=== PATIENT | female | born 1950 | race Two or more races ===

== ENCOUNTER 2016-10-02 22:33 | Inpatient (IN) | payer MEDICARE, BC ==
[~2016-10-02] VITALS: Ht 162.6 cm; Wt 72.3 kg
[2016-10-03 03:48] VITALS: TEMP 99.1
[2016-10-03] MEDS ORDERED: ONDANSETRON 4 MG INJ IV STA (04:04)
[2016-10-03] MEDS ORDERED: morphine 4 MG/ML VIAL IV STA (04:04)
--- NOTE | 2016-10-03 05:07 | RADRPT ---
PROCEDURE: CT ABDOMEN/PELVIS WITHOUT CONTRAST CLINICAL INDICATION: 66-year-old female with abdominal pain. TECHNIQUE: The study was performed utilizing a [employer] VCT 64-slice CT scanner. Direct axia l sections were obtained through the abdomen and pelvis without the use of intravenous contrast mate rial. Sagittal and coronal reformations were obtained. One or more of the following dose reduction t echniques were utilized: automated exposure control, adjustment of the mA and/or kV according to pat ient's size or use of iterative reconstruction technique. The images were reviewed on a PACS workst [employer]. CTD/vol = 15.5 mGy; Total Exam DLP = 873.9 mGy-cm. COMPARISON: CT abdomen/pelvis September 14, 2013. FINDINGS: Proximal coronary artery calcifications are present. There is a calcified ovoid granuloma again brandee ntified within the lateral aspect of the left lung base on axial image 3-33 measuring 8 x 7 mm. The re is minimal bibasilar subsegmental atelectasis and scarring. There is a small left pleural effusi on. The liver has a normal size and contour. There is diffuse decreased density throughout the niru er suggestive of fatty infiltration. There is an ovoid calcific density within the medial aspect of the right lobe of the liver on axial image 3-66 measuring approximately 5 x 4 mm. No intrahepatic n or extrahepatic biliary ductal dilatation is seen. The gallbladder is difficult to visualize and rosio ears to be decompressed without evidence for calcified stones. There is mild free fluid identified w ithin the upper abdomen. The pancreas is atrophic but without areas of abnormal attenuation. 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 The adrenal glands are unremarkable. The kidneys are without abnormal density. No hydr oureteronephrosis nor nephroureterolithiasis is evident. The urinary bladder contains urine. There i s evidence for bowel resection. There has been a upper abdominal midline incision with adherent loo ps of bowel and diastases of the rectus muscles. Mild retained stool is seen within the colon witho ut obstruction. The appendix is not visualized. The uterus is not visualized consistent with inter janice hysterectomy. Phleboliths are identified within the pelvis. There is no significant pelvic anders e fluid. The aortoiliac vessels are mildly calcified but without aneurysmal dilatation. Degenerative changes are present within the spine. IMPRESSION: 1. Left lung base 8 x 7 mm calcified granuloma. 2. Fatty infiltration of the liver. 3. Mild upper abdominal ascites. 4. Status post splenectomy. 5. Prior bowel resection without gross bowel obstruction. 6. Status post hysterectomy. 7. Vascular calcifications. 8. Degenerative changes within the spine. .Lennox Franz MD, MD Date Time Electronically viewed and signed by .Lennox Franz MD, MD on 10/03/2016 05:07 .Lata
[2016-10-03 05:31] LABS: ADD UMIC YES; URINE BILIRUBIN (Dip) NEGATIVE (NEGATIVE); URINE BLOOD (Dip) 1+ (NEGATIVE); URINE COLOR LT. YELLOW (YELLOW); URINE GLUCOSE (Dip) NEGATIVE (NEGATIVE); URINE KETONES (Dip) NEGATIVE (NEGATIVE); URINE LEUKOCYTE ESTERASE (Dip) 1+ (NEGATIVE); URINE NITRITE (Dip) NEGATIVE (NEGATIVE); URINE TOTAL PROTEIN (Dip) TRACE (NEGATIVE); URINE UROBILINOGEN (Dip) 0.2 E.U./dL (0.1-1.0)
--- NOTE | 2016-10-03 05:40 | ERA ---
ER Documentation Chief Complaint Date/Time DATE: 10/03/16 TIME: 05:40 Chief Complaint LEFT SIDE ABD PAIN AND SWELLING SINCE SAT HX OF OVARIAN AND BREAST CA HPI This is a 66 year for left-sided abdominal pain and swelling. Patient has history of ovarian and breast cancer. Denies any fevers or chills. Denies any nausea vomiting. Denies any other current issues. ROS All systems reviewed and are negative except as per history of present illness. Allergies Allergies: Coded Allergies: No Known Allergy (Unverified , 09/14/13) PMhx/Soc History of Surgery: Yes (total hysterectomy, splenectomy,left side mastectomy) Anesthesia Reaction: No Hx Neurological Disorder: No Hx Respiratory Disorders: No Hx Cardiac Disorders: No Hx Psychiatric Problems: Yes (anxiety) Hx Miscellaneous Medical Probl: Yes (breast CA,ovarian CA) Hx Alcohol Use: Yes (rarely) Hx Substance Use: No Hx Tobacco Use: Yes (socially, quit) Smoking Status: Former smoker Physical Exam Vitals Vital Signs Date Time Temp Pulse Resp B/P Pulse Ox O2 Delivery O2 Flow Rate FiO2 10/03/16 03:48 99.1 97 18 120/60 94 Room Air 10/02/16 23:14 99.6 99 22 117/72 95 Physical Exam Const: [] Head: Atraumatic Eyes: Normal Conjunctiva ENT: Normal External Ears, Nose and Mouth. Neck: Full range of motion..~ No meningismus. Resp: Clear to auscultation bilaterally Cardio: Regular rate and rhythm, no murmurs Abd: Soft, non tender, non distended. Normal bowel sounds Skin: No petechiae or rashes Back: No midline or flank tenderness Ext: No cyanosis, or edema Neur: Awake and alert Psych: Normal Mood and Affect Results 24 hrs Laboratory Tests Test 10/03/16 04:36 Urine Color LT. YELLOW Urine Clarity CLEAR Urine pH 6.0 Urine Specific [place] 1.020 Urine Ketones NEGATIVE Urine Nitrite NEGATIVE Urine Bilirubin NEGATIVE Urine Urobilinogen 0.2 E.U./dL Urine Leukocyte Esterase 1+ Urine Microscopic RBC Pending Urine Microscopic WBC Pending Urine Hemoglobin 1+ Urine Glucose NEGATIVE% Urine Total Protein TRACE Current Medications Medications (Trade) Dose Ordered Sig/Coral Route PRN Reason Start Time Stop Time Status Last Admin Dose Admin Morphine Sulfate (morphine) 4 mg ONCE STAT IV 10/03/16 04:04 10/03/16 04:06 DC 10/03/16 04:54 Ondansetron HCl (Zofran Inj) 4 mg ONCE STAT IV 10/03/16 04:04 10/03/16 04:06 DC 10/03/16 04:54 Procedures/MDM Medical decision-making: Patient has evidence of ascites on exam. This will need to be evaluated. Patient will be admitted to the [facility] physician. Departure Diagnosis: Primary Impression: Abdominal pain Qualified Code: R10.84 - Generalized abdominal pain Condition: Stable BRADLEY RODRIGUEZ Oct 03, 2016 05:40
[2016-10-03 05:54] LABS: BACTERIA,URINE OCCASIONAL; SQUAMOUS EPITHELIAL CELL,UR FEW; URINE RBCS 0-2 /HPF (0)
[2016-10-03 05:59] LABS: ADD SCAN DIFF NO
[2016-10-03 06:11] LABS: BASOPHIL # 0.1 10^3/ul (0.0-0.1); BASOPHILS % 0.4 % (0.0-2.0); EOSINOPHILS # 0.1 10^3/ul (0.0-0.5); EOSINOPHILS % 0.6 % (0.0-7.0); HEMATOCRIT 32.5 % (37.0-47.0); HEMOGLOBIN 10.7 g/dl (12.0-16.0); LYMPHOCYTES # 3.7 10^3/ul (0.8-2.9); LYMPHOCYTES % 29.9 % (15.0-51.0); MEAN CORPUSCULAR HEMOGLOBIN 31.5 pg (29.0-33.0); MEAN CORPUSCULAR HGB CONC 32.9 g/dl (32.0-37.0); MEAN CORPUSCULAR VOLUME 95.6 fl (82.0-101.0); MEAN PLATELET VOLUME 10.3 fl (7.4-10.4); MONOCYTE # 1.5 10^3/ul (0.3-0.9); MONOCYTES % 11.8 % (0.0-11.0); NEUTROPHIL # 7.1 10^3/ul (1.6-7.5); NEUTROPHILS % 56.9 % (39.0-77.0); NUCLEATED RED BLOOD CELLS% 0.3 /100WBC (0.0-0.0); PLATELET COUNT 460 10^3/UL (140-415); RED CELL DISTRIBUTION WIDTH 14.1 % (11.5-14.5); WHITE BLOOD COUNT 12.5 10^3/ul (4.8-10.8)
[2016-10-03 06:15] LABS: ALBUMIN 3.9 g/dl (3.3-4.9); POTASSIUM 3.7 mmol/L (3.5-5.1)
[2016-10-03 06:17] LABS: BILIRUBIN,INDIRECT 0.5 mg/dl (0-1.1); BILIRUBIN,TOTAL 0.5 mg/dl (0.2-1.3); CREATININE 0.67 mg/dl (0.44-1.00)
[2016-10-03 06:18] LABS: ALBUMIN/GLOBULIN RATIO 0.97; TOTAL PROTEIN 7.9 g/dl (6.1-8.1)
[2016-10-03 06:32] LABS: INR 0.99; PROTIME 13.1 Sec (12.2-14.2)
[2016-10-03] MEDS ORDERED: FOLI-49 PO (06:51)
[2016-10-03] MEDS ORDERED: DOCU-144 PO (06:51)
[2016-10-03] MEDS ORDERED: LORA1TAB PO (06:51)
[2016-10-03] MEDS ORDERED: LACT20SO2 PO (06:52)
[2016-10-03] MEDS ORDERED: PROP40TA4 PO (06:53)
[2016-10-03] MEDS ORDERED: METO10TA96 PO (06:53)
[2016-10-03] MEDS ORDERED: GABA300C16 PO (06:54)
[2016-10-03] MEDS ORDERED: RIVA20TA PO (06:57)
[2016-10-03] MEDS ORDERED: LINA145C PO (06:57)
[2016-10-03] MEDS ORDERED: MEMA28CA PO (06:58)
[2016-10-03 08:43] VITALS: BP 105/51; RESP 18
[2016-10-03 09:00] VITALS: Ht 162.6 cm; Wt 72.3 kg
[2016-10-03] MEDS: ACETAMINOPHEN 325 MG TAB PO PRN (12:00)
[2016-10-03] MEDS: DEXTROSE 5%-0.45% NACL 1,000 ML IV SCH (12:30)
--- NOTE | 2016-10-03 13:14 | PN ---
Date/Time of Note Date/Time of Note DATE: 10/03/16 TIME: 13:07 Assessment/Plan VTE Prophylaxis VTE Prophylaxis Intervention: SCD's Lines/Catheters IV [facility] [place] Assessment/Plan Chief Complaint/Hosp Course A- known recurrent disease per CA-125 and PET/CT 09/28/16 P- Stabilize, prep and schedule [facility] complete consultation Problems: Subjective 24 Hr Interval Summary Free Text/Dictation S- 66y/o female well known to me with operable recurrent ovarian cancer for whom secondary cytoreduction was planned but she came to the ER due to N/V last night and increased pain. Patient and family called [facility] as nurses and ER did not despite requests by patient and family. O- Resp- clear CVS- NSR Abd LUQ and pelvic pain with some distension. Pelvis-minimal cul-de-sac nodularity Ext- minimal edema A- known recurrent disease per CA-125 and PET/CT 09/28/16 P- Stabilize, prep and schedule [facility] complete consultation Exam/Review of Systems Vital Signs Vitals Vital Signs Date Time Temp Pulse Resp B/P Pulse Ox O2 Delivery O2 Flow Rate FiO2 10/03/16 08:43 98.4 94 18 105/51 90 10/03/16 07:46 Nasal Cannula 2.0 Results Result Diagram: 10/03/16 0546 10/03/16 0546 Results 24 hrs Laboratory Tests Test 10/03/16 04:36 10/03/16 05:46 Urine Color LT. YELLOW Urine Clarity CLEAR Urine pH 6.0 Urine Specific [place] 1.020 Urine Ketones NEGATIVE Urine Nitrite NEGATIVE Urine Bilirubin NEGATIVE Urine Urobilinogen 0.2 E.U./dL Urine Leukocyte Esterase 1+ H Urine Microscopic RBC 0-2 Urine Microscopic WBC 2-5 Urine Squamous Epithelial Cells FEW Urine Bacteria OCCASIONAL Urine Hemoglobin 1+ H Urine Glucose NEGATIVE Urine Total Protein TRACE White Blood Count 12.5 H Red Blood Count 3.40 L Hemoglobin 10.7 L Hematocrit 32.5 L Mean Corpuscular Volume 95.6 Mean Corpuscular Hemoglobin 31.5 Mean Corpuscular Hemoglobin Concent 32.9 Red Cell Distribution Width 14.1 Platelet Count 460 H Mean Platelet Volume 10.3 Neutrophils % 56.9 Lymphocytes % 29.9 Monocytes % 11.8 H Eosinophils % 0.6 Basophils % 0.4 Nucleated Red Blood Cells % 0.3 H Neutrophils # 7.1 Lymphocytes # 3.7 H Monocytes # 1.5 H Eosinophils # 0.1 Basophils # 0.1 Nucleated Red Blood Cells # 0.0 Prothrombin Time 13.1 Prothrombin Time Ratio 1.0 INR International Normalized Ratio 0.99 Activated Partial Thromboplast Time 28.0 Sodium Level 137 Potassium Level 3.7 Chloride Level 100 Carbon Dioxide Level 26 Anion Gap 15 Blood Urea Nitrogen 14 Creatinine 0.67 Glucose Level 112 Calcium Level 9.0 Total Bilirubin 0.5 Direct Bilirubin 0.00 Indirect Bilirubin 0.5 Aspartate Amino Transf (AST/SGOT) 24 Alanine Aminotransferase (ALT/SGPT) 23 Alkaline Phosphatase 70 Total Protein 7.9 Albumin 3.9 Globulin 4.00 H Albumin/Globulin Ratio 0.97 Lipase 27 Medications Medications Current Medications Acetaminophen 650 mg 650 mg Q6H PRN PO PAIN AND OR ELEVATED TEMP; Start at 11:00 Dextrose/Sodium Chloride (D5-1/2ns) 1,000 ml @ 75 mls/hr [id number] IV ; Start 10/03/16 at 13:00 JAMES NÚÑEZ MD Oct 03, 2016 13:14
--- NOTE | 2016-10-03 13:24 | HP ---
DATE OF ADMISSION: 10/03/2016 CHIEF COMPLAINT: Left lower quadrant abdominal pain and nausea. HISTORY OF PRESENT ILLNESS: The patient is a 66-year-old female with a past medical history positiv e for breast cancer status post left mastectomy 18 years ago in [facility] and status post radiation. T he patient also had a history of ovarian cancer status post surgery with Dr. Zeng 3 years ago an d repeat surgery 2-1/2 years ago including oophorectomy and hysterectomy. Details are not available . According to the patient's daughter who was at the bedside, notes she also had some colon involve ment. The patient also status post chemotherapy, follows with and completed this chemothe rapy 5 months ago. However, patient stated that checked her CA125 which was elevated to 473. The p atient also had a recent PET scan. The patient denies having any diabetes, denies any heart problems, denies any history of stroke. Th e patient has a right chest Perm-A-Cath catheter. The patient stated that she developed left upper quadrant pain and tenderness on palpation, also accompanied with nausea and vomiting. The patient h ad a poor appetite and did not eat anything yesterday. The patient was presented with following sym ptoms to the emergency room. The patient was given Zofran and morphine and admitted for further molly luation and management to medical/surgical floor. PAST MEDICAL HISTORY/PAST SURGICAL HISTORY: Per HPI. The patient also had a recent history of deep venous thrombosis of the right lower extremity, status post taking Xarelto. The patient with metas tatic adenocarcinoma ovarian cancer. Patient also with history of hypertension, osteoarthritis, and anxiety. FAMILY HISTORY: Noncontributory. SOCIAL HISTORY: The patient lives at home with her family, patient denies any tobacco use, denies a ny alcohol use, denies any illicit drug use. Patient is a former smoker. REVIEW OF SYSTEMS: A 12-point review of systems is negative unless was mentioned in the HPI. PHYSICAL ASSESSMENT: GENERAL: Well-developed, well-nourished, obese female currently is awake, alert. HEENT: Head is atraumatic, normocephalic. Pupils equal, round, reactive to light and accommodation . Oral mucosa is pink and moist. NECK: Supple, no cervical lymphadenopathy, no thyromegaly. CHEST: Lungs clear bilaterally. There is no rhonchi, wheezes, rales noted. CARDIOVASCULAR: Normal S1, S2. No murmurs, gallops, clicks, rubs noted. GASTROINTESTINAL: Abdomen is protuberant, soft and nondistended. Patient relates left upper quadra nt tenderness on palpation. EXTREMITIES: No edema, clubbing, cyanosis. Pulses equal bilaterally 2+. SKIN: There is no rash, petechiae noted. NEUROLOGIC: Patient is awake, alert and oriented x4. No focal deficits noted. Motor strength 5/5 in all extremities. LABORATORY DATA: I cannot dictate laboratory data on admission and radiologic test results due to c omputers are currently down. No electrolyte abnormalities reported. ASSESSMENT AND PLAN: 1. Abdominal pain. I was going to obtain a CT scan of the abdomen and asked Dr. Allen to see chiara ent in gastroenterology consultation. Continue Zofran p.r.n. for nausea and morphine p.r.n. for tigre n. 2. 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 Zeng 3 years ago[address] ask Dr. Oliva to see patient in hematology/oncology consultation. 3. Hypertension. Continue to monitor patient's blood pressure. Hydralazine p.r.n. for systolic bl ood pressure above 170. 4. Anxiety. 5. Continue IV fluids. Keep patient n.p.o. Continue Lovenox for deep venous thrombosis prophylaxi s and Protonix for peptic ulcer disease prophylaxis. 6. Further recommendations based on clinical course. Plan of care discussed with Dr. Norton. Dictated By: AMEE JIMENEZ RESEARCH PROGRAM ASSISTANT for LOTTIE NORTON MD SR/NTS Conf#: [id number] DID#: [id number]
--- NOTE | 2016-10-03 16:49 | RADRPT ---
PROCEDURE: US bilateral lower extremity veins. CLINICAL INDICATION: Bilateral leg pain and swelling. TECHNIQUE: Multiple longitudinal and transverse images of the bilateral lower extremity veins were obtained with rocha scale and color Doppler imaging. The common femoral vein, femoral vein, and popl iteal vein were evaluated. 2D grayscale measurements with compression sonography, color Doppler, and pulsed Doppler with augmentation. COMPARISON: No prior studies are available for comparison. FINDINGS: The bilateral common femoral, femoral and popliteal veins are normally compressible throughout. Col or flow demonstrates normal filling of the vessels. Normal waveforms are visualized and there is no rmal response to augmentation. IMPRESSION: 1. No evidence of deep vein thrombosis involving either lower extremity. RPTAT: QQ .Dhiraj Dale MD, MD Date Time Electronically viewed and signed by .Dhiraj Dale MD, on 10/03/2016 16:49 .R/
[2016-10-03] MEDS ORDERED: HYDROmorphONE 1 MG/ML SYG IV PRN (19:00)
[2016-10-03] MEDS ORDERED: ONDANSETRON 4 MG INJ IV PRN (19:00)
[2016-10-03 20:00] VITALS: BP 116/56; RESP 20
[2016-10-03] MEDS: KETOROLAC 15 MG INJ IV PRN (21:08)
[2016-10-04] MEDS: DEXTROSE 5%-0.45% NACL 1,000 ML IV SCH ×2 (02:34→15:59)
[2016-10-04 05:42] LABS: ADD SCAN DIFF NO
[2016-10-04 05:46] LABS: BASOPHILS % 0.4 % (0.0-2.0); EOSINOPHILS # 0.1 10^3/ul (0.0-0.5); EOSINOPHILS % 1.2 % (0.0-7.0); HEMATOCRIT 32.2 % (37.0-47.0); HEMOGLOBIN 10.3 g/dl (12.0-16.0); LYMPHOCYTES # 2.7 10^3/ul (0.8-2.9); LYMPHOCYTES % 27.2 % (15.0-51.0); MEAN CORPUSCULAR HEMOGLOBIN 30.8 pg (29.0-33.0); MEAN CORPUSCULAR VOLUME 96.4 fl (82.0-101.0); MONOCYTE # 1.4 10^3/ul (0.3-0.9); MONOCYTES % 13.9 % (0.0-11.0); NEUTROPHIL # 5.7 10^3/ul (1.6-7.5); NEUTROPHILS % 56.9 % (39.0-77.0); NUCLEATED RED BLOOD CELLS% 0.2 /100WBC (0.0-0.0); PLATELET COUNT 502 10^3/UL (140-415); RED BLOOD COUNT 3.34 10^6/ul (4.20-5.40); RED CELL DISTRIBUTION WIDTH 13.9 % (11.5-14.5); WHITE BLOOD COUNT 9.9 10^3/ul (4.8-10.8)
[2016-10-04] MEDS ORDERED: PEG/ELECTROLYTES 4L BTL PO ONE (06:00)
[2016-10-04 06:24] LABS: POTASSIUM 3.4 mmol/L (3.5-5.1)
[2016-10-04 06:26] LABS: CREATININE 0.7 mg/dl (0.44-1.00)
[2016-10-04 06:27] LABS: CALCIUM 8.8 mg/dl (8.4-10.2)
[2016-10-04] MEDS: PANTOPRAZOLE 40 MG INJ IV SCH (06:38)
[2016-10-04 08:10] VITALS: BP 126/58; RESP 18
[2016-10-04] MEDS: ENOXAPARIN 30 MG/0.3 ML SYG SC SCH (08:42)
--- NOTE | 2016-10-04 13:46 | RADRPT ---
Echocardiogram Report Patient Name: DONTE CARDOZA Gender: Female Date: 1950 Study Date: 03-Oct-2016 [employer] Person: Nav Bajwa [facility] Location: [id number] Ref. Physician: AMEE JIMENEZ Quality: Good Procedures: Transthoracic echocardiogram with complete 2D, M-Mode, and doppler examination. Indications: Pre-op. 2D/M Mode Doppler Measurement Value Normal Ranges Measurement Value Normal Ranges LVIDd 2D 4.7 3.5 - 5.6 cm AV Peak Alfonzo 1.6 m/sec LVIDs 2D 2.8 2.1 - 4.1 cm AV Peak PG 10.1 mmHg LVPWd 2D 0.9 0.6 - 1.1 cm AI Peak PG 70.5 mmHg IVSd 2D 0.9 0.6 - 1.1 cm AI Peak Alfonzo 4.2 m/sec AoR Diam 2D 2.4 2.0 - 3.7 cm AI PHT 365.9 msec EDV 2D 102.3 cm3 MV E Peak Alfonzo 0.6 m/sec ESV 2D 21.0 cm3 MV A Peak Alfon[place] 0.9 m/sec LA Dimen 2D 3.4 2.3 - 4.0 cm MV E/A 0.7 MV Decel Time 110 msec MV Decel [place] 6 MV E/A 0.7 TR Peak Alfonzo 2.1 m/sec TR Peak PG 17.6 mmHg RVSP 26.0 mmHg Findings Left Ventricle: Lower limits of normal systolic function. Normal left ventricular cavity size. Normal left ventricular wall thickness. Ejection fraction is visually estimated at 50 %. Tissue Doppler/Mitral Doppler indices are consistent with impaired relaxation (Stage I diastolic dysfunction). Right Ventricle: Normal right ventricular size. Normal right ventricular systolic function. Left Atrium: The left atrium is normal in size. Right Atrium: The right atrium is normal in size. Mitral Valve: Normal appearance of the mitral valve. Mild mitral annular calcification. Trace mitral regurgitation. Aortic Valve: No hemodynamically significant aortic stenosis by doppler. Aortic cusps appear mildly calcified. Trace aortic valve regurgitation. Tricuspid Valve: Normal appearance of the tricuspid valve. Estimated peak PA systolic pressure 26 mmHg. There is trace tricuspid regurgitation. Pulmonic Valve: Normal pulmonic valve appearance. Pericardium: Normal pericardium with no significant pericardial effusion. Aorta: Normal aortic root. IVC: The IVC is not well visualized. Conclusions 1.Lower limits of normal systolic function. Normal left ventricular cavity size. Normal left ventricular wall thickness. Ejection fraction is visually estimated at 50 %. Tissue Doppler/Mitral Doppler indices are consistent with impaired relaxation (Stage I diastolic dysfunction). 2.Normal right ventricular size. Normal right ventricular systolic function. 3.The left atrium is normal in size. 4.The right atrium is normal in size. 5.No significant valvular stenosis or regurgitation seen. 6.Normal pericardium with no significant pericardial effusion. Electronically Signed By: Russ Lazcano 04-Oct-2016 13:45:22 -0700 Patient Name: DONTE CARDOZA Study Date: 03-Oct-2016 [id number]
--- NOTE | 2016-10-04 17:18 | PN ---
Date/Time of Note Date/Time of Note DATE: 10/04/16 TIME: 17:15 Assessment/Plan VTE Prophylaxis VTE Prophylaxis Intervention: SCD's Lines/Catheters IV Catheter Type (from Nrs): Peripheral IV Assessment/Plan Chief Complaint/Hosp Course ASSESSMENT AND PLAN: - Recurrent ovarian cancer, plan for cytoreduction tomorrow by Dr. Zeng - Abdominal pain secondary to #1 . continue Zofran p.r.n. for nausea and morphine p.r.n. for pain. - Hypertension. Continue to monitor patient's blood pressure. Hydralazine p.r.n. for systolic blood pressure above 170. - Anxiety. Continue Lovenox for deep venous thrombosis prophylaxis and Protonix for peptic ulcer disease prophylaxis. Further recommendations based on clinical course. Plan of care discussed with Dr. Matthews. Problems: Subjective 24 Hr Interval Summary Free Text/Dictation Patient's is getting bowel prep for surgery tomorrow, pain is well controlled, patient denies any nausea vomiting. Exam/Review of Systems Vital Signs Vitals Vital Signs Date Time Temp Pulse Resp B/P Pulse Ox O2 Delivery O2 Flow Rate FiO2 10/04/16 08:10 98.1 103 18 126/58 93 10/03/16 07:46 Nasal Cannula 2.0 Intake and Output 10/03/16 10/03/16 10/04/16 15:00 23:00 07:00 Intake Total 375 ml 1265 ml Balance 375 ml 1265 ml Exam PHYSICAL ASSESSMENT: GENERAL: Well-developed, well-nourished, obese female currently is awake, alert. HEENT: Head is atraumatic, normocephalic. Pupils equal, round, reactive to light and accommodation. Oral mucosa is pink and moist. NECK: Supple, no cervical lymphadenopathy, no thyromegaly. CHEST: Lungs clear bilaterally. There is no rhonchi, wheezes, rales noted. CARDIOVASCULAR: Normal S1, S2. No murmurs, gallops, clicks, rubs noted. GASTROINTESTINAL: Abdomen is protuberant, soft and nondistended. Patient relates left upper quadrant tenderness on palpation. EXTREMITIES: No edema, clubbing, cyanosis. Pulses equal bilaterally 2+. SKIN: There is no rash, petechiae noted. NEUROLOGIC: Patient is awake, alert and oriented x4. No focal deficits noted. Motor strength 5/5 in all extremities. Results Result Diagram: 10/04/16 0513 10/04/16 0513 Results 24 hrs Laboratory Tests Test 10/04/16 05:13 White Blood Count 9.9 # Red Blood Count 3.34 L Hemoglobin 10.3 L Hematocrit 32.2 L Mean Corpuscular Volume 96.4 Mean Corpuscular Hemoglobin 30.8 Mean Corpuscular Hemoglobin Concent 32.0 Red Cell Distribution Width 13.9 Platelet Count 502 H Mean Platelet Volume 10.0 Neutrophils % 56.9 Lymphocytes % 27.2 Monocytes % 13.9 H Eosinophils % 1.2 Basophils % 0.4 Nucleated Red Blood Cells % 0.2 H Neutrophils # 5.7 Lymphocytes # 2.7 Monocytes # 1.4 H Eosinophils # 0.1 Basophils # 0.0 Nucleated Red Blood Cells # 0.0 Sodium Level 139 Potassium Level 3.4 L Chloride Level 98 Carbon Dioxide Level 29 Anion Gap 15 Blood Urea Nitrogen 11 Creatinine 0.70 Glucose Level 127 Calcium Level 8.8 Medications Medications Current Medications Acetaminophen 650 mg 650 mg Q6H PRN PO PAIN AND OR ELEVATED TEMP Last administered on 10/03/16 12:00; Admin Dose 650 MG; Start 10/03/16 at 11:00 Dextrose/Sodium Chloride (D5-1/2ns) 1,000 ml @ 75 mls/hr [id number] IV Last administered on 10/04/16 15:59; Admin Dose 75 MLS/HR; Start 10/03/16 at 13:00 Enoxaparin Sodium (Lovenox) 30 mg DAILY SC Last administered on 10/04/16 08:42 ; Admin Dose 30 MG; Start 10/04/16 at 09:00 Pantoprazole (Protonix Iv) 40 mg DAILY@06 IV Last administered on 10/04/16 06: 38; Admin Dose 40 MG; Start 10/04/16 at 06:00 Ketorolac Tromethamine (Toradol) 15 mg Q6H PRN IV PAIN Last administered on 10/03 21:08; Admin Dose 15 MG; Start 10/03/16 at 19:00; Stop 10/06/16 at 18:59 Hydromorphone HCl (Dilaudid) 0.5 mg Q4H PRN IV PAIN; Start 10/03/16 at 19:00 Ondansetron HCl (Zofran Inj) 4 mg Q4H PRN IV NAUSEA AND/OR VOMITING; Start 10/03 at 19:00 AMEE JIMENEZ Oct 04, 2016 17:18
[2016-10-04 19:00] VITALS: BP 133/63; RESP 20
[2016-10-04] MEDS: KETOROLAC 15 MG INJ IV PRN (22:08)
[2016-10-04] MEDS ORDERED: POTASSIUM CHLORIDE (SR) 20 MEQ TAB PO ONE (23:10)
[2016-10-05] VITALS (23 sets, daily range): BP systolic 91–146; BP diastolic 50–77; PULSE 95–116; RESP 12–22
[2016-10-05 01:59] LABS: ADD SCAN DIFF NO
[2016-10-05 02:16] LABS: POTASSIUM 3.9 mmol/L (3.5-5.1)
[2016-10-05 02:17] LABS: INR 1.07; PROTIME 13.9 Sec (12.2-14.2); PT RATIO 1.1
[2016-10-05 02:18] LABS: ABNORMAL IP MESSAGE 1; BASOPHIL # 0.1 10^3/ul (0.0-0.1); BASOPHILS % 0.4 % (0.0-2.0); CREATININE 0.7 mg/dl (0.44-1.00); EOSINOPHILS # 0.1 10^3/ul (0.0-0.5); EOSINOPHILS % 0.8 % (0.0-7.0); HEMATOCRIT 30.3 % (37.0-47.0); HEMOGLOBIN 9.9 g/dl (12.0-16.0); LYMPHOCYTES # 3.4 10^3/ul (0.8-2.9); LYMPHOCYTES % 28.6 % (15.0-51.0); MEAN CORPUSCULAR HEMOGLOBIN 31.3 pg (29.0-33.0); MEAN CORPUSCULAR HGB CONC 32.7 g/dl (32.0-37.0); MEAN CORPUSCULAR VOLUME 95.9 fl (82.0-101.0); MEAN PLATELET VOLUME 10.6 fl (7.4-10.4); MONOCYTE # 1.6 10^3/ul (0.3-0.9); MONOCYTES % 13.2 % (0.0-11.0); NEUTROPHIL # 6.8 10^3/ul (1.6-7.5); NEUTROPHILS % 56.7 % (39.0-77.0); PARTIAL THROMBOPLASTIN TIME 24.2 Sec (25.0-35.0); PLATELET COUNT 461 10^3/UL (140-415); RED BLOOD COUNT 3.16 10^6/ul (4.20-5.40); RED CELL DISTRIBUTION WIDTH 13.7 % (11.5-14.5); WHITE BLOOD COUNT 11.9 10^3/ul (4.8-10.8)
[2016-10-05 02:19] LABS: CALCIUM 9.1 mg/dl (8.4-10.2)
[2016-10-05 02:22] LABS: THROMBIN TIME 13.9 SEC (13.8-19.1)
[2016-10-05] MEDS: DEXTROSE 5%-0.45% NACL 1,000 ML IV SCH ×2 (04:57→18:20)
[2016-10-05] MEDS: PANTOPRAZOLE 40 MG INJ IV SCH (06:09)
[2016-10-05] MEDS: ENOXAPARIN 30 MG/0.3 ML SYG SC SCH (09:00)
[2016-10-05] MEDS ORDERED: ROCURONIUM 50 MG INJ ONE ×2 (15:43→20:09)
[2016-10-05] MEDS ORDERED: LIDOCAINE 2% (SDV) 5 ML INJ ONE (15:43)
[2016-10-05] MEDS ORDERED: SUCCINYLCHOLINE CHLORIDE 100 MG/5 ML SYG IV ONE (15:43)
[2016-10-05] MEDS ORDERED: PROPOFOL 20 ML ONE (15:43)
[2016-10-05] MEDS ORDERED: MIDAZOLAM 1 MG/ML 2 ML INJ ONE (15:43)
--- NOTE | 2016-10-05 15:51 | HPN ---
Date/Time of Note Date/Time of Note DATE: 10/05/16 TIME: 15:50 Interval H&P Admission Note Pt. seen H&P reviewed: No system changes JAMES NÚÑEZ MD Oct 05, 2016 15:50
--- NOTE | 2016-10-05 16:20 | HPN ---
Date/Time of Note Date/Time of Note DATE: 10/05/16 TIME: 16:19 Interval H&P Admission Note Pt. seen H&P reviewed: No system changes ISAAK BRADY MD Oct 05, 2016 16:20
[2016-10-05] MEDS ORDERED: PHENYLephrine (100 MCG/ML) 5ML SYG ONE ×2 (16:48→20:56)
[2016-10-05] MEDS ORDERED: FAMOTIDINE 20 MG INJ ONE (17:12)
[2016-10-05] MEDS ORDERED: ONDANSETRON 4 MG INJ ONE (17:12)
[2016-10-05] MEDS ORDERED: DEXAMETHASONE 4 MG/ML 1 ML INJ ONE (17:12)
[2016-10-05] MEDS ORDERED: EPHEDrine SULFATE 50 MG/5 ML SYG ONE (17:37)
[2016-10-05] MEDS ORDERED: CEFAZOLIN 1 GM INJ ONE (17:42)
[2016-10-05] MEDS ORDERED: metroNIDAZOLE 500 MG/NS (PMX) 100 ML IVPB ONE (17:42)
--- NOTE | 2016-10-05 17:54 | PN ---
DATE: 10/05/2016 SUBJECTIVE: Followup on recurrent ovarian cancer. Patient will proceed for surgery today. Denies any chest pain or shortness of breath. No reported fever or chills, breathing comfortably. Patient did not have any vomiting, no change in abdominal pain. The patient's vital signs have remained st able in the last 24 hours. PHYSICAL EXAMINATION: GENERAL: The patient is conscious, awake, alert. VITAL SIGNS: This morning temperature 98.4, pulse 96, respirations 16, blood pressure 124/73, O2 sa turation 96 per cent on room air. HEENT: No eye discharge or redness. Oropharynx clear. NECK: No mass, no JVD. CHEST: Fairly clear. No use of accessory muscles. CARDIOVASCULAR: S1, S2 normal. No murmur. ABDOMEN: Soft. Mild distention. EXTREMITIES: No leg edema. Pedal pulses palpable. SKIN: Without acute rash. NEUROLOGIC: The patient is awake, alert with no gross focal deficit. LABORATORY DATA: Done this morning, WBC 11.9, hemoglobin 9.9, platelets 461. Sodium 137, potassium 3.9, BUN 6, creatinine 0.7, glucose 126, calcium 9.1. ASSESSMENT AND PLAN: 1. Recurrent ovarian cancer status post chemo. Patient will be taken to OR for second cytoreductio n. I will continue to follow her postoperatively. 2. History of hypertension. Currently blood pressure within acceptable range. Continue hydralazin e on p.r.n. basis. Dictated By: LOTTIE BERNARD/GRECIA Conf#: [id number] DID#: [id number]
[2016-10-05] MEDS ORDERED: METHYLENE BLUE 1% 10 ML INJ ONE (19:09)
[2016-10-05] MEDS ORDERED: NEOSTIGMINE 3 MG/3 ML SYRINGE ONE ×2 (20:25→20:36)
[2016-10-05] MEDS ORDERED: GLYCOPYRROLATE 0.4 MG INJ ONE (20:25)
[2016-10-05] MEDS ORDERED: PROCHLORPERAZINE 10 MG INJ IV PRN (20:30)
[2016-10-05] MEDS ORDERED: DIPHENHYDRAMINE 50 MG INJ IV PRN (20:30)
[2016-10-05] MEDS ORDERED: FENTAnyl 50 MCG/ML VIAL IV PRN (20:30)
[2016-10-05] MEDS ORDERED: MEPERIDINE 25 MG INJ IV PRN (20:30)
[2016-10-05] MEDS ORDERED: ONDANSETRON 4 MG INJ IV PRN (20:30)
[2016-10-05] MEDS ORDERED: HYDROmorphONE 2 MG/ML SYG ONE (20:33)
[2016-10-05] MEDS: HYDROmorphONE (0.2 MG/ML) 10ML SYG IV PRN ×5 (21:22→22:07)
[2016-10-05] MEDS: KETOROLAC 15 MG INJ IV PRN (21:23)
[2016-10-05] MEDS: D5-LR + KCL 20 MEQ 1,000 ML IV SCH (21:41)
[2016-10-05 21:45] LABS: ADD SCAN DIFF NO
[2016-10-05 21:47] LABS: BASOPHILS % 0.3 % (0.0-2.0); HEMATOCRIT 31.8 % (37.0-47.0); HEMOGLOBIN 10.4 g/dl (12.0-16.0); LYMPHOCYTES # 1.1 10^3/ul (0.8-2.9); LYMPHOCYTES % 9.8 % (15.0-51.0); MEAN CORPUSCULAR HEMOGLOBIN 31.6 pg (29.0-33.0); MEAN CORPUSCULAR HGB CONC 32.7 g/dl (32.0-37.0); MEAN CORPUSCULAR VOLUME 96.7 fl (82.0-101.0); MEAN PLATELET VOLUME 9.9 fl (7.4-10.4); NEUTROPHIL # 8.7 10^3/ul (1.6-7.5); NEUTROPHILS % 80.4 % (39.0-77.0); PLATELET COUNT 470 10^3/UL (140-415); RED BLOOD COUNT 3.29 10^6/ul (4.20-5.40); RED CELL DISTRIBUTION WIDTH 13.6 % (11.5-14.5); WHITE BLOOD COUNT 10.8 10^3/ul (4.8-10.8)
[2016-10-05 22:00] LABS: INR 1.05; PROTIME 13.7 Sec (12.2-14.2); PT RATIO 1.1
[2016-10-05 22:01] LABS: PARTIAL THROMBOPLASTIN TIME 22.1 Sec (25.0-35.0); POTASSIUM 3.8 mmol/L (3.5-5.1)
[2016-10-05 22:03] LABS: CREATININE 0.62 mg/dl (0.44-1.00)
[2016-10-05 22:04] LABS: CALCIUM 8.7 mg/dl (8.4-10.2)
[2016-10-05] MEDS: CEFAZOLIN 1 GM/50 ML (PMX) 50 ML IVPB SCH (23:11)
[2016-10-05] MEDS: Metronidazole 500 MG in NS 100 ML IVPB SCH (23:41)
[2016-10-06] VITALS (25 sets, daily range): BP systolic 98–141; BP diastolic 50–68; PULSE 96–112; RESP 6–25
[2016-10-06] MEDS: HYDROmorphONE 1 MG/ML SYG IV PRN ×9 (00:51→22:35)
[2016-10-06] MEDS ORDERED: ALBUMIN HUMAN 5% 250 ML IV PRN (03:00)
[2016-10-06] MEDS: ALBUMIN HUMAN 5% 250 ML INJ IV PRN ×2 (04:17→20:32)
[2016-10-06 05:28] LABS: ADD SCAN DIFF NO
[2016-10-06 05:32] LABS: ABNORMAL IP MESSAGE 1; BASOPHILS % 0.1 % (0.0-2.0); HEMATOCRIT 27.7 % (37.0-47.0); HEMOGLOBIN 8.8 g/dl (12.0-16.0); LYMPHOCYTES # 1.4 10^3/ul (0.8-2.9); LYMPHOCYTES % 9.2 % (15.0-51.0); MEAN CORPUSCULAR HEMOGLOBIN 31.2 pg (29.0-33.0); MEAN CORPUSCULAR HGB CONC 31.8 g/dl (32.0-37.0); MEAN CORPUSCULAR VOLUME 98.2 fl (82.0-101.0); MEAN PLATELET VOLUME 9.9 fl (7.4-10.4); MONOCYTE # 1.9 10^3/ul (0.3-0.9); MONOCYTES % 12.6 % (0.0-11.0); NEUTROPHIL # 11.7 10^3/ul (1.6-7.5); NEUTROPHILS % 77.8 % (39.0-77.0); PLATELET COUNT 414 10^3/UL (140-415); RED BLOOD COUNT 2.82 10^6/ul (4.20-5.40); RED CELL DISTRIBUTION WIDTH 13.8 % (11.5-14.5)
[2016-10-06] MEDS: CEFAZOLIN 1 GM/50 ML (PMX) 50 ML IVPB SCH ×3 (06:10→21:37)
[2016-10-06] MEDS: Metronidazole 500 MG in NS 100 ML IVPB SCH ×3 (06:10→21:37)
[2016-10-06] MEDS: PANTOPRAZOLE 40 MG INJ IV SCH (06:10)
[2016-10-06 07:15] LABS: ALBUMIN 3.3 g/dl (3.3-4.9); BILIRUBIN,INDIRECT 0.3 mg/dl (0-1.1); BILIRUBIN,TOTAL 0.3 mg/dl (0.2-1.3); CALCIUM 8.2 mg/dl (8.4-10.2); CREATININE 0.81 mg/dl (0.44-1.00); POTASSIUM 4.8 mmol/L (3.5-5.1); TOTAL PROTEIN 6.6 g/dl (6.1-8.1)
[2016-10-06] MEDS: D5-LR + KCL 20 MEQ 1,000 ML IV SCH ×3 (08:09→17:30)
[2016-10-06] MEDS: ENOXAPARIN 30 MG/0.3 ML SYG SC SCH (09:53)
--- NOTE | 2016-10-06 12:36 | PN ---
Date/Time of Note Date/Time of Note DATE: 10/06/16 TIME: 12:31 Assessment/Plan VTE Prophylaxis VTE Prophylaxis Intervention: SCD's Lines/Catheters IV Catheter Type (from Nrsg): PORT A CATH Urinary Cath still in place: Yes Reason Cath still needed: urinary retention Assessment/Plan Chief Complaint/Hosp Course ASSESSMENT AND PLAN: - Recurrent ovarian cancer, status post second cytoreduction by Dr. Zeng on 10/05. Continue Dilaudid for pain and Zofran as needed for nausea. Continue to follow-up surgical recommendations. - Abdominal pain secondary to #1 . - Hypertension. Continue to monitor patient's blood pressure. Hydralazine p.r.n. for systolic blood pressure above 170. - Anxiety. Continue Lovenox for deep venous thrombosis prophylaxis and Protonix for peptic ulcer disease prophylaxis. Further recommendations based on clinical course. Plan of care discussed with Dr. Matthews. Problems: Subjective 24 Hr Interval Summary Free Text/Dictation Patient is currently is awake alert, pain is well controlled, marginal urine output. Exam/Review of Systems Vital Signs Vitals Vital Signs Date Time Temp Pulse Resp B/P Pulse Ox O2 Delivery O2 Flow Rate FiO2 10/06/16 11:00 103 19 124/65 97 10/06/16 08:00 98.0 Nasal Cannula 10/06/16 07:30 5.0 10/06/16 03:26 40 Intake and Output 10/05/16 10/05/16 10/06/16 15:00 23:00 07:00 Intake Total 3850 ml 1150 ml Output Total 230 ml 415 ml Balance 3620 ml 735 ml Exam PHYSICAL ASSESSMENT: GENERAL: Well-developed, well-nourished, obese female currently is awake, alert. HEENT: Head is atraumatic, normocephalic. Pupils equal, round, reactive to light and accommodation. Oral mucosa is pink and moist. NECK: Supple, no cervical lymphadenopathy, no thyromegaly. CHEST: Lungs clear bilaterally. There is no rhonchi, wheezes, rales noted. CARDIOVASCULAR: Normal S1, S2. No murmurs, gallops, clicks, rubs noted. GASTROINTESTINAL: Abdomen is protuberant, soft and nondistended. Status post surgery, right lower quadrant FILIBERTO 2 EXTREMITIES: No edema, clubbing, cyanosis. Pulses equal bilaterally 2+. SKIN: There is no rash, petechiae noted. NEUROLOGIC: Patient is awake, alert and oriented x4. No focal deficits noted. Motor strength 5/5 in all extremities. Results Result Diagram: 10/06/16 0400 10/06/16 0400 Results 24 hrs Laboratory Tests Test 10/05/16 21:38 10/06/16 04:00 White Blood Count 10.8 15.0 #H Red Blood Count 3.29 L 2.82 L Hemoglobin 10.4 L 8.8 L Hematocrit 31.8 L 27.7 L Mean Corpuscular Volume 96.7 98.2 Mean Corpuscular Hemoglobin 31.6 31.2 Mean Corpuscular Hemoglobin Concent 32.7 31.8 L Red Cell Distribution Width 13.6 13.8 Platelet Count 470 H 414 Mean Platelet Volume 9.9 9.9 Neutrophils % 80.4 H 77.8 H Lymphocytes % 9.8 L 9.2 L Monocytes % 9.0 12.6 H Eosinophils % 0.0 0.0 Basophils % 0.3 0.1 Nucleated Red Blood Cells % 0.0 0.0 Neutrophils # 8.7 H 11.7 H Lymphocytes # 1.1 1.4 Monocytes # 1.0 H 1.9 H Eosinophils # 0.0 0.0 Basophils # 0.0 0.0 Nucleated Red Blood Cells # 0.0 0.0 Prothrombin Time 13.7 Prothrombin Time Ratio 1.1 INR International Normalized Ratio 1.05 Activated Partial Thromboplast Time 22.1 L Sodium Level 138 137 Potassium Level 3.8 4.8 Chloride Level 101 104 Carbon Dioxide Level 23 25 Anion Gap 18 H 13 Blood Urea Nitrogen 5 L 7 Creatinine 0.62 0.81 Glucose Level 218 235 H Calcium Level 8.7 8.2 L Total Bilirubin 0.3 Direct Bilirubin 0.00 Indirect Bilirubin 0.3 Aspartate Amino Transf (AST/SGOT) 104 H Alanine Aminotransferase (ALT/SGPT) 56 Alkaline Phosphatase 48 Total Protein 6.6 Albumin 3.3 Globulin 3.30 H Albumin/Globulin Ratio 1.00 Medications Medications Current Medications Acetaminophen (Tylenol Tab) 650 mg Q6H PRN PO PAIN AND OR ELEVATED TEMP Last administered on 10/03/16 12:00; Admin Dose 650 MG; Start 10/03/16 at 11:00 Enoxaparin Sodium (Lovenox) 30 mg DAILY SC Last administered on 10/06/16 09:53 ; Admin Dose 30 MG; Start 10/04/16 at 09:00 Pantoprazole (Protonix Iv) 40 mg DAILY@06 IV Last administered on 10/06/16 06: 10; Admin Dose 40 MG; Start 10/04/16 at 06:00 Ketorolac Tromethamine 15 mg 15 mg Q6H PRN IV PAIN Last administered on 21:23; Admin Dose 15 MG; Start 10/03/16 at 19:00; Stop 10/06/16 at 18:59 Potassium Cl/ Dextrose/Lact Ringer's 1,000 ml @ 150 mls/hr Q6H40M IV Last administered on 10/06/16 08:09; Admin Dose 150 MLS/HR; Start 10/05/16 at 21:30 Cefazolin Sodium 50 ml @ 100 mls/hr Q8 IVPB Last administered on 10/06/16 06: 10; Admin Dose 100 MLS/HR; Start 10/05/16 at 22:00; Stop 10/07/16 at 14:29 Metronidazole (Flagyl 500 Mg (Pmx)) 100 ml @ 100 mls/hr Q8 IVPB Last administered on 10/06/16 06:10; Admin Dose 100 MLS/HR; Start 10/05/16 at 22:00; Stop 10/07/16 at 14:59 Albumin Human 500 ml PRN PRN IV IF UOP < 30 CC/HR Last administered on 04:17; Admin Dose 500 ML; Start 10/05/16 at 21:30 Hydromorphone HCl (Dilaudid) 1 mg Q1H PRN IV PAIN Last administered on 11:05; Admin Dose 1 MG; Start 10/05/16 at 21:00 Ondansetron HCl (Zofran Inj) 4 mg Q6H PRN IV NAUSEA AND/OR VOMITING; Start 10/05 at 21:00 AMEE JIMENEZ Oct 06, 2016 12:36
[2016-10-06] MEDS: KETOROLAC 15 MG INJ IV PRN (14:42)
--- NOTE | 2016-10-06 15:23 | RADRPT ---
Vent Rate: 95 bpm RR Interval: 0 msec VT Interval: 162 msec QRS Duration: 76 msec QT Interval: 374 msec QTC Interval: 469 msec P-R-T [place]: 65 - 19 - 58 degrees Normal sinus rhythm Low voltage QRS Cannot rule out Anterior infarct , age undetermined Abnormal ECG Electronically Signed By: Darren Dolan [id number]
--- NOTE | 2016-10-06 22:19 | PN ---
Date/Time of Note Date/Time of Note DATE: 10/06/16 TIME: 22:16 Assessment/Plan VTE Prophylaxis VTE Prophylaxis Intervention: SCD's Lines/Catheters [facility] Peripheral IV Urinary Cath still in place: Yes Assessment/Plan Chief Complaint/Hosp Course A- known recurrent disease per CA-125 and PET/CT 09/28/16 P- Stabilize, prep and schedule SecCRS Sill complete consultation Problems: Subjective 24 Hr Interval Summary Free Text/Dictation S- Reasonably comfortable, no flatus as anticipated none yet O- Resp- clear CVS- NSR Abd Wound clean and NT Ext- minimal edema A- doing well P- Can sent to 4W if bed needed otherwise tomorrow Exam/Review of Systems Vital Signs Vitals Vital Signs Date Time Temp Pulse Resp B/P Pulse Ox O2 Delivery O2 Flow Rate FiO2 10/06/16 21:00 104 19 141/60 96 Nasal Cannula 3.0 10/06/16 20:00 98.5 10/06/16 03:26 40 Intake and Output 10/05/16 10/05/16 10/06/16 15:00 23:00 07:00 Intake Total 3850 ml 1150 ml Output Total 230 ml 415 ml Balance 3620 ml 735 ml Results Result Diagram: 10/06/16 0400 10/06/16 0400 Results 24 hrs Laboratory Tests Test 10/06/16 04:00 White Blood Count 15.0 #H Red Blood Count 2.82 L Hemoglobin 8.8 L Hematocrit 27.7 L Mean Corpuscular Volume 98.2 Mean Corpuscular Hemoglobin 31.2 Mean Corpuscular Hemoglobin Concent 31.8 L Red Cell Distribution Width 13.8 Platelet Count 414 Mean Platelet Volume 9.9 Neutrophils % 77.8 H Lymphocytes % 9.2 L Monocytes % 12.6 H Eosinophils % 0.0 Basophils % 0.1 Nucleated Red Blood Cells % 0.0 Neutrophils # 11.7 H Lymphocytes # 1.4 Monocytes # 1.9 H Eosinophils # 0.0 Basophils # 0.0 Nucleated Red Blood Cells # 0.0 Sodium Level 137 Potassium Level 4.8 Chloride Level 104 Carbon Dioxide Level 25 Anion Gap 13 Blood Urea Nitrogen 7 Creatinine 0.81 Glucose Level 235 H Calcium Level 8.2 L Total Bilirubin 0.3 Direct Bilirubin 0.00 Indirect Bilirubin 0.3 Aspartate Amino Transf (AST/SGOT) 104 H Alanine Aminotransferase (ALT/SGPT) 56 Alkaline Phosphatase 48 Total Protein 6.6 Albumin 3.3 Globulin 3.30 H Albumin/Globulin Ratio 1.00 Medications Medications Current Medications Acetaminophen (Tylenol Tab) 650 mg Q6H PRN PO PAIN AND OR ELEVATED TEMP Last administered on 10/03/16 12:00; Admin Dose 650 MG; Start 10/03/16 at 11:00 Enoxaparin Sodium (Lovenox) 30 mg DAILY SC Last administered on 10/06/16 09:53 ; Admin Dose 30 MG; Start 10/04/16 at 09:00 Pantoprazole 40 mg 40 mg DAILY@06 IV Last administered on 10/06/16 06:10; Admin Dose 40 MG; Start 10/04/16 at 06:00 Potassium Cl/ Dextrose/Lact Ringer's 1,000 ml @ 150 mls/hr Q6H40M IV Last administered on 10/06/16 17:24; Admin Dose 150 MLS/HR; Start 10/05/16 at 21:30 Cefazolin Sodium 50 ml @ 100 mls/hr Q8 IVPB Last administered on 10/06/16 21: 37; Admin Dose 100 MLS/HR; Start 10/05/16 at 22:00; Stop 10/07/16 at 14:29 Metronidazole (Flagyl 500 Mg (Pmx)) 100 ml @ 100 mls/hr Q8 IVPB Last administered on 10/06/16 21:37; Admin Dose 100 MLS/HR; Start 10/05/16 at 22:00; Stop 10/07/16 at 14:59 Albumin Human 500 ml PRN PRN IV IF UOP < 30 CC/HR Last administered on 20:32; Admin Dose 500 ML; Start 10/05/16 at 21:30 Hydromorphone HCl (Dilaudid) 1 mg Q1H PRN IV PAIN Last administered on 21:32; Admin Dose 1 MG; Start 10/05/16 at 21:00 Ondansetron HCl (Zofran Inj) 4 mg Q6H PRN IV NAUSEA AND/OR VOMITING; Start 10/05 at 21:00 JAMES NÚÑEZ MD Oct 06, 2016 22:18
[2016-10-07] MEDS: D5-LR + KCL 20 MEQ 1,000 ML IV SCH ×4 (00:26→17:45)
[2016-10-07] MEDS: HYDROmorphONE 1 MG/ML SYG IV PRN ×7 (00:26→21:40)
[2016-10-07] MEDS: ONDANSETRON 4 MG INJ IV PRN (03:38)
[2016-10-07] MEDS: PANTOPRAZOLE 40 MG INJ IV SCH (05:04)
[2016-10-07] MEDS: CEFAZOLIN 1 GM/50 ML (PMX) 50 ML IVPB SCH ×2 (05:04→15:06)
[2016-10-07] MEDS: Metronidazole 500 MG in NS 100 ML IVPB SCH ×2 (05:34→15:51)
[2016-10-07 07:00] VITALS: BP 100/50; RESP 18
[2016-10-07 10:24] LABS: ADD SCAN DIFF NO
[2016-10-07 10:32] LABS: ABNORMAL IP MESSAGE 1; BASOPHILS % 0.2 % (0.0-2.0); EOSINOPHILS # 0.2 10^3/ul (0.0-0.5); EOSINOPHILS % 1.5 % (0.0-7.0); HEMATOCRIT 25.5 % (37.0-47.0); HEMOGLOBIN 8.2 g/dl (12.0-16.0); LYMPHOCYTES # 2.2 10^3/ul (0.8-2.9); LYMPHOCYTES % 16.1 % (15.0-51.0); MEAN CORPUSCULAR HEMOGLOBIN 31.9 pg (29.0-33.0); MEAN CORPUSCULAR HGB CONC 32.2 g/dl (32.0-37.0); MEAN CORPUSCULAR VOLUME 99.2 fl (82.0-101.0); MEAN PLATELET VOLUME 10.1 fl (7.4-10.4); MONOCYTE # 1.6 10^3/ul (0.3-0.9); MONOCYTES % 11.9 % (0.0-11.0); NEUTROPHIL # 9.5 10^3/ul (1.6-7.5); NEUTROPHILS % 69.9 % (39.0-77.0); PLATELET COUNT 418 10^3/UL (140-415); RED BLOOD COUNT 2.57 10^6/ul (4.20-5.40); RED CELL DISTRIBUTION WIDTH 13.8 % (11.5-14.5); WHITE BLOOD COUNT 13.6 10^3/ul (4.8-10.8)
[2016-10-07 10:48] LABS: INR 1.19; PROTIME 15.2 Sec (12.2-14.2); PT RATIO 1.2
[2016-10-07 10:50] LABS: CREATININE 0.67 mg/dl (0.44-1.00)
[2016-10-07 10:51] LABS: CALCIUM 8.5 mg/dl (8.4-10.2)
--- NOTE | 2016-10-07 11:16 | PN ---
DATE: 10/07/2016 SUBJECTIVE: The patient was transferred out of ICU. Patient remains hemodynamically stable. NG tu be in place. No reported vomiting. No reported chest pain or shortness of breath. The patient rem ains awake, alert. The patient has not had any flatus or any bowel movement. Denies any weakness i n any extremity. No numbness in any extremity. PHYSICAL EXAMINATION: GENERAL: The patient is conscious, awake, alert, breathing comfortably. OBJECTIVE: VITAL SIGNS: T-maximum 99.6, current temperature 98 and pulse 111, respirations 18, blood pressure 100/50, O2 saturation 98% on 2 liters ____. HEENT: No eye discharge or redness. Oropharynx clear. NECK: No mass, no JVD. CHEST: Fairly clear. No use of accessory muscles. CARDIOVASCULAR: Regular rate and rhythm, mild sinus tachycardia. ABDOMEN: Soft, nondistended. Dressing intact. EXTREMITIES: No pedal edema. Pedal pulses palpable. SKIN: Without acute rash. NEUROLOGIC: The patient is awake, alert, follows simple commands, moves all extremities. LABORATORY DATA: Done this morning, WBC 13.6, hemoglobin 8.2, platelets 418. Sodium 137, potassium 4.8, BUN 7, creatinine 0.8, glucose was 235. IMPRESSION: 1. Recurrent ovarian cancer status post secondary cytoreduction surgery by Dr. Zeng. 2. Elevated blood sugar. Will obtain hemoglobin A1c and will start her on Accu-Cheks. The patient is getting D5 ringer lactate. Continue sequential compressive devices for deep vein thrombosis pro phylaxis. Continue Protonix for GI prophylaxis. The patient remains on IV Flagyl and cefazolin. P elissa of care discussed with the patient's daughter. Will continue to monitor her hemoglobin. No ind ication for transfusion at this time. Dictated By: LOTTIE BERNARD/GRECIA Conf#: [id number] DID#: [id number]
[2016-10-07] MEDS ORDERED: GLUCAGON 1 MG INJ IM PRN (11:30)
[2016-10-07] MEDS ORDERED: DEXTROSE 50% 50 ML SYRINGE IV PRN ×2 (11:30)
[2016-10-07] MEDS ORDERED: GLUCOSE GEL 15 GRAM TUBE BUCCAL PRN (11:30)
[2016-10-07] MEDS ORDERED: GLUCOSE GEL 15 GRAM TUBE PO PRN ×2 (11:30)
[2016-10-07] MEDS: INSULIN ASPART [NOVOLOG] 3 ML PEN SC SCH ×3 (12:30→21:00)
--- NOTE | 2016-10-07 19:10 | PN ---
Date/Time of Note Date/Time of Note DATE: 10/07/16 TIME: 19:07 Assessment/Plan VTE Prophylaxis VTE Prophylaxis Intervention: SCD's Lines/Catheters IV Catheter Type (from Nrsg): Peripheral IV Urinary Cath still in place: Yes Assessment/Plan Chief Complaint/Hosp Course A- known recurrent disease per CA-125 and PET/CT 09/28/16 P- Stabilize, prep and schedule SecCRS Sill complete consultation Problems: Assessment/Plan A- Doing well P- Mobilize more and maintain NPO Transfuse as O2 delivery essential or her compromised high risk tissue Subjective 24 Hr Interval Summary Free Text/Dictation S- Pain adequately controlled but - flatus. Mininally OOB. O- Resp- symmetric and no pain CVS- NSR Abd- Soft, minimal distension, NT,wound clean Ext- NT no edema A- Doing well P- Mobilize more and maintain NPO Transfuse as O2 delivery essential or her compromised high risk tissue Exam/Review of Systems Vital Signs Vitals Vital Signs Date Time Temp Pulse Resp B/P Pulse Ox O2 Delivery O2 Flow Rate FiO2 10/07/16 08:00 Nasal Cannula 3.0 10/07/16 07:00 98.0 111 18 100/50 96 10/06/16 22:31 31 Intake and Output 10/06/16 10/06/16 10/07/16 15:00 23:00 07:00 Intake Total 750 ml 1150 ml Output Total 305 ml 414 ml 0 ml Balance -305 ml 336 ml 1150 ml Results Result Diagram: 10/07/16 0940 10/07/16 0940 Results 24 hrs Laboratory Tests Test 10/07/16 09:40 10/07/16 13:53 10/07/16 18:28 White Blood Count 13.6 H Red Blood Count 2.57 L Hemoglobin 8.2 L Hematocrit 25.5 L Mean Corpuscular Volume 99.2 Mean Corpuscular Hemoglobin 31.9 Mean Corpuscular Hemoglobin Concent 32.2 Red Cell Distribution Width 13.8 Platelet Count 418 H Mean Platelet Volume 10.1 Neutrophils % 69.9 Lymphocytes % 16.1 Monocytes % 11.9 H Eosinophils % 1.5 Basophils % 0.2 Nucleated Red Blood Cells % 0.0 Neutrophils # 9.5 H Lymphocytes # 2.2 Monocytes # 1.6 H Eosinophils # 0.2 Basophils # 0.0 Nucleated Red Blood Cells # 0.0 Prothrombin Time 15.2 H Prothrombin Time Ratio 1.2 INR International Normalized Ratio 1.19 Sodium Level 137 Potassium Level 4.0 Chloride Level 99 Carbon Dioxide Level 27 Anion Gap 15 Blood Urea Nitrogen 4 L Creatinine 0.67 Glucose Level 144 # Calcium Level 8.5 Bedside Glucose 144 136 Medications Medications Current Medications Acetaminophen (Tylenol Tab) 650 mg Q6H PRN PO PAIN AND OR ELEVATED TEMP Last administered on 10/03/16 12:00; Admin Dose 650 MG; Start 10/03/16 at 11:00 Pantoprazole 40 mg 40 mg DAILY@06 IV Last administered on 10/07/16 05:04; Admin Dose 40 MG; Start 10/04/16 at 06:00 Potassium Cl/ Dextrose/Lact Ringer's (D5-Lr + KCl 20 Meq) 1,000 ml @ 100 mls/ hr Q10H IV Last administered on 10/07/16 17:45; Admin Dose 100 MLS/HR; Start at 21:30 Albumin Human 500 ml PRN PRN IV IF UOP < 30 CC/HR Last administered on 20:32; Admin Dose 500 ML; Start 10/05/16 at 21:30 Hydromorphone HCl (Dilaudid) 1 mg Q1H PRN IV PAIN Last administered on 17:44; Admin Dose 1 MG; Start 10/05/16 at 21:00 Ondansetron HCl (Zofran Inj) 4 mg Q6H PRN IV NAUSEA AND/OR VOMITING Last administered on 10/07/16 03:38; Admin Dose 4 MG; Start 10/05/16 at 21:00 Diagnostic Test (Pha) (Accu-Chek) 1 ea 02 XX ; Start 10/08/16 at 02:00 Miscellaneous Information 1 ea NOTE XX ; Start 10/07/16 at 11:30 Glucose (Glutose) 15 gm Q15M PRN PO DECREASED GLUCOSE; Start 10/07/16 at 11:30 Glucose (Glutose) 22.5 gm Q15M PRN PO DECREASED GLUCOSE; Start 10/07/16 at 11:30 Dextrose (D50w Syringe) 25 ml Q15M PRN IV DECREASED GLUCOSE; Start 10/07/16 at 11:30 Dextrose (D50w Syringe) 50 ml Q15M PRN IV DECREASED GLUCOSE; Start 10/07/16 at 11:30 Glucagon (Glucagen) 1 mg Q15M PRN IM DECREASED GLUCOSE; Start 10/07/16 at 11:30 Glucose (Glutose) 15 gm Q15M PRN BUCCAL DECREASED GLUCOSE; Start 10/07/16 at 11: 30 JAMES NÚÑEZ MD Oct 07, 2016 19:10
[2016-10-07] MEDS ORDERED: ACETAMINOPHEN 650 MG SUPP PR ONE (20:30)
[2016-10-07] MEDS ORDERED: DIPHENHYDRAMINE 50 MG INJ IV ONE (20:30)
[2016-10-07] MEDS ORDERED: FUROSEMIDE 20 MG INJ IV ONE (20:30)
--- NOTE | 2016-10-07 22:42 | OPR ---
Date/Time of Note Date/Time of Note DATE: 10/07/16 TIME: 22:42 Operative Report Free Text/Dictation OPERATIVE REPORT [facility] Name: Sabrina Sanchez Medical Date: 10/07/16 Preoperative Diagnosis: 1- Recurrent ovarian cancer 2- Partial small bowel obstruction Postoperative Diagnosis: 1- Same with impending small bowel obstruction 2- Ureteral stricture Procedures: 1- Small bowel resection and anastamosis 2- Bilateral ureteral dissection with repositioning 3- Secondary cytoreduction 4- Ventral hernia repair Surgeon: Dr. Zeng Auto Porter: Dr. Eagle Anesthesia: General Indications for surgery: The patient is a 66- year old female with recurrent ovarian cancer after a significant enough disease-free interval and evidence of recurrence of disease on the basis of elevated markers, radiographic findings, and some symptoms for whom a secondary cytoreduction was undertaken after addressing all options with risks and benefits. Findings and Summary After opening and exploration we noted absence of ascites initially, but removed 500cc ascites loculated in the LUQ during the enterolysis and noted upper Name: Sabrina Sanchez Medical abdominal disease involving the left perigastric area and throughout the small bowel and mesentery, with a segment of small bowel requiring a small bowel resection and anastamosis and ureteral dissection in the process. The left pelvic disease was adjacent to the sidewall and sigmoid colon also requiring a ureteral dissection with the metastatic disease removed. At the completion of the procedure the patient was rendered visibly free of disease although the distribution would suggest the possibility of sub-millimeter residual disease. Procedure: After being prepped and draped in the usual manner a midline skin incision was made of appropriate length. The electrocautery was then used to dissect thru the adipose tissue to the level of the fascia. The fascia was elevated and entered with a scalpel and traction/counter-traction, and upon entering the peritoneal cavity no ascetic fluid was observed and the opening was extended with the scalpel. At this time adhesions of intestine to the anterior abdominal wall were lysed with great care and any sero-muscular defects encountered were repaired with interrupted 3-0 Silk suture. Additional enterolysis was accomplished throughout the abdomen and in the process exploration was accomplished an as we searched the abdominal and pelvic contents we found that the left upper quadrant metastatic disease involved the mesentery adjacent to the transverse colon and residual gastro-colic ligament. The right upper quadrant was essentially free of any metastatic disease. During the process of enterolysis and exploration of the central abdomen revealed approximately 50 implants involving the mesentery, intestinal, and gutter regions with dimensions of 1 mm to 15 mm and in the process of mobilizing a segment of ileum from the cul-de-sac, a segment of small bowel was noted to be partly obstructed and an immediate small bowel obstruction with multisite metastatic disease requiring a resection and anastamosis. The pelvis was noted to have confluent metastatic disease on both sidewalls requiring a bilateral ureteral dissection with repositioning to mobile Name: Sabrina [facility] and facilitate resection and anastamosis of bowel on the right and removal of metastatic disease from the sigmoid colon on the left. The largest metastatic disease was 5-6 cm in dimension and involved the left lower anterior abdomen. We then placed a aortic Bellfower retractor. With additional enterolysis throughout the abdomen and as sero-muscular defects encountered were repaired with interrupted 3-0 Silk suture, the aforementioned collection or LUQ ascetic fluid was drained and metastatic disease adherent to the transverse colon and residual gastro-colic ligament were addressed with sharp dissection and the CUSA for the transverse colon as well as the argon gomes gemologist at low wattage and the minimal residual gastro-colic ligament was resected with a Ligasure. Subsequently, additional enterolysis was completed and because ileum was densely adherent to the sidewall on the right and cul-de-sac, the right retroperitoneum was then opened laterally with sharp dissection and the vasculature palpated. Subsequently a right angle and peanut was used to open and identify the vasculature after which the ureter was identified and hydroureter noted. Subsequently the right angle and peanut were used and a ureteral dissection with repositioning was completed and some mobilization accomplished digitally, permitting the small bowel densely adherent to the sidewall to be dissected and mobilized with sharp dissection and a peanut as the ureter was visualized. Any sero-muscular defects encountered were repaired with interrupted 3-0 Silk suture. Additionally, the ureter was further dissected and the ureterolysis was completed to the area of stricture due to scar tissue and perhaps metastatic disease with tissue sent to pathology and adjacent tissue ablated with the argon beam gemologist at low wattage. Thus, with the ureter dissected and mobilized the ileum was dissected and mobilized from the sidewall and cul-de-sac with multiple sites of metastatic disease and in the process the kinked segment of bowel with metastatic disease and the impending small bowel obstruction was appreciated. Hence the resection and anastamosis was initiated. At this time, the segment of small intestine involved with multiple sites of Name: Sabrina [facility] disease and partly obstructed was addressed. The involved bowel was from the mesentery proximal and distal to the metastatic disease and obstruction with a tonsil clamp used without incident. The bowel was transected both proximally and distally with a 55 mm ANNEMARIE stapler using regular erica. The mesentery was divided using a Ligasure successively, cauterizing in duplicate. Thin and vascular areas of mesentery were also divided with the Ligasure as well. Any bleeding areas were addressed with 3-0 silk suture. The specimen was removed and anastomosis deferred until the remainder of the pelvic procedure competed to avoid manipulation. Subsequently any possibility residual cul-de-sac and sidewall metastatic disease was addressed with the CUSA and argon gomes gemologist. Subsequently the left retroperitoneum was opened laterally with sharp dissection and the vasculature palpated. Subsequently a right angle and peanut was used to open and identify the vasculature after which the ureter was identified and ureteral stricture with scar tissue noted. Subsequently the right angle and peanut were used and a ureteral dissection with repositioning was completed and some mobilization accomplished digitally, permitting the sigmoid colon densely adherent to the sidewall to be dissected and mobilized with sharp dissection and a peanut as the ureter was visualized. Any sero-muscular defects encountered were repaired with interrupted 3-0 Silk suture. Additionally, the ureter was further dissected and the ureterolysis was completed to the area of stricture due to scar tissue and metastatic disease on the sigmoid colon was sent to pathology and adjacent tissue ablated with the argon beam gemologist at low wattage and or aspirated with the CUSA as the ureter was visualized. Subsequently, on the right side with the ureter visualized and the vasculature visualized and palpated, a 5 cm mass adherent to the lower lateral/anterior abdominal wall was again palpated an enucleated by excising around with electrocautery and once the tissue plane was developed it was extended with the Ligasure continuously and the mass removed. The defect was reinforced with interrupted 0- Vicryl suture. At this Name: Sabrina Sanchez Medical time previously resected small bowel segments were reanastamosed. Small enterotomies were created in both segments of bowel and the ANNEMARIE stapler inserted. The bowel was than partly joined with the 55- mm ANNEMARIE stapler and the enterotomy closed with a 60 mm TA 60 stapler. The mesenteric defect was closed with multiple sutures of 3-0 silk. The anastamosis was reinforced with a suture if 3-0 silk as needed and appropriate. At this time, after all packing was removed, the abdomen thoroughly irrigated, hemostasis confirmed, and 2- Ki drain2 placed. The fascial edges were exposed by resecting the ventral hernia sac with electrocautery. The hernia sac was sent to pathology. A figure of eight suture was placed at the caudal apex of the incision with 1-Prolene and used for exposure by elevating with a Pean clamp. Interrupted 1-Prolene suture was used from the rostral apex and repeated to the supra-pubic area. Sepra film was used. The final suture was tied appropriately, after which the figure of eight was tied. The subcutaneous tissue was irrigated and the skin was closed in a deep layer with interrupted 3-0 Vicryl suture with skin clips. The sponge, needle, and instrument were correct two times. The estimated blood loss was 500 cc. The patient tolerated the procedure well and left the OR in good condition. It should be noted that all visible disease was resected, although the distribution would suggest the possibility of sub-millimeter residual disease. James Zeng M.D. JAMES ZENG MD Oct 07, 2016 22:42
[2016-10-08] MEDS: ACCU-CHEK XX SCH (01:08)
[2016-10-08 03:02] LABS: ADD SCAN DIFF NO
[2016-10-08 03:04] LABS: BASOPHILS % 0.1 % (0.0-2.0); EOSINOPHILS # 0.1 10^3/ul (0.0-0.5); EOSINOPHILS % 1.2 % (0.0-7.0); HEMATOCRIT 32.6 % (37.0-47.0); HEMOGLOBIN 10.8 g/dl (12.0-16.0); LYMPHOCYTES # 2.5 10^3/ul (0.8-2.9); LYMPHOCYTES % 23.3 % (15.0-51.0); MEAN CORPUSCULAR HEMOGLOBIN 31.7 pg (29.0-33.0); MEAN CORPUSCULAR HGB CONC 33.1 g/dl (32.0-37.0); MEAN CORPUSCULAR VOLUME 95.6 fl (82.0-101.0); MEAN PLATELET VOLUME 9.4 fl (7.4-10.4); MONOCYTE # 1.3 10^3/ul (0.3-0.9); MONOCYTES % 12.1 % (0.0-11.0); NEUTROPHIL # 6.7 10^3/ul (1.6-7.5); PLATELET COUNT 470 10^3/UL (140-415); RED BLOOD COUNT 3.41 10^6/ul (4.20-5.40); RED CELL DISTRIBUTION WIDTH 13.6 % (11.5-14.5); WHITE BLOOD COUNT 10.7 10^3/ul (4.8-10.8)
[2016-10-08 03:30] LABS: POTASSIUM 3.7 mmol/L (3.5-5.1)
[2016-10-08 03:32] LABS: CREATININE 0.77 mg/dl (0.44-1.00)
[2016-10-08 03:33] LABS: CALCIUM 9.5 mg/dl (8.4-10.2)
[2016-10-08] MEDS: PANTOPRAZOLE 40 MG INJ IV SCH (05:17)
[2016-10-08 05:42] VITALS: BP 134/69; PULSE 92; RESP 18
[2016-10-08] MEDS: INSULIN ASPART [NOVOLOG] 3 ML PEN SC SCH ×4 (07:50→20:52)
[2016-10-08 08:50] VITALS: BP 156/76; RESP 20
[2016-10-08] MEDS: HYDROmorphONE 1 MG/ML SYG IV PRN ×4 (10:03→23:29)
--- NOTE | 2016-10-08 13:45 | PN ---
Date/Time of Note Date/Time of Note DATE: 10/08/16 TIME: 13:40 Assessment/Plan VTE Prophylaxis VTE Prophylaxis Intervention: SCD's Lines/Catheters IV Catheter Type (from Nrs): PORT-A-CATH Urinary Cath still in place: Yes Assessment/Plan Assessment/Plan 1. Recurrent ovarian cancer status post secondary cytoreduction surgery by Dr. Zeng. - per ob surgery - NGT noted 2. Elevated blood sugar. - Hb AIC- 5.7 3. Continue sequential compressive devices for deep vein thrombosis prophylaxis. 4. Continue Protonix for GI prophylaxis Will continue to monitor her hemoglobin. No indication for transfusion at this time. Georges Matthews Subjective 24 Hr Interval Summary Eyes: no complaints Respiratory: cough, no complaints Gastrointestinal: pain Genitourinary: no complaints Musculoskeletal: no complaints Skin: no complaints Neurologic: no complaints Exam/Review of Systems Vital Signs Vitals Vital Signs Date Time Temp Pulse Resp B/P Pulse Ox O2 Delivery O2 Flow Rate FiO2 10/08/16 08:50 98.4 88 20 156/76 96 10/08/16 05:42 Nasal Cannula 10/08/16 01:37 3.0 10/06/16 22:31 31 Intake and Output 10/07/16 10/07/16 10/08/16 15:00 23:00 07:00 Intake Total 1150 ml 1200 ml Output Total 1875 ml 4660 ml Balance -725 ml -3460 ml Exam Constitutional: alert, oriented Head: atraumatic Eyes: EOMI, PERRL, nl sclera ENMT: nl external ears & nose Neck: non-tender Respiratory: clear to auscultation Cardiovascular: nl pulses Gastrointestinal: soft, tender (surgery site, DDI) Musculoskeletal: nl extremities to inspection Extremities: normal pulses Neurological: nl mental status, nl speech Skin: other Lymph: nontender Results Result Diagram: 10/08/16 0255 10/08/16 0255 Results 24 hrs Laboratory Tests Test 10/07/16 13:53 10/07/16 18:28 10/07/16 20:25 10/08/16 02:55 Bedside Glucose 144 136 128 White Blood Count 10.7 # Red Blood Count 3.41 #L Hemoglobin 10.8 #L Hematocrit 32.6 #L Mean Corpuscular Volume 95.6 Mean Corpuscular Hemoglobin 31.7 Mean Corpuscular Hemoglobin Concent 33.1 Red Cell Distribution Width 13.6 Platelet Count 470 H Mean Platelet Volume 9.4 Neutrophils % 63.0 Lymphocytes % 23.3 Monocytes % 12.1 H Eosinophils % 1.2 Basophils % 0.1 Nucleated Red Blood Cells % 0.0 Neutrophils # 6.7 Lymphocytes # 2.5 Monocytes # 1.3 H Eosinophils # 0.1 Basophils # 0.0 Nucleated Red Blood Cells # 0.0 Sodium Level 139 Potassium Level 3.7 Chloride Level 94 L Carbon Dioxide Level 33 H Anion Gap 16 Blood Urea Nitrogen 5 L Creatinine 0.77 Glucose Level 129 Hemoglobin A1c 5.7 Calcium Level 9.5 Test 10/08/16 08:28 10/08/16 11:23 Bedside Glucose 134 136 Medications Medications Current Medications Acetaminophen (Tylenol Tab) 650 mg Q6H PRN PO PAIN AND OR ELEVATED TEMP Last administered on 10/03/16 12:00; Admin Dose 650 MG; Start 10/03/16 at 11:00 Pantoprazole 40 mg 40 mg DAILY@06 IV Last administered on 10/08/16 05:17; Admin Dose 40 MG; Start 10/04/16 at 06:00 Potassium Cl/ Dextrose/Lact Ringer's (D5-Lr + KCl 20 Meq) 1,000 ml @ 100 mls/ hr Q10H IV Last administered on 10/07/16 17:45; Admin Dose 100 MLS/HR; Start at 21:30 Albumin Human 500 ml PRN PRN IV IF UOP < 30 CC/HR Last administered on 20:32; Admin Dose 500 ML; Start 10/05/16 at 21:30 Hydromorphone HCl (Dilaudid) 1 mg Q1H PRN IV PAIN Last administered on 12:42; Admin Dose 1 MG; Start 10/05/16 at 21:00 Ondansetron HCl (Zofran Inj) 4 mg Q6H PRN IV NAUSEA AND/OR VOMITING Last administered on 10/07/16 03:38; Admin Dose 4 MG; Start 10/05/16 at 21:00 Diagnostic Test (Pha) (Accu-Chek) 1 ea 02 XX ; Start 10/08/16 at 02:00 Miscellaneous Information 1 ea NOTE XX ; Start 10/07/16 at 11:30 Glucose (Glutose) 15 gm Q15M PRN PO DECREASED GLUCOSE; Start 10/07/16 at 11:30 Glucose (Glutose) 22.5 gm Q15M PRN PO DECREASED GLUCOSE; Start 10/07/16 at 11:30 Dextrose (D50w Syringe) 25 ml Q15M PRN IV DECREASED GLUCOSE; Start 10/07/16 at 11:30 Dextrose (D50w Syringe) 50 ml Q15M PRN IV DECREASED GLUCOSE; Start 10/07/16 at 11:30 Glucagon (Glucagen) 1 mg Q15M PRN IM DECREASED GLUCOSE; Start 10/07/16 at 11:30 Glucose (Glutose) 15 gm Q15M PRN BUCCAL DECREASED GLUCOSE; Start 10/07/16 at 11: 30 MEREDITH DENNIS Oct 08, 2016 13:45
--- NOTE | 2016-10-08 14:17 | PN ---
Date/Time of Note Date/Time of Note DATE: 10/08/16 TIME: 14:15 Assessment/Plan VTE Prophylaxis VTE Prophylaxis Intervention: SCD's Lines/Catheters IV Catheter Type (from Nrsg): PORT-A-CATH Urinary Cath still in place: Yes Assessment/Plan Chief Complaint/Hosp Course A- known recurrent disease per CA-125 and PET/CT 09/28/16, s/p seccrs Problems: Assessment/Plan A- Doing well P- Mobilize more and maintain NPO Subjective 24 Hr Interval Summary Free Text/Dictation S- Pain adequately controlled but - flatus. Mininally OOB but does sit. O- Resp- symmetric and no pain CVS- NSR Abd- Soft, minimal distension, NT,wound clean Ext- NT no edema A- Doing well P- Mobilize more and maintain NPO Exam/Review of Systems Vital Signs Vitals Vital Signs Date Time Temp Pulse Resp B/P Pulse Ox O2 Delivery O2 Flow Rate FiO2 10/08/16 08:50 98.4 88 20 156/76 96 10/08/16 05:42 Nasal Cannula 10/08/16 01:37 3.0 10/06/16 22:31 31 Intake and Output 10/07/16 10/07/16 10/08/16 15:00 23:00 07:00 Intake Total 1150 ml 1200 ml Output Total 1875 ml 4660 ml Balance -725 ml -3460 ml Results Result Diagram: 10/08/16 0255 10/08/16 0255 Results 24 hrs Laboratory Tests Test 10/07/16 18:28 10/07/16 20:25 10/08/16 02:55 10/08/16 08:28 Bedside Glucose 136 128 134 White Blood Count 10.7 # Red Blood Count 3.41 #L Hemoglobin 10.8 #L Hematocrit 32.6 #L Mean Corpuscular Volume 95.6 Mean Corpuscular Hemoglobin 31.7 Mean Corpuscular Hemoglobin Concent 33.1 Red Cell Distribution Width 13.6 Platelet Count 470 H Mean Platelet Volume 9.4 Neutrophils % 63.0 Lymphocytes % 23.3 Monocytes % 12.1 H Eosinophils % 1.2 Basophils % 0.1 Nucleated Red Blood Cells % 0.0 Neutrophils # 6.7 Lymphocytes # 2.5 Monocytes # 1.3 H Eosinophils # 0.1 Basophils # 0.0 Nucleated Red Blood Cells # 0.0 Sodium Level 139 Potassium Level 3.7 Chloride Level 94 L Carbon Dioxide Level 33 H Anion Gap 16 Blood Urea Nitrogen 5 L Creatinine 0.77 Glucose Level 129 Hemoglobin A1c 5.7 Calcium Level 9.5 Test 10/08/16 11:23 Bedside Glucose 136 Medications Medications Current Medications Acetaminophen (Tylenol Tab) 650 mg Q6H PRN PO PAIN AND OR ELEVATED TEMP Last administered on 10/03/16 12:00; Admin Dose 650 MG; Start 10/03/16 at 11:00 Pantoprazole 40 mg 40 mg DAILY@06 IV Last administered on 10/08/16 05:17; Admin Dose 40 MG; Start 10/04/16 at 06:00 Potassium Cl/ Dextrose/Lact Ringer's (D5-Lr + KCl 20 Meq) 1,000 ml @ 100 mls/ hr Q10H IV Last administered on 10/07/16 17:45; Admin Dose 100 MLS/HR; Start at 21:30 Albumin Human 500 ml PRN PRN IV IF UOP < 30 CC/HR Last administered on 20:32; Admin Dose 500 ML; Start 10/05/16 at 21:30 Hydromorphone HCl (Dilaudid) 1 mg Q1H PRN IV PAIN Last administered on 12:42; Admin Dose 1 MG; Start 10/05/16 at 21:00 Ondansetron HCl (Zofran Inj) 4 mg Q6H PRN IV NAUSEA AND/OR VOMITING Last administered on 10/07/16 03:38; Admin Dose 4 MG; Start 10/05/16 at 21:00 Diagnostic Test (Pha) (Accu-Chek) 1 ea 02 XX ; Start 10/08/16 at 02:00 Miscellaneous Information 1 ea NOTE XX ; Start 10/07/16 at 11:30 Glucose (Glutose) 15 gm Q15M PRN PO DECREASED GLUCOSE; Start 10/07/16 at 11:30 Glucose (Glutose) 22.5 gm Q15M PRN PO DECREASED GLUCOSE; Start 10/07/16 at 11:30 Dextrose (D50w Syringe) 25 ml Q15M PRN IV DECREASED GLUCOSE; Start 10/07/16 at 11:30 Dextrose (D50w Syringe) 50 ml Q15M PRN IV DECREASED GLUCOSE; Start 10/07/16 at 11:30 Glucagon (Glucagen) 1 mg Q15M PRN IM DECREASED GLUCOSE; Start 10/07/16 at 11:30 Glucose (Glutose) 15 gm Q15M PRN BUCCAL DECREASED GLUCOSE; Start 10/07/16 at 11: 30 JAMES NÚÑEZ MD Oct 08, 2016 14:16
[2016-10-08] MEDS: D5-LR + KCL 20 MEQ 1,000 ML IV SCH ×3 (14:51→23:29)
[2016-10-08 19:52] VITALS: BP 119/57; RESP 18
[2016-10-09] MEDS: ACCU-CHEK XX SCH (01:29)
[2016-10-09] MEDS: D5-LR + KCL 20 MEQ 1,000 ML IV SCH ×3 (04:00→20:57)
[2016-10-09 04:54] LABS: ADD SCAN DIFF NO
[2016-10-09 04:59] LABS: BASOPHIL # 0.1 10^3/ul (0.0-0.1); BASOPHILS % 0.5 % (0.0-2.0); EOSINOPHILS # 0.2 10^3/ul (0.0-0.5); EOSINOPHILS % 1.4 % (0.0-7.0); HEMATOCRIT 36.1 % (37.0-47.0); HEMOGLOBIN 11.8 g/dl (12.0-16.0); LYMPHOCYTES # 2.2 10^3/ul (0.8-2.9); MEAN CORPUSCULAR HEMOGLOBIN 31.1 pg (29.0-33.0); MEAN CORPUSCULAR HGB CONC 32.7 g/dl (32.0-37.0); MEAN PLATELET VOLUME 9.9 fl (7.4-10.4); MONOCYTE # 1.5 10^3/ul (0.3-0.9); MONOCYTES % 14.3 % (0.0-11.0); NEUTROPHIL # 6.5 10^3/ul (1.6-7.5); NEUTROPHILS % 62.2 % (39.0-77.0); NUCLEATED RED BLOOD CELLS% 0.2 /100WBC (0.0-0.0); PLATELET COUNT 442 10^3/UL (140-415); RED CELL DISTRIBUTION WIDTH 13.8 % (11.5-14.5); WHITE BLOOD COUNT 10.5 10^3/ul (4.8-10.8)
[2016-10-09 05:12] LABS: POTASSIUM 4.1 mmol/L (3.5-5.1)
[2016-10-09 05:15] LABS: CALCIUM 9.3 mg/dl (8.4-10.2); CREATININE 0.71 mg/dl (0.44-1.00)
[2016-10-09] MEDS: PANTOPRAZOLE 40 MG INJ IV SCH (05:35)
[2016-10-09 08:01] VITALS: BP 129/60; RESP 18
[2016-10-09] MEDS: HYDROmorphONE 1 MG/ML SYG IV PRN ×2 (09:34→16:55)
[2016-10-09] MEDS: INSULIN ASPART [NOVOLOG] 3 ML PEN SC SCH ×4 (09:34→21:00)
[2016-10-09] MEDS: ENOXAPARIN 40 MG/0.4 ML SYG SC SCH (13:58)
--- NOTE | 2016-10-09 15:06 | RADRPT ---
PROCEDURE: US DVT. CLINICAL INDICATION: Bilateral leg pain. TECHNIQUE: Multiple longitudinal and transverse images of the bilateral lower extremity veins were obtained with rocha scale and color Doppler imaging. 2D grayscale measurements with compression, co emiliano Doppler flow, and augmentation was performed. The calf veins were interrogated as well. COMPARISON: 10/03/2016. FINDINGS: The bilateral common femoral, superficial femoral and popliteal veins are normally compressible thro ughout. Color flow demonstrates normal filling of the vessel. Normal waveforms are visualized and there is normal response to augmentation. IMPRESSION: 1. No evidence of a deep vein thrombosis involving either lower extremity. RPTAT: [facility] Physician Andrew Date Time Electronically viewed and signed by Physician Andrew on 10/09/2016 15:06 /
[2016-10-09] MEDS: ACETAMINOPHEN 1000MG/100ML IV 100 ML IVPB PRN (16:52)
--- NOTE | 2016-10-09 17:31 | PN ---
Date/Time of Note Date/Time of Note DATE: 10/09/16 TIME: 17:28 Assessment/Plan Lines/Catheters IV C[facility]ter Type (from [facility]): PAC Urinary Cath still in place: Yes Assessment/Plan Assessment/Plan 1. Recurrent ovarian cancer status post secondary cytoreduction surgery by Dr. Zeng. - per ob surgery - NGT noted 2. Elevated blood sugar. - Hb AIC- 5.7 3. Continue sequential compressive devices for deep vein thrombosis prophylaxis. 4. Continue Protonix for GI prophylaxis Will continue to monitor her hemoglobin. No indication for transfusion at this time. Georges Matthews Subjective 24 Hr Interval Summary Free Text/Dictation NAD, up in chair, family at bed side- all qs answered. dw staff Constitutional: other Eyes: no complaints ENT: no complaints Respiratory: no complaints Genitourinary: no complaints Musculoskeletal: no complaints Skin: no complaints Neurologic: no complaints Endocrine: no complaints Lymphatic: no complaints Psychological: nl mood/affect Immunologic: no complaints Exam/Review of Systems Vital Signs Vitals Vital Signs Date Time Temp Pulse Resp B/P Pulse Ox O2 Delivery O2 Flow Rate FiO2 10/09/16 08:01 98.5 87 18 129/60 95 10/09/16 07:45 Nasal Cannula 2.0 10/06/16 22:31 31 Intake and Output 10/08/16 10/08/16 10/09/16 15:00 23:00 07:00 Intake Total 500 ml 950 ml Output Total 1400 ml 1000 ml Balance -900 ml -50 ml Exam Constitutional: alert, oriented, well developed Psych: nl mood/affect Head: atraumatic Eyes: EOMI, PERRL, nl sclera ENMT: nl external ears & nose Neck: non-tender Respiratory: clear to auscultation Cardiovascular: nl pulses Gastrointestinal: non-tender, soft Musculoskeletal: nl extremities to inspection Extremities: normal pulses Neurological: nl mental status, nl speech Lymph: nontender Results Result Diagram: 10/09/16 0429 10/09/169 Results 24 hrs Laboratory Tests Test 10/08/16 17:42 10/08/16 20:51 10/09/16 04:29 10/09/16 07:51 Bedside Glucose 106 162 146 White Blood Count 10.5 Red Blood Count 3.80 L Hemoglobin 11.8 L Hematocrit 36.1 L Mean Corpuscular Volume 95.0 Mean Corpuscular Hemoglobin 31.1 Mean Corpuscular Hemoglobin Concent 32.7 Red Cell Distribution Width 13.8 Platelet Count 442 H Mean Platelet Volume 9.9 Neutrophils % 62.2 Lymphocytes % 21.0 Monocytes % 14.3 H Eosinophils % 1.4 Basophils % 0.5 Nucleated Red Blood Cells % 0.2 H Neutrophils # 6.5 Lymphocytes # 2.2 Monocytes # 1.5 H Eosinophils # 0.2 Basophils # 0.1 Nucleated Red Blood Cells # 0.0 Sodium Level 136 Potassium Level 4.1 Chloride Level 95 L Carbon Dioxide Level 31 Anion Gap 14 Blood Urea Nitrogen 9 Creatinine 0.71 Glucose Level 162 Calcium Level 9.3 Test 10/09/16 11:56 10/09/16 16:24 Bedside Glucose 136 140 Medications Medications Current Medications Acetaminophen (Tylenol Tab) 650 mg Q6H PRN PO PAIN AND OR ELEVATED TEMP Last administered on 10/03/16 12:00; Admin Dose 650 MG; Start 10/03/16 at 11:00 Pantoprazole 40 mg 40 mg DAILY@06 IV Last administered on 10/09/16 05:35; Admin Dose 40 MG; Start 10/04/16 at 06:00 Potassium Cl/ Dextrose/Lact Ringer's (D5-Lr + KCl 20 Meq) 1,000 ml @ 100 mls/ hr Q10H IV Last administered on 10/09/16 09:31; Admin Dose 100 MLS/HR; Start 10/05/16 at 21:30 Albumin Human 500 ml PRN PRN IV IF UOP < 30 CC/HR Last administered on 20:32; Admin Dose 500 ML; Start 10/05/16 at 21:30 Hydromorphone HCl (Dilaudid) 1 mg Q1H PRN IV PAIN Last administered on 16:55; Admin Dose 1 MG; Start 10/05/16 at 21:00 Ondansetron HCl (Zofran Inj) 4 mg Q6H PRN IV NAUSEA AND/OR VOMITING Last administered on 10/07/16 03:38; Admin Dose 4 MG; Start 10/05/16 at 21:00 Diagnostic Test (Pha) (Accu-Chek) 1 ea 02 XX ; Start 10/08/16 at 02:00 Miscellaneous Information 1 ea NOTE XX ; Start 10/07/16 at 11:30 Glucose (Glutose) 15 gm Q15M PRN PO DECREASED GLUCOSE; Start 10/07/16 at 11:30 Glucose (Glutose) 22.5 gm Q15M PRN PO DECREASED GLUCOSE; Start 10/07/16 at 11:30 Dextrose (D50w Syringe) 25 ml Q15M PRN IV DECREASED GLUCOSE; Start 10/07/16 at 11:30 Dextrose (D50w Syringe) 50 ml Q15M PRN IV DECREASED GLUCOSE; Start 10/07/16 at 11:30 Glucagon (Glucagen) 1 mg Q15M PRN IM DECREASED GLUCOSE; Start 10/07/16 at 11:30 Glucose (Glutose) 15 gm Q15M PRN BUCCAL DECREASED GLUCOSE; Start 10/07/16 at 11: 30 Enoxaparin Sodium 40 mg 40 mg DAILY SC Last administered on 10/09/16 13:58; Admin Dose 40 MG; Start 10/09/16 at 13:30 Acetaminophen (Ofirmev 1000mg/ 100ml Iv) 100 ml @ 400 mls/hr Q6H PRN IVPB PAIN LEVEL 4-7 Last administered on 10/09/16 16:52; Admin Dose 400 MLS/HR; Start 10/09/16 at 15:00 MEREDITH DENNIS Oct 09, 2016 17:31
[2016-10-09 18:00] VITALS: PULSE 98
[2016-10-09 19:42] VITALS: BP 105/58; RESP 18
[2016-10-10] MEDS: ACCU-CHEK XX SCH (02:00)
[2016-10-10] MEDS: ACETAMINOPHEN 1000MG/100ML IV 100 ML IVPB PRN ×2 (02:51→13:34)
[2016-10-10 05:05] LABS: ADD SCAN DIFF NO
[2016-10-10 05:13] LABS: ABNORMAL IP MESSAGE 1; BASOPHILS % 0.3 % (0.0-2.0); EOSINOPHILS # 0.1 10^3/ul (0.0-0.5); EOSINOPHILS % 1.3 % (0.0-7.0); HEMATOCRIT 34.9 % (37.0-47.0); HEMOGLOBIN 11.5 g/dl (12.0-16.0); LYMPHOCYTES # 2.1 10^3/ul (0.8-2.9); LYMPHOCYTES % 20.7 % (15.0-51.0); MEAN CORPUSCULAR HEMOGLOBIN 30.7 pg (29.0-33.0); MEAN CORPUSCULAR VOLUME 93.3 fl (82.0-101.0); MONOCYTE # 1.5 10^3/ul (0.3-0.9); MONOCYTES % 14.9 % (0.0-11.0); NEUTROPHIL # 6.4 10^3/ul (1.6-7.5); NEUTROPHILS % 62.2 % (39.0-77.0); PLATELET COUNT 503 10^3/UL (140-415); RED BLOOD COUNT 3.74 10^6/ul (4.20-5.40); RED CELL DISTRIBUTION WIDTH 13.2 % (11.5-14.5); WHITE BLOOD COUNT 10.3 10^3/ul (4.8-10.8)
[2016-10-10] MEDS: PANTOPRAZOLE 40 MG INJ IV SCH (05:25)
[2016-10-10 05:51] LABS: POTASSIUM 3.8 mmol/L (3.5-5.1)
[2016-10-10 05:53] LABS: CREATININE 0.7 mg/dl (0.44-1.00)
[2016-10-10 05:54] LABS: CALCIUM 9.6 mg/dl (8.4-10.2)
[2016-10-10] MEDS: D5-LR + KCL 20 MEQ 1,000 ML IV SCH ×2 (06:15→17:24)
[2016-10-10 07:25] VITALS: BP 121/60; RESP 20
[2016-10-10] MEDS: INSULIN ASPART [NOVOLOG] 3 ML PEN SC SCH ×3 (07:50→17:24)
[2016-10-10] MEDS: ENOXAPARIN 40 MG/0.4 ML SYG SC SCH (08:36)
[2016-10-10] MEDS: HYDROmorphONE 1 MG/ML SYG IV PRN ×3 (10:27→18:09)
--- NOTE | 2016-10-10 19:27 | PN ---
Date/Time of Note Date/Time of Note DATE: 10/10/16 TIME: 19:25 Assessment/Plan VTE Prophylaxis VTE Prophylaxis Intervention: SCD's Lines/Catheters IV Catheter Type (from Nrsg): PORTACATH Urinary Cath still in place: Yes Assessment/Plan Chief Complaint/Hosp Course A- known recurrent disease per CA-125 and PET/CT 09/28/16, s/p seccrs Problems: Assessment/Plan mobilize and start TPN Subjective 24 Hr Interval Summary Free Text/Dictation S- Pain adequately controlled but still - flatus. Mininally OOB but does sit more and minimal ambulation. O- Resp- symmetric and no pain CVS- NSR Abd- Soft, minimal distension, NT,wound clean Ext- NT no edema A- Doing well P- Mobilize more and maintain NPO Exam/Review of Systems Vital Signs Vitals Vital Signs Date Time Temp Pulse Resp B/P Pulse Ox O2 Delivery O2 Flow Rate FiO2 10/10/16 07:25 98.3 86 20 121/60 95 10/09/16 23:50 2.0 10/09/16 07:45 Nasal Cannula 10/06/16 22:31 31 Intake and Output 10/09/16 10/09/16 10/10/16 15:00 23:00 07:00 Intake Total 1100 ml 1100 ml Output Total 2200 ml 1510 ml Balance -1100 ml -410 ml Results Result Diagram: 10/10/16 0435 10/10/16 0435 Results 24 hrs Laboratory Tests Test 10/09/16 21:02 10/10/16 04:35 10/10/16 08:31 10/10/16 12:37 Bedside Glucose 135 136 132 White Blood Count 10.3 Red Blood Count 3.74 L Hemoglobin 11.5 L Hematocrit 34.9 L Mean Corpuscular Volume 93.3 Mean Corpuscular Hemoglobin 30.7 Mean Corpuscular Hemoglobin Concent 33.0 Red Cell Distribution Width 13.2 Platelet Count 503 H Mean Platelet Volume 10.0 Neutrophils % 62.2 Lymphocytes % 20.7 Monocytes % 14.9 H Eosinophils % 1.3 Basophils % 0.3 Nucleated Red Blood Cells % 0.0 Neutrophils # 6.4 Lymphocytes # 2.1 Monocytes # 1.5 H Eosinophils # 0.1 Basophils # 0.0 Nucleated Red Blood Cells # 0.0 Sodium Level 138 Potassium Level 3.8 Chloride Level 98 Carbon Dioxide Level 28 Anion Gap 16 Blood Urea Nitrogen 8 Creatinine 0.70 Glucose Level 173 Calcium Level 9.6 Test 10/10/16 17:23 Bedside Glucose 116 Medications Medications Current Medications Acetaminophen (Tylenol Tab) 650 mg Q6H PRN PO PAIN AND OR ELEVATED TEMP Last administered on 10/03/16 12:00; Admin Dose 650 MG; Start 10/03/16 at 11:00 Pantoprazole 40 mg 40 mg DAILY@06 IV Last administered on 10/10/16 05:25; Admin Dose 40 MG; Start 10/04/16 at 06:00 Potassium Cl/ Dextrose/Lact Ringer's (D5-Lr + KCl 20 Meq) 1,000 ml @ 100 mls/ hr Q10H IV Last administered on 10/10/16 17:24; Admin Dose 100 MLS/HR; Start 10/05/16 at 21:30 Albumin Human 500 ml PRN PRN IV IF UOP < 30 CC/HR Last administered on 20:32; Admin Dose 500 ML; Start 10/05/16 at 21:30 Hydromorphone HCl (Dilaudid) 1 mg Q1H PRN IV PAIN Last administered on 18:09; Admin Dose 1 MG; Start 10/05/16 at 21:00 Ondansetron HCl (Zofran Inj) 4 mg Q6H PRN IV NAUSEA AND/OR VOMITING Last administered on 10/07/16 03:38; Admin Dose 4 MG; Start 10/05/16 at 21:00 Diagnostic Test (Pha) (Accu-Chek) 1 ea 02 XX ; Start 10/08/16 at 02:00 Miscellaneous Information 1 ea NOTE XX ; Start 10/07/16 at 11:30 Glucose (Glutose) 15 gm Q15M PRN PO DECREASED GLUCOSE; Start 10/07/16 at 11:30 Glucose (Glutose) 22.5 gm Q15M PRN PO DECREASED GLUCOSE; Start 10/07/16 at 11:30 Dextrose (D50w Syringe) 25 ml Q15M PRN IV DECREASED GLUCOSE; Start 10/07/16 at 11:30 Dextrose (D50w Syringe) 50 ml Q15M PRN IV DECREASED GLUCOSE; Start 10/07/16 at 11:30 Glucagon (Glucagen) 1 mg Q15M PRN IM DECREASED GLUCOSE; Start 10/07/16 at 11:30 Glucose (Glutose) 15 gm Q15M PRN BUCCAL DECREASED GLUCOSE; Start 10/07/16 at 11: 30 Enoxaparin Sodium 40 mg 40 mg DAILY SC Last administered on 10/10/16 08:36; Admin Dose 40 MG; Start 10/09/16 at 13:30 Acetaminophen (Ofirmev 1000mg/ 100ml Iv) 100 ml @ 400 mls/hr Q6H PRN IVPB PAIN LEVEL 4-7 Last administered on 10/10/16 13:34; Admin Dose 400 MLS/HR; Start 10/09/16 at 15:00 Insulin Aspart (Novolog Insulin Pen) NOVOLOG *MILD* ALGORI... Q6 SC ; Start 05/18 at 18:00 JAMES NÚÑEZ MD Oct 10, 2016 19:27
[2016-10-10 19:52] VITALS: BP 132/63; RESP 18
--- NOTE | 2016-10-10 20:19 | PN ---
Date/Time of Note Date/Time of Note DATE: 10/10/16 TIME: 20:18 Assessment/Plan Lines/Catheters IV Catheter Type (from Nrs): PORTACATH Urinary Cath still in place: Yes Assessment/Plan Assessment/Plan 1. Recurrent ovarian cancer status post secondary cytoreduction surgery by Dr. Zeng. - per ob surgery - NGT noted 2. Elevated blood sugar. - Hb AIC- 5.7 3. Bilateral leg pain- US negative for DVT 4. Right foot- heel.ankle pain. - XR [place]ONIA FEET - FU 3. Continue sequential compressive devices for deep vein thrombosis prophylaxis. 4. Continue Protonix for GI prophylaxis Will continue to monitor her hemoglobin. No indication for transfusion at this time. Georges Matthews Subjective 24 Hr Interval Summary Free Text/Dictation c/o rt foot /anle pain. daughter at bed side. paln of care dw daughter. dw staff. Eyes: no complaints ENT: no complaints Respiratory: no complaints Cardiovascular: no complaints Gastrointestinal: pain (surgical site) Genitourinary: no complaints Musculoskeletal: bone/joint pain Skin: no complaints Neurologic: no complaints Endocrine: no complaints Lymphatic: no complaints Psychological: no complaints Immunologic: no complaints Exam/Review of Systems Vital Signs Vitals Vital Signs Date Time Temp Pulse Resp B/P Pulse Ox O2 Delivery O2 Flow Rate FiO2 10/10/16 19:52 97.9 100 18 132/63 93 10/09/16 23:50 2.0 10/09/16 07:45 Nasal Cannula 10/06/16 22:31 31 Intake and Output 10/09/16 10/09/16 10/10/16 15:00 23:00 07:00 Intake Total 1100 ml 1100 ml Output Total 2200 ml 1510 ml Balance -1100 ml -410 ml Exam Constitutional: alert, well developed Head: atraumatic Eyes: EOMI ENMT: nl external ears & nose Neck: non-tender Respiratory: clear to auscultation Cardiovascular: nl pulses Gastrointestinal: other (ngt intact), soft, tender (at surgical inscion) Musculoskeletal: nl extremities to inspection Extremities: normal pulses Neurological: nl mental status, nl speech Skin: nl turgor Lymph: other Results Result Diagram: 10/10/16 0435 10/10/16 0435 Results 24 hrs Laboratory Tests Test 10/09/16 21:02 10/10/16 04:35 10/10/16 08:31 10/10/16 12:37 Bedside Glucose 135 136 132 White Blood Count 10.3 Red Blood Count 3.74 L Hemoglobin 11.5 L Hematocrit 34.9 L Mean Corpuscular Volume 93.3 Mean Corpuscular Hemoglobin 30.7 Mean Corpuscular Hemoglobin Concent 33.0 Red Cell Distribution Width 13.2 Platelet Count 503 H Mean Platelet Volume 10.0 Neutrophils % 62.2 Lymphocytes % 20.7 Monocytes % 14.9 H Eosinophils % 1.3 Basophils % 0.3 Nucleated Red Blood Cells % 0.0 Neutrophils # 6.4 Lymphocytes # 2.1 Monocytes # 1.5 H Eosinophils # 0.1 Basophils # 0.0 Nucleated Red Blood Cells # 0.0 Sodium Level 138 Potassium Level 3.8 Chloride Level 98 Carbon Dioxide Level 28 Anion Gap 16 Blood Urea Nitrogen 8 Creatinine 0.70 Glucose Level 173 Calcium Level 9.6 Test 10/10/16 17:23 Bedside Glucose 116 Medications Medications Current Medications Acetaminophen (Tylenol Tab) 650 mg Q6H PRN PO PAIN AND OR ELEVATED TEMP Last administered on 10/03/16 12:00; Admin Dose 650 MG; Start 10/03/16 at 11:00 Pantoprazole (Protonix Iv) 40 mg DAILY@06 IV Last administered on 10/10/16 05: 25; Admin Dose 40 MG; Start 10/04/16 at 06:00 Albumin Human 500 ml PRN PRN IV IF UOP < 30 CC/HR Last administered on 20:32; Admin Dose 500 ML; Start 10/05/16 at 21:30 Hydromorphone HCl (Dilaudid) 1 mg Q1H PRN IV PAIN Last administered on 18:09; Admin Dose 1 MG; Start 10/05/16 at 21:00 Ondansetron HCl (Zofran Inj) 4 mg Q6H PRN IV NAUSEA AND/OR VOMITING Last administered on 10/07/16 03:38; Admin Dose 4 MG; Start 10/05/16 at 21:00 Diagnostic Test (Pha) (Accu-Chek) 1 ea 02 XX ; Start 10/08/16 at 02:00 Miscellaneous Information 1 ea NOTE XX ; Start 10/07/16 at 11:30 Glucose (Glutose) 15 gm Q15M PRN PO DECREASED GLUCOSE; Start 10/07/16 at 11:30 Glucose (Glutose) 22.5 gm Q15M PRN PO DECREASED GLUCOSE; Start 10/07/16 at 11:30 Dextrose (D50w Syringe) 25 ml Q15M PRN IV DECREASED GLUCOSE; Start 10/07/16 at 11:30 Dextrose (D50w Syringe) 50 ml Q15M PRN IV DECREASED GLUCOSE; Start 10/07/16 at 11:30 Glucagon (Glucagen) 1 mg Q15M PRN IM DECREASED GLUCOSE; Start 10/07/16 at 11:30 Glucose (Glutose) 15 gm Q15M PRN BUCCAL DECREASED GLUCOSE; Start 10/07/16 at 11: 30 Enoxaparin Sodium 40 mg 40 mg DAILY SC Last administered on 10/10/16 08:36; Admin Dose 40 MG; Start 10/09/16 at 13:30 Acetaminophen (Ofirmev 1000mg/ 100ml Iv) 100 ml @ 400 mls/hr Q6H PRN IVPB PAIN LEVEL 4-7 Last administered on 10/10/16 13:34; Admin Dose 400 MLS/HR; Start 10/09/16 at 15:00 Insulin Aspart NOVOLOG *MILD* ALGORI... Q6 SC ; Start 10/10/16 at 18:00 Total Parenteral Nutrition 1,000 ml @ 100 mls/hr Q10H IV ; Start 10/10/16 at 19 :30 Fat Emulsion Intravenous (Liposyn Ii 20%) 250 ml @ 10 mls/hr Q24H IV ; Start at 21:00 MEREDITH DENNIS Oct 10, 2016 20:19 MEREDITH DENNIS Oct 10, 2016 20:19
[2016-10-10] MEDS: FAT EMULSION 20% 250 ML IV SCH (21:09)
[2016-10-10] MEDS: TPN 1,000 ML IV SCH (21:35)
[2016-10-11] MEDS: INSULIN ASPART [NOVOLOG] 3 ML PEN SC SCH ×5 (00:46→23:50)
[2016-10-11] MEDS: ACCU-CHEK XX SCH (01:31)
[2016-10-11 05:00] LABS: ADD SCAN DIFF NO
[2016-10-11 05:05] LABS: BASOPHILS % 0.4 % (0.0-2.0); EOSINOPHILS # 0.2 10^3/ul (0.0-0.5); EOSINOPHILS % 2.1 % (0.0-7.0); HEMATOCRIT 36.6 % (37.0-47.0); LYMPHOCYTES # 2.7 10^3/ul (0.8-2.9); LYMPHOCYTES % 24.3 % (15.0-51.0); MEAN CORPUSCULAR HEMOGLOBIN 30.9 pg (29.0-33.0); MEAN CORPUSCULAR HGB CONC 32.8 g/dl (32.0-37.0); MEAN CORPUSCULAR VOLUME 94.3 fl (82.0-101.0); MEAN PLATELET VOLUME 10.2 fl (7.4-10.4); MONOCYTE # 1.3 10^3/ul (0.3-0.9); MONOCYTES % 11.7 % (0.0-11.0); NEUTROPHIL # 6.8 10^3/ul (1.6-7.5); PLATELET COUNT 547 10^3/UL (140-415); RED BLOOD COUNT 3.88 10^6/ul (4.20-5.40); RED CELL DISTRIBUTION WIDTH 13.3 % (11.5-14.5); WHITE BLOOD COUNT 11.1 10^3/ul (4.8-10.8)
[2016-10-11 05:17] LABS: ALBUMIN 3.6 g/dl (3.3-4.9); PHOSPHORUS 3.7 mg/dl (2.5-4.9)
[2016-10-11 05:18] LABS: POTASSIUM 3.8 mmol/L (3.5-5.1)
[2016-10-11 05:20] LABS: ALBUMIN/GLOBULIN RATIO 0.85; BILIRUBIN,INDIRECT 0.3 mg/dl (0-1.1); BILIRUBIN,TOTAL 0.3 mg/dl (0.2-1.3); CREATININE 0.69 mg/dl (0.44-1.00); TOTAL PROTEIN 7.8 g/dl (6.1-8.1)
[2016-10-11 05:21] LABS: CALCIUM 10.3 mg/dl (8.4-10.2)
[2016-10-11 05:24] LABS: PREALBUMIN 10.6 mg/dl (17.6-36.0)
[2016-10-11 05:25] LABS: MAGNESIUM 0.9 mg/dl (1.7-2.5)
[2016-10-11] MEDS: PANTOPRAZOLE 40 MG INJ IV SCH (05:50)
[2016-10-11] MEDS ORDERED: MAGNESIUM SULFATE 2 GM/50 ML 50 ML IVPB ONE (06:00)
--- NOTE | 2016-10-11 06:59 | RADRPT ---
PROCEDURE: XR left ankle CLINICAL INDICATION: pain TECHNIQUE: 3 views were performed. COMPARISON: None. FINDINGS: No definite fracture or dislocation is seen. Small ankle effusion is seen. Medial ankle soft tissu e swelling. The ankle mortise appears grossly intact. IMPRESSION: Medial soft tissue swelling and probable ankle effusion. No definite acute fracture. RPTAT: [facility] Shanae Pedraza Physician Date Time Electronically viewed and signed by Shanae Pedraza, Physician on 10/11/2016 06:59 LE/
[2016-10-11] MEDS: TPN 1,000 ML IV SCH ×2 (07:11→18:10)
[2016-10-11 08:06] VITALS: BP 137/66; RESP 18
--- NOTE | 2016-10-11 08:44 | RADRPT ---
PROCEDURE: XR right ankle CLINICAL INDICATION: pain TECHNIQUE: 3 views were performed. COMPARISON: None. FINDINGS: Diffuse ankle soft tissue edema is seen. The ankle mortise appears intact. There may be a small an kle effusion. No fracture or dislocation is seen. IMPRESSION: Soft tissue edema and possible small ankle effusion. No definite fracture. RPTAT: [facility] Shanae Pedraza Physician Date Time Electronically viewed and signed by Shanae Pedraza, Physician on 10/11/2016 08:44 LE/
--- NOTE | 2016-10-11 08:56 | RADRPT ---
PROCEDURE: Bilateral feet CLINICAL INDICATION: pain TECHNIQUE: Separate three-view study of each foot was performed. COMPARISON: None FINDINGS: Right foot: There is degenerative change of the first metatarsophalangeal joint with joint space na rrowing and periarticular sclerosis with small osteophytes. No fracture or dislocation is seen. No lytic or blastic bony lesion. The Lisfranc joint appears intact. Left foot: There is mild degenerative change of the first metatarsophalangeal joint with slight med ial joint space narrowing. Overgrowth of the first metatarsal head is seen. No fracture or disloca tion. No lytic or blastic bony lesion. The Lisfranc joint appears intact. IMPRESSION: Mild degenerative change of the first metatarsophalangeal joints, right greater than left. No defin ite acute bony abnormality. No other significant degenerative change. Physician Tiffanie Date Time Electronically viewed and signed by Shanae Pedraza Physician on 10/11/2016 08:56 JOVITA/
[2016-10-11] MEDS: ACETAMINOPHEN 1000MG/100ML IV 100 ML IVPB PRN ×2 (09:12→21:13)
[2016-10-11] MEDS: ENOXAPARIN 40 MG/0.4 ML SYG SC SCH (09:13)
[2016-10-11] MEDS: HYDROmorphONE 1 MG/ML SYG IV PRN (16:27)
--- NOTE | 2016-10-11 17:41 | PN ---
Date/Time of Note Date/Time of Note DATE: 10/11/16 TIME: 17:39 Assessment/Plan VTE Prophylaxis VTE Prophylaxis Intervention: LMWH Lines/Catheters IV Catheter Type (from Nrs): PORT-A-CATH Urinary Cath still in place: Yes Assessment/Plan Chief Complaint/Hosp Course A- known recurrent disease per CA-125 and PET/CT 09/28/16, s/p seccrs Problems: Assessment/Plan A- Doing better P- clamp and attempt to d/c NGT Doppler noted Subjective 24 Hr Interval Summary Free Text/Dictation S- Pain adequately controlled. + BM and flatus. OOB but does sit more and ambulation. O- Resp- symmetric and no pain CVS- NSR Abd- Soft, minimal distension, NT,wound clean Ext- NT + edema A- Doing better P- clamp and attempt to d/c NGT Doppler noted Exam/Review of Systems Vital Signs Vitals Vital Signs Date Time Temp Pulse Resp B/P Pulse Ox O2 Delivery O2 Flow Rate FiO2 10/11/16 08:06 98.5 97 18 137/66 93 10/11/16 07:40 Nasal Cannula 2.0 10/10/16 20:51 21 Intake and Output 10/10/16 10/10/16 10/11/16 15:00 23:00 07:00 Intake Total 100 ml 1400 ml 770 ml Output Total 1260 ml 760 ml Balance 100 ml 140 ml 10 ml Results Result Diagram: 10/11/16 0415 10/11/16 0415 Results 24 hrs Laboratory Tests Test 10/11/16 00:41 10/11/16 04:15 10/11/16 05:44 10/11/16 12:00 Bedside Glucose 152 137 145 White Blood Count 11.1 H Red Blood Count 3.88 L Hemoglobin 12.0 Hematocrit 36.6 L Mean Corpuscular Volume 94.3 Mean Corpuscular Hemoglobin 30.9 Mean Corpuscular Hemoglobin Concent 32.8 Red Cell Distribution Width 13.3 Platelet Count 547 H Mean Platelet Volume 10.2 Neutrophils % 61.0 Lymphocytes % 24.3 Monocytes % 11.7 H Eosinophils % 2.1 Basophils % 0.4 Nucleated Red Blood Cells % 0.0 Neutrophils # 6.8 Lymphocytes # 2.7 Monocytes # 1.3 H Eosinophils # 0.2 Basophils # 0.0 Nucleated Red Blood Cells # 0.0 Sodium Level 138 Potassium Level 3.8 Chloride Level 98 Carbon Dioxide Level 27 Anion Gap 17 H Blood Urea Nitrogen 11 Creatinine 0.69 Glucose Level 175 Calcium Level 10.3 H Phosphorus Level 3.7 Magnesium Level 0.9 *L Total Bilirubin 0.3 Direct Bilirubin 0.00 Indirect Bilirubin 0.3 Aspartate Amino Transf (AST/SGOT) 26 Alanine Aminotransferase (ALT/SGPT) 22 Alkaline Phosphatase 62 Total Protein 7.8 Albumin 3.6 Globulin 4.20 H Albumin/Globulin Ratio 0.85 Prealbumin 10.6 L Triglycerides Level 205 H Medications Medications Current Medications Acetaminophen (Tylenol Tab) 650 mg Q6H PRN PO PAIN AND OR ELEVATED TEMP Last administered on 10/03/16 12:00; Admin Dose 650 MG; Start 10/03/16 at 11:00 Pantoprazole (Protonix Iv) 40 mg DAILY@06 IV Last administered on 10/11/16 05: 50; Admin Dose 40 MG; Start 10/04/16 at 06:00 Albumin Human 500 ml PRN PRN IV IF UOP < 30 CC/HR Last administered on 20:32; Admin Dose 500 ML; Start 10/05/16 at 21:30 Hydromorphone HCl (Dilaudid) 1 mg Q1H PRN IV PAIN Last administered on 16:27; Admin Dose 1 MG; Start 10/05/16 at 21:00 Ondansetron HCl (Zofran Inj) 4 mg Q6H PRN IV NAUSEA AND/OR VOMITING Last administered on 10/07/16 03:38; Admin Dose 4 MG; Start 10/05/16 at 21:00 Diagnostic Test (Pha) (Accu-Chek) 1 ea 02 XX ; Start 10/08/16 at 02:00 Miscellaneous Information 1 ea NOTE XX ; Start 10/07/16 at 11:30 Glucose (Glutose) 15 gm Q15M PRN PO DECREASED GLUCOSE; Start 10/07/16 at 11:30 Glucose (Glutose) 22.5 gm Q15M PRN PO DECREASED GLUCOSE; Start 10/07/16 at 11:30 Dextrose (D50w Syringe) 25 ml Q15M PRN IV DECREASED GLUCOSE; Start 10/07/16 at 11:30 Dextrose (D50w Syringe) 50 ml Q15M PRN IV DECREASED GLUCOSE; Start 10/07/16 at 11:30 Glucagon (Glucagen) 1 mg Q15M PRN IM DECREASED GLUCOSE; Start 10/07/16 at 11:30 Glucose (Glutose) 15 gm Q15M PRN BUCCAL DECREASED GLUCOSE; Start 10/07/16 at 11: 30 Enoxaparin Sodium 40 mg 40 mg DAILY SC Last administered on 10/11/16 09:13; Admin Dose 40 MG; Start 10/09/16 at 13:30 Acetaminophen (Ofirmev 1000mg/ 100ml Iv) 100 ml @ 400 mls/hr Q6H PRN IVPB PAIN LEVEL 4-7 Last administered on 10/11/16 09:12; Admin Dose 400 MLS/HR; Start 10/09/16 at 15:00 Insulin Aspart NOVOLOG *MILD* ALGORI... Q6 SC Last administered on 10/11/16 00 :46; Admin Dose 1 UNIT; Start 10/10/16 at 18:00 Total Parenteral Nutrition 1,000 ml @ 100 mls/hr Q10H IV Last administered on 10/11/16 07:11; Admin Dose 100 MLS/HR; Start 10/10/16 at 19:30 Fat Emulsion Intravenous (Liposyn Ii 20%) 250 ml @ 10 mls/hr Q24H IV Last administered on 10/10/16 21:09; Admin Dose 10 MLS/HR; Start 10/10/16 at 21:00 Lorazepam (Ativan) 1 mg HS PO ; Start 10/11/16 at 21:00; Status UNV JAMES NÚÑEZ MD Oct 11, 2016 17:41
--- NOTE | 2016-10-11 18:13 | PN ---
DATE: 10/11/2016 SUBJECTIVE: Follow up on surgery for recurrent ovarian cancer and new onset of right foot pain. The patient reported that the pain in the right foot is slightly better today. She was, in fact, able to take a few steps. No reported fever or chills. The patient did have scanty stool along with flatus. No reported chest pain. Abdominal pain is better. The patient does have generalized weakness. No reported shortness of breath at rest. PHYSICAL EXAMINATION: GENERAL: The patient is conscious, awake, alert. VITAL SIGNS: Temperature 98.5, pulse 80, respirations 18, blood pressure 137/66 , O2 saturation 93% on room air. HEENT: No eye discharge, redness. Oropharynx grossly negative. NECK: No mass. CHEST: Fairly clear. No use of accessory muscles. CARDIOVASCULAR: S1, S2 normal. No murmur. ABDOMEN: The patient is status post surgery. Bowel sounds present. EXTREMITIES: Right ankle is slightly swollen. Pedal pulses palpable. NEUROLOGIC: The patient is awake, alert, fairly oriented. LABORATORIES DONE THIS MORNING: WBC 11.1, hemoglobin 12, platelets 547. Sodium 138, potassium 3.8, BUN 11, creatinine 0.6, glucose 175. IMPRESSION: 1. Right ankle pain. The patient will be seen by Dr. Choudhary. X-ray shows degenerative changes and soft-tissue swelling. 2. Recurrent ovarian cancer, status post surgery. Continue postoperative care. 3. Prolonged n.p.o. status. The patient was started on TPN. Magnesium this morning is 0.9, will be repeated. Since patient passed flatus and small amount of stool came out with that, she may be started on clear liquid diet. Will leave that decision up to Surgery. Plan of care discussed with the patient's nurse as well as patient's daughter. 4. The patient did have elevated glucose on 10/06/2016. We started her on Accu -Chek and sliding scale coverage. The patient's blood sugar seems to have improved. The last glucose in fact was 145. Dictated By: LOTTIE BERNARD/GRECIA Conf#: [id number] DID#: [id number] MTDD
[2016-10-11 20:15] VITALS: BP 124/77; RESP 19
[2016-10-11] MEDS: LORAZEPAM 1 MG TAB PO SCH (21:00)
[2016-10-11] MEDS: FAT EMULSION 20% 250 ML IV SCH (21:14)
[2016-10-11] MEDS: LORAZEPAM 2 MG INJ IV PRN (21:55)
[2016-10-12] MEDS: TPN 1,000 ML IV SCH ×4 (01:30→15:51)
[2016-10-12] MEDS: ACCU-CHEK XX SCH (02:00)
[2016-10-12 05:28] LABS: ADD SCAN DIFF NO
[2016-10-12] MEDS: PANTOPRAZOLE 40 MG INJ IV SCH (05:30)
[2016-10-12 05:33] LABS: BASOPHILS % 0.4 % (0.0-2.0); EOSINOPHILS # 0.2 10^3/ul (0.0-0.5); HEMATOCRIT 37.6 % (37.0-47.0); HEMOGLOBIN 12.1 g/dl (12.0-16.0); LYMPHOCYTES # 2.5 10^3/ul (0.8-2.9); LYMPHOCYTES % 23.9 % (15.0-51.0); MEAN CORPUSCULAR HEMOGLOBIN 30.2 pg (29.0-33.0); MEAN CORPUSCULAR HGB CONC 32.2 g/dl (32.0-37.0); MEAN CORPUSCULAR VOLUME 93.8 fl (82.0-101.0); MEAN PLATELET VOLUME 10.4 fl (7.4-10.4); MONOCYTE # 1.3 10^3/ul (0.3-0.9); MONOCYTES % 12.4 % (0.0-11.0); NEUTROPHIL # 6.2 10^3/ul (1.6-7.5); NEUTROPHILS % 60.4 % (39.0-77.0); PLATELET COUNT 611 10^3/UL (140-415); RED BLOOD COUNT 4.01 10^6/ul (4.20-5.40); RED CELL DISTRIBUTION WIDTH 13.2 % (11.5-14.5); WHITE BLOOD COUNT 10.3 10^3/ul (4.8-10.8)
[2016-10-12] MEDS: INSULIN ASPART [NOVOLOG] 3 ML PEN SC SCH ×4 (05:35→23:40)
[2016-10-12 05:48] LABS: CREATININE 0.66 mg/dl (0.44-1.00); MAGNESIUM 1.7 mg/dl (1.7-2.5); PHOSPHORUS 4.5 mg/dl (2.5-4.9); POTASSIUM 4.1 mmol/L (3.5-5.1)
[2016-10-12 07:55] VITALS: BP 121/58; RESP 20
[2016-10-12] MEDS: ENOXAPARIN 40 MG/0.4 ML SYG SC SCH (08:59)
[2016-10-12] MEDS: ACETAMINOPHEN 1000MG/100ML IV 100 ML IVPB PRN ×2 (11:29→21:42)
[2016-10-12] MEDS: HYDROmorphONE 1 MG/ML SYG IV PRN (11:29)
--- NOTE | 2016-10-12 13:59 | PN ---
Date/Time of Note Date/Time of Note DATE: 10/12/16 TIME: 13:52 Assessment/Plan VTE Prophylaxis VTE Prophylaxis Intervention: other Lines/Catheters IV Catheter Type (from Nrsg): PORTACATH Urinary Cath still in place: Yes Assessment/Plan Assessment/Plan - Right ankle pain. - X-ray shows degenerative changes and soft-tissue swelling. - per ortho - Bilateral leg pain- US negative for DVT - Recurrent ovarian cancer status post secondary cytoreduction surgery by Dr. Zeng. - per ob surgery - NGT noted - Prolonged n.p.o. status. - TPN. - clear liquid per Surgery. - Hypomagnesium - - Elevated blood sugar.Hb AIC- 5.7 - Glycemic control- - Continue sequential compressive devices for deep vein thrombosis prophylaxis. - Continue Protonix for GI prophylaxis Will continue to monitor her hemoglobin. No indication for transfusion at this time. Dw Dr Matthews Subjective 24 Hr Interval Summary Constitutional: improved Eyes: no complaints ENT: no complaints Respiratory: no complaints Gastrointestinal: pain Genitourinary: no complaints Musculoskeletal: no complaints Skin: no complaints Neurologic: no complaints Exam/Review of Systems Vital Signs Vitals Vital Signs Date Time Temp Pulse Resp B/P Pulse Ox O2 Delivery O2 Flow Rate FiO2 10/12/16 07:55 98.2 94 20 121/58 94 10/11/16 07:40 Nasal Cannula 2.0 10/10/16 20:51 21 Intake and Output 10/11/16 10/11/16 10/12/16 15:00 23:00 07:00 Intake Total 300 ml 1325 ml 1060 ml Output Total 1300 ml 1200 ml Balance 300 ml 25 ml -140 ml Exam Constitutional: alert, oriented, well developed Psych: nl mood/affect Head: normocephalic Eyes: EOMI, nl sclera ENMT: nl external ears & nose Neck: non-tender Respiratory: clear to auscultation Cardiovascular: nl pulses Gastrointestinal: non-tender, soft Musculoskeletal: nl extremities to inspection Extremities: normal pulses Neurological: nl mental status, nl speech Lymph: nontender Results Result Diagram: 10/12/16 0432 10/12/16 0432 Results 24 hrs Laboratory Tests Test 10/11/16 18:34 10/11/16 23:31 10/12/16 04:32 10/12/16 05:23 Bedside Glucose 146 174 153 White Blood Count 10.3 Red Blood Count 4.01 L Hemoglobin 12.1 Hematocrit 37.6 Mean Corpuscular Volume 93.8 Mean Corpuscular Hemoglobin 30.2 Mean Corpuscular Hemoglobin Concent 32.2 Red Cell Distribution Width 13.2 Platelet Count 611 H Mean Platelet Volume 10.4 Neutrophils % 60.4 Lymphocytes % 23.9 Monocytes % 12.4 H Eosinophils % 2.0 Basophils % 0.4 Nucleated Red Blood Cells % 0.0 Neutrophils # 6.2 Lymphocytes # 2.5 Monocytes # 1.3 H Eosinophils # 0.2 Basophils # 0.0 Nucleated Red Blood Cells # 0.0 Sodium Level 134 L Potassium Level 4.1 Chloride Level 99 Carbon Dioxide Level 25 Anion Gap 14 Blood Urea Nitrogen 23 #H Creatinine 0.66 Glucose Level 165 Calcium Level 10.0 Phosphorus Level 4.5 Magnesium Level 1.7 Test 10/12/16 11:35 Bedside Glucose 115 Medications Medications Current Medications Acetaminophen (Tylenol Tab) 650 mg Q6H PRN PO PAIN AND OR ELEVATED TEMP Last administered on 10/03/16 12:00; Admin Dose 650 MG; Start 10/03/16 at 11:00 Pantoprazole (Protonix Iv) 40 mg DAILY@06 IV Last administered on 10/12/16 05: 30; Admin Dose 40 MG; Start 10/04/16 at 06:00 Albumin Human 500 ml PRN PRN IV IF UOP < 30 CC/HR Last administered on 20:32; Admin Dose 500 ML; Start 10/05/16 at 21:30 Hydromorphone HCl (Dilaudid) 1 mg Q1H PRN IV PAIN Last administered on 11:29; Admin Dose 1 MG; Start 10/05/16 at 21:00 Ondansetron HCl (Zofran Inj) 4 mg Q6H PRN IV NAUSEA AND/OR VOMITING Last administered on 10/07/16 03:38; Admin Dose 4 MG; Start 10/05/16 at 21:00 Diagnostic Test (Pha) (Accu-Chek) 1 ea 02 XX ; Start 10/08/16 at 02:00 Miscellaneous Information 1 ea NOTE XX ; Start 10/07/16 at 11:30 Glucose (Glutose) 15 gm Q15M PRN PO DECREASED GLUCOSE; Start 10/07/16 at 11:30 Glucose (Glutose) 22.5 gm Q15M PRN PO DECREASED GLUCOSE; Start 10/07/16 at 11:30 Dextrose (D50w Syringe) 25 ml Q15M PRN IV DECREASED GLUCOSE; Start 10/07/16 at 11:30 Dextrose (D50w Syringe) 50 ml Q15M PRN IV DECREASED GLUCOSE; Start 10/07/16 at 11:30 Glucagon (Glucagen) 1 mg Q15M PRN IM DECREASED GLUCOSE; Start 10/07/16 at 11:30 Glucose (Glutose) 15 gm Q15M PRN BUCCAL DECREASED GLUCOSE; Start 10/07/16 at 11: 30 Enoxaparin Sodium 40 mg 40 mg DAILY SC Last administered on 10/12/16 08:59; Admin Dose 40 MG; Start 10/09/16 at 13:30 Acetaminophen (Ofirmev 1000mg/ 100ml Iv) 100 ml @ 400 mls/hr Q6H PRN IVPB PAIN LEVEL 4-7 Last administered on 10/12/16 11:29; Admin Dose 400 MLS/HR; Start 10/09/16 at 15:00 Insulin Aspart NOVOLOG *MILD* ALGORI... Q6 SC Last administered on 10/12/16 05 :35; Admin Dose 1 UNIT; Start 10/10/16 at 18:00 Total Parenteral Nutrition 1,000 ml @ 100 mls/hr Q10H IV Last administered on 10/12/16 05:30; Admin Dose 100 MLS/HR; Start 10/10/16 at 19:30 Fat Emulsion Intravenous (Liposyn Ii 20%) 250 ml @ 10 mls/hr Q24H IV Last administered on 10/11/16 21:14; Admin Dose 10 MLS/HR; Start 10/10/16 at 21:00 Lorazepam (Ativan) 1 mg HS PO ; Start 10/11/16 at 21:00 Lorazepam (Ativan) 1 mg Q6H PRN IV ANXIETY Last administered on 10/11/16 21:55 ; Admin Dose 1 MG; Start 10/11/16 at 18:30 MEREDITH DENNIS Oct 12, 2016 13:59
[2016-10-12 19:29] VITALS: BP 120/59; RESP 20
[2016-10-12] MEDS: LORAZEPAM 2 MG INJ IV PRN (20:51)
[2016-10-12] MEDS: LORAZEPAM 1 MG TAB PO SCH (21:00)
--- NOTE | 2016-10-12 21:02 | PN ---
Date/Time of Note Date/Time of Note DATE: 10/12/16 TIME: 21:00 Assessment/Plan VTE Prophylaxis VTE Prophylaxis Intervention: SCD's Lines/Catheters IV Catheter Type (from Nrsg): PORTACATH Urinary Cath still in place: Yes Assessment/Plan Chief Complaint/Hosp Course A- known recurrent disease per CA-125 and PET/CT 09/28/16, s/p seccrs Problems: Assessment/Plan A- Doing better P- now that NGT out gradually adv diet Subjective 24 Hr Interval Summary Free Text/Dictation S- Pain adequately controlled. + BM and flatus. O- Resp- symmetric and no pain CVS- NSR Abd- Soft, minimal distension, NT,wound clean Ext- NT + edema A- Doing better P- now that NGT out gradually adv diet Exam/Review of Systems Vital Signs Vitals Vital Signs Date Time Temp Pulse Resp B/P Pulse Ox O2 Delivery O2 Flow Rate FiO2 10/12/16 19:29 97.9 102 20 120/59 98 10/11/16 07:40 Nasal Cannula 2.0 10/10/16 20:51 21 Intake and Output 10/11/16 10/11/16 10/12/16 15:00 23:00 07:00 Intake Total 300 ml 1325 ml 1060 ml Output Total 1300 ml 1200 ml Balance 300 ml 25 ml -140 ml Results Result Diagram: 10/12/16 0432 10/12/16 0432 Results 24 hrs Laboratory Tests Test 10/11/16 23:31 10/12/16 04:32 10/12/16 05:23 10/12/16 11:35 Bedside Glucose 174 153 115 White Blood Count 10.3 Red Blood Count 4.01 L Hemoglobin 12.1 Hematocrit 37.6 Mean Corpuscular Volume 93.8 Mean Corpuscular Hemoglobin 30.2 Mean Corpuscular Hemoglobin Concent 32.2 Red Cell Distribution Width 13.2 Platelet Count 611 H Mean Platelet Volume 10.4 Neutrophils % 60.4 Lymphocytes % 23.9 Monocytes % 12.4 H Eosinophils % 2.0 Basophils % 0.4 Nucleated Red Blood Cells % 0.0 Neutrophils # 6.2 Lymphocytes # 2.5 Monocytes # 1.3 H Eosinophils # 0.2 Basophils # 0.0 Nucleated Red Blood Cells # 0.0 Sodium Level 134 L Potassium Level 4.1 Chloride Level 99 Carbon Dioxide Level 25 Anion Gap 14 Blood Urea Nitrogen 23 #H Creatinine 0.66 Glucose Level 165 Calcium Level 10.0 Phosphorus Level 4.5 Magnesium Level 1.7 Test 10/12/16 17:34 Bedside Glucose 137 Medications Medications Current Medications Acetaminophen (Tylenol Tab) 650 mg Q6H PRN PO PAIN AND OR ELEVATED TEMP Last administered on 10/03/16 12:00; Admin Dose 650 MG; Start 10/03/16 at 11:00 Pantoprazole (Protonix Iv) 40 mg DAILY@06 IV Last administered on 10/12/16 05: 30; Admin Dose 40 MG; Start 10/04/16 at 06:00 Albumin Human 500 ml PRN PRN IV IF UOP < 30 CC/HR Last administered on 20:32; Admin Dose 500 ML; Start 10/05/16 at 21:30 Hydromorphone HCl (Dilaudid) 1 mg Q1H PRN IV PAIN Last administered on 11:29; Admin Dose 1 MG; Start 10/05/16 at 21:00 Ondansetron HCl (Zofran Inj) 4 mg Q6H PRN IV NAUSEA AND/OR VOMITING Last administered on 10/07/16 03:38; Admin Dose 4 MG; Start 10/05/16 at 21:00 Diagnostic Test (Pha) (Accu-Chek) 1 ea 02 XX ; Start 10/08/16 at 02:00 Miscellaneous Information 1 ea NOTE XX ; Start 10/07/16 at 11:30 Glucose (Glutose) 15 gm Q15M PRN PO DECREASED GLUCOSE; Start 10/07/16 at 11:30 Glucose (Glutose) 22.5 gm Q15M PRN PO DECREASED GLUCOSE; Start 10/07/16 at 11:30 Dextrose (D50w Syringe) 25 ml Q15M PRN IV DECREASED GLUCOSE; Start 10/07/16 at 11:30 Dextrose (D50w Syringe) 50 ml Q15M PRN IV DECREASED GLUCOSE; Start 10/07/16 at 11:30 Glucagon (Glucagen) 1 mg Q15M PRN IM DECREASED GLUCOSE; Start 10/07/16 at 11:30 Glucose (Glutose) 15 gm Q15M PRN BUCCAL DECREASED GLUCOSE; Start 10/07/16 at 11: 30 Enoxaparin Sodium 40 mg 40 mg DAILY SC Last administered on 10/12/16 08:59; Admin Dose 40 MG; Start 10/09/16 at 13:30 Acetaminophen (Ofirmev 1000mg/ 100ml Iv) 100 ml @ 400 mls/hr Q6H PRN IVPB PAIN LEVEL 4-7 Last administered on 10/12/16 11:29; Admin Dose 400 MLS/HR; Start 10/09/16 at 15:00 Insulin Aspart NOVOLOG *MILD* ALGORI... Q6 SC Last administered on 10/12/16 05 :35; Admin Dose 1 UNIT; Start 10/10/16 at 18:00 Total Parenteral Nutrition 1,000 ml @ 100 mls/hr Q10H IV Last administered on 10/12/16 15:51; Admin Dose 100 MLS/HR; Start 10/10/16 at 19:30 Fat Emulsion Intravenous (Liposyn Ii 20%) 250 ml @ 10 mls/hr Q24H IV Last administered on 10/11/16 21:14; Admin Dose 10 MLS/HR; Start 10/10/16 at 21:00 Lorazepam (Ativan) 1 mg HS PO ; Start 10/11/16 at 21:00 Lorazepam (Ativan) 1 mg Q6H PRN IV ANXIETY Last administered on 10/12/16 20:51 ; Admin Dose 1 MG; Start 10/11/16 at 18:30 JAMES NÚÑEZ MD Oct 12, 2016 21:01
[2016-10-12] MEDS: FAT EMULSION 20% 250 ML IV SCH (23:39)
[2016-10-13] MEDS: ACCU-CHEK XX SCH ×2 (01:22→21:32)
[2016-10-13 05:03] LABS: ADD SCAN DIFF NO
[2016-10-13] MEDS: TPN 1,000 ML IV SCH (05:06)
[2016-10-13] MEDS: PANTOPRAZOLE 40 MG INJ IV SCH (05:06)
[2016-10-13 05:08] LABS: BASOPHIL # 0.1 10^3/ul (0.0-0.1); BASOPHILS % 0.6 % (0.0-2.0); EOSINOPHILS # 0.4 10^3/ul (0.0-0.5); EOSINOPHILS % 4.1 % (0.0-7.0); HEMATOCRIT 35.8 % (37.0-47.0); HEMOGLOBIN 11.6 g/dl (12.0-16.0); LYMPHOCYTES # 2.8 10^3/ul (0.8-2.9); LYMPHOCYTES % 31.5 % (15.0-51.0); MEAN CORPUSCULAR HEMOGLOBIN 30.5 pg (29.0-33.0); MEAN CORPUSCULAR HGB CONC 32.4 g/dl (32.0-37.0); MEAN CORPUSCULAR VOLUME 94.2 fl (82.0-101.0); MEAN PLATELET VOLUME 10.2 fl (7.4-10.4); MONOCYTE # 1.1 10^3/ul (0.3-0.9); MONOCYTES % 11.9 % (0.0-11.0); NEUTROPHIL # 4.4 10^3/ul (1.6-7.5); NEUTROPHILS % 50.3 % (39.0-77.0); RED CELL DISTRIBUTION WIDTH 13.2 % (11.5-14.5); WHITE BLOOD COUNT 8.8 10^3/ul (4.8-10.8)
[2016-10-13] MEDS: INSULIN ASPART [NOVOLOG] 3 ML PEN SC SCH ×4 (05:10→21:00)
[2016-10-13 05:14] LABS: POTASSIUM 3.5 mmol/L (3.5-5.1)
[2016-10-13 05:16] LABS: CREATININE 0.69 mg/dl (0.44-1.00)
[2016-10-13 05:17] LABS: CALCIUM 9.9 mg/dl (8.4-10.2); MAGNESIUM 1.7 mg/dl (1.7-2.5)
[2016-10-13 05:19] LABS: PLATELET COUNT 659 10^3/UL (140-415)
[2016-10-13 07:52] VITALS: BP 128/68; RESP 20
[2016-10-13] MEDS: ENOXAPARIN 40 MG/0.4 ML SYG SC SCH (09:08)
[2016-10-13] MEDS: ACETAMINOPHEN 325 MG TAB PO PRN (11:02)
[2016-10-13] MEDS: HYDROmorphONE 1 MG/ML SYG IV PRN ×2 (12:27→17:28)
--- NOTE | 2016-10-13 15:14 | PN ---
Date/Time of Note Date/Time of Note DATE: 10/13/16 TIME: 15:08 Assessment/Plan VTE Prophylaxis VTE Prophylaxis Intervention: SCD's Lines/Catheters IV Catheter Type (from Nrs): PORTACATH Urinary Cath still in place: Yes Assessment/Plan Assessment/Plan - Right ankle pain. - X-ray shows degenerative changes and soft-tissue swelling. - per ortho - Bilateral leg pain- US negative for DVT - Recurrent ovarian cancer status post secondary cytoreduction surgery by Dr. Zeng. - per ob surgery - Prolonged n.p.o. status. - TPN. - clear liquid per Surgery. - Hypomagnesium - resolved - Elevated blood sugar.Hb AIC- 5.7 - Glycemic control- - Continue sequential compressive devices for deep vein thrombosis prophylaxis. - Continue Protonix for GI prophylaxis Will continue to monitor her hemoglobin. No indication for transfusion at this time. Dw Dr Grier Mild degenerative change of the first metatarsophalangeal joints, right greater than left. No definite acute bony abnormality. No other significant degenerative change. Subjective 24 Hr Interval Summary Free Text/Dictation nad, having full liquid diet, tolerates well, weaning of from TPN, afebrile, right foot pain is better today. dw staff Eyes: no complaints Respiratory: no complaints Cardiovascular: no complaints Gastrointestinal: no complaints, other Genitourinary: no complaints Musculoskeletal: bone/joint pain Skin: no complaints Neurologic: no complaints Exam/Review of Systems Vital Signs Vitals Vital Signs Date Time Temp Pulse Resp B/P Pulse Ox O2 Delivery O2 Flow Rate FiO2 10/13/16 07:52 98.1 99 20 128/68 95 10/11/16 07:40 Nasal Cannula 2.0 10/10/16 20:51 21 Intake and Output 10/12/16 10/12/16 10/13/16 15:00 23:00 07:00 Intake Total 100 ml 1620 ml 1525 ml Output Total 625 ml 905 ml Balance 100 ml 995 ml 620 ml Exam Constitutional: alert, oriented, well developed Psych: nl mood/affect Head: atraumatic Eyes: EOMI, nl conjunctiva ENMT: nl external ears & nose Neck: supple Respiratory: clear to auscultation Cardiovascular: nl pulses Gastrointestinal: non-tender, soft Musculoskeletal: nl extremities to inspection Extremities: normal pulses Skin: nl turgor Lymph: nontender Results Result Diagram: 10/13/16 0415 10/13/16 0415 Results 24 hrs Laboratory Tests Test 10/12/16 17:34 10/12/16 23:33 10/13/16 04:15 10/13/16 05:09 Bedside Glucose 137 91 110 White Blood Count 8.8 Red Blood Count 3.80 L Hemoglobin 11.6 L Hematocrit 35.8 L Mean Corpuscular Volume 94.2 Mean Corpuscular Hemoglobin 30.5 Mean Corpuscular Hemoglobin Concent 32.4 Red Cell Distribution Width 13.2 Platelet Count 659 H Mean Platelet Volume 10.2 Neutrophils % 50.3 Lymphocytes % 31.5 Monocytes % 11.9 H Eosinophils % 4.1 Basophils % 0.6 Nucleated Red Blood Cells % 0.0 Neutrophils # 4.4 Lymphocytes # 2.8 Monocytes # 1.1 H Eosinophils # 0.4 Basophils # 0.1 Nucleated Red Blood Cells # 0.0 Sodium Level 138 Potassium Level 3.5 Chloride Level 100 Carbon Dioxide Level 26 Anion Gap 16 Blood Urea Nitrogen 24 H Creatinine 0.69 Glucose Level 156 Calcium Level 9.9 Phosphorus Level 4.0 Magnesium Level 1.7 Test 10/13/16 11:36 Bedside Glucose 145 Medications Medications Current Medications Acetaminophen (Tylenol Tab) 650 mg Q6H PRN PO PAIN AND OR ELEVATED TEMP Last administered on 10/13/16 11:02; Admin Dose 650 MG; Start 10/03/16 at 11:00 Pantoprazole (Protonix Iv) 40 mg DAILY@06 IV Last administered on 10/13/16 05: 06; Admin Dose 40 MG; Start 10/04/16 at 06:00 Albumin Human 500 ml PRN PRN IV IF UOP < 30 CC/HR Last administered on 20:32; Admin Dose 500 ML; Start 10/05/16 at 21:30 Hydromorphone HCl (Dilaudid) 1 mg Q1H PRN IV PAIN Last administered on 12:27; Admin Dose 1 MG; Start 10/05/16 at 21:00 Ondansetron HCl (Zofran Inj) 4 mg Q6H PRN IV NAUSEA AND/OR VOMITING Last administered on 10/07/16 03:38; Admin Dose 4 MG; Start 10/05/16 at 21:00 Diagnostic Test (Pha) (Accu-Chek) 1 ea 02 XX ; Start 10/08/16 at 02:00 Miscellaneous Information 1 ea NOTE XX ; Start 10/07/16 at 11:30 Glucose (Glutose) 15 gm Q15M PRN PO DECREASED GLUCOSE; Start 10/07/16 at 11:30 Glucose (Glutose) 22.5 gm Q15M PRN PO DECREASED GLUCOSE; Start 10/07/16 at 11:30 Dextrose (D50w Syringe) 25 ml Q15M PRN IV DECREASED GLUCOSE; Start 10/07/16 at 11:30 Dextrose (D50w Syringe) 50 ml Q15M PRN IV DECREASED GLUCOSE; Start 10/07/16 at 11:30 Glucagon (Glucagen) 1 mg Q15M PRN IM DECREASED GLUCOSE; Start 10/07/16 at 11:30 Glucose (Glutose) 15 gm Q15M PRN BUCCAL DECREASED GLUCOSE; Start 10/07/16 at 11: 30 Enoxaparin Sodium 40 mg 40 mg DAILY SC Last administered on 10/13/16 09:08; Admin Dose 40 MG; Start 10/09/16 at 13:30 Acetaminophen (Ofirmev 1000mg/ 100ml Iv) 100 ml @ 400 mls/hr Q6H PRN IVPB PAIN LEVEL 4-7 Last administered on 10/12/16 21:42; Admin Dose 400 MLS/HR; Start 10/09/16 at 15:00 Lorazepam (Ativan) 1 mg HS PO ; Start 10/11/16 at 21:00 Lorazepam (Ativan) 1 mg Q6H PRN IV ANXIETY Last administered on 10/12/16 20:51 ; Admin Dose 1 MG; Start 10/11/16 at 18:30 MEREDITH DENNIS Oct 13, 2016 15:14
[2016-10-13] MEDS: ONDANSETRON 4 MG INJ IV PRN (18:01)
[2016-10-13 19:20] VITALS: BP 116/56; RESP 19
[2016-10-13] MEDS: LORAZEPAM 1 MG TAB PO SCH (21:23)
--- NOTE | 2016-10-13 22:40 | PN ---
Date/Time of Note Date/Time of Note DATE: 10/13/16 TIME: 22:40 Assessment/Plan VTE Prophylaxis VTE Prophylaxis Intervention: SCD's Lines/Catheters IV Catheter Type (from Nrsg): PORT-A-CATH Urinary Cath still in place: Yes Assessment/Plan Chief Complaint/Hosp Course A- known recurrent disease per CA-125 and PET/CT 09/28/16, s/p seccrs Problems: Subjective 24 Hr Interval Summary Free Text/Dictation S- Pain adequately controlled. + BM and flatus. O- Resp- symmetric and no pain CVS- NSR Abd- Soft, minimal distension, NT,wound clean Ext- NT + edema A- Doing better P- slightly adv diet Exam/Review of Systems Vital Signs Vitals Vital Signs Date Time Temp Pulse Resp B/P Pulse Ox O2 Delivery O2 Flow Rate FiO2 10/13/16 19:20 98.4 96 19 116/56 100 10/11/16 07:40 Nasal Cannula 2.0 10/10/16 20:51 21 Intake and Output 10/12/16 10/12/16 10/13/16 15:00 23:00 07:00 Intake Total 100 ml 1620 ml 1525 ml Output Total 625 ml 905 ml Balance 100 ml 995 ml 620 ml Results Result Diagram: 10/13/16 0415 10/13/16 0415 Results 24 hrs Laboratory Tests Test 10/12/16 23:33 10/13/16 04:15 10/13/16 05:09 10/13/16 11:36 Bedside Glucose 91 110 145 White Blood Count 8.8 Red Blood Count 3.80 L Hemoglobin 11.6 L Hematocrit 35.8 L Mean Corpuscular Volume 94.2 Mean Corpuscular Hemoglobin 30.5 Mean Corpuscular Hemoglobin Concent 32.4 Red Cell Distribution Width 13.2 Platelet Count 659 H Mean Platelet Volume 10.2 Neutrophils % 50.3 Lymphocytes % 31.5 Monocytes % 11.9 H Eosinophils % 4.1 Basophils % 0.6 Nucleated Red Blood Cells % 0.0 Neutrophils # 4.4 Lymphocytes # 2.8 Monocytes # 1.1 H Eosinophils # 0.4 Basophils # 0.1 Nucleated Red Blood Cells # 0.0 Sodium Level 138 Potassium Level 3.5 Chloride Level 100 Carbon Dioxide Level 26 Anion Gap 16 Blood Urea Nitrogen 24 H Creatinine 0.69 Glucose Level 156 Calcium Level 9.9 Phosphorus Level 4.0 Magnesium Level 1.7 Test 10/13/16 17:30 10/13/16 20:27 Bedside Glucose 86 106 Medications Medications Current Medications Acetaminophen (Tylenol Tab) 650 mg Q6H PRN PO PAIN AND OR ELEVATED TEMP Last administered on 10/13/16 11:02; Admin Dose 650 MG; Start 10/03/16 at 11:00 Pantoprazole (Protonix Iv) 40 mg DAILY@06 IV Last administered on 10/13/16 05: 06; Admin Dose 40 MG; Start 10/04/16 at 06:00 Albumin Human 500 ml PRN PRN IV IF UOP < 30 CC/HR Last administered on 20:32; Admin Dose 500 ML; Start 10/05/16 at 21:30 Hydromorphone HCl (Dilaudid) 1 mg Q1H PRN IV PAIN Last administered on 17:28; Admin Dose 1 MG; Start 10/05/16 at 21:00 Ondansetron HCl (Zofran Inj) 4 mg Q6H PRN IV NAUSEA AND/OR VOMITING Last administered on 10/13/16 18:01; Admin Dose 4 MG; Start 10/05/16 at 21:00 Diagnostic Test (Pha) (Accu-Chek) 1 ea 02 XX ; Start 10/08/16 at 02:00 Miscellaneous Information 1 ea NOTE XX ; Start 10/07/16 at 11:30 Glucose (Glutose) 15 gm Q15M PRN PO DECREASED GLUCOSE; Start 10/07/16 at 11:30 Glucose (Glutose) 22.5 gm Q15M PRN PO DECREASED GLUCOSE; Start 10/07/16 at 11:30 Dextrose (D50w Syringe) 25 ml Q15M PRN IV DECREASED GLUCOSE; Start 10/07/16 at 11:30 Dextrose (D50w Syringe) 50 ml Q15M PRN IV DECREASED GLUCOSE; Start 10/07/16 at 11:30 Glucagon (Glucagen) 1 mg Q15M PRN IM DECREASED GLUCOSE; Start 10/07/16 at 11:30 Glucose (Glutose) 15 gm Q15M PRN BUCCAL DECREASED GLUCOSE; Start 10/07/16 at 11: 30 Enoxaparin Sodium 40 mg 40 mg DAILY SC Last administered on 10/13/16 09:08; Admin Dose 40 MG; Start 10/09/16 at 13:30 Acetaminophen (Ofirmev 1000mg/ 100ml Iv) 100 ml @ 400 mls/hr Q6H PRN IVPB PAIN LEVEL 4-7 Last administered on 10/12/16 21:42; Admin Dose 400 MLS/HR; Start 10/09/16 at 15:00 Lorazepam (Ativan) 1 mg HS PO Last administered on 10/13/16 21:23; Admin Dose 1 MG; Start 10/11/16 at 21:00 Lorazepam (Ativan) 1 mg Q6H PRN IV ANXIETY Last administered on 10/12/16 20:51 ; Admin Dose 1 MG; Start 10/11/16 at 18:30 JAMES NÚÑEZ MD Oct 13, 2016 22:40
[2016-10-14] MEDS: HYDROmorphONE 1 MG/ML SYG IV PRN ×2 (00:13→19:52)
[2016-10-14] MEDS ORDERED: ACCU-CHEK XX SCH (02:00)
[2016-10-14 05:33] LABS: ADD SCAN DIFF NO
[2016-10-14 05:43] LABS: BASOPHIL # 0.1 10^3/ul (0.0-0.1); BASOPHILS % 0.6 % (0.0-2.0); EOSINOPHILS # 0.3 10^3/ul (0.0-0.5); EOSINOPHILS % 3.1 % (0.0-7.0); HEMATOCRIT 33.9 % (37.0-47.0); LYMPHOCYTES # 2.7 10^3/ul (0.8-2.9); LYMPHOCYTES % 28.3 % (15.0-51.0); MEAN CORPUSCULAR HEMOGLOBIN 31.1 pg (29.0-33.0); MEAN CORPUSCULAR HGB CONC 32.4 g/dl (32.0-37.0); MEAN CORPUSCULAR VOLUME 95.8 fl (82.0-101.0); MEAN PLATELET VOLUME 9.9 fl (7.4-10.4); MONOCYTE # 0.9 10^3/ul (0.3-0.9); MONOCYTES % 9.9 % (0.0-11.0); NEUTROPHIL # 5.4 10^3/ul (1.6-7.5); NEUTROPHILS % 56.6 % (39.0-77.0); PLATELET COUNT 727 10^3/UL (140-415); RED BLOOD COUNT 3.54 10^6/ul (4.20-5.40); RED CELL DISTRIBUTION WIDTH 13.2 % (11.5-14.5); WHITE BLOOD COUNT 9.5 10^3/ul (4.8-10.8)
[2016-10-14] MEDS: PANTOPRAZOLE 40 MG INJ IV SCH (06:11)
[2016-10-14 06:17] LABS: CREATININE 0.73 mg/dl (0.44-1.00)
[2016-10-14 06:18] LABS: CALCIUM 9.7 mg/dl (8.4-10.2)
[2016-10-14 07:24] VITALS: BP 105/54; RESP 19
[2016-10-14] MEDS: INSULIN ASPART [NOVOLOG] 3 ML PEN SC SCH ×4 (07:50→21:00)
[2016-10-14] MEDS: ENOXAPARIN 40 MG/0.4 ML SYG SC SCH (08:19)
--- NOTE | 2016-10-14 11:43 | PN ---
Date/Time of Note Date/Time of Note DATE: 10/14/16 TIME: 11:43 Assessment/Plan VTE Prophylaxis VTE Prophylaxis Intervention: other Lines/Catheters IV Catheter Type (from Nrsg): PORT A CATH Urinary Cath still in place: Yes Reason Cath still needed: skin wounds contaminated by urine Assessment/Plan Chief Complaint/Hosp Course - Right ankle pain. - X-ray shows degenerative changes and soft-tissue swelling. - per ortho - Bilateral leg pain- US negative for DVT - Recurrent ovarian cancer status post secondary cytoreduction surgery by Dr. Zeng. - per ob surgery - Prolonged n.p.o. status. - TPN. - clear liquid per Surgery. - Hypomagnesium - resolved - Elevated blood sugar.Hb AIC- 5.7 - Glycemic control- - Continue sequential compressive devices for deep vein thrombosis prophylaxis. - Continue Protonix for GI prophylaxis Problems: Subjective 24 Hr Interval Summary Free Text/Dictation Patient has no complaints Exam/Review of Systems Vital Signs Vitals Vital Signs Date Time Temp Pulse Resp B/P Pulse Ox O2 Delivery O2 Flow Rate FiO2 10/14/16 07:24 97.2 86 19 105/54 97 10/11/16 07:40 Nasal Cannula 2.0 10/10/16 20:51 21 Intake and Output 10/13/16 10/13/16 10/14/16 15:00 23:00 07:00 Intake Total 2089.5 ml 950 ml Output Total 1007 ml 908 ml Balance 1082.5 ml 42 ml Exam Constitutional: well developed Head: atraumatic, normocephalic Neck: supple Respiratory: diminished breath sounds Cardiovascular: regular rate and rhythm Gastrointestinal: non-tender, soft Extremities: normal pulses Results Result Diagram: 10/14/16 0431 10/14/16 0431 Results 24 hrs Laboratory Tests Test 10/13/16 17:30 10/13/16 20:27 10/14/16 04:31 10/14/16 08:13 Bedside Glucose 86 106 94 White Blood Count 9.5 Red Blood Count 3.54 L Hemoglobin 11.0 L Hematocrit 33.9 L Mean Corpuscular Volume 95.8 Mean Corpuscular Hemoglobin 31.1 Mean Corpuscular Hemoglobin Concent 32.4 Red Cell Distribution Width 13.2 Platelet Count 727 H Mean Platelet Volume 9.9 Neutrophils % 56.6 Lymphocytes % 28.3 Monocytes % 9.9 Eosinophils % 3.1 Basophils % 0.6 Nucleated Red Blood Cells % 0.0 Neutrophils # 5.4 Lymphocytes # 2.7 Monocytes # 0.9 Eosinophils # 0.3 Basophils # 0.1 Nucleated Red Blood Cells # 0.0 Sodium Level 137 Potassium Level 4.0 Chloride Level 97 Carbon Dioxide Level 27 Anion Gap 17 H Blood Urea Nitrogen 20 Creatinine 0.73 Glucose Level 105 # Calcium Level 9.7 Medications Medications Current Medications Acetaminophen (Tylenol Tab) 650 mg Q6H PRN PO PAIN AND OR ELEVATED TEMP Last administered on 10/13/16 11:02; Admin Dose 650 MG; Start 10/03/16 at 11:00 Pantoprazole (Protonix Iv) 40 mg DAILY@06 IV Last administered on 10/14/16 06: 11; Admin Dose 40 MG; Start 10/04/16 at 06:00 Albumin Human 500 ml PRN PRN IV IF UOP < 30 CC/HR Last administered on 20:32; Admin Dose 500 ML; Start 10/05/16 at 21:30 Hydromorphone HCl (Dilaudid) 1 mg Q1H PRN IV PAIN Last administered on 00:13; Admin Dose 1 MG; Start 10/05/16 at 21:00 Ondansetron HCl (Zofran Inj) 4 mg Q6H PRN IV NAUSEA AND/OR VOMITING Last administered on 10/13/16 18:01; Admin Dose 4 MG; Start 10/05/16 at 21:00 Diagnostic Test (Pha) (Accu-Chek) 1 ea 02 XX ; Start 10/08/16 at 02:00 Miscellaneous Information 1 ea NOTE XX ; Start 10/07/16 at 11:30 Glucose (Glutose) 15 gm Q15M PRN PO DECREASED GLUCOSE; Start 10/07/16 at 11:30 Glucose (Glutose) 22.5 gm Q15M PRN PO DECREASED GLUCOSE; Start 10/07/16 at 11:30 Dextrose (D50w Syringe) 25 ml Q15M PRN IV DECREASED GLUCOSE; Start 10/07/16 at 11:30 Dextrose (D50w Syringe) 50 ml Q15M PRN IV DECREASED GLUCOSE; Start 10/07/16 at 11:30 Glucagon (Glucagen) 1 mg Q15M PRN IM DECREASED GLUCOSE; Start 10/07/16 at 11:30 Glucose (Glutose) 15 gm Q15M PRN BUCCAL DECREASED GLUCOSE; Start 10/07/16 at 11: 30 Enoxaparin Sodium 40 mg 40 mg DAILY SC Last administered on 10/14/16 08:19; Admin Dose 40 MG; Start 10/09/16 at 13:30 Acetaminophen (Ofirmev 1000mg/ 100ml Iv) 100 ml @ 400 mls/hr Q6H PRN IVPB PAIN LEVEL 4-7 Last administered on 10/12/16 21:42; Admin Dose 400 MLS/HR; Start 10/09/16 at 15:00 Lorazepam (Ativan) 1 mg HS PO Last administered on 10/13/16 21:23; Admin Dose 1 MG; Start 10/11/16 at 21:00 Lorazepam (Ativan) 1 mg Q6H PRN IV ANXIETY Last administered on 10/12/16 20:51 ; Admin Dose 1 MG; Start 10/11/16 at 18:30 SANDY ABDALLA Oct 14, 2016 11:43
[2016-10-14 19:34] VITALS: BP 116/56; RESP 22
--- NOTE | 2016-10-14 19:57 | PN ---
Date/Time of Note Date/Time of Note DATE: 10/14/16 TIME: 19:55 Assessment/Plan VTE Prophylaxis VTE Prophylaxis Intervention: SCD's Lines/Catheters IV Catheter Type (from Nrsg): PORT A CATH Urinary Cath still in place: Yes Assessment/Plan Chief Complaint/Hosp Course A- known recurrent disease per CA-125 and PET/CT 09/28/16, s/p seccrs Problems: Subjective 24 Hr Interval Summary Free Text/Dictation S- Pain adequately controlled. + BM and flatus. O- Resp- symmetric and no pain CVS- NSR Abd- Soft, minimal distension, NT,wound clean Ext- NT + edema A- Doing better P- slightly adv diet Exam/Review of Systems Vital Signs Vitals Vital Signs Date Time Temp Pulse Resp B/P Pulse Ox O2 Delivery O2 Flow Rate FiO2 10/14/16 19:34 98.6 99 22 116/56 100 10/11/16 07:40 Nasal Cannula 2.0 10/10/16 20:51 21 Intake and Output 10/13/16 10/13/16 10/14/16 15:00 23:00 07:00 Intake Total 2089.5 ml 950 ml Output Total 1007 ml 908 ml Balance 1082.5 ml 42 ml Results Result Diagram: 10/14/16 0431 10/14/16 0431 Results 24 hrs Laboratory Tests Test 10/13/16 20:27 10/14/16 04:31 10/14/16 08:13 10/14/16 11:55 Bedside Glucose 106 94 111 White Blood Count 9.5 Red Blood Count 3.54 L Hemoglobin 11.0 L Hematocrit 33.9 L Mean Corpuscular Volume 95.8 Mean Corpuscular Hemoglobin 31.1 Mean Corpuscular Hemoglobin Concent 32.4 Red Cell Distribution Width 13.2 Platelet Count 727 H Mean Platelet Volume 9.9 Neutrophils % 56.6 Lymphocytes % 28.3 Monocytes % 9.9 Eosinophils % 3.1 Basophils % 0.6 Nucleated Red Blood Cells % 0.0 Neutrophils # 5.4 Lymphocytes # 2.7 Monocytes # 0.9 Eosinophils # 0.3 Basophils # 0.1 Nucleated Red Blood Cells # 0.0 Sodium Level 137 Potassium Level 4.0 Chloride Level 97 Carbon Dioxide Level 27 Anion Gap 17 H Blood Urea Nitrogen 20 Creatinine 0.73 Glucose Level 105 # Calcium Level 9.7 Test 10/14/16 18:22 Bedside Glucose 105 Medications Medications Current Medications Acetaminophen (Tylenol Tab) 650 mg Q6H PRN PO PAIN AND OR ELEVATED TEMP Last administered on 10/13/16 11:02; Admin Dose 650 MG; Start 10/03/16 at 11:00 Pantoprazole (Protonix Iv) 40 mg DAILY@06 IV Last administered on 10/14/16 06: 11; Admin Dose 40 MG; Start 10/04/16 at 06:00 Albumin Human 500 ml PRN PRN IV IF UOP < 30 CC/HR Last administered on 20:32; Admin Dose 500 ML; Start 10/05/16 at 21:30 Hydromorphone HCl (Dilaudid) 1 mg Q1H PRN IV PAIN Last administered on 19:52; Admin Dose 1 MG; Start 10/05/16 at 21:00 Ondansetron HCl (Zofran Inj) 4 mg Q6H PRN IV NAUSEA AND/OR VOMITING Last administered on 10/13/16 18:01; Admin Dose 4 MG; Start 10/05/16 at 21:00 Diagnostic Test (Pha) (Accu-Chek) 1 ea 02 XX ; Start 10/08/16 at 02:00 Miscellaneous Information 1 ea NOTE XX ; Start 10/07/16 at 11:30 Glucose (Glutose) 15 gm Q15M PRN PO DECREASED GLUCOSE; Start 10/07/16 at 11:30 Glucose (Glutose) 22.5 gm Q15M PRN PO DECREASED GLUCOSE; Start 10/07/16 at 11:30 Dextrose (D50w Syringe) 25 ml Q15M PRN IV DECREASED GLUCOSE; Start 10/07/16 at 11:30 Dextrose (D50w Syringe) 50 ml Q15M PRN IV DECREASED GLUCOSE; Start 10/07/16 at 11:30 Glucagon (Glucagen) 1 mg Q15M PRN IM DECREASED GLUCOSE; Start 10/07/16 at 11:30 Glucose (Glutose) 15 gm Q15M PRN BUCCAL DECREASED GLUCOSE; Start 10/07/16 at 11: 30 Enoxaparin Sodium 40 mg 40 mg DAILY SC Last administered on 10/14/16 08:19; Admin Dose 40 MG; Start 10/09/16 at 13:30 Acetaminophen (Ofirmev 1000mg/ 100ml Iv) 100 ml @ 400 mls/hr Q6H PRN IVPB PAIN LEVEL 4-7 Last administered on 10/12/16 21:42; Admin Dose 400 MLS/HR; Start 10/09/16 at 15:00 Lorazepam (Ativan) 1 mg HS PO Last administered on 10/13/16 21:23; Admin Dose 1 MG; Start 10/11/16 at 21:00 Lorazepam (Ativan) 1 mg Q6H PRN IV ANXIETY Last administered on 10/12/16 20:51 ; Admin Dose 1 MG; Start 10/11/16 at 18:30 JAMES NÚÑEZ MD Oct 14, 2016 19:56
[2016-10-14] MEDS: LORAZEPAM 1 MG TAB PO SCH (21:07)
[2016-10-15] MEDS: ACCU-CHEK XX SCH (01:10)
[2016-10-15] MEDS: PANTOPRAZOLE 40 MG INJ IV SCH (05:18)
[2016-10-15 05:23] LABS: ADD SCAN DIFF NO
[2016-10-15 05:32] LABS: CALCIUM 9.6 mg/dl (8.4-10.2); CREATININE 0.73 mg/dl (0.44-1.00); POTASSIUM 3.8 mmol/L (3.5-5.1)
[2016-10-15 05:47] LABS: BASOPHIL # 0.1 10^3/ul (0.0-0.1); BASOPHILS % 0.6 % (0.0-2.0); EOSINOPHILS # 0.3 10^3/ul (0.0-0.5); EOSINOPHILS % 3.2 % (0.0-7.0); HEMATOCRIT 34.1 % (37.0-47.0); HEMOGLOBIN 11.2 g/dl (12.0-16.0); LYMPHOCYTES # 2.7 10^3/ul (0.8-2.9); LYMPHOCYTES % 31.5 % (15.0-51.0); MEAN CORPUSCULAR HEMOGLOBIN 30.9 pg (29.0-33.0); MEAN CORPUSCULAR HGB CONC 32.8 g/dl (32.0-37.0); MEAN CORPUSCULAR VOLUME 93.9 fl (82.0-101.0); MEAN PLATELET VOLUME 9.8 fl (7.4-10.4); MONOCYTE # 1.1 10^3/ul (0.3-0.9); MONOCYTES % 12.5 % (0.0-11.0); NEUTROPHIL # 4.3 10^3/ul (1.6-7.5); NEUTROPHILS % 51.4 % (39.0-77.0); PLATELET COUNT 823 10^3/UL (140-415); RED BLOOD COUNT 3.63 10^6/ul (4.20-5.40); RED CELL DISTRIBUTION WIDTH 13.2 % (11.5-14.5); WHITE BLOOD COUNT 8.4 10^3/ul (4.8-10.8)
[2016-10-15] MEDS: INSULIN ASPART [NOVOLOG] 3 ML PEN SC SCH ×2 (07:50→11:40)
[2016-10-15 08:06] VITALS: BP 110/53; RESP 20
[2016-10-15] MEDS: ENOXAPARIN 40 MG/0.4 ML SYG SC SCH (08:46)
[2016-10-15] MEDS: HYDROmorphONE 1 MG/ML SYG IV PRN ×3 (11:12→23:17)
--- NOTE | 2016-10-15 12:39 | PN ---
Date/Time of Note Date/Time of Note DATE: 10/15/16 TIME: 12:38 Assessment/Plan VTE Prophylaxis VTE Prophylaxis Intervention: other Lines/Catheters IV Catheter Type (from Nrsg): PORT A CATH Urinary Cath still in place: Yes Reason Cath still needed: skin wounds contaminated by urine Assessment/Plan Chief Complaint/Hosp Course - Right ankle pain. - X-ray shows degenerative changes and soft-tissue swelling. - per ortho - Bilateral leg pain- US negative for DVT - Recurrent ovarian cancer status post secondary cytoreduction surgery by Dr. Zeng. - per ob surgery - Prolonged n.p.o. status. - TPN. - clear liquid per Surgery. - Hypomagnesium - resolved - Elevated blood sugar.Hb AIC- 5.7 - Glycemic control- - Continue sequential compressive devices for deep vein thrombosis prophylaxis. - Continue Protonix for GI prophylaxis Problems: Subjective 24 Hr Interval Summary Free Text/Dictation Patient has abdominal pain Exam/Review of Systems Vital Signs Vitals Vital Signs Date Time Temp Pulse Resp B/P Pulse Ox O2 Delivery O2 Flow Rate FiO2 10/15/16 08:06 97.8 90 20 110/53 94 10/11/16 07:40 Nasal Cannula 2.0 Intake and Output 10/14/16 10/14/16 10/15/16 15:00 23:00 07:00 Intake Total 1000 ml 1150 ml Output Total 880 ml 1010 ml Balance 120 ml 140 ml Exam Constitutional: well developed Head: atraumatic, normocephalic Neck: supple Respiratory: clear to auscultation Cardiovascular: regular rate and rhythm Gastrointestinal: non-tender, soft Extremities: normal pulses Results Result Diagram: 10/15/16 0425 10/15/16 0425 Results 24 hrs Laboratory Tests Test 10/14/16 18:22 10/14/16 21:06 10/15/16 04:25 10/15/16 08:41 Bedside Glucose 105 95 106 White Blood Count 8.4 Red Blood Count 3.63 L Hemoglobin 11.2 L Hematocrit 34.1 L Mean Corpuscular Volume 93.9 Mean Corpuscular Hemoglobin 30.9 Mean Corpuscular Hemoglobin Concent 32.8 Red Cell Distribution Width 13.2 Platelet Count 823 H Mean Platelet Volume 9.8 Neutrophils % 51.4 Lymphocytes % 31.5 Monocytes % 12.5 H Eosinophils % 3.2 Basophils % 0.6 Nucleated Red Blood Cells % 0.0 Neutrophils # 4.3 Lymphocytes # 2.7 Monocytes # 1.1 H Eosinophils # 0.3 Basophils # 0.1 Nucleated Red Blood Cells # 0.0 Sodium Level 136 Potassium Level 3.8 Chloride Level 99 Carbon Dioxide Level 28 Anion Gap 13 Blood Urea Nitrogen 17 Creatinine 0.73 Glucose Level 103 Calcium Level 9.6 Test 10/15/16 12:25 Bedside Glucose 120 Medications Medications Current Medications Acetaminophen (Tylenol Tab) 650 mg Q6H PRN PO PAIN AND OR ELEVATED TEMP Last administered on 10/13/16 11:02; Admin Dose 650 MG; Start 10/03/16 at 11:00 Pantoprazole (Protonix Iv) 40 mg DAILY@06 IV Last administered on 10/15/16 05: 18; Admin Dose 40 MG; Start 10/04/16 at 06:00 Albumin Human 500 ml PRN PRN IV IF UOP < 30 CC/HR Last administered on 20:32; Admin Dose 500 ML; Start 10/05/16 at 21:30 Hydromorphone HCl (Dilaudid) 1 mg Q1H PRN IV PAIN Last administered on 11:12; Admin Dose 1 MG; Start 10/05/16 at 21:00 Ondansetron HCl (Zofran Inj) 4 mg Q6H PRN IV NAUSEA AND/OR VOMITING Last administered on 10/13/16 18:01; Admin Dose 4 MG; Start 10/05/16 at 21:00 Diagnostic Test (Pha) (Accu-Chek) 1 ea 02 XX ; Start 10/08/16 at 02:00 Miscellaneous Information 1 ea NOTE XX ; Start 10/07/16 at 11:30 Glucose (Glutose) 15 gm Q15M PRN PO DECREASED GLUCOSE; Start 10/07/16 at 11:30 Glucose (Glutose) 22.5 gm Q15M PRN PO DECREASED GLUCOSE; Start 10/07/16 at 11:30 Dextrose (D50w Syringe) 25 ml Q15M PRN IV DECREASED GLUCOSE; Start 10/07/16 at 11:30 Dextrose (D50w Syringe) 50 ml Q15M PRN IV DECREASED GLUCOSE; Start 10/07/16 at 11:30 Glucagon (Glucagen) 1 mg Q15M PRN IM DECREASED GLUCOSE; Start 10/07/16 at 11:30 Glucose (Glutose) 15 gm Q15M PRN BUCCAL DECREASED GLUCOSE; Start 10/07/16 at 11: 30 Enoxaparin Sodium 40 mg 40 mg DAILY SC Last administered on 10/15/16 08:46; Admin Dose 40 MG; Start 10/09/16 at 13:30 Acetaminophen (Ofirmev 1000mg/ 100ml Iv) 100 ml @ 400 mls/hr Q6H PRN IVPB PAIN LEVEL 4-7 Last administered on 10/12/16 21:42; Admin Dose 400 MLS/HR; Start 10/09/16 at 15:00 Lorazepam (Ativan) 1 mg HS PO Last administered on 10/14/16 21:07; Admin Dose 1 MG; Start 10/11/16 at 21:00 Lorazepam (Ativan) 1 mg Q6H PRN IV ANXIETY Last administered on 10/12/16 20:51 ; Admin Dose 1 MG; Start 10/11/16 at 18:30 SANDY ABDALLA Oct 15, 2016 12:39
[2016-10-15 19:15] VITALS: BP 123/57; RESP 18
[2016-10-15] MEDS: LORAZEPAM 1 MG TAB PO SCH (21:02)
--- NOTE | 2016-10-15 22:32 | PN ---
Date/Time of Note Date/Time of Note DATE: 10/15/16 TIME: 22:30 Assessment/Plan VTE Prophylaxis VTE Prophylaxis Intervention: SCD's Lines/Catheters IV Catheter Type (from Nrs): PORT-A-CATH Urinary Cath still in place: Yes Assessment/Plan Chief Complaint/Hosp Course A- known recurrent disease per CA-125 and PET/CT 09/28/16, s/p seccrs Problems: Subjective 24 Hr Interval Summary Free Text/Dictation S- comfortable. OOB minimal, + BM. Bucky current diet O- resp- clear cvs-nsr abd- clean, NT ext- nt no edema A- doing well P- adv diet and further discussed options with patient and Family Exam/Review of Systems Vital Signs Vitals Vital Signs Date Time Temp Pulse Resp B/P Pulse Ox O2 Delivery O2 Flow Rate FiO2 10/15/16 19:15 98.9 100 18 123/57 93 10/11/16 07:40 Nasal Cannula 2.0 Intake and Output 10/14/16 10/14/16 10/15/16 15:00 23:00 07:00 Intake Total 1000 ml 1150 ml Output Total 880 ml 1010 ml Balance 120 ml 140 ml Results Result Diagram: 10/15/16 0425 10/15/16 0425 Results 24 hrs Laboratory Tests Test 10/15/16 04:25 10/15/16 08:41 10/15/16 12:25 White Blood Count 8.4 Red Blood Count 3.63 L Hemoglobin 11.2 L Hematocrit 34.1 L Mean Corpuscular Volume 93.9 Mean Corpuscular Hemoglobin 30.9 Mean Corpuscular Hemoglobin Concent 32.8 Red Cell Distribution Width 13.2 Platelet Count 823 H Mean Platelet Volume 9.8 Neutrophils % 51.4 Lymphocytes % 31.5 Monocytes % 12.5 H Eosinophils % 3.2 Basophils % 0.6 Nucleated Red Blood Cells % 0.0 Neutrophils # 4.3 Lymphocytes # 2.7 Monocytes # 1.1 H Eosinophils # 0.3 Basophils # 0.1 Nucleated Red Blood Cells # 0.0 Sodium Level 136 Potassium Level 3.8 Chloride Level 99 Carbon Dioxide Level 28 Anion Gap 13 Blood Urea Nitrogen 17 Creatinine 0.73 Glucose Level 103 Calcium Level 9.6 Bedside Glucose 106 120 Medications Medications Current Medications Acetaminophen (Tylenol Tab) 650 mg Q6H PRN PO PAIN AND OR ELEVATED TEMP Last administered on 10/13/16 11:02; Admin Dose 650 MG; Start 10/03/16 at 11:00 Pantoprazole (Protonix Iv) 40 mg DAILY@06 IV Last administered on 10/15/16 05: 18; Admin Dose 40 MG; Start 10/04/16 at 06:00 Albumin Human 500 ml PRN PRN IV IF UOP < 30 CC/HR Last administered on 20:32; Admin Dose 500 ML; Start 10/05/16 at 21:30 Hydromorphone HCl (Dilaudid) 1 mg Q1H PRN IV PAIN Last administered on 16:47; Admin Dose 1 MG; Start 10/05/16 at 21:00 Ondansetron HCl (Zofran Inj) 4 mg Q6H PRN IV NAUSEA AND/OR VOMITING Last administered on 10/13/16 18:01; Admin Dose 4 MG; Start 10/05/16 at 21:00 Miscellaneous Information 1 ea NOTE XX ; Start 10/07/16 at 11:30 Glucose (Glutose) 15 gm Q15M PRN PO DECREASED GLUCOSE; Start 10/07/16 at 11:30 Glucose (Glutose) 22.5 gm Q15M PRN PO DECREASED GLUCOSE; Start 10/07/16 at 11:30 Dextrose (D50w Syringe) 25 ml Q15M PRN IV DECREASED GLUCOSE; Start 10/07/16 at 11:30 Dextrose (D50w Syringe) 50 ml Q15M PRN IV DECREASED GLUCOSE; Start 10/07/16 at 11:30 Glucagon (Glucagen) 1 mg Q15M PRN IM DECREASED GLUCOSE; Start 10/07/16 at 11:30 Glucose (Glutose) 15 gm Q15M PRN BUCCAL DECREASED GLUCOSE; Start 10/07/16 at 11: 30 Enoxaparin Sodium 40 mg 40 mg DAILY SC Last administered on 10/15/16 08:46; Admin Dose 40 MG; Start 10/09/16 at 13:30 Acetaminophen (Ofirmev 1000mg/ 100ml Iv) 100 ml @ 400 mls/hr Q6H PRN IVPB PAIN LEVEL 4-7 Last administered on 10/12/16 21:42; Admin Dose 400 MLS/HR; Start 10/09/16 at 15:00 Lorazepam (Ativan) 1 mg HS PO Last administered on 10/15/16 21:02; Admin Dose 1 MG; Start 10/11/16 at 21:00 Lorazepam (Ativan) 1 mg Q6H PRN IV ANXIETY Last administered on 10/12/16 20:51 ; Admin Dose 1 MG; Start 10/11/16 at 18:30 JAMES NÚÑEZ MD Oct 15, 2016 22:32
[2016-10-15] MEDS: ONDANSETRON 4 MG INJ IV PRN (23:16)
[2016-10-16] MEDS: PANTOPRAZOLE 40 MG INJ IV SCH (05:46)
[2016-10-16 06:04] LABS: ADD SCAN DIFF NO
[2016-10-16 06:16] LABS: BASOPHILS % 0.6 % (0.0-2.0); EOSINOPHILS % 2.5 % (0.0-7.0); HEMATOCRIT 34.9 % (37.0-47.0); HEMOGLOBIN 11.4 g/dl (12.0-16.0); LYMPHOCYTES % 31.3 % (15.0-51.0); MEAN CORPUSCULAR HGB CONC 32.7 g/dl (32.0-37.0); MEAN CORPUSCULAR VOLUME 94.8 fl (82.0-101.0); MEAN PLATELET VOLUME 9.6 fl (7.4-10.4); MONOCYTES % 10.5 % (0.0-11.0); NEUTROPHILS % 54.5 % (39.0-77.0); PLATELET COUNT 843 10^3/UL (140-415); RED BLOOD COUNT 3.68 10^6/ul (4.20-5.40); RED CELL DISTRIBUTION WIDTH 13.2 % (11.5-14.5); WHITE BLOOD COUNT 9.5 10^3/ul (4.8-10.8)
[2016-10-16 06:16] LABS: POTASSIUM 3.6 mmol/L (3.5-5.1)
[2016-10-16 06:17] LABS: BASOPHIL # 0.1 10^3/ul (0.0-0.1); EOSINOPHILS # 0.2 10^3/ul (0.0-0.5); NEUTROPHIL # 5.2 10^3/ul (1.6-7.5)
[2016-10-16 06:18] LABS: CREATININE 0.77 mg/dl (0.44-1.00)
[2016-10-16 06:19] LABS: CALCIUM 9.7 mg/dl (8.4-10.2)
[2016-10-16 08:22] VITALS: BP 102/53; RESP 18
[2016-10-16] MEDS: ENOXAPARIN 40 MG/0.4 ML SYG SC SCH (08:31)
--- NOTE | 2016-10-16 11:37 | RADRPT ---
PROCEDURE: Bilateral upper extremity venous ultrasound CLINICAL INDICATION: Bilateral upper extremity pain and swelling. Deep venous thrombosis. TECHNIQUE: Beyer scale, color doppler, spectral doppler ultrasound imaging of the venous system of the bilateral upper extremities. Augmentation maneuvers were utilized. COMPARISON: No prior studies are available for comparison. FINDINGS: RIGHT: Internal jugular vein: Patent. Subclavian vein: Patent. Axillary vein: Patent. Brachial vein: Patent. Basilic vein: Patent. Cephalic vein: Patent. Radial vein: Patent. Ulnar vein: Patent. LEFT: Internal jugular vein: Patent. Subclavian vein: Patent. Axillary vein: Patent. Brachial vein: Patent. Basilic vein: Patent. Cephalic vein: Patent. Radial vein: Patent. Ulnar vein: Patent. IMPRESSION: No evidence of a deep vein thrombosis involving the bilateral upper extremities. RPTAT: AADD .Jerry Marques MD, Date Time Electronically viewed and signed by .Jerry Marques MD, on 10/16/2016 11:36 .B/
[2016-10-16] MEDS: HYDROmorphONE 1 MG/ML SYG IV PRN ×2 (11:50→18:15)
--- NOTE | 2016-10-16 17:19 | PN ---
Date/Time of Note Date/Time of Note DATE: 10/16/16 TIME: 17:15 Assessment/Plan VTE Prophylaxis VTE Prophylaxis Intervention: SCD's Lines/Catheters IV Catheter Type (from Nrsg): port a cath Urinary Cath still in place: Yes Reason Cath still needed: urinary retention Assessment/Plan Chief Complaint/Hosp Course ASSESSMENT AND PLAN: - Recurrent ovarian cancer, status post second cytoreduction by Dr. Zeng on 10/05. Continue Dilaudid as needed for pain and Zofran as needed for nausea. Continue to follow-up surgical recommendations. Plan for starting chemotherapy upon permacath placement by vascular surgery. - Abdominal pain secondary to #1 . - Hypertension. Continue to monitor patient's blood pressure. Hydralazine p.r.n. for systolic blood pressure above 170. Continue Lovenox for deep venous thrombosis prophylaxis and Protonix for peptic ulcer disease prophylaxis. Further recommendations based on clinical course. Plan of care discussed with Dr. Matthews. Problems: Subjective 24 Hr Interval Summary Free Text/Dictation Patient tolerates pured diet well, denies any nausea vomiting, remained afebrile. Pending permacath placement to start chemo in-house. Exam/Review of Systems Vital Signs Vitals Vital Signs Date Time Temp Pulse Resp B/P Pulse Ox O2 Delivery O2 Flow Rate FiO2 10/16/16 08:22 97.8 82 18 102/53 92 Intake and Output 10/15/16 10/15/16 10/16/16 15:00 23:00 07:00 Intake Total 700 ml 440 ml Output Total 307 ml 806 ml Balance 393 ml -366 ml Exam PHYSICAL ASSESSMENT: GENERAL: Well-developed, well-nourished, obese female currently is awake, alert. HEENT: Head is atraumatic, normocephalic. PERRLA. NECK: Supple, no cervical lymphadenopathy, no thyromegaly. CHEST: Lungs clear bilaterally. There is no rhonchi, wheezes, rales noted. CARDIOVASCULAR: Normal S1, S2. No murmurs, gallops, clicks, rubs noted. GASTROINTESTINAL: Abdomen is soft and nondistended. BS +. Status post surgery. EXTREMITIES: No edema, clubbing, cyanosis. Pulses equal bilaterally 2+. SKIN: There is no rash, petechiae noted. NEUROLOGIC: Patient is awake, alert and oriented x4. Results Result Diagram: 10/16/16 0429 10/16/16 0427 Results 24 hrs Laboratory Tests Test 10/16/16 04:27 10/16/16 04:29 Sodium Level 136 Potassium Level 3.6 Chloride Level 97 Carbon Dioxide Level 28 Anion Gap 15 Blood Urea Nitrogen 15 Creatinine 0.77 Glucose Level 108 Calcium Level 9.7 White Blood Count 9.5 Red Blood Count 3.68 L Hemoglobin 11.4 L Hematocrit 34.9 L Mean Corpuscular Volume 94.8 Mean Corpuscular Hemoglobin 31.0 Mean Corpuscular Hemoglobin Concent 32.7 Red Cell Distribution Width 13.2 Platelet Count 843 H Mean Platelet Volume 9.6 Neutrophils % 54.5 Lymphocytes % 31.3 Monocytes % 10.5 Eosinophils % 2.5 Basophils % 0.6 Nucleated Red Blood Cells % 0.0 Neutrophils # 5.2 Lymphocytes # 3.0 H Monocytes # 1.0 H Eosinophils # 0.2 Basophils # 0.1 Nucleated Red Blood Cells # 0.0 Medications Medications Current Medications Acetaminophen (Tylenol Tab) 650 mg Q6H PRN PO PAIN AND OR ELEVATED TEMP Last administered on 10/13/16 11:02; Admin Dose 650 MG; Start 10/03/16 at 11:00 Albumin Human 500 ml PRN PRN IV IF UOP < 30 CC/HR Last administered on 20:32; Admin Dose 500 ML; Start 10/05/16 at 21:30 Hydromorphone HCl (Dilaudid) 1 mg Q1H PRN IV PAIN Last administered on 11:50; Admin Dose 1 MG; Start 10/05/16 at 21:00 Ondansetron HCl (Zofran Inj) 4 mg Q6H PRN IV NAUSEA AND/OR VOMITING Last administered on 10/15/16 23:16; Admin Dose 4 MG; Start 10/05/16 at 21:00 Miscellaneous Information 1 ea NOTE XX ; Start 10/07/16 at 11:30 Glucose (Glutose) 15 gm Q15M PRN PO DECREASED GLUCOSE; Start 10/07/16 at 11:30 Glucose (Glutose) 22.5 gm Q15M PRN PO DECREASED GLUCOSE; Start 10/07/16 at 11:30 Dextrose (D50w Syringe) 25 ml Q15M PRN IV DECREASED GLUCOSE; Start 10/07/16 at 11:30 Dextrose (D50w Syringe) 50 ml Q15M PRN IV DECREASED GLUCOSE; Start 10/07/16 at 11:30 Glucagon (Glucagen) 1 mg Q15M PRN IM DECREASED GLUCOSE; Start 10/07/16 at 11:30 Glucose (Glutose) 15 gm Q15M PRN BUCCAL DECREASED GLUCOSE; Start 10/07/16 at 11: 30 Enoxaparin Sodium 40 mg 40 mg DAILY SC Last administered on 10/16/16 08:31; Admin Dose 40 MG; Start 10/09/16 at 13:30 Acetaminophen (Ofirmev 1000mg/ 100ml Iv) 100 ml @ 400 mls/hr Q6H PRN IVPB PAIN LEVEL 4-7 Last administered on 10/12/16 21:42; Admin Dose 400 MLS/HR; Start 10/09/16 at 15:00 Lorazepam (Ativan) 1 mg HS PO Last administered on 10/15/16 21:02; Admin Dose 1 MG; Start 10/11/16 at 21:00 Lorazepam (Ativan) 1 mg Q6H PRN IV ANXIETY Last administered on 10/12/16 20:51 ; Admin Dose 1 MG; Start 10/11/16 at 18:30 Tramadol HCl (Ultram) 50 mg Q6H PRN NGT PAIN LEVEL 4-6; Start 10/15/16 at 23:00 Pantoprazole (Protonix Tab) 40 mg DAILY@06 PO ; Start 10/17/16 at 06:00 AMEE JIMENEZ Oct 16, 2016 17:19
[2016-10-16 19:34] VITALS: BP 111/54; RESP 20
[2016-10-16] MEDS: LORAZEPAM 1 MG TAB PO SCH (20:15)
[2016-10-16] MEDS: ONDANSETRON 4 MG INJ IV PRN (20:15)
--- NOTE | 2016-10-16 21:46 | CONS ---
Date/Time of Note Date/Time of Note DATE: 10/16/16 TIME: 21:06 Assessment/Plan Assessment/Plan Chief Complaint/Hosp Course 66 yo with recurrent ovarian cancer s/p cytoreductive surgery with likely submillimeter residual disease. Problems: Additional Assessment/Plan #ovarian cancer - -need to obtain records from patient's oncologist to determine what chemotherapy has received in the past -will start Carboplatin AUC 6 and Taxol 175mg/m2 within next few days. Chemotherapy orders have been written. PT will need a total of 6 cycles -continue Lovenox from DVT ppx Approximately 40 min were spent at patient's bedside and in coordination of her care Consultation Date/Type/Reason Admit Date/Time Oct 03, 2016 at 08:11 Date of Consultation: Oct 16, 2016 Type of Consultation: Oncology Reason for Consultation recurrent ovarian cancer Referring Provider: JAMES NÚÑEZ MD Hx of Present Illness (Note, history was taken from her daughter who is unclear of all details of patient's disease course) 66yo who was originally diagnosed with ovarian ca in September 2013 when she was found with malignant ascites. Patient has optimal debulking surgery on October 27, 2013 which was followed by adjuvant carboplatin and taxol. Per her daughter, less than 1 year later pt presented with a small bowel obstruction and again underwent surgery. It is unclear if patient recurred at that time, but she was started again on chemotherapy, presumably Taxol and Avastin was added. Avastin was stopped after the patient was found with a blood clot. Per her daughter, pt was on chemotherapy and a blood thinner for the entire year of 2014 until April 2016. In Jul 2016 pt had a normal CA 125 of 35. In August this this itffani to 100. Pt had a PET CT done which was concerning for recurrent disease. Patient has since undergone a small bowel obstruction as well as a bilateral ureteral dissection, secondary cyto reduction as well as ventral hernia repair. Intraoperatively patient was found with upper abdominal disease involving the left perigastric area and throughout the small bowel mesentery with a segment of small bowel requiring a small bowel resection and anastomosis and ureteral dissection in the process. The left pelvic disease was adjacent to the sidewall and sigmoid colon also requiring a ureteral dissection with the metastatic disease removed. We have been consulted for consideration of adjuvant chemotherapy. Constitutional: improved Eyes: no complaints ENT: no complaints Respiratory: no complaints Cardiovascular: no complaints Gastrointestinal: no complaints, other Genitourinary: no complaints Musculoskeletal: bone/joint pain Skin: no complaints Neurologic: no complaints Endocrine: no complaints Lymphatic: no complaints Psychological: nl mood/affect Immunologic: no complaints Past Medical History history of Breast ca 2011 s/p mastectomy recent history of deep venous thrombosis of the right lower extremity, status post taking Xarelto. metastatic adenocarcinoma ovarian cancer. hypertension osteoarthritis anxiety. Family History Significant Family History: no pertinent family hx Social History The patient lives at home with her family, patient denies any tobacco use, denies any alcohol use, denies any illicit drug use. Patient is a former smoker. Smoking Status: Never smoker Exam/Review of Systems Vital Signs Vitals Vital Signs Date Time Temp Pulse Resp B/P Pulse Ox O2 Delivery O2 Flow Rate FiO2 10/16/16 19:34 98.2 100 20 111/54 94 Intake and Output 10/15/16 10/15/16 10/16/16 15:00 23:00 07:00 Intake Total 700 ml 440 ml Output Total 307 ml 806 ml Balance 393 ml -366 ml Exam Constitutional: alert, oriented Psych: nl mood/affect, no complaints Eyes: nl conjunctiva ENMT: nl external ears & nose Neck: non-tender, supple Respiratory: clear to auscultation, normal air movement Cardiovascular: regular rate and rhythm Gastrointestinal: soft Musculoskeletal: nl extremities to inspection, nl gait and stance Results Result Diagram: 10/16/1642810/16/167 Results 24 hrs Laboratory Tests Test 10/16/16 04:27 10/16/16 04:29 Sodium Level 136 Potassium Level 3.6 Chloride Level 97 Carbon Dioxide Level 28 Anion Gap 15 Blood Urea Nitrogen 15 Creatinine 0.77 Glucose Level 108 Calcium Level 9.7 White Blood Count 9.5 Red Blood Count 3.68 L Hemoglobin 11.4 L Hematocrit 34.9 L Mean Corpuscular Volume 94.8 Mean Corpuscular Hemoglobin 31.0 Mean Corpuscular Hemoglobin Concent 32.7 Red Cell Distribution Width 13.2 Platelet Count 843 H Mean Platelet Volume 9.6 Neutrophils % 54.5 Lymphocytes % 31.3 Monocytes % 10.5 Eosinophils % 2.5 Basophils % 0.6 Nucleated Red Blood Cells % 0.0 Neutrophils # 5.2 Lymphocytes # 3.0 H Monocytes # 1.0 H Eosinophils # 0.2 Basophils # 0.1 Nucleated Red Blood Cells # 0.0 Medications Medications Current Medications Acetaminophen (Tylenol Tab) 650 mg Q6H PRN PO PAIN AND OR ELEVATED TEMP Last administered on 10/13/16 11:02; Admin Dose 650 MG; Start 10/03/16 at 11:00 Albumin Human 500 ml PRN PRN IV IF UOP < 30 CC/HR Last administered on 20:32; Admin Dose 500 ML; Start 10/05/16 at 21:30 Hydromorphone HCl (Dilaudid) 1 mg Q1H PRN IV PAIN Last administered on 18:15; Admin Dose 1 MG; Start 10/05/16 at 21:00 Ondansetron HCl (Zofran Inj) 4 mg Q6H PRN IV NAUSEA AND/OR VOMITING Last administered on 10/16/16 20:15; Admin Dose 4 MG; Start 10/05/16 at 21:00 Miscellaneous Information 1 ea NOTE XX ; Start 10/07/16 at 11:30 Glucose (Glutose) 15 gm Q15M PRN PO DECREASED GLUCOSE; Start 10/07/16 at 11:30 Glucose (Glutose) 22.5 gm Q15M PRN PO DECREASED GLUCOSE; Start 10/07/16 at 11:30 Dextrose (D50w Syringe) 25 ml Q15M PRN IV DECREASED GLUCOSE; Start 10/07/16 at 11:30 Dextrose (D50w Syringe) 50 ml Q15M PRN IV DECREASED GLUCOSE; Start 10/07/16 at 11:30 Glucagon (Glucagen) 1 mg Q15M PRN IM DECREASED GLUCOSE; Start 10/07/16 at 11:30 Glucose (Glutose) 15 gm Q15M PRN BUCCAL DECREASED GLUCOSE; Start 10/07/16 at 11: 30 Enoxaparin Sodium 40 mg 40 mg DAILY SC Last administered on 10/16/16 08:31; Admin Dose 40 MG; Start 10/09/16 at 13:30 Acetaminophen (Ofirmev 1000mg/ 100ml Iv) 100 ml @ 400 mls/hr Q6H PRN IVPB PAIN LEVEL 4-7 Last administered on 10/12/16 21:42; Admin Dose 400 MLS/HR; Start 10/09/16 at 15:00 Lorazepam (Ativan) 1 mg HS PO Last administered on 10/16/16 20:15; Admin Dose 1 MG; Start 10/11/16 at 21:00 Lorazepam (Ativan) 1 mg Q6H PRN IV ANXIETY Last administered on 10/12/16 20:51 ; Admin Dose 1 MG; Start 10/11/16 at 18:30 Tramadol HCl (Ultram) 50 mg Q6H PRN NGT PAIN LEVEL 4-6; Start 10/15/16 at 23:00 Pantoprazole (Protonix Tab) 40 mg DAILY@06 PO ; Start 10/17/16 at 06:00 VALENTINA PHELAN M.D. Oct 16, 2016 21:17
--- NOTE | 2016-10-16 22:47 | CONS ---
DATE OF ADMISSION: 10/03/2016 DATE OF CONSULTATION: 10/16/2016 PHYSICIAN ORDERING CONSULTATION: Dr. Zeng TYPE OF CONSULTATION: Vascular surgery. Dear Doctors: HISTORY OF PRESENT ILLNESS: Ms. Sanchez is a 66-year-old female who presented with recent history of recurrent ovarian cancer with partial small-bowel obstruction and ureteral stricture who is statu s post small bowel resection and anastomosis with bilateral ureteral dissection repositioning with v entral hernia repair and secondary cytoreduction. Vascular surgery consultation was obtained for ev aluation of a [id number]. At the moment, the patient denies shortness of breath, chest pain, n ausea, vomiting, fever, chills. The patient has been able to tolerate some diet, passing gas and ai r. She has had a history of breast cancer with left mastectomy about 18 years ago in [place] status post radiation. Her original ovarian cancer was diagnosed about 3 years ago in which she underwent a total abdominal hysterectomy and oophorectomy. Per reporting of her daughters, there was some col on involvement. The patient also is status post chemotherapy and had a port catheter placed about 2 years ago. She recently stopped her chemotherapy about 6 months ago. REVIEW OF SYSTEMS: A 12-point review performed and negative except what is mentioned in the HPI. PAST MEDICAL HISTORY: Entails deep vein thrombosis of the right lower extremity on Xarelto, history of metastatic adenocarcinoma ovarian cancer, hypertension, osteoarthritis, anxiety, morbid obesity. PAST SURGICAL HISTORY: As mentioned above. FAMILY HISTORY: Hypertension. SOCIAL HISTORY: Denies alcohol, tobacco, or illicit drug use. She was a previous smoker. PHYSICAL EXAMINATION: GENERAL: Alert and oriented x3, no apparent distress. HEENT: Normocephalic, atraumatic. PERRLA, EOMI. Mucosa moist. NECK: Supple. No carotid bruit. PULMONARY: Clear to auscultation bilaterally. No crackles. CARDIOVASCULAR: S1, S2 present. No murmurs. ABDOMEN: Soft, ____ distended, minimal tenderness. Bowel sounds positive. EXTREMITIES: Palpable femoral pulses. Faint pedal pulses. Motor, sensory intact. Capillary refil l 2 to 3 seconds. ASSESSMENT AND PLAN: Recurrent metastatic ovarian cancer: It seems the patient has had a previous history of a right chest wall port catheter placed. 1. At the moment, it seems to be functional and will continue to monitor. No need for a change of port catheter for now and will continue observation, if needed in the near future for any change or if there is malfunctioning. 2. Continue with medical management as recommended. 3. Discussed findings, plan, and management with the patient and daughter at the bedside and they u nderstand. 4. Optimize vascular status (BP meds, diet, nutrition, exercise, sugar control, antiplatelets, and eventual anticoagulation) once she is cleared from a surgical standpoint from her previous deep vein thrombosis. Thank you for allowing us to partake in the care of your patient. Please call with any questions. Dictated By: JOSEPH GUZMAN/NTS Conf#: [id number] DID#: [id number] CC: LOTTIE NORTON MD; JAMES ZENG MD;*EndCC*
[2016-10-17 04:49] LABS: ADD SCAN DIFF NO
[2016-10-17 04:59] LABS: BASOPHIL # 0.1 10^3/ul (0.0-0.1); BASOPHILS % 0.5 % (0.0-2.0); EOSINOPHILS # 0.3 10^3/ul (0.0-0.5); EOSINOPHILS % 2.8 % (0.0-7.0); HEMATOCRIT 34.5 % (37.0-47.0); HEMOGLOBIN 11.3 g/dl (12.0-16.0); LYMPHOCYTES # 3.2 10^3/ul (0.8-2.9); LYMPHOCYTES % 32.2 % (15.0-51.0); MEAN CORPUSCULAR HGB CONC 32.8 g/dl (32.0-37.0); MEAN CORPUSCULAR VOLUME 94.8 fl (82.0-101.0); MEAN PLATELET VOLUME 9.5 fl (7.4-10.4); MONOCYTES % 10.2 % (0.0-11.0); NEUTROPHIL # 5.3 10^3/ul (1.6-7.5); NEUTROPHILS % 53.6 % (39.0-77.0); PLATELET COUNT 879 10^3/UL (140-415); RED BLOOD COUNT 3.64 10^6/ul (4.20-5.40); RED CELL DISTRIBUTION WIDTH 13.2 % (11.5-14.5); WHITE BLOOD COUNT 9.8 10^3/ul (4.8-10.8)
[2016-10-17 05:38] LABS: INR 1.06; PARTIAL THROMBOPLASTIN TIME 29.7 Sec (25.0-35.0); PROTIME 13.8 Sec (12.2-14.2); PT RATIO 1.1; THROMBIN TIME 18.9 SEC (13.8-19.1)
[2016-10-17 05:42] LABS: CALCIUM 9.4 mg/dl (8.4-10.2); CREATININE 0.76 mg/dl (0.44-1.00); POTASSIUM 3.6 mmol/L (3.5-5.1)
[2016-10-17] MEDS: PANTOPRAZOLE (EC) 40 MG TAB PO SCH (05:42)
[2016-10-17 07:50] VITALS: BP 116/57; RESP 18
[2016-10-17] MEDS: HYDROmorphONE 1 MG/ML SYG IV PRN ×2 (09:09→15:03)
[2016-10-17] MEDS: ENOXAPARIN 40 MG/0.4 ML SYG SC SCH (09:14)
[2016-10-17] MEDS: ONDANSETRON 4 MG INJ IV PRN (10:03)
[2016-10-17] MEDS ORDERED: DEXAMETHASONE 4 MG/ML 20 MG in DEXTROSE 5% 50 ML IVPB SCH (13:30)
[2016-10-17] MEDS ORDERED: MENTHOL/METH SALICYLATE 30 GM OINT TOP PRN (14:00)
--- NOTE | 2016-10-17 14:55 | CONS ---
Date/Time of Note Date/Time of Note DATE: 10/17/16 TIME: 14:52 Assessment/Plan Assessment/Plan Chief Complaint/Hosp Course 66 yo with recurrent ovarian cancer s/p cytoreductive surgery with likely submillimeter residual disease. Pt tolerative soft diet without nausea Problems: Additional Assessment/Plan #ovarian cancer - -need to obtain records from patient's oncologist to determine what chemotherapy has received in the past -will start Carboplatin AUC 6 and Taxol 175mg/m2 within next few days. Chemotherapy orders have been written. PT will need a total of 6 cycles -continue Lovenox from DVT ppx -continue post op care per Dr. Ramos Approximately 40 min were spent at patient's bedside and in coordination of her care Consultation Date/Type/Reason Admit Date/Time Oct 03, 2016 at 08:11 Initial Consult Date 10/16/16 Type of Consultation: Oncology Reason for Consultation recurrent ovarian cancer Referring Provider: JAMES NÚÑEZ MD 24 HR Interval Summary Free Text/Dictation no acute overnight events. pt is tolerating a soft diet Exam/Review of Systems Vital Signs Vitals Vital Signs Date Time Temp Pulse Resp B/P Pulse Ox O2 Delivery O2 Flow Rate FiO2 10/17/16 07:50 98.3 93 18 116/57 93 Intake and Output 10/16/16 10/16/16 10/17/16 14:59 22:59 06:59 Intake Total 700 ml 700 ml Output Total 655 ml 610 ml Balance 45 ml 90 ml Exam Constitutional: alert Psych: nl mood/affect, no complaints Eyes: nl conjunctiva ENMT: nl external ears & nose Neck: non-tender, supple Respiratory: clear to auscultation Cardiovascular: regular rate and rhythm Gastrointestinal: surgical scars Musculoskeletal: nl extremities to inspection, nl gait and stance Results Result Diagram: 10/17/16 0420 10/17/16 0420 Results 24 hrs Laboratory Tests Test 10/17/16 04:20 White Blood Count 9.8 Red Blood Count 3.64 L Hemoglobin 11.3 L Hematocrit 34.5 L Mean Corpuscular Volume 94.8 Mean Corpuscular Hemoglobin 31.0 Mean Corpuscular Hemoglobin Concent 32.8 Red Cell Distribution Width 13.2 Platelet Count 879 H Mean Platelet Volume 9.5 Neutrophils % 53.6 Lymphocytes % 32.2 Monocytes % 10.2 Eosinophils % 2.8 Basophils % 0.5 Nucleated Red Blood Cells % 0.0 Neutrophils # 5.3 Lymphocytes # 3.2 H Monocytes # 1.0 H Eosinophils # 0.3 Basophils # 0.1 Nucleated Red Blood Cells # 0.0 Prothrombin Time 13.8 Prothrombin Time Ratio 1.1 INR International Normalized Ratio 1.06 Activated Partial Thromboplast Time 29.7 Thrombin Time 18.9 Sodium Level 136 Potassium Level 3.6 Chloride Level 99 Carbon Dioxide Level 28 Anion Gap 13 Blood Urea Nitrogen 16 Creatinine 0.76 Glucose Level 107 Calcium Level 9.4 Medications Medications Current Medications Acetaminophen (Tylenol Tab) 650 mg Q6H PRN PO PAIN AND OR ELEVATED TEMP Last administered on 10/13/16 11:02; Admin Dose 650 MG; Start 10/03/16 at 11:00 Albumin Human 500 ml PRN PRN IV IF UOP < 30 CC/HR Last administered on 20:32; Admin Dose 500 ML; Start 10/05/16 at 21:30 Hydromorphone HCl (Dilaudid) 1 mg Q1H PRN IV PAIN Last administered on 09:09; Admin Dose 1 MG; Start 10/05/16 at 21:00 Ondansetron HCl (Zofran Inj) 4 mg Q6H PRN IV NAUSEA AND/OR VOMITING Last administered on 10/17/16 10:03; Admin Dose 4 MG; Start 10/05/16 at 21:00 Miscellaneous Information 1 ea NOTE XX ; Start 10/07/16 at 11:30 Glucose (Glutose) 15 gm Q15M PRN PO DECREASED GLUCOSE; Start 10/07/16 at 11:30 Glucose (Glutose) 22.5 gm Q15M PRN PO DECREASED GLUCOSE; Start 10/07/16 at 11:30 Dextrose (D50w Syringe) 25 ml Q15M PRN IV DECREASED GLUCOSE; Start 10/07/16 at 11:30 Dextrose (D50w Syringe) 50 ml Q15M PRN IV DECREASED GLUCOSE; Start 10/07/16 at 11:30 Glucagon (Glucagen) 1 mg Q15M PRN IM DECREASED GLUCOSE; Start 10/07/16 at 11:30 Glucose (Glutose) 15 gm Q15M PRN BUCCAL DECREASED GLUCOSE; Start 10/07/16 at 11: 30 Enoxaparin Sodium 40 mg 40 mg DAILY SC Last administered on 10/17/16 09:14; Admin Dose 40 MG; Start 10/09/16 at 13:30 Acetaminophen (Ofirmev 1000mg/ 100ml Iv) 100 ml @ 400 mls/hr Q6H PRN IVPB PAIN LEVEL 4-7 Last administered on 10/12/16 21:42; Admin Dose 400 MLS/HR; Start 10/09/16 at 15:00 Lorazepam (Ativan) 1 mg HS PO Last administered on 10/16/16 20:15; Admin Dose 1 MG; Start 10/11/16 at 21:00 Lorazepam (Ativan) 1 mg Q6H PRN IV ANXIETY Last administered on 10/12/16 20:51 ; Admin Dose 1 MG; Start 10/11/16 at 18:30 Tramadol HCl (Ultram) 50 mg Q6H PRN NGT PAIN LEVEL 4-6; Start 10/15/16 at 23:00 Pantoprazole (Protonix Tab) 40 mg DAILY@06 PO Last administered on 10/17/16 05 :42; Admin Dose 40 MG; Start 10/17/16 at 06:00 Menthol/Methyl Salicylate (Luciano Chavez) 1 applic QID PRN TOP PAIN Last administered on 10/17/16 14:25; Admin Dose 1 APPLIC; Start 10/17/16 at 14:00 VALENTINA PHELAN M.D. Oct 17, 2016 14:54
--- NOTE | 2016-10-17 15:23 | PN ---
Date/Time of Note Date/Time of Note DATE: 10/17/16 TIME: 15:21 Assessment/Plan VTE Prophylaxis VTE Prophylaxis Intervention: LMWH Lines/Catheters IV Catheter Type (from Nrs): port a cath Urinary Cath still in place: Yes Reason Cath still needed: urinary retention Assessment/Plan Chief Complaint/Hosp Course A- known recurrent disease per CA-125 and PET/CT 09/28/16, s/p seccrs Problems: Assessment/Plan - improved P- discuss chemo with Med Onc and start RADHA Subjective 24 Hr Interval Summary Free Text/Dictation Eats better and more OOB. Exam/Review of Systems Vital Signs Vitals Vital Signs Date Time Temp Pulse Resp B/P Pulse Ox O2 Delivery O2 Flow Rate FiO2 10/17/16 07:50 98.3 93 18 116/57 93 Intake and Output 10/16/16 10/16/16 10/17/16 15:00 23:00 07:00 Intake Total 700 ml 700 ml Output Total 655 ml 610 ml Balance 45 ml 90 ml Exam O- resp- clear cvs-nsr abd- clean, NT ext- nt no edema Results Result Diagram: 10/17/16 0420 10/17/16 0420 Results 24 hrs Laboratory Tests Test 10/17/16 04:20 White Blood Count 9.8 Red Blood Count 3.64 L Hemoglobin 11.3 L Hematocrit 34.5 L Mean Corpuscular Volume 94.8 Mean Corpuscular Hemoglobin 31.0 Mean Corpuscular Hemoglobin Concent 32.8 Red Cell Distribution Width 13.2 Platelet Count 879 H Mean Platelet Volume 9.5 Neutrophils % 53.6 Lymphocytes % 32.2 Monocytes % 10.2 Eosinophils % 2.8 Basophils % 0.5 Nucleated Red Blood Cells % 0.0 Neutrophils # 5.3 Lymphocytes # 3.2 H Monocytes # 1.0 H Eosinophils # 0.3 Basophils # 0.1 Nucleated Red Blood Cells # 0.0 Prothrombin Time 13.8 Prothrombin Time Ratio 1.1 INR International Normalized Ratio 1.06 Activated Partial Thromboplast Time 29.7 Thrombin Time 18.9 Sodium Level 136 Potassium Level 3.6 Chloride Level 99 Carbon Dioxide Level 28 Anion Gap 13 Blood Urea Nitrogen 16 Creatinine 0.76 Glucose Level 107 Calcium Level 9.4 Medications Medications Current Medications Acetaminophen (Tylenol Tab) 650 mg Q6H PRN PO PAIN AND OR ELEVATED TEMP Last administered on 10/13/16 11:02; Admin Dose 650 MG; Start 10/03/16 at 11:00 Albumin Human 500 ml PRN PRN IV IF UOP < 30 CC/HR Last administered on 20:32; Admin Dose 500 ML; Start 10/05/16 at 21:30 Hydromorphone HCl (Dilaudid) 1 mg Q1H PRN IV PAIN Last administered on 15:03; Admin Dose 1 MG; Start 10/05/16 at 21:00 Ondansetron HCl (Zofran Inj) 4 mg Q6H PRN IV NAUSEA AND/OR VOMITING Last administered on 10/17/16 10:03; Admin Dose 4 MG; Start 10/05/16 at 21:00 Miscellaneous Information 1 ea NOTE XX ; Start 10/07/16 at 11:30 Glucose (Glutose) 15 gm Q15M PRN PO DECREASED GLUCOSE; Start 10/07/16 at 11:30 Glucose (Glutose) 22.5 gm Q15M PRN PO DECREASED GLUCOSE; Start 10/07/16 at 11:30 Dextrose (D50w Syringe) 25 ml Q15M PRN IV DECREASED GLUCOSE; Start 10/07/16 at 11:30 Dextrose (D50w Syringe) 50 ml Q15M PRN IV DECREASED GLUCOSE; Start 10/07/16 at 11:30 Glucagon (Glucagen) 1 mg Q15M PRN IM DECREASED GLUCOSE; Start 10/07/16 at 11:30 Glucose (Glutose) 15 gm Q15M PRN BUCCAL DECREASED GLUCOSE; Start 10/07/16 at 11: 30 Enoxaparin Sodium 40 mg 40 mg DAILY SC Last administered on 10/17/16 09:14; Admin Dose 40 MG; Start 10/09/16 at 13:30 Acetaminophen (Ofirmev 1000mg/ 100ml Iv) 100 ml @ 400 mls/hr Q6H PRN IVPB PAIN LEVEL 4-7 Last administered on 10/12/16 21:42; Admin Dose 400 MLS/HR; Start 10/09/16 at 15:00 Lorazepam (Ativan) 1 mg HS PO Last administered on 10/16/16 20:15; Admin Dose 1 MG; Start 10/11/16 at 21:00 Lorazepam (Ativan) 1 mg Q6H PRN IV ANXIETY Last administered on 10/12/16 20:51 ; Admin Dose 1 MG; Start 10/11/16 at 18:30 Tramadol HCl (Ultram) 50 mg Q6H PRN NGT PAIN LEVEL 4-6; Start 10/15/16 at 23:00 Pantoprazole (Protonix Tab) 40 mg DAILY@06 PO Last administered on 10/17/16 05 :42; Admin Dose 40 MG; Start 10/17/16 at 06:00 Menthol/Methyl Salicylate (Luciano Chavez) 1 applic QID PRN TOP PAIN Last administered on 10/17/16 14:25; Admin Dose 1 APPLIC; Start 10/17/16 at 14:00 JAMES NÚÑEZ MD Oct 17, 2016 15:23
[2016-10-17] MEDS ORDERED: DEXAMETHASONE 4 MG/ML 20 MG in DEXTROSE 5% 50 ML IVPB ONE (16:00)
--- NOTE | 2016-10-17 17:01 | PN ---
Date/Time of Note Date/Time of Note DATE: 10/17/16 TIME: 16:59 Assessment/Plan VTE Prophylaxis VTE Prophylaxis Intervention: SCD's Lines/Catheters IV Catheter Type (from Nrsg): port a cath Urinary Cath still in place: Yes Reason Cath still needed: urinary retention Assessment/Plan Chief Complaint/Hosp Course ASSESSMENT AND PLAN: - Recurrent ovarian cancer, status post second cytoreduction by Dr. Zeng on 10/05. Continue Dilaudid as needed for pain and Zofran as needed for nausea. Continue to follow-up surgical recommendations. Plan to start chemotherapy. Dr. Oliva is following in hematology oncology consultation. - Abdominal pain secondary to #1 . - Hypertension. Continue to monitor patient's blood pressure. Hydralazine p.r.n. for systolic blood pressure above 170. Continue Lovenox for deep venous thrombosis prophylaxis and Protonix for peptic ulcer disease prophylaxis. Further recommendations based on clinical course. Plan of care discussed with Dr. Matthews. Problems: Subjective 24 Hr Interval Summary Free Text/Dictation Patient looks comfortable denies any nausea vomiting. Exam/Review of Systems Vital Signs Vitals Vital Signs Date Time Temp Pulse Resp B/P Pulse Ox O2 Delivery O2 Flow Rate FiO2 10/17/16 07:50 98.3 93 18 116/57 93 Intake and Output 10/16/16 10/16/16 10/17/16 15:00 23:00 07:00 Intake Total 700 ml 700 ml Output Total 655 ml 610 ml Balance 45 ml 90 ml Exam PHYSICAL ASSESSMENT: GENERAL: Well-developed, well-nourished, obese female currently is awake, alert. HEENT: Head is atraumatic, normocephalic. PERRLA. NECK: Supple, no cervical lymphadenopathy, no thyromegaly. CHEST: Lungs clear bilaterally. There is no rhonchi, wheezes, rales noted. CARDIOVASCULAR: Normal S1, S2. No murmurs, gallops, clicks, rubs noted. GASTROINTESTINAL: Abdomen is soft and nondistended. BS +. Status post surgery. EXTREMITIES: No edema, clubbing, cyanosis. Pulses equal bilaterally 2+. SKIN: There is no rash, petechiae noted. NEUROLOGIC: Patient is awake, alert and oriented x4. Right chest permacath Results Result Diagram: 4/18/17 0420 4/18/17 0420 Results 24 hrs Laboratory Tests Test 10/17/16 04:20 White Blood Count 9.8 Red Blood Count 3.64 L Hemoglobin 11.3 L Hematocrit 34.5 L Mean Corpuscular Volume 94.8 Mean Corpuscular Hemoglobin 31.0 Mean Corpuscular Hemoglobin Concent 32.8 Red Cell Distribution Width 13.2 Platelet Count 879 H Mean Platelet Volume 9.5 Neutrophils % 53.6 Lymphocytes % 32.2 Monocytes % 10.2 Eosinophils % 2.8 Basophils % 0.5 Nucleated Red Blood Cells % 0.0 Neutrophils # 5.3 Lymphocytes # 3.2 H Monocytes # 1.0 H Eosinophils # 0.3 Basophils # 0.1 Nucleated Red Blood Cells # 0.0 Prothrombin Time 13.8 Prothrombin Time Ratio 1.1 INR International Normalized Ratio 1.06 Activated Partial Thromboplast Time 29.7 Thrombin Time 18.9 Sodium Level 136 Potassium Level 3.6 Chloride Level 99 Carbon Dioxide Level 28 Anion Gap 13 Blood Urea Nitrogen 16 Creatinine 0.76 Glucose Level 107 Calcium Level 9.4 Medications Medications Current Medications Acetaminophen (Tylenol Tab) 650 mg Q6H PRN PO PAIN AND OR ELEVATED TEMP Last administered on 10/13/16 11:02; Admin Dose 650 MG; Start 10/03/16 at 11:00 Albumin Human 500 ml PRN PRN IV IF UOP < 30 CC/HR Last administered on 20:32; Admin Dose 500 ML; Start 10/05/16 at 21:30 Hydromorphone HCl (Dilaudid) 1 mg Q1H PRN IV PAIN Last administered on 15:03; Admin Dose 1 MG; Start 10/05/16 at 21:00 Ondansetron HCl (Zofran Inj) 4 mg Q6H PRN IV NAUSEA AND/OR VOMITING Last administered on 10/17/16 10:03; Admin Dose 4 MG; Start 10/05/16 at 21:00 Miscellaneous Information 1 ea NOTE XX ; Start 10/07/16 at 11:30 Glucose (Glutose) 15 gm Q15M PRN PO DECREASED GLUCOSE; Start 10/07/16 at 11:30 Glucose (Glutose) 22.5 gm Q15M PRN PO DECREASED GLUCOSE; Start 10/07/16 at 11:30 Dextrose (D50w Syringe) 25 ml Q15M PRN IV DECREASED GLUCOSE; Start 10/07/16 at 11:30 Dextrose (D50w Syringe) 50 ml Q15M PRN IV DECREASED GLUCOSE; Start 10/07/16 at 11:30 Glucagon (Glucagen) 1 mg Q15M PRN IM DECREASED GLUCOSE; Start 10/07/16 at 11:30 Glucose (Glutose) 15 gm Q15M PRN BUCCAL DECREASED GLUCOSE; Start 10/07/16 at 11: 30 Enoxaparin Sodium 40 mg 40 mg DAILY SC Last administered on 10/17/16 09:14; Admin Dose 40 MG; Start 10/09/16 at 13:30 Acetaminophen (Ofirmev 1000mg/ 100ml Iv) 100 ml @ 400 mls/hr Q6H PRN IVPB PAIN LEVEL 4-7 Last administered on 10/12/16 21:42; Admin Dose 400 MLS/HR; Start 10/09/16 at 15:00 Lorazepam (Ativan) 1 mg HS PO Last administered on 10/16/16 20:15; Admin Dose 1 MG; Start 10/11/16 at 21:00 Lorazepam (Ativan) 1 mg Q6H PRN IV ANXIETY Last administered on 10/12/16 20:51 ; Admin Dose 1 MG; Start 10/11/16 at 18:30 Tramadol HCl (Ultram) 50 mg Q6H PRN NGT PAIN LEVEL 4-6; Start 10/15/16 at 23:00 Pantoprazole (Protonix Tab) 40 mg DAILY@06 PO Last administered on 10/17/16 05 :42; Admin Dose 40 MG; Start 10/17/16 at 06:00 Menthol/Methyl Salicylate 1 applic 1 applic QID PRN TOP PAIN Last administered on 10/17/16 14:25; Admin Dose 1 APPLIC; Start 10/17/16 at 14:00 Dexamethasone 20 mg/Dextrose 55 ml @ 110 mls/hr ONCE ONCE IVPB ; Start at 16:00; Stop 10/17/16 at 16:29; Status UNV Dexamethasone/ Dextrose (Decadron/D5W) 55 ml @ 110 mls/hr ONCE ONCE IVPB ; Start 10/17/16 at 16:00; Stop 10/17/16 at 16:29; Status UNV AMEE JIMENEZ Oct 17, 2016 17:01
[2016-10-17] MEDS: traMADol 50 MG TAB NGT PRN ×2 (17:16→21:51)
[2016-10-17 19:24] VITALS: BP 111/54; RESP 20
[2016-10-17 20:30] VITALS: BP 130/68; PULSE 71; RESP 18
[2016-10-17] MEDS ORDERED: PHYTONADIONE 10 MG/ML INJ IM SCH (20:30)
[2016-10-17] MEDS: LORAZEPAM 1 MG TAB PO SCH (21:51)
[2016-10-18] VITALS (14 sets, daily range): BP systolic 105–123; BP diastolic 52–63; PULSE 96–114; RESP 16–20
[2016-10-18] MEDS ORDERED: HYDROmorphONE 1 MG/ML SYG IV PRN (00:30)
[2016-10-18] MEDS: PANTOPRAZOLE (EC) 40 MG TAB PO SCH (05:12)
[2016-10-18] MEDS: SOD CHLORIDE 0.9% 1,000 ML IV SCH ×2 (07:56→17:33)
[2016-10-18] MEDS: ENOXAPARIN 40 MG/0.4 ML SYG SC SCH (08:48)
[2016-10-18] MEDS ORDERED: ONDANSETRON INJ 8 MG in SOD CHLORIDE 0.9% 50 ML IV PRN (12:00)
[2016-10-18] MEDS ORDERED: DIPHENHYDRAMINE 50 MG INJ IV PRN (12:00)
[2016-10-18] MEDS ORDERED: METHYLPREDNISOLONE 125 MG INJ IV PRN (12:00)
[2016-10-18] MEDS ORDERED: ONDANSETRON INJ 16 MG, DEXAMETHASONE 4 MG/ML 10 MG, DIPHENHYDRAMINE 25 MG in DEXTROSE 5... IV SCH (13:30)
[2016-10-18] MEDS: traMADol 50 MG TAB NGT PRN ×2 (13:35→20:34)
[2016-10-18] MEDS ORDERED: [UNRECOGNIZED DRUG - OTHER] IV SCH (14:00)
[2016-10-18] MEDS ORDERED: DEXTROSE 5% IV SCH (14:00)
[2016-10-18] MEDS ORDERED: SOD CHLORIDE 0.9% IV SCH (15:00)
[2016-10-18] MEDS ORDERED: CARBOPLATIN IV SCH (15:00)
--- NOTE | 2016-10-18 15:12 | CONS ---
Date/Time of Note Date/Time of Note DATE: 10/18/16 TIME: 15:10 Assessment/Plan Assessment/Plan Chief Complaint/Hosp Course 66 yo with recurrent ovarian cancer s/p cytoreductive surgery with likely submillimeter residual disease. Pt tolerating soft diet without nausea Problems: Additional Assessment/Plan #ovarian cancer - -need to obtain records from patient's oncologist to determine what chemotherapy has received in the past -will start Carboplatin AUC 5 and Doxil 30mg/m2 within next few days. Chemotherapy orders have been written. P6 will need a total of 6 cycles on a q 21 day basis -echo ok. cleared to start anthracyclin -continue Lovenox from DVT ppx -continue post op care per Dr. Ramos Approximately 40 min were spent at patient's bedside and in coordination of her care Consultation Date/Type/Reason Admit Date/Time Oct 03, 2016 at 08:11 Initial Consult Date 10/16/16 Type of Consultation: Oncology Reason for Consultation recurrent ovarian cancer Referring Provider: JAMES NÚÑEZ MD 24 HR Interval Summary Free Text/Dictation pt denies nausea or vomiting. feels well. to start chemotherapy today Exam/Review of Systems Vital Signs Vitals Vital Signs Date Time Temp Pulse Resp B/P Pulse Ox O2 Delivery O2 Flow Rate FiO2 10/18/16 07:52 97.5 92 16 105/53 94 10/17/16 20:30 Room Air Intake and Output 10/17/16 10/17/16 10/18/16 15:00 23:00 07:00 Intake Total 1400 ml 800 ml Output Total 1174 ml 910 ml Balance 226 ml -110 ml Exam Constitutional: alert, obese, oriented Psych: no complaints Head: atraumatic, normocephalic Eyes: nl conjunctiva ENMT: nl external ears & nose Neck: non-tender, supple Respiratory: clear to auscultation Cardiovascular: nl pulses, regular rate and rhythm Gastrointestinal: soft, surgical scars Musculoskeletal: nl extremities to inspection Results Result Diagram: 10/17/1641910/17/16419 Results 24 hrs Laboratory Tests Test 10/18/16 04:31 Prealbumin 15.3 L Medications Medications Current Medications Acetaminophen (Tylenol Tab) 650 mg Q6H PRN PO PAIN AND OR ELEVATED TEMP Last administered on 10/13/16t 11:02; Admin Dose 650 MG; Start 10/03/16 at 11:00 Albumin Human 500 ml PRN PRN IV IF UOP < 30 CC/HR Last administered on 20:32; Admin Dose 500 ML; Start 10/05/16 at 21:30 Ondansetron HCl (Zofran Inj) 4 mg Q6H PRN IV NAUSEA AND/OR VOMITING Last administered on 10/17/16 10:03; Admin Dose 4 MG; Start 10/05/16 at 21:00 Miscellaneous Information 1 ea NOTE XX ; Start 10/07/16 at 11:30 Glucose (Glutose) 15 gm Q15M PRN PO DECREASED GLUCOSE; Start 10/07/16 at 11:30 Glucose (Glutose) 22.5 gm Q15M PRN PO DECREASED GLUCOSE; Start 10/07/16 at 11:30 Dextrose (D50w Syringe) 25 ml Q15M PRN IV DECREASED GLUCOSE; Start 10/07/16 at 11:30 Dextrose (D50w Syringe) 50 ml Q15M PRN IV DECREASED GLUCOSE; Start 10/07/16 at 11:30 Glucagon (Glucagen) 1 mg Q15M PRN IM DECREASED GLUCOSE; Start 10/07/16 at 11:30 Glucose (Glutose) 15 gm Q15M PRN BUCCAL DECREASED GLUCOSE; Start 10/07/16 at 11: 30 Enoxaparin Sodium 40 mg 40 mg DAILY SC Last administered on 10/18/16 08:48; Admin Dose 40 MG; Start 10/09/16 at 13:30 Acetaminophen (Ofirmev 1000mg/ 100ml Iv) 100 ml @ 400 mls/hr Q6H PRN IVPB PAIN LEVEL 4-7 Last administered on 10/12/16 21:42; Admin Dose 400 MLS/HR; Start 10/09/16 at 15:00 Lorazepam (Ativan) 1 mg HS PO Last administered on 10/17/16 21:51; Admin Dose 1 MG; Start 10/11/16 at 21:00 Lorazepam (Ativan) 1 mg Q6H PRN IV ANXIETY Last administered on 10/12/16 20:51 ; Admin Dose 1 MG; Start 10/11/16 at 18:30 Tramadol HCl (Ultram) 50 mg Q6H PRN NGT PAIN LEVEL 4-6 Last administered on 13:35; Admin Dose 50 MG; Start 10/15/16 at 23:00 Pantoprazole (Protonix Tab) 40 mg DAILY@06 PO Last administered on 10/18/16 05 :12; Admin Dose 40 MG; Start 10/17/16 at 06:00 Menthol/Methyl Salicylate (Luciano Chavez) 1 applic QID PRN TOP PAIN Last administered on 10/17/16 14:25; Admin Dose 1 APPLIC; Start 10/17/16 at 14:00 Hydromorphone HCl 0.5 mg 0.5 mg Q4H PRN IV PAIN; Start 10/18/16 at 00:30 Sodium Chloride 1,000 ml @ 100 mls/hr Q10H IV Last administered on 10/18/16 07:56; Admin Dose 100 MLS/HR; Start 10/18/16 at 08:00 Carboplatin/ Carboplatin/ Sodium Chloride (Paraplatin/ Paraplatin/NS) 250 ml @ 250 mls/hr ONCE IV Last administered on 10/18/16 14:44; Admin Dose 250 MLS/HR ; Start 10/18/16 at 15:00; Stop 10/18/16 at 15:59 Methylprednisolone Sodium Succinate 60 mg 60 mg Q2H PRN IV .CHEMO RXN; Start at 12:00; Stop 10/18/16 at 22:00 Ondansetron HCl/ Sodium Chloride (Zofran Inj/NS) 54 ml @ 216 mls/hr Q8H PRN IV NAUSEA AND/OR VOMITING; Start 10/18/16 at 12:00 Diphenhydramine HCl (Benadryl) 25 mg Q2H PRN IV ALLERGIC REACTION; Start at 12:00; Stop 10/18/16 at 22:00 VALENTINA PHELAN M.D. Oct 18, 2016 15:12
--- NOTE | 2016-10-18 15:56 | PN ---
Date/Time of Note Date/Time of Note DATE: 10/18/16 TIME: 15:54 Assessment/Plan VTE Prophylaxis VTE Prophylaxis Intervention: SCD's Lines/Catheters IV Catheter Type (from Nrs): PORTACATH Urinary Cath still in place: Yes Reason Cath still needed: urinary retention Assessment/Plan Chief Complaint/Hosp Course ASSESSMENT AND PLAN: - Recurrent ovarian cancer, status post second cytoreduction by Dr. Zeng on 10/05. Continue Dilaudid as needed for pain and Zofran as needed for nausea. Continue to follow-up surgical recommendations. Dr. Oliva is following in hematology oncology consultation. Currently undergoing chemotherapy per oncology. - Abdominal pain secondary to #1 . - Hypertension. Continue to monitor patient's blood pressure. Hydralazine p.r.n. for systolic blood pressure above 170. Continue Lovenox for deep venous thrombosis prophylaxis and Protonix for peptic ulcer disease prophylaxis. Further recommendations based on clinical course. Plan of care discussed with Dr. Matthews. Problems: Subjective 24 Hr Interval Summary Free Text/Dictation Patient is currently undergoing chemotherapy infusion, patient looks comfortable. Exam/Review of Systems Vital Signs Vitals Vital Signs Date Time Temp Pulse Resp B/P Pulse Ox O2 Delivery O2 Flow Rate FiO2 10/18/16 07:52 97.5 92 16 105/53 94 10/17/16 20:30 Room Air Intake and Output 10/17/16 10/17/16 10/18/16 15:00 23:00 07:00 Intake Total 1400 ml 800 ml Output Total 1174 ml 910 ml Balance 226 ml -110 ml Exam PHYSICAL ASSESSMENT: GENERAL: Well-developed, well-nourished, obese female currently is awake, alert. HEENT: Head is atraumatic, normocephalic. PERRLA. NECK: Supple, no cervical lymphadenopathy, no thyromegaly. CHEST: Lungs clear bilaterally. There is no rhonchi, wheezes, rales noted. CARDIOVASCULAR: Normal S1, S2. No murmurs, gallops, clicks, rubs noted. GASTROINTESTINAL: Abdomen is soft and nondistended. BS +. Status post surgery. EXTREMITIES: No edema, clubbing, cyanosis. Pulses equal bilaterally 2+. SKIN: There is no rash, petechiae noted. NEUROLOGIC: Patient is awake, alert and oriented x4. Right chest permacath Results Result Diagram: 10/17/16 0420 10/17/16 0420 Results 24 hrs Laboratory Tests Test 10/18/16 04:31 Prealbumin 15.3 L Medications Medications Current Medications Acetaminophen (Tylenol Tab) 650 mg Q6H PRN PO PAIN AND OR ELEVATED TEMP Last administered on 10/13/16 11:02; Admin Dose 650 MG; Start 10/03/16 at 11:00 Albumin Human 500 ml PRN PRN IV IF UOP < 30 CC/HR Last administered on 20:32; Admin Dose 500 ML; Start 10/05/16 at 21:30 Ondansetron HCl (Zofran Inj) 4 mg Q6H PRN IV NAUSEA AND/OR VOMITING Last administered on 10/17/16 10:03; Admin Dose 4 MG; Start 10/05/16 at 21:00 Miscellaneous Information 1 ea NOTE XX ; Start 10/07/16 at 11:30 Glucose (Glutose) 15 gm Q15M PRN PO DECREASED GLUCOSE; Start 10/07/16 at 11:30 Glucose (Glutose) 22.5 gm Q15M PRN PO DECREASED GLUCOSE; Start 10/07/16 at 11:30 Dextrose (D50w Syringe) 25 ml Q15M PRN IV DECREASED GLUCOSE; Start 10/07/16 at 11:30 Dextrose (D50w Syringe) 50 ml Q15M PRN IV DECREASED GLUCOSE; Start 10/07/16 at 11:30 Glucagon (Glucagen) 1 mg Q15M PRN IM DECREASED GLUCOSE; Start 10/07/16 at 11:30 Glucose (Glutose) 15 gm Q15M PRN BUCCAL DECREASED GLUCOSE; Start 10/07/16 at 11: 30 Enoxaparin Sodium 40 mg 40 mg DAILY SC Last administered on 10/18/16 08:48; Admin Dose 40 MG; Start 10/09/16 at 13:30 Acetaminophen (Ofirmev 1000mg/ 100ml Iv) 100 ml @ 400 mls/hr Q6H PRN IVPB PAIN LEVEL 4-7 Last administered on 10/12/16 21:42; Admin Dose 400 MLS/HR; Start 10/09/16 at 15:00 Lorazepam (Ativan) 1 mg HS PO Last administered on 10/17/16 21:51; Admin Dose 1 MG; Start 10/11/16 at 21:00 Lorazepam (Ativan) 1 mg Q6H PRN IV ANXIETY Last administered on 10/12/16 20:51 ; Admin Dose 1 MG; Start 10/11/16 at 18:30 Tramadol HCl (Ultram) 50 mg Q6H PRN NGT PAIN LEVEL 4-6 Last administered on 13:35; Admin Dose 50 MG; Start 10/15/16 at 23:00 Pantoprazole (Protonix Tab) 40 mg DAILY@06 PO Last administered on 10/18/16 05 :12; Admin Dose 40 MG; Start 10/17/16 at 06:00 Menthol/Methyl Salicylate (Luciano Chavez) 1 applic QID PRN TOP PAIN Last administered on 10/17/16 14:25; Admin Dose 1 APPLIC; Start 10/17/16 at 14:00 Hydromorphone HCl 0.5 mg 0.5 mg Q4H PRN IV PAIN; Start 10/18/16 at 00:30 Sodium Chloride 1,000 ml @ 100 mls/hr Q10H IV Last administered on 10/18/16 07:56; Admin Dose 100 MLS/HR; Start 10/18/16 at 08:00 Carboplatin/ Carboplatin/ Sodium Chloride (Paraplatin/ Paraplatin/NS) 250 ml @ 250 mls/hr ONCE IV Last administered on 10/18/16 14:44; Admin Dose 250 MLS/HR ; Start 10/18/16 at 15:00; Stop 10/18/16 at 15:59 Methylprednisolone Sodium Succinate 60 mg 60 mg Q2H PRN IV .CHEMO RXN; Start at 12:00; Stop 10/18/16 at 22:00 Ondansetron HCl/ Sodium Chloride (Zofran Inj/NS) 54 ml @ 216 mls/hr Q8H PRN IV NAUSEA AND/OR VOMITING; Start 10/18/16 at 12:00 Diphenhydramine HCl (Benadryl) 25 mg Q2H PRN IV ALLERGIC REACTION; Start at 12:00; Stop 10/18/16 at 22:00 AMEE JIMENEZ Oct 18, 2016 15:56
[2016-10-18] MEDS: LORAZEPAM 1 MG TAB PO SCH (20:34)
[2016-10-19] MEDS: SOD CHLORIDE 0.9% 1,000 ML IV SCH ×2 (04:00→14:00)
[2016-10-19] MEDS: PANTOPRAZOLE (EC) 40 MG TAB PO SCH (04:48)
[2016-10-19] MEDS: traMADol 50 MG TAB NGT PRN ×2 (04:49→15:16)
[2016-10-19 05:12] LABS: ADD SCAN DIFF NO
[2016-10-19 05:17] LABS: BASOPHILS % 0.2 % (0.0-2.0); HEMATOCRIT 31.1 % (37.0-47.0); HEMOGLOBIN 10.3 g/dl (12.0-16.0); LYMPHOCYTES # 1.9 10^3/ul (0.8-2.9); LYMPHOCYTES % 15.3 % (15.0-51.0); MEAN CORPUSCULAR HEMOGLOBIN 31.1 pg (29.0-33.0); MEAN CORPUSCULAR HGB CONC 33.1 g/dl (32.0-37.0); MEAN PLATELET VOLUME 9.6 fl (7.4-10.4); MONOCYTE # 0.8 10^3/ul (0.3-0.9); MONOCYTES % 6.5 % (0.0-11.0); NEUTROPHIL # 9.6 10^3/ul (1.6-7.5); NEUTROPHILS % 77.2 % (39.0-77.0); PLATELET COUNT 889 10^3/UL (140-415); RED BLOOD COUNT 3.31 10^6/ul (4.20-5.40); WHITE BLOOD COUNT 12.5 10^3/ul (4.8-10.8)
[2016-10-19 05:36] LABS: CALCIUM 9.1 mg/dl (8.4-10.2); CREATININE 0.68 mg/dl (0.44-1.00); POTASSIUM 3.8 mmol/L (3.5-5.1)
[2016-10-19 09:05] VITALS: BP 117/56; RESP 20
[2016-10-19] MEDS: ENOXAPARIN 40 MG/0.4 ML SYG SC SCH (10:15)
--- NOTE | 2016-10-19 11:16 | CONS ---
Date/Time of Note Date/Time of Note DATE: 10/19/16 TIME: 11:15 Assessment/Plan Assessment/Plan Chief Complaint/Hosp Course 66 yo with recurrent ovarian cancer s/p cytoreductive surgery with likely submillimeter residual disease. Pt tolerating soft diet without nausea Problems: Additional Assessment/Plan #ovarian cancer - -need to obtain records from patient's oncologist to determine what chemotherapy has received in the past -will start Carboplatin AUC 5 and Doxil 30mg/m2 within next few days. Chemotherapy orders have been written. P6 will need a total of 6 cycles on a q 21 day basis -echo ok. cleared to start anthracyclin -continue Lovenox from DVT ppx -continue post op care per Dr. Ramos Approximately 40 min were spent at patient's bedside and in coordination of her care Consultation Date/Type/Reason Admit Date/Time Oct 03, 2016 at 08:11 Initial Consult Date 10/16/16 Type of Consultation: Oncology Reason for Consultation ovarian cancer Referring Provider: JAMES NÚÑEZ MD 24 HR Interval Summary Free Text/Dictation pt completed her chemotherapy yesterday Exam/Review of Systems Vital Signs Vitals Vital Signs Date Time Temp Pulse Resp B/P Pulse Ox O2 Delivery O2 Flow Rate FiO2 10/19/16 09:05 97.4 96 20 117/56 94 10/18/16 17:55 Nasal Cannula 1.0 Intake and Output 10/18/16 10/18/16 10/19/16 15:00 23:00 07:00 Intake Total 1745 ml 2000 ml Output Total 1950 ml 300 ml Balance -205 ml 1700 ml Exam Constitutional: alert, obese, oriented Psych: no complaints Head: normocephalic Eyes: nl conjunctiva ENMT: nl external ears & nose Neck: non-tender, supple Respiratory: clear to auscultation Cardiovascular: regular rate and rhythm Gastrointestinal: soft Musculoskeletal: nl extremities to inspection Results Result Diagram: 10/19/165 10/19/16 042 Results 24 hrs Laboratory Tests Test 10/19/16 04:25 White Blood Count 12.5 #H Red Blood Count 3.31 L Hemoglobin 10.3 L Hematocrit 31.1 L Mean Corpuscular Volume 94.0 Mean Corpuscular Hemoglobin 31.1 Mean Corpuscular Hemoglobin Concent 33.1 Red Cell Distribution Width 13.0 Platelet Count 889 H Mean Platelet Volume 9.6 Neutrophils % 77.2 H Lymphocytes % 15.3 Monocytes % 6.5 Eosinophils % 0.0 Basophils % 0.2 Nucleated Red Blood Cells % 0.0 Neutrophils # 9.6 H Lymphocytes # 1.9 Monocytes # 0.8 Eosinophils # 0.0 Basophils # 0.0 Nucleated Red Blood Cells # 0.0 Sodium Level 139 Potassium Level 3.8 Chloride Level 104 Carbon Dioxide Level 25 Anion Gap 14 Blood Urea Nitrogen 10 Creatinine 0.68 Glucose Level 163 Calcium Level 9.1 Medications Medications Current Medications Acetaminophen (Tylenol Tab) 650 mg Q6H PRN PO PAIN AND OR ELEVATED TEMP Last administered on 10/13/16 11:02; Admin Dose 650 MG; Start 10/03/16 at 11:00 Albumin Human 500 ml PRN PRN IV IF UOP < 30 CC/HR Last administered on 20:32; Admin Dose 500 ML; Start 10/05/16 at 21:30 Ondansetron HCl (Zofran Inj) 4 mg Q6H PRN IV NAUSEA AND/OR VOMITING Last administered on 10/17/16 10:03; Admin Dose 4 MG; Start 10/05/16 at 21:00 Miscellaneous Information 1 ea NOTE XX ; Start 10/07/16 at 11:30 Glucose (Glutose) 15 gm Q15M PRN PO DECREASED GLUCOSE; Start 10/07/16 at 11:30 Glucose (Glutose) 22.5 gm Q15M PRN PO DECREASED GLUCOSE; Start 10/07/16 at 11:30 Dextrose (D50w Syringe) 25 ml Q15M PRN IV DECREASED GLUCOSE; Start 10/07/16 at 11:30 Dextrose (D50w Syringe) 50 ml Q15M PRN IV DECREASED GLUCOSE; Start 10/07/16 at 11:30 Glucagon (Glucagen) 1 mg Q15M PRN IM DECREASED GLUCOSE; Start 10/07/16 at 11:30 Glucose (Glutose) 15 gm Q15M PRN BUCCAL DECREASED GLUCOSE; Start 10/07/16 at 11: 30 Enoxaparin Sodium 40 mg 40 mg DAILY SC Last administered on 10/19/16 10:15; Admin Dose 40 MG; Start 10/09/16 at 13:30 Acetaminophen (Ofirmev 1000mg/ 100ml Iv) 100 ml @ 400 mls/hr Q6H PRN IVPB PAIN LEVEL 4-7 Last administered on 10/12/16 21:42; Admin Dose 400 MLS/HR; Start 10/09/16 at 15:00 Lorazepam (Ativan) 1 mg HS PO Last administered on 10/18/16 20:34; Admin Dose 1 MG; Start 10/11/16 at 21:00 Lorazepam (Ativan) 1 mg Q6H PRN IV ANXIETY Last administered on 10/12/16 20:51 ; Admin Dose 1 MG; Start 10/11/16 at 18:30 Tramadol HCl (Ultram) 50 mg Q6H PRN NGT PAIN LEVEL 4-6 Last administered on 04:49; Admin Dose 50 MG; Start 10/15/16 at 23:00 Pantoprazole (Protonix Tab) 40 mg DAILY@06 PO Last administered on 10/19/16 04 :48; Admin Dose 40 MG; Start 10/17/16 at 06:00 Menthol/Methyl Salicylate (Luciano Chavez) 1 applic QID PRN TOP PAIN Last administered on 10/17/16 14:25; Admin Dose 1 APPLIC; Start 10/17/16 at 14:00 Hydromorphone HCl 0.5 mg 0.5 mg Q4H PRN IV PAIN; Start 10/18/16 at 00:30 Sodium Chloride 1,000 ml @ 100 mls/hr Q10H IV Last administered on 10/18/16 17:33; Admin Dose 100 MLS/HR; Start 10/18/16 at 08:00 Ondansetron HCl/ Sodium Chloride (Zofran Inj/NS) 54 ml @ 216 mls/hr Q8H PRN IV NAUSEA AND/OR VOMITING; Start 10/18/16 at 12:00 VALENTINA PHELAN M.D. Oct 19, 2016 11:16
[2016-10-19 18:38] VITALS: BP 104/56; PULSE 93; RESP 16
[2016-10-19 19:31] VITALS: BP 101/55; RESP 20
--- NOTE | 2016-10-19 19:42 | PN ---
Date/Time of Note Date/Time of Note DATE: 10/19/16 TIME: 19:39 Assessment/Plan VTE Prophylaxis VTE Prophylaxis Intervention: LMWH Lines/Catheters IV [facility]from [facility]ET[facility] CATH Urinary Cath still in place: No Assessment/Plan Assessment/Plan - Recurrent ovarian cancer, status post second cytoreduction by Dr. Zeng on 10/05. - per surgery - Dilaudid as needed for pain - Zofran as needed for nausea. - per Dr. Oliva in hematology oncology consultation. Currently undergoing chemotherapy per oncology. - Abdominal pain secondary to #1 . - Hypertension. - Continue to monitor patient's blood pressure. - Hydralazine p.r.n. for systolic blood pressure above 170. - Lovenox for deep venous thrombosis prophylaxis and Protonix for peptic ulcer disease prophylaxis. Anticipate discharge tomorrow. Dr Garcia will check with Dr Duron. Patient is cleared by Oncology to be discharged. Further recommendations based on clinical course. Plan of care discussed with Dr. Matthews. Subjective 24 Hr Interval Summary Free Text/Dictation NAD, feels beetr. daughter - Lola at bed side. all qs answered.dw staff- no new complaints reported. Constitutional: improved Eyes: no complaints ENT: no complaints Respiratory: no complaints Cardiovascular: no complaints Gastrointestinal: other, pain (post op pain) Genitourinary: no complaints Musculoskeletal: no complaints Skin: no complaints Exam/Review of Systems Vital Signs Vitals Vital Signs Date Time Temp Pulse Resp B/P Pulse Ox O2 Delivery O2 Flow Rate FiO2 10/19/16 19:31 98.1 94 20 101/55 98 10/18/16 17:55 Nasal Cannula 1.0 Intake and Output 10/18/16 10/18/16 10/19/16 14:59 22:59 06:59 Intake Total 1745 ml 2000 ml Output Total 1950 ml 300 ml Balance -205 ml 1700 ml Exam Constitutional: alert, oriented, well developed Psych: no complaints Eyes: EOMI ENMT: nl external ears & nose Neck: non-tender Respiratory: clear to auscultation Cardiovascular: nl pulses Gastrointestinal: non-tender, other (abd DDI), soft Musculoskeletal: nl extremities to inspection Extremities: normal pulses Neurological: nl mental status, nl speech Skin: nl turgor Lymph: nontender Results Result Diagram: 10/19/16 0425 10/19/16 0425 Results 24 hrs Laboratory Tests Test 10/19/16 04:25 White Blood Count 12.5 #H Red Blood Count 3.31 L Hemoglobin 10.3 L Hematocrit 31.1 L Mean Corpuscular Volume 94.0 Mean Corpuscular Hemoglobin 31.1 Mean Corpuscular Hemoglobin Concent 33.1 Red Cell Distribution Width 13.0 Platelet Count 889 H Mean Platelet Volume 9.6 Neutrophils % 77.2 H Lymphocytes % 15.3 Monocytes % 6.5 Eosinophils % 0.0 Basophils % 0.2 Nucleated Red Blood Cells % 0.0 Neutrophils # 9.6 H Lymphocytes # 1.9 Monocytes # 0.8 Eosinophils # 0.0 Basophils # 0.0 Nucleated Red Blood Cells # 0.0 Sodium Level 139 Potassium Level 3.8 Chloride Level 104 Carbon Dioxide Level 25 Anion Gap 14 Blood Urea Nitrogen 10 Creatinine 0.68 Glucose Level 163 Calcium Level 9.1 Medications Medications Current Medications Acetaminophen (Tylenol Tab) 650 mg Q6H PRN PO PAIN AND OR ELEVATED TEMP Last administered on 10/13/16 11:02; Admin Dose 650 MG; Start 10/03/16 at 11:00 Albumin Human 500 ml PRN PRN IV IF UOP < 30 CC/HR Last administered on 20:32; Admin Dose 500 ML; Start 10/05/16 at 21:30 Ondansetron HCl (Zofran Inj) 4 mg Q6H PRN IV NAUSEA AND/OR VOMITING Last administered on 10/17/16 10:03; Admin Dose 4 MG; Start 10/05/16 at 21:00 Miscellaneous Information 1 ea NOTE XX ; Start 10/07/16 at 11:30 Glucose (Glutose) 15 gm Q15M PRN PO DECREASED GLUCOSE; Start 10/07/16 at 11:30 Glucose (Glutose) 22.5 gm Q15M PRN PO DECREASED GLUCOSE; Start 10/07/16 at 11:30 Dextrose (D50w Syringe) 25 ml Q15M PRN IV DECREASED GLUCOSE; Start 10/07/16 at 11:30 Dextrose (D50w Syringe) 50 ml Q15M PRN IV DECREASED GLUCOSE; Start 10/07/16 at 11:30 Glucagon (Glucagen) 1 mg Q15M PRN IM DECREASED GLUCOSE; Start 10/07/16 at 11:30 Glucose (Glutose) 15 gm Q15M PRN BUCCAL DECREASED GLUCOSE; Start 10/07/16 at 11: 30 Enoxaparin Sodium 40 mg 40 mg DAILY SC Last administered on 10/19/16 10:15; Admin Dose 40 MG; Start 10/09/16 at 13:30 Acetaminophen (Ofirmev 1000mg/ 100ml Iv) 100 ml @ 400 mls/hr Q6H PRN IVPB PAIN LEVEL 4-7 Last administered on 10/12/16 21:42; Admin Dose 400 MLS/HR; Start 10/09/16 at 15:00 Lorazepam (Ativan) 1 mg HS PO Last administered on 10/18/16 20:34; Admin Dose 1 MG; Start 10/11/16 at 21:00 Lorazepam (Ativan) 1 mg Q6H PRN IV ANXIETY Last administered on 10/12/16 20:51 ; Admin Dose 1 MG; Start 10/11/16 at 18:30 Tramadol HCl (Ultram) 50 mg Q6H PRN NGT PAIN LEVEL 4-6 Last administered on 15:16; Admin Dose 50 MG; Start 10/15/16 at 23:00 Pantoprazole (Protonix Tab) 40 mg DAILY@06 PO Last administered on 10/19/16 04 :48; Admin Dose 40 MG; Start 10/17/16 at 06:00 Menthol/Methyl Salicylate (Luciano Chavez) 1 applic QID PRN TOP PAIN Last administered on 10/17/16 14:25; Admin Dose 1 APPLIC; Start 10/17/16 at 14:00 Hydromorphone HCl 0.5 mg 0.5 mg Q4H PRN IV PAIN; Start 10/18/16 at 00:30 Sodium Chloride 1,000 ml @ 100 mls/hr Q10H IV Last administered on 10/18/16 17:33; Admin Dose 100 MLS/HR; Start 10/18/16 at 08:00 Ondansetron HCl/ Sodium Chloride (Zofran Inj/NS) 54 ml @ 216 mls/hr Q8H PRN IV NAUSEA AND/OR VOMITING; Start 10/18/16 at 12:00 MEREDITH DENNIS Oct 19, 2016 19:42
--- NOTE | 2016-10-19 20:37 | PN ---
Date/Time of Note Date/Time of Note DATE: 10/19/16 TIME: 20:34 Assessment/Plan VTE Prophylaxis VTE Prophylaxis Intervention: SCD's Lines/Catheters IV Catheter Type (from Nrs): SHWETA CATH Central line still needed: Yes Urinary Cath still in place: No Assessment/Plan Chief Complaint/Hosp Course A- known recurrent disease per CA-125 and PET/CT 09/28/16, s/p seccrs Problems: Assessment/Plan A- tolerating rx well P- continue and anticipate d/c Subjective 24 Hr Interval Summary Free Text/Dictation tolerating Rx well. Exam/Review of Systems Vital Signs Vitals Vital Signs Date Time Temp Pulse Resp B/P Pulse Ox O2 Delivery O2 Flow Rate FiO2 10/19/16 19:31 98.1 94 20 101/55 98 10/18/16 17:55 Nasal Cannula 1.0 Intake and Output 10/18/16 10/18/16 10/19/16 15:00 23:00 07:00 Intake Total 1745 ml 2000 ml Output Total 1950 ml 300 ml Balance -205 ml 1700 ml Exam Respiratory: normal air movement Cardiovascular: nl pulses, regular rate and rhythm Gastrointestinal: non-tender, soft Genitourinary - Female: No CMT, No nl adnexae, No nl external genitalia, No other, No uterus Extremities: normal pulses Results Result Diagram: 10/19/1642410/19/16 0425 Results 24 hrs Laboratory Tests Test 10/19/16 04:25 White Blood Count 12.5 #H Red Blood Count 3.31 L Hemoglobin 10.3 L Hematocrit 31.1 L Mean Corpuscular Volume 94.0 Mean Corpuscular Hemoglobin 31.1 Mean Corpuscular Hemoglobin Concent 33.1 Red Cell Distribution Width 13.0 Platelet Count 889 H Mean Platelet Volume 9.6 Neutrophils % 77.2 H Lymphocytes % 15.3 Monocytes % 6.5 Eosinophils % 0.0 Basophils % 0.2 Nucleated Red Blood Cells % 0.0 Neutrophils # 9.6 H Lymphocytes # 1.9 Monocytes # 0.8 Eosinophils # 0.0 Basophils # 0.0 Nucleated Red Blood Cells # 0.0 Sodium Level 139 Potassium Level 3.8 Chloride Level 104 Carbon Dioxide Level 25 Anion Gap 14 Blood Urea Nitrogen 10 Creatinine 0.68 Glucose Level 163 Calcium Level 9.1 Medications Medications Current Medications Acetaminophen (Tylenol Tab) 650 mg Q6H PRN PO PAIN AND OR ELEVATED TEMP Last administered on 10/13/16 11:02; Admin Dose 650 MG; Start 10/03/16 at 11:00 Albumin Human 500 ml PRN PRN IV IF UOP < 30 CC/HR Last administered on 20:32; Admin Dose 500 ML; Start 10/05/16 at 21:30 Ondansetron HCl (Zofran Inj) 4 mg Q6H PRN IV NAUSEA AND/OR VOMITING Last administered on 10/17/16 10:03; Admin Dose 4 MG; Start 10/05/16 at 21:00 Miscellaneous Information 1 ea NOTE XX ; Start 10/07/16 at 11:30 Glucose (Glutose) 15 gm Q15M PRN PO DECREASED GLUCOSE; Start 10/07/16 at 11:30 Glucose (Glutose) 22.5 gm Q15M PRN PO DECREASED GLUCOSE; Start 10/07/16 at 11:30 Dextrose (D50w Syringe) 25 ml Q15M PRN IV DECREASED GLUCOSE; Start 10/07/16 at 11:30 Dextrose (D50w Syringe) 50 ml Q15M PRN IV DECREASED GLUCOSE; Start 10/07/16 at 11:30 Glucagon (Glucagen) 1 mg Q15M PRN IM DECREASED GLUCOSE; Start 10/07/16 at 11:30 Glucose (Glutose) 15 gm Q15M PRN BUCCAL DECREASED GLUCOSE; Start 10/07/16 at 11: 30 Enoxaparin Sodium 40 mg 40 mg DAILY SC Last administered on 10/19/16 10:15; Admin Dose 40 MG; Start 10/09/16 at 13:30 Acetaminophen (Ofirmev 1000mg/ 100ml Iv) 100 ml @ 400 mls/hr Q6H PRN IVPB PAIN LEVEL 4-7 Last administered on 10/12/16 21:42; Admin Dose 400 MLS/HR; Start 10/09/16 at 15:00 Lorazepam (Ativan) 1 mg HS PO Last administered on 10/18/16 20:34; Admin Dose 1 MG; Start 10/11/16 at 21:00 Lorazepam (Ativan) 1 mg Q6H PRN IV ANXIETY Last administered on 10/12/16 20:51 ; Admin Dose 1 MG; Start 10/11/16 at 18:30 Tramadol HCl (Ultram) 50 mg Q6H PRN NGT PAIN LEVEL 4-6 Last administered on 15:16; Admin Dose 50 MG; Start 10/15/16 at 23:00 Pantoprazole (Protonix Tab) 40 mg DAILY@06 PO Last administered on 10/19/16 04 :48; Admin Dose 40 MG; Start 10/17/16 at 06:00 Menthol/Methyl Salicylate (Luciano Chavez) 1 applic QID PRN TOP PAIN Last administered on 10/17/16 14:25; Admin Dose 1 APPLIC; Start 10/17/16 at 14:00 Hydromorphone HCl 0.5 mg 0.5 mg Q4H PRN IV PAIN; Start 10/18/16 at 00:30 Sodium Chloride 1,000 ml @ 100 mls/hr Q10H IV Last administered on 10/18/16 17:33; Admin Dose 100 MLS/HR; Start 10/18/16 at 08:00 Ondansetron HCl/ Sodium Chloride (Zofran Inj/NS) 54 ml @ 216 mls/hr Q8H PRN IV NAUSEA AND/OR VOMITING; Start 10/18/16 at 12:00 JAMES NÚÑEZ MD Oct 19, 2016 20:37
[2016-10-19] MEDS: LORAZEPAM 1 MG TAB PO SCH (21:31)
[2016-10-19] MEDS: ACETAMINOPHEN 325 MG TAB PO PRN (21:32)
[2016-10-20 05:24] LABS: ADD SCAN DIFF NO
[2016-10-20 05:32] LABS: BASOPHIL # 0.1 10^3/ul (0.0-0.1); BASOPHILS % 0.5 % (0.0-2.0); EOSINOPHILS # 0.1 10^3/ul (0.0-0.5); EOSINOPHILS % 0.6 % (0.0-7.0); HEMATOCRIT 31.2 % (37.0-47.0); LYMPHOCYTES # 3.6 10^3/ul (0.8-2.9); LYMPHOCYTES % 27.9 % (15.0-51.0); MEAN CORPUSCULAR HEMOGLOBIN 30.5 pg (29.0-33.0); MEAN CORPUSCULAR HGB CONC 32.1 g/dl (32.0-37.0); MEAN CORPUSCULAR VOLUME 95.1 fl (82.0-101.0); MEAN PLATELET VOLUME 10.1 fl (7.4-10.4); MONOCYTE # 1.4 10^3/ul (0.3-0.9); MONOCYTES % 11.2 % (0.0-11.0); NEUTROPHIL # 7.6 10^3/ul (1.6-7.5); NEUTROPHILS % 59.5 % (39.0-77.0); PLATELET COUNT 809 10^3/UL (140-415); RED BLOOD COUNT 3.28 10^6/ul (4.20-5.40); RED CELL DISTRIBUTION WIDTH 13.5 % (11.5-14.5); WHITE BLOOD COUNT 12.8 10^3/ul (4.8-10.8)
[2016-10-20 06:04] LABS: CREATININE 0.72 mg/dl (0.44-1.00); POTASSIUM 3.4 mmol/L (3.5-5.1)
[2016-10-20] MEDS: PANTOPRAZOLE (EC) 40 MG TAB PO SCH (06:41)
[2016-10-20 07:39] VITALS: BP 127/60; RESP 20
[2016-10-20] MEDS: SOD CHLORIDE 0.9% 1,000 ML IV SCH ×3 (10:00→20:00)
[2016-10-20] MEDS: ENOXAPARIN 40 MG/0.4 ML SYG SC SCH (10:11)
--- NOTE | 2016-10-20 12:55 | CONS ---
Date/Time of Note Date/Time of Note DATE: 10/20/16 TIME: 12:54 Assessment/Plan Assessment/Plan Chief Complaint/Hosp Course 66 yo with recurrent ovarian cancer s/p cytoreductive surgery with likely submillimeter residual disease. Pt tolerating soft diet without nausea Problems: Additional Assessment/Plan #ovarian cancer - -need to obtain records from patient's oncologist to determine what chemotherapy has received in the past -pt has received Carboplatin AUC 5 and Doxil 30mg/m2 which she tolerated well. Pt will need a total of 6 cycles on a q 21 day basis -echo ok. cleared to start anthracycline -continue Lovenox from DVT ppx -continue post op care per Dr. Ramos -continue chemotherapy as an out patient Approximately 40 min were spent at patient's bedside and in coordination of her care Consultation Date/Type/Reason Admit Date/Time Oct 03, 2016 at 08:11 Initial Consult Date 10/16/16 Type of Consultation: Oncology Reason for Consultation recurrent ovarian cancer Referring Provider: JAMES NÚÑEZ MD 24 HR Interval Summary Free Text/Dictation tolerated chemotherapy well Exam/Review of Systems Vital Signs Vitals Vital Signs Date Time Temp Pulse Resp B/P Pulse Ox O2 Delivery O2 Flow Rate FiO2 10/20/16 07:39 97.8 83 20 127/60 94 10/18/16 17:55 Nasal Cannula 1.0 Intake and Output 10/19/16 10/19/16 10/20/16 15:00 23:00 07:00 Intake Total 1140 ml Output Total 200 ml Balance 940 ml Exam Constitutional: alert, obese, oriented Psych: nl mood/affect, no complaints Head: atraumatic, normocephalic Eyes: nl conjunctiva ENMT: nl external ears & nose Neck: non-tender, supple Respiratory: clear to auscultation, normal air movement Cardiovascular: regular rate and rhythm Gastrointestinal: soft, surgical scars Musculoskeletal: nl extremities to inspection, nl gait and stance Extremities: normal pulses Results Result Diagram: 10/20/16 0430 10/20/16 0430 Results 24 hrs Laboratory Tests Test 10/20/16 04:30 White Blood Count 12.8 H Red Blood Count 3.28 L Hemoglobin 10.0 L Hematocrit 31.2 L Mean Corpuscular Volume 95.1 Mean Corpuscular Hemoglobin 30.5 Mean Corpuscular Hemoglobin Concent 32.1 Red Cell Distribution Width 13.5 Platelet Count 809 H Mean Platelet Volume 10.1 Neutrophils % 59.5 Lymphocytes % 27.9 Monocytes % 11.2 H Eosinophils % 0.6 Basophils % 0.5 Nucleated Red Blood Cells % 0.0 Neutrophils # 7.6 H Lymphocytes # 3.6 H Monocytes # 1.4 H Eosinophils # 0.1 Basophils # 0.1 Nucleated Red Blood Cells # 0.0 Sodium Level 139 Potassium Level 3.4 L Chloride Level 105 Carbon Dioxide Level 26 Anion Gap 11 Blood Urea Nitrogen 13 Creatinine 0.72 Glucose Level 92 # Calcium Level 9.0 Medications Medications Current Medications Acetaminophen (Tylenol Tab) 650 mg Q6H PRN PO PAIN AND OR ELEVATED TEMP Last administered on 10/19/16 21:32; Admin Dose 650 MG; Start 10/03/16 at 11:00 Albumin Human 500 ml PRN PRN IV IF UOP < 30 CC/HR Last administered on 20:32; Admin Dose 500 ML; Start 10/05/16 at 21:30 Ondansetron HCl (Zofran Inj) 4 mg Q6H PRN IV NAUSEA AND/OR VOMITING Last administered on 10/17/16 10:03; Admin Dose 4 MG; Start 10/05/16 at 21:00 Miscellaneous Information 1 ea NOTE XX ; Start 10/07/16 at 11:30 Glucose (Glutose) 15 gm Q15M PRN PO DECREASED GLUCOSE; Start 10/07/16 at 11:30 Glucose (Glutose) 22.5 gm Q15M PRN PO DECREASED GLUCOSE; Start 10/07/16 at 11:30 Dextrose (D50w Syringe) 25 ml Q15M PRN IV DECREASED GLUCOSE; Start 10/07/16 at 11:30 Dextrose (D50w Syringe) 50 ml Q15M PRN IV DECREASED GLUCOSE; Start 10/07/16 at 11:30 Glucagon (Glucagen) 1 mg Q15M PRN IM DECREASED GLUCOSE; Start 10/07/16 at 11:30 Glucose 15 gm 15 gm Q15M PRN BUCCAL DECREASED GLUCOSE; Start 10/07/16 at 11:30 Acetaminophen (Ofirmev 1000mg/ 100ml Iv) 100 ml @ 400 mls/hr Q6H PRN IVPB PAIN LEVEL 4-7 Last administered on 10/12/16 21:42; Admin Dose 400 MLS/HR; Start 10/09/16 at 15:00 Lorazepam (Ativan) 1 mg HS PO Last administered on 10/19/16 21:31; Admin Dose 1 MG; Start 10/11/16 at 21:00 Lorazepam (Ativan) 1 mg Q6H PRN IV ANXIETY Last administered on 10/12/16 20:51 ; Admin Dose 1 MG; Start 10/11/16 at 18:30 Tramadol HCl (Ultram) 50 mg Q6H PRN NGT PAIN LEVEL 4-6 Last administered on 15:16; Admin Dose 50 MG; Start 10/15/16 at 23:00 Pantoprazole (Protonix Tab) 40 mg DAILY@06 PO Last administered on 10/20/16 06 :41; Admin Dose 40 MG; Start 10/17/16 at 06:00 Menthol/Methyl Salicylate (Luciano Chavez) 1 applic QID PRN TOP PAIN Last administered on 10/17/16 14:25; Admin Dose 1 APPLIC; Start 10/17/16 at 14:00 Hydromorphone HCl 0.5 mg 0.5 mg Q4H PRN IV PAIN; Start 10/18/16 at 00:30 Sodium Chloride 1,000 ml @ 100 mls/hr Q10H IV Last administered on 10/18/16 17:33; Admin Dose 100 MLS/HR; Start 10/18/16 at 08:00 Ondansetron HCl/ Sodium Chloride (Zofran Inj/NS) 54 ml @ 216 mls/hr Q8H PRN IV NAUSEA AND/OR VOMITING; Start 10/18/16 at 12:00 VALENTINA PHELAN M.D. Oct 20, 2016 12:55
[2016-10-20 15:00] VITALS: BP 107/51; PULSE 96; RESP 14
[2016-10-20] MEDS ORDERED: HYDR-902 PO (18:18)
[2016-10-20] MEDS ORDERED: POTASSIUM CHLORIDE 20 MEQ POWDER FOR ORAL SOLN PO ONE (18:30)
[2016-10-20 19:44] VITALS: BP 128/63; RESP 20
[2016-10-20] MEDS ORDERED: HEPARIN (100 UNITS/ML) 5 ML SYG CATHETER ONE (21:00)
== END 2016-10-20 21:45 | disposition home or self-care (01) | DRG 330 ==
LOC: E/R 22:33 → MS2 10-03 08:11 → ICU 10-06 00:43 → MS1 10-06 22:55
PROVIDERS: ADMIT Internal Medicine; ATTEND Internal Medicine
PROC: 0DB80ZZ Excision of Small Intestine, Open Approach (ICD-10-PCS; principal; 2016-10-03)
PROC: 0TS80ZZ Reposition Bilateral Ureters, Open Approach (ICD-10-PCS; 2016-10-03)
PROC: 0WQF0ZZ Repair Abdominal Wall, Open Approach (ICD-10-PCS; 2016-10-03)
PROC: 0D5V0ZZ Destruction of Mesentery, Open Approach (ICD-10-PCS; 2016-10-03)
PROC: 0D5W0ZZ Destruction of Peritoneum, Open Approach (ICD-10-PCS; 2016-10-03)
PROC: 0D5 Gastrointestinal System, Destruction (ICD-10-PCS; 2016-10-03)
PROC: 0D580ZZ Destruction of Small Intestine, Open Approach (ICD-10-PCS; 2016-10-03)
PROC: 0D5 Gastrointestinal System, Destruction (ICD-10-PCS; 2016-10-03)
PROC: 30233N1 Transfusion of Nonautologous Red Blood Cells into Peripheral Vein, Percutaneous Approach (ICD-10-PCS; 2016-10-07)
PROC: 3E05305 Introduction of Other Antineoplastic into Peripheral Artery, Percutaneous Approach (ICD-10-PCS; 2016-10-18)
DX: K56.69 Other intestinal obstruction (principal); C56.9 Malignant neoplasm of unspecified ovary; R18.8 Other ascites; C79.89 Secondary malignant neoplasm of other specified sites; C78.1 Secondary malignant neoplasm of mediastinum; E83.42 Hypomagnesemia; K43.9 Ventral hernia without obstruction or gangrene; N13.5 Crossing vessel and stricture of ureter without hydronephrosis; R10.84 Generalized abdominal pain; Z85.3 Personal history of malignant neoplasm of breast; Z85.43 Personal history of malignant neoplasm of ovary; Z87.891 Personal history of nicotine dependence; R97.0 Elevated carcinoembryonic antigen [CEA]; I10 Essential (primary) hypertension; F41.9 Anxiety disorder, unspecified; R73.9 Hyperglycemia, unspecified; M79.605 Pain in left leg; M79.604 Pain in right leg; M25.571 Pain in right ankle and joints of right foot; Z79.02 Long term (current) use of antithrombotics/antiplatelets
CPT/HCPCS: 36430; 73610; 74176; 80048; 80053; 81001; 81003; 82962; 83036; 83690; 83735; 84100; 84134; 84478; 85025; 85049; 85610; 85670; 85730; 86644; 86850; 86900; 86901; 86920; 87040; 87081; 87086; 88305; 88331; 93005; 93306; 93970; 96374; 96375; 97110; 97116; 97162; 97530; J1940; J9045; C9113; J0131; J0330; J0690; J1100; J1170; J1200; J1642; J1650; J1815; J1885; J2060; J2175; J2250; J2270; J2370; J2405; J2710; J3010; J3475; J3480; J7030; J7042; J7050; J7070; P9016; P9045

== ENCOUNTER 2016-10-27 19:50 | Emergency (ER) | payer MEDICARE, BC ==
[~2016-10-27] VITALS: Ht 160 cm; Wt 68.0 kg
[~2016-10-27 19:50] MED LIST: DOCU-144 PO; FOLI-49 PO; GABA300C16 PO; HYDR-902 PO; LACT20SO2 PO; LINA145C PO; LORA1TAB PO; MEMA28CA PO; METO10TA96 PO
[2016-10-27 20:10] VITALS: Ht 160 cm; Wt 68.0 kg
[2016-10-27] MEDS ORDERED: MULT-860 PO (21:14)
--- NOTE | 2016-10-27 21:16 | ERA ---
ER Documentation Chief Complaint Date/Time DATE: 10/27/16 TIME: 21:08 Chief Complaint Abdominal pain HPI The patient is a 66-year-old female, presenting to the ER because of acute on chronic abdominal pain that began about 4 PM today. She recently had abdominal surgery due to recurrent metastatic ovarian cancer 3 weeks ago. She has always had abdominal pain after surgery, however the pain is worse today. She vomited 3 times initially foot then phlegm that make the pain worse. She did take some baking soda with minimal response. She denies fever, chills, neck pain, chest pain, dyspnea, dysuria, diarrhea, constipation. She does not smoke does not drink Past medical history: History of left breast cancer, history of right leg DVT Past surgical history: Left mastectomy, splenectomy, hysterectomy, Port-A-Cath ROS All systems reviewed and are negative except as per history of present illness. Medications Home Meds Active Scripts Ondansetron (Ondansetron Odt) 4 Mg Tab.rapdis, 4 MG PO Q6H Y for NAUSEA AND/OR VOMITING, #10 TAB Prov:MILO BECK MD 10/28/16 Ciprofloxacin Hcl* (Ciprofloxacin Hcl*) 500 Mg Tablet, 500 MG PO BID for 10 Days , TAB Prov:MILO BECK MD 10/28/16 Hydrocodone/Acetaminophen ([place] 10-325 Tablet) 1 Each Tablet, 1 EACH PO Q4 for PAIN, #30 TAB Prov:AMEE JIMENEZ 10/20/16 Reported Medications Mu-Vits-Min Th/Lycopene/Lutein (CENTRUM SILVER TABLET) 1 Each Tablet, 1 EACH PO , TAB 10/27/16 Memantine* (Namenda* XR) 28 Mg Cap.spr.24, 28 MG PO DAILY, #30 TAB 10/03/16 Linaclotide (LINZESS) 145 Mcg Capsule, 145 MCG PO DAILY, #30 CAP 10/03/16 Gabapentin* (Gabapentin*) 300 Mg Capsule, 300 MG PO BID, #60 CAP 10/03/16 Metoclopramide Hcl* (Metoclopramide Hcl*) 10 Mg Tablet, 10 MG PO Q6H Y for NAUSEA AND OR VOMITING, TAB 10/03/16 Lactulose* (Lactulose*) 20 Gm/30 Ml Solution, 20 GM PO BID Y for CONSTIPATION, ML 10/03/16 Docusate Sodium* (Colace*) 100 Mg Capsule, 100 MG PO DAILY, #30 CAP 10/03/16 Folic Acid* (Folic Acid*) 1 Mg Tablet, 1 MG PO DAILY, TAB 10/03/16 Lorazepam* (Lorazepam*) 1 Mg Tablet, 1 MG PO HS Y for SLEEP, #30 TAB 10/03/16 Allergies Allergies: Coded Allergies: No Known Allergy (Unverified , 10/03/16) PMhx/Soc History of Surgery: Yes (l side mastectomy, splenectomy, hysterectomy) Anesthesia Reaction: No Hx Neurological Disorder: No Hx Respiratory Disorders: No Hx Cardiac Disorders: No Hx Psychiatric Problems: No Hx Miscellaneous Medical Probl: Yes (breast cancer, metastatic ovarian cancer, chemo, recent h/o DVT RLE) Hx Alcohol Use: No Hx Substance Use: No Hx Tobacco Use: No Physical Exam Vitals Vital Signs Date Time Temp Pulse Resp B/P Pulse Ox O2 Delivery O2 Flow Rate FiO2 10/28/16 00:06 111 15 117/69 95 Room Air 10/27/16 23:00 98.6 110 14 115/62 94 Room Air 10/27/16 22:04 98.6 104 14 128/52 94 Room Air 10/27/16 20:10 98.6 98 24 137/66 97 Physical Exam Const: No acute distress. Head: Atraumatic. Eyes: Normal Conjunctiva. ENT: Normal External Ears, Nose and Mouth. Neck: Full range of motion. No meningismus. Resp: Clear to auscultation bilaterally. Cardio: Regular rate and rhythm, no murmurs. Abd: Soft, non distended, normal bowel sounds, mild and diffuse abdominal tenderness, no rigidity, rebound, CVA tenderness, the midline incision is healing well Skin: No petechiae or rashes. Back: No midline or flank tenderness. Ext: No cyanosis, or edema. Neur: Awake and alert. No focal deficit Psych: Normal Mood and Affect. Result Diagram: 10/27/16213510/27/162135 Results 24 hrs Laboratory Tests Test 10/27/16 21:36 10/27/16 21:59 White Blood Count 11.810^3/ul Red Blood Count 3.4310^6/ul Hemoglobin 10.6g/dl Hematocrit 31.5% Mean Corpuscular Volume 91.8fl Mean Corpuscular Hemoglobin 30.9pg Mean Corpuscular Hemoglobin Concent 33.7g/dl Red Cell Distribution Width 13.1% Platelet Count 47871^3/UL Mean Platelet Volume 9.5fl Neutrophils % 76.6% Lymphocytes % 16.5% Monocytes % 5.4% Eosinophils % 0.3% Basophils % 0.3% Nucleated Red Blood Cells % 0.2/100WBC Neutrophils # 9.010^3/ul Lymphocytes # 1.910^3/ul Monocytes # 0.610^3/ul Eosinophils # 0.010^3/ul Basophils # 0.010^3/ul Nucleated Red Blood Cells # 0.010^3/ul Prothrombin Time 12.8Sec Prothrombin Time Ratio 1.0 INR International Normalized Ratio 0.96 Activated Partial Thromboplast Time 26.1Sec Sodium Level 139mmol/L Potassium Level 3.4mmol/L Chloride Level 96mmol/L Carbon Dioxide Level 27mmol/L Anion Gap 19 Blood Urea Nitrogen 14mg/dl Creatinine 0.68mg/dl Glucose Level 168mg/dl Calcium Level 9.8mg/dl Total Bilirubin 0.5mg/dl Direct Bilirubin 0.00mg/dl Indirect Bilirubin 0.5mg/dl Aspartate Amino Transf (AST/SGOT) 27IU/L Alanine Aminotransferase (ALT/SGPT) 24IU/L Alkaline Phosphatase 73IU/L Total Protein 8.6g/dl Albumin 4.0g/dl Globulin 4.60g/dl Albumin/Globulin Ratio 0.86 Lipase 34U/L Bedside Urine pH (LAB) 6.0 Bedside Urine Protein (LAB) 2+ Bedside Urine Glucose (UA) Negative Bedside Urine Ketones (LAB) 2+ Bedside Urine Blood 2+ Bedside Urine Nitrite (LAB) Positive Bedside Urine Leukocyte Esterase (L 1+ Current Medications Medications (Trade) Dose Ordered Sig/Coral Route PRN Reason Start Time Stop Time Status Last Admin Dose Admin Morphine Sulfate (morphine) 4 mg ONCE STAT IV 10/27/16 21:26 10/27/16 21:28 DC 10/27/16 21:31 Ondansetron HCl (Zofran Inj) 4 mg ONCE STAT IV 10/27/16 21:26 10/27/16 21:28 DC 10/27/16 21:31 Hydromorphone HCl 1 mg 1 mg ONCE STAT IV 10/27/16 22:03 10/27/16 22:04 DC 10/27/16 23:15 Ciprofloxacin/ Dextrose (Cipro Ivpb) 200 ml @ 200 mls/hr ONCE ONCE IVPB 10/28/16 00:30 10/28/16 00:30 DC Ciprofloxacin (Cipro) 500 mg ONCE ONCE PO 10/28/16 00:30 10/28/16 00:31 DC 10/28/16 00:16 Potassium Chloride (Klor-Con 20) 20 meq ONCE STAT PO 10/28/16 00:03 10/28/16 00:06 DC 10/28/16 00:16 Procedures/MDM [place] [address] Radiology Main Line: [phone] DIAGNOSTIC IMAGING REPORT Patient: DONTE CARDOZA : 1950 Age: 66 Sex: F MR #: [id number] DOS: 10/27/162125 Ordering MD: MILO BECK MD Location: E/R Room/Bed: PROCEDURE: XR Chest. CLINICAL INDICATION: Abdominal pain. TECHNIQUE: Single frontal view of the chest. COMPARISON: 09/14/2013. FINDINGS: Right central venous line in place with tip in the superior vena cava. Cardiomegaly. Elevation right hemidiaphragm. Mild pulmonary vascular congestion. Lungs otherwise clear. No signs of pleural fluid or pneumothorax are seen. The osseous structures and soft tissues are unremarkable. IMPRESSION: Mild pulmonary vascular congestion. RPTAT: [facility]U Physician Phil Date Time Electronically viewed and signed by Physician Phil on 10/27/2016 22:46 RS/ CC: MILO BECK MD [place] [id number] Radiology Main Line: [phone] DIAGNOSTIC IMAGING REPORT Patient: DONTE CARDOZA : 1950 Age: 66 Sex: F MR #: [id number] DOS: 10/27/16 2126 Ordering MD: MILO BECK MD Location: E/R Room/Bed: PROCEDURE: CT Abdomen and pelvis without contrast. CLINICAL INDICATION: Abdominal pain. TECHNIQUE: CT scan of the abdomen and pelvis was performed on a multi- detector high-resolution CT scanner. Contiguous axial images were obtained from the lung bases to the ischial tuberosities without intravenous contrast. Coronal and sagittal reformatted images were also obtained. Images were reviewed on the PACS workstation. One or more of the following dose reduction techniques were used: - Automated exposure control. - Adjustment of the mA and/or kV according to patient size. - Use of iterative reconstruction technique. Exam CTD/vol = 10.27 mGy. Total exam DLP = 557.72 mGy-cm. COMPARISON: 10/03/2016. FINDINGS: Evaluation of the lung bases demonstrates mild bibasilar atelectasis. There is a calcified granuloma within the left lower lobe. Abdomen: The liver is normal in size. There is no focal mass or dilatation of the biliary tree. The gallbladder is not distended. The spleen is absent. The pancreas and bilateral adrenal glands are within normal limits. Bilateral kidneys are normal in size with no contour deforming mass identified. There is no radiopaque renal or ureteral calculus identified. There is no hydronephrosis or hydroureter. There is no retroperitoneal adenopathy. The abdominal aorta is of normal caliber with scattered atherosclerotic calcifications. Midline abdominal erica are present. There is prior gastric surgery. There are mildly dilated loops of small bowel within the qjk-vu-tgnds abdomen with air -fluid levels. There is no bowel obstruction or free air. The appendix is not visualized. There is no diverticulosis or diverticulitis. There is no ascites. Pelvis: The bladder is unremarkable. The uterus is absent. There is mild pelvic stranding and free fluid. There is no significant pelvic adenopathy. Evaluation of the osseous structures demonstrates no suspicious lytic or blastic lesion. There are calcified injection granulomas over bilateral buttocks. IMPRESSION: Mildly dilated loops of small bowel within the loi-gh-ehzuk abdomen compatible with an ileus. Follow-up is recommended to exclude developing obstruction. Mild pelvic stranding and free fluid. Mild bibasilar atelectasis. Status post splenectomy. Vascular calcifications reflective of atherosclerosis. .Trent Akers MD, MD Date Time Electronically viewed and signed by .Trent Akers MD, on 10/27/2016 23:25 .T/ CC: MILO BECK MD EKG: Read by emergency physician Rate/Rhythm: Normal Sinus Rhythm 91 beats/min QRS, ST, T-waves: No ST elevation, no T inversion, nonspecific ST abnormality Impression: Abnormal EKG MEDICAL MAKING DECISION: The patient is a 66-year-old female, presenting with acute postoperative ileus, cholecystitis, acute hypokalemia. She was treated with morphine 4 mg IV, Dilaudid 1 mg IV for pain and Zofran 4 mg IV for nausea and Cipro 500 mg p.o. for acute cystitis and potassium chloride 20 mEq p.o. for low potassium with good response. The differential diagnoses considered include but are not limited to cholelithiasis, cholecystitis, cystitis, pancreatitis, hepatitis, gastritis, peptic ulcer disease, gastric ulcer, appendicitis, diverticulitis, cholangitis, choledocholithiasis, partial small bowel obstruction. Departure Diagnosis: Primary Impression: Postoperative ileus Additional Impressions: UTI (urinary tract infection) Hypokalemia Anemia Condition: Good Comments She was discharged with Cipro and Zofran and advised to return in 8-12 hours for reevaluation, sooner if any concern MILO BECK MD Oct 27, 2016 21:16
[2016-10-27] MEDS ORDERED: morphine 4 MG/ML VIAL IV STA (21:26)
[2016-10-27] MEDS ORDERED: ONDANSETRON 4 MG INJ IV STA (21:26)
[2016-10-27 21:44] LABS: ADD SCAN DIFF NO
[2016-10-27 21:47] LABS: BASOPHILS % 0.3 % (0.0-2.0); EOSINOPHILS % 0.3 % (0.0-7.0); HEMATOCRIT 31.5 % (37.0-47.0); HEMOGLOBIN 10.6 g/dl (12.0-16.0); LYMPHOCYTES # 1.9 10^3/ul (0.8-2.9); LYMPHOCYTES % 16.5 % (15.0-51.0); MEAN CORPUSCULAR HEMOGLOBIN 30.9 pg (29.0-33.0); MEAN CORPUSCULAR HGB CONC 33.7 g/dl (32.0-37.0); MEAN CORPUSCULAR VOLUME 91.8 fl (82.0-101.0); MEAN PLATELET VOLUME 9.5 fl (7.4-10.4); MONOCYTE # 0.6 10^3/ul (0.3-0.9); MONOCYTES % 5.4 % (0.0-11.0); NEUTROPHILS % 76.6 % (39.0-77.0); NUCLEATED RED BLOOD CELLS% 0.2 /100WBC (0.0-0.0); PLATELET COUNT 487 10^3/UL (140-415); RED BLOOD COUNT 3.43 10^6/ul (4.20-5.40); RED CELL DISTRIBUTION WIDTH 13.1 % (11.5-14.5); WHITE BLOOD COUNT 11.8 10^3/ul (4.8-10.8)
[2016-10-27 21:59] LABS: URINE BLOOD (Dip) POC 2+ (NEGATIVE)
[2016-10-27] MEDS ORDERED: HYDROmorphONE 1 MG/ML SYG IV STA (22:03)
[2016-10-27 22:08] LABS: INR 0.96; PARTIAL THROMBOPLASTIN TIME 26.1 Sec (25.0-35.0); POTASSIUM 3.4 mmol/L (3.5-5.1); PROTIME 12.8 Sec (12.2-14.2)
[2016-10-27 22:10] LABS: BILIRUBIN,INDIRECT 0.5 mg/dl (0-1.1); BILIRUBIN,TOTAL 0.5 mg/dl (0.2-1.3); CREATININE 0.68 mg/dl (0.44-1.00)
[2016-10-27 22:11] LABS: ALBUMIN/GLOBULIN RATIO 0.86; CALCIUM 9.8 mg/dl (8.4-10.2); TOTAL PROTEIN 8.6 g/dl (6.1-8.1)
--- NOTE | 2016-10-27 22:47 | RADRPT ---
PROCEDURE: XR Chest. CLINICAL INDICATION: Abdominal pain. TECHNIQUE: Single frontal view of the chest. COMPARISON: 09/14/2013. FINDINGS: Right central venous line in place with tip in the superior vena cava. Cardiomegaly. Elevation right hemidiaphragm. Mild pulmonary vascular congestion. Lungs otherwise clear. No signs of pleural fluid or pneumothorax are seen. The osseous structures and soft tissues are unre markable. IMPRESSION: Mild pulmonary vascular congestion. RPTAT: [facility]U Physician Phil Date Time Electronically viewed and signed by Physician Phil on 10/27/2016 22:46 RS/
[2016-10-27 23:00] VITALS: TEMP 98.6
--- NOTE | 2016-10-27 23:25 | RADRPT ---
PROCEDURE: CT Abdomen and pelvis without contrast. CLINICAL INDICATION: Abdominal pain. TECHNIQUE: CT scan of the abdomen and pelvis was performed on a multi-detector high-resolution CT scanner. Contiguous axial images were obtained from the lung bases to the ischial tuberosities wit hout intravenous contrast. Coronal and sagittal reformatted images were also obtained. Images were reviewed on the PACS workstation. One or more of the following dose reduction techniques were used: - Automated exposure control. - Adjustment of the mA and/or kV according to patient size. - Use of iterative reconstruction technique. Exam CTD/vol = 10.27 mGy. Total exam DLP = 557.72 mGy-cm. COMPARISON: 10/03/2016. FINDINGS: Evaluation of the lung bases demonstrates mild bibasilar atelectasis. There is a calcified granuloma within the left lower lobe. Abdomen: The liver is normal in size. There is no focal mass or dilatation of the biliary tree. T he gallbladder is not distended. The spleen is absent. The pancreas and bilateral adrenal glands a re within normal limits. Bilateral kidneys are normal in size with no contour deforming mass identi fied. There is no radiopaque renal or ureteral calculus identified. There is no hydronephrosis or hydroureter. There is no retroperitoneal adenopathy. The abdominal aorta is of normal caliber with scattered atherosclerotic calcifications. Midline abdominal erica are present. There is prior gastric surgery. There are mildly dilated lo ops of small bowel within the nne-mx-ureaw abdomen with air-fluid levels. There is no bowel obstruc tion or free air. The appendix is not visualized. There is no diverticulosis or diverticulitis. T here is no ascites. Pelvis: The bladder is unremarkable. The uterus is absent. There is mild pelvic stranding and anders e fluid. There is no significant pelvic adenopathy. Evaluation of the osseous structures demonstrates no suspicious lytic or blastic lesion. There are c alcified injection granulomas over bilateral buttocks. IMPRESSION: Mildly dilated loops of small bowel within the uwk-gq-crpsj abdomen compatible with an ileus. Follo w-up is recommended to exclude developing obstruction. Mild pelvic stranding and free fluid. Mild bibasilar atelectasis. Status post splenectomy. Vascular calcifications reflective of atherosclerosis. .Trent Akers MD, MD Date Time Electronically viewed and signed by .Trent Akers MD, MD on 10/27/2016 23:25 .T/
[2016-10-28] MEDS ORDERED: POTASSIUM CHLORIDE (SR) 20 MEQ TAB PO STA (00:03)
[2016-10-28] MEDS ORDERED: ONDA4TAB14 PO (00:05)
[2016-10-28] MEDS ORDERED: CIPR500T4 PO (00:05)
[2016-10-28 00:06] VITALS: BP 117/69; PULSE 111; RESP 15
[2016-10-28] MEDS ORDERED: CIPROFLOXACIN 400MG/D5W 200 ML IVPB ONE (00:30)
[2016-10-28] MEDS ORDERED: CIPROFLOXACIN 500 MG TAB PO ONE (00:30)
== END 2016-10-28 00:43 | disposition home or self-care (01) ==
LOC: E/R 19:50
DX: K91.89 Other postprocedural complications and disorders of digestive system (principal); N39.0 Urinary tract infection, site not specified; E87.6 Hypokalemia; D64.9 Anemia, unspecified; K56.7 Ileus, unspecified; C79.60 Secondary malignant neoplasm of unspecified ovary; Z85.3 Personal history of malignant neoplasm of breast
CPT/HCPCS: 71010; 74176; 80053; 81003; 83690; 85025; 85610; 85730; 87086; 93005; A4310; J1170; J2270; J2405; 36415; 96374; 96375

== ENCOUNTER 2017-01-27 06:07 | Inpatient (IN) | payer MEDICARE, BC ==
[~2017-01-27] VITALS: Ht 149.9 cm; Wt 65.0 kg
[~2017-01-27 06:07] MED LIST changes: +CIPR500T4 PO; +MULT-860 PO; +ONDA4TAB14 PO
[2017-01-27 06:11] VITALS: Ht 149.9 cm; Wt 65.0 kg
[2017-01-27] MEDS ORDERED: HYDROmorphONE 1 MG/ML SYG IV STA (06:25)
[2017-01-27] MEDS ORDERED: ONDANSETRON 4 MG INJ IV STA (06:25)
[2017-01-27] MEDS ORDERED: SOD CHLORIDE 0.9% 1,000 ML IV STA (06:25)
--- NOTE | 2017-01-27 06:28 | ERA ---
ER Documentation Chief Complaint Date/Time DATE: 01/27/17 TIME: 06:26 Chief Complaint abdominal pain/vomiting since last night HPI 66-year-old female history of ovarian cancer with multiple recurrences currently on chemotherapy last chemo approximately 2.5 weeks ago who presents with abdominal pain and vomiting. The patient has had ileus and bowel obstruction in the past with last surgical intervention in September. The patient notes approximately 12 hours of abdominal pain that is diffuse, 9 out of 10 with associated nonbloody nonbilious emesis. Her last bowel movement was yesterday. She denies any fevers or chills dysuria urgency or frequency, no chest pain or shortness of breath. ROS All systems reviewed and are negative except as per history of present illness. Medications Home Meds Active Scripts Ondansetron (Ondansetron Odt) 4 Mg Tab.rapdis, 4 MG PO Q6H Y for NAUSEA AND/OR VOMITING, #10 TAB Prov:MILO BECK MD 10/28/16 Ciprofloxacin Hcl* (Ciprofloxacin Hcl*) 500 Mg Tablet, 500 MG PO BID for 10 Days , TAB Prov:MILO BECK MD 10/28/16 Hydrocodone/Acetaminophen ([place] 10-325 Tablet) 1 Each Tablet, 1 EACH PO Q4 for PAIN, #30 TAB Prov:AMEE JIMENEZ 10/20/16 Reported Medications Mu-Vits-Min Th/Lycopene/Lutein (CENTRUM SILVER TABLET) 1 Each Tablet, 1 EACH PO , TAB 10/27/16 Memantine* (Namenda* XR) 28 Mg Cap.spr.24, 28 MG PO DAILY, #30 TAB 10/03/16 Linaclotide (LINZESS) 145 Mcg Capsule, 145 MCG PO DAILY, #30 CAP 10/03/16 Gabapentin* (Gabapentin*) 300 Mg Capsule, 300 MG PO BID, #60 CAP 10/03/16 Metoclopramide Hcl* (Metoclopramide Hcl*) 10 Mg Tablet, 10 MG PO Q6H Y for NAUSEA AND OR VOMITING, TAB 10/03/16 Lactulose* (Lactulose*) 20 Gm/30 Ml Solution, 20 GM PO BID Y for CONSTIPATION, ML 10/03/16 Docusate Sodium* (Colace*) 100 Mg Capsule, 100 MG PO DAILY, #30 CAP 10/03/16 Folic Acid* (Folic Acid*) 1 Mg Tablet, 1 MG PO DAILY, TAB 10/03/16 Lorazepam* (Lorazepam*) 1 Mg Tablet, 1 MG PO HS Y for SLEEP, #30 TAB 10/03/16 Allergies Allergies: Coded Allergies: No Known Allergy (Unverified , 01/27/17) PMhx/Soc History of Surgery: Yes (L side mastectomy, splenectomy, hysterectomy, SBO resection ) Anesthesia Reaction: No (cytoreductive surgery ) Hx Neurological Disorder: No Hx Respiratory Disorders: No Hx Cardiac Disorders: No Hx Psychiatric Problems: No Hx Miscellaneous Medical Probl: Yes (breast cancer, metastatic ovarian cancer, chemo, DVT RLE, 10/05/16 tumor debu) Hx Alcohol Use: No Hx Substance Use: No Hx Tobacco Use: No FmHx Family History: No diabetes Physical Exam Vitals Vital Signs Date Time Temp Pulse Resp B/P Pulse Ox O2 Delivery O2 Flow Rate FiO2 01/27/17 07:14 100 15 114/55 100 Room Air 01/27/17 06:11 97.9 109 20 142/71 98 Physical Exam General: Uncomfortable Head: Normocephalic, atraumatic. Eyes: Pupils equally reactive, EOM intact ENT: Moist mucous membranes Neck: Supple, no lymphadenopathy Respiratory: Lungs clear bilaterally, no distress Cardiovascular: RRR, no murmurs, rubs, or gallops Abdominal: Soft, mild diffuse tenderness with slightly decreased bowel sounds : Deferred MSK: No edema, no unilateral swelling, 5/5 strength Neurologic: Alert and oriented, moving all extremities, normal speech, no focal weakness, no cerebellar signs Skin: No rash Psych: Normal mood Result Diagram: 01/27/17 0738 01/27/17 0738 Results 24 hrs Laboratory Tests Test 01/27/17 06:52 01/27/17 07:30 01/27/17 07:38 White Blood Count 6.510^3/ul 6.110^3/ul Red Blood Count 2.1010^6/ul 2.0410^6/ul Hemoglobin 7.9g/dl 7.8g/dl Hematocrit 22.8% 22.2% Mean Corpuscular Volume 108.6fl 108.8fl Mean Corpuscular Hemoglobin 37.6pg 38.2pg Mean Corpuscular Hemoglobin Concent 34.6g/dl 35.1g/dl Red Cell Distribution Width 15.9% 15.9% Platelet Count 46405^3/UL 60158^3/UL Mean Platelet Volume 10.5fl 9.6fl Neutrophils % 62.1% 63.6% Lymphocytes % 26.3% 24.8% Monocytes % 10.0% 10.0% Eosinophils % 0.2% 0.2% Basophils % 0.3% 0.3% Nucleated Red Blood Cells % 8.8/100WBC 8.5/100WBC Neutrophils # 4.010^3/ul 3.910^3/ul Lymphocytes # 1.710^3/ul 1.510^3/ul Monocytes # 0.710^3/ul 0.610^3/ul Eosinophils # 0.010^3/ul 0.010^3/ul Basophils # 0.010^3/ul 0.010^3/ul Nucleated Red Blood Cells # 0.610^3/ul 0.510^3/ul Prothrombin Time 12.6Sec Prothrombin Time Ratio 1.0 INR International Normalized Ratio 0.94 Activated Partial Thromboplast Time 25.2Sec Sodium Level 137mmol/L 144mmol/L Potassium Level 3.4mmol/L 3.6mmol/L Chloride Level 99mmol/L 105mmol/L Carbon Dioxide Level 22mmol/L 25mmol/L Anion Gap 19 18 Blood Urea Nitrogen 14mg/dl 14mg/dl Creatinine 0.65mg/dl 0.71mg/dl Glucose Level 545mg/dl 112mg/dl Calcium Level 8.4mg/dl 8.5mg/dl Total Bilirubin 0.3mg/dl Direct Bilirubin 0.00mg/dl Indirect Bilirubin 0.3mg/dl Aspartate Amino Transf (AST/SGOT) 25IU/L Alanine Aminotransferase (ALT/SGPT) 23IU/L Alkaline Phosphatase 55IU/L Total Protein 6.9g/dl Albumin 3.6g/dl Globulin 3.30g/dl Albumin/Globulin Ratio 1.09 Lipase < 10U/L Bedside Glucose 113mg/dL Current Medications Medications (Trade) Dose Ordered Sig/Coral Route PRN Reason Start Time Stop Time Status Last Admin Dose Admin Sodium Chloride (NS) 1,000 ml @ 1,000 mls/hr Q1H STAT IV 01/27/17 06:25 01/27/17 07:24 DC 01/27/17 07:02 Hydromorphone HCl (Dilaudid) 1 mg ONCE STAT IV 01/27/17 06:25 01/27/17 06:27 DC 01/27/17 07:08 Ondansetron HCl (Zofran Inj) 4 mg ONCE STAT IV 01/27/17 06:25 01/27/17 06:27 DC 01/27/17 07:01 Lidocaine (Xylocaine (Viscous)) 15 ml ONCE ONCE PO 01/27/17 08:30 01/27/17 08:31 01/27/17 08:21 Ondansetron HCl (Zofran Inj) 4 mg BRIDGE ORDER PRN IV NAUSEA AND/OR VOMITING 01/27/17 08:30 01/28/17 08:29 Acetaminophen (Tylenol Tab) 650 mg ER BRIDGE PRN PO MILD PAIN/FEVER 01/27/17 08:30 01/28/17 08:29 Procedures/MDM EKG, MONITORS, & DIAGNOSTIC IMAGING: CT abdomen and pelvis IMPRESSION: Mild to moderately dilated loops of small bowel within the bvh-pc-jeyod abdomen suggestive of obstruction. There is a possible transition point within the mid lower abdomen. Mild pelvic stranding and free fluid. Cholelithiasis. Mild bibasilar atelectasis. Status post splenectomy. Vascular calcifications reflective of atherosclerosis. LAB INTERPRETATION: The patient had hyperglycemia on initial blood work with the patient is not diabetic. This is possibly a lab draw error, repeat blood work shows no evidence of hyperglycemia. The patient's anemia is slightly worse than baseline but does not require transfusion MEDICAL DECISION MAKING: The patient has a history of ovarian CA here with abdominal pain nausea and vomiting. The patient is at risk for multiple etiologies of her pain including worsening or recurrence of ovarian CA, anemia, bowel obstruction, ileus, pain related to malignancy. Low concern for appendicitis, cholecystitis among others. Laboratory testing and CT imaging is appropriate. ER COURSE: Patient was given IV fluids, Dilaudid, Zofran CT imaging confirms small bowel obstruction. An NG tube was placed. The patient's hematology oncologist Dr. Oliva was notified, the patient's gynecology oncology physician Dr. Zeng, was notified. The general surgeon cfo controller Dr. Jarquin was notified. Medical management and conservative management at this time. Her pain is well controlled and she is stable for medical surgical floor. I kept the patient and/or family informed of laboratory and diagnostic imaging results throughout the emergency room course. DISPOSITION PLAN: [facility] admission for management of SBO CONSULTATION: Accepting care team and consultations: I discussed the current laboratory data, diagnostic imaging and emergency care provided. Admitting team: Dr. Nieves Admitting team indication: Insurance directed, prior admit to Dr. Matthews Consulting services: As documented above Departure Diagnosis: Primary Impression: Small bowel obstruction Additional Impressions: History of ovarian cancer Anemia Qualified Code: D64.9 - Anemia, unspecified type Condition: Stable ROBERT TODD MD Jan 27, 2017 06:28
[2017-01-27 06:58] LABS: BASOPHILS % 0.3 % (0.0-2.0); EOSINOPHILS % 0.2 % (0.0-7.0); HEMATOCRIT 22.8 % (37.0-47.0); HEMOGLOBIN 7.9 g/dl (12.0-16.0); LYMPHOCYTES # 1.7 10^3/ul (0.8-2.9); LYMPHOCYTES % 26.3 % (15.0-51.0); MEAN CORPUSCULAR HEMOGLOBIN 37.6 pg (29.0-33.0); MEAN CORPUSCULAR HGB CONC 34.6 g/dl (32.0-37.0); MEAN CORPUSCULAR VOLUME 108.6 fl (82.0-101.0); MEAN PLATELET VOLUME 10.5 fl (7.4-10.4); MONOCYTE # 0.7 10^3/ul (0.3-0.9); NEUTROPHILS % 62.1 % (39.0-77.0); NUCLEATED RED BLOOD CELLS # 0.6 10^3/ul (0.0-0.0); NUCLEATED RED BLOOD CELLS% 8.8 /100WBC (0.0-0.0); PLATELET COUNT 244 10^3/UL (140-415); RED CELL DISTRIBUTION WIDTH 15.9 % (11.5-14.5); WHITE BLOOD COUNT 6.5 10^3/ul (4.8-10.8)
[2017-01-27 07:15] LABS: INR 0.94; PARTIAL THROMBOPLASTIN TIME 25.2 Sec (25.0-35.0); PROTIME 12.6 Sec (12.2-14.2)
[2017-01-27 07:18] LABS: ALANINE AMINOTRANSFERASE 23 IU/L (13-69); ALBUMIN 3.6 g/dl (3.3-4.9); ALBUMIN/GLOBULIN RATIO 1.09; ALKALINE PHOSPHATASE 55 IU/L (42-121); ANION GAP 19 (8-16); ASPARTATE AMINO TRANSFERASE 25 IU/L (15-46); BILIRUBIN,INDIRECT 0.3 mg/dl (0-1.1); BILIRUBIN,TOTAL 0.3 mg/dl (0.2-1.3); BLOOD UREA NITROGEN 14 mg/dl (7-20); CALCIUM 8.4 mg/dl (8.4-10.2); CARBON DIOXIDE 22 mmol/L (21-31); CHLORIDE 99 mmol/L (97-110); CREATININE 0.65 mg/dl (0.44-1.00); POTASSIUM 3.4 mmol/L (3.5-5.1); SODIUM 137 mmol/L (135-144); TOTAL PROTEIN 6.9 g/dl (6.1-8.1)
[2017-01-27 07:21] LABS: GLUCOSE 545 mg/dl (70-220)
[2017-01-27 07:45] LABS: BASOPHILS % 0.3 % (0.0-2.0); EOSINOPHILS % 0.2 % (0.0-7.0); HEMATOCRIT 22.2 % (37.0-47.0); HEMOGLOBIN 7.8 g/dl (12.0-16.0); LYMPHOCYTES # 1.5 10^3/ul (0.8-2.9); LYMPHOCYTES % 24.8 % (15.0-51.0); MEAN CORPUSCULAR HEMOGLOBIN 38.2 pg (29.0-33.0); MEAN CORPUSCULAR HGB CONC 35.1 g/dl (32.0-37.0); MEAN CORPUSCULAR VOLUME 108.8 fl (82.0-101.0); MEAN PLATELET VOLUME 9.6 fl (7.4-10.4); MONOCYTE # 0.6 10^3/ul (0.3-0.9); NEUTROPHIL # 3.9 10^3/ul (1.6-7.5); NEUTROPHILS % 63.6 % (39.0-77.0); NUCLEATED RED BLOOD CELLS # 0.5 10^3/ul (0.0-0.0); NUCLEATED RED BLOOD CELLS% 8.5 /100WBC (0.0-0.0); PLATELET COUNT 225 10^3/UL (140-415); RED BLOOD COUNT 2.04 10^6/ul (4.20-5.40); RED CELL DISTRIBUTION WIDTH 15.9 % (11.5-14.5); WHITE BLOOD COUNT 6.1 10^3/ul (4.8-10.8)
[2017-01-27 07:58] LABS: POSITIVE DIFF @See below
--- NOTE | 2017-01-27 07:58 | RADRPT ---
PROCEDURE: CT Abdomen and pelvis without contrast. CLINICAL INDICATION: Abdominal pain. TECHNIQUE: CT scan of the abdomen and pelvis was performed on a multi-detector high-resolution CT scanner. Contiguous axial images were obtained from the lung bases to the ischial tuberosities wit hout intravenous contrast. Coronal and sagittal reformatted images were also obtained. Images were reviewed on the PACS workstation. One or more of the following dose reduction techniques were used: - Automated exposure control. - Adjustment of the mA and/or kV according to patient size. - Use of iterative reconstruction technique. Exam CTD/vol = 8.73 mGy. Total exam DLP = 484.32 mGy-cm. COMPARISON: 10/27/2016. FINDINGS: Evaluation of the lung bases demonstrates mild bibasilar atelectasis. There is a calcified granuloma within the left lower lobe. Abdomen: The liver is normal in size. There is no focal mass or dilatation of the biliary tree. The gallbladder is mildly distended and contains a gallstone. The spleen is absent. The pancreas and gabi ateral adrenal glands are within normal limits. Bilateral kidneys are normal in size with no contour deforming mass identified. There is no radiopaque renal or ureteral calculus identified. There is n o hydronephrosis or hydroureter. There is no retroperitoneal adenopathy. The abdominal aorta is of n ormal caliber with scattered atherosclerotic calcifications. There is prior gastric surgery. There are dilated loops of small bowel within the fnt-gx-qozds abdom en with air-fluid levels. There is mild intra-abdominal stranding. There is no free air. The append ix is absent. There is no diverticulosis or diverticulitis. There is no ascites. Pelvis: The bladder is unremarkable. The uterus is absent. There is mild pelvic stranding and free f luid. There is no significant pelvic adenopathy. Evaluation of the osseous structures demonstrates no suspicious lytic or blastic lesion. There are c alcified injection granulomas over bilateral buttocks. IMPRESSION: Mild to moderately dilated loops of small bowel within the szy-rw-rrsyh abdomen suggestive of obstru ction. There is a possible transition point within the mid lower abdomen. Mild pelvic stranding and free fluid. Cholelithiasis. Mild bibasilar atelectasis. Status post splenectomy. Vascular calcifications reflective of atherosclerosis. .Trent Akers MD, MD Date Time Electronically viewed and signed by .Trent Akers MD, MD on 01/27/2017 07:57 .T/
[2017-01-27 08:08] LABS: CALCIUM 8.5 mg/dl (8.4-10.2); CREATININE 0.71 mg/dl (0.44-1.00); POTASSIUM 3.6 mmol/L (3.5-5.1)
[2017-01-27] MEDS ORDERED: LIDOCAINE 2% VISC 15 ML CUP PO ONE (08:30)
[2017-01-27] MEDS ORDERED: ONDANSETRON 4 MG INJ IV PRN ×2 (08:30→10:00)
[2017-01-27] MEDS ORDERED: ACETAMINOPHEN 325 MG TAB PO PRN (08:30)
[2017-01-27 09:09] LABS: ADD UMIC YES; UR ASCORBIC ACID 40 mg/dL (NEGATIVE); UR BILIRUBIN (Dip) NEGATIVE (NEGATIVE); UR BLOOD (Dip) NEGATIVE (NEGATIVE); UR CLARITY CLEAR (CLEAR); UR COLOR YELLOW (YELLOW); UR GLUCOSE (Dip) NEGATIVE (NEGATIVE); UR KETONES (Dip) NEGATIVE (NEGATIVE); UR LEUKOCYTE ESTERASE (Dip) TRACE Leu/ul (NEGATIVE); UR MUCUS FEW /HPF (NONE SEEN); UR NITRITE (Dip) NEGATIVE (NEGATIVE); UR RBC 1 /HPF (0-5); UR SPECIFIC GRAVITY (Dip) 1.015 (1.003-1.030); UR TOTAL PROTEIN (Dip) NEGATIVE (NEGATIVE); UR UROBILINOGEN (Dip) NEGATIVE (NEGATIVE)
--- NOTE | 2017-01-27 09:49 | RADRPT ---
PROCEDURE: XR Chest. CLINICAL INDICATION: Ng tube placement TECHNIQUE: Single portable view of the chest was obtained COMPARISON: 09/14/2013 FINDINGS: There is a NG tube within the stomach. There is a right chest wall port in place. The heart is normal in size. There is a small left lower lobe calcified granuloma. There is elevation of the right diaphragm. RPTAT:AA IMPRESSION: New NG tube within the stomach No focal infiltrate. .Juan Jose Dang MD, MD Date Time Electronically viewed and signed by .Juan Jose Dang MD, MD on 01/27/2017 09:49 .S/
[2017-01-27] MEDS ORDERED: DOCU250C58 PO (09:58)
[2017-01-27] MEDS ORDERED: PANT40TA3 PO (09:58)
[2017-01-27] MEDS ORDERED: BISA5TAB6 PO (09:58)
[2017-01-27] MEDS ORDERED: TRAM50TA2 PO (09:58)
[2017-01-27] MEDS ORDERED: ONDA8TAB9 PO (09:58)
[2017-01-27 10:00] LABS: ANISOCYTOSIS 1+ (0-0); EOSINOPHILS % (M) 1 % (0-7); ERYTHROBLAST% (NRBC) (M) 7 % (0-0); GIANT THROMBO% (M) 5 % (0-0); HOWELL-JOLLY BODIES 1+ (0-0); MONOCYTES % (M) 11 % (0-11); PLATELET ESTIMATE NORMAL; POLYCHROMASIA 1+ (0-0); TARGET CELLS 1+ (0-0)
[2017-01-27] MEDS ORDERED: NACL 0.9% 3 ML SYG IV SCH (10:00)
[2017-01-27] MEDS: SOD CHLORIDE 0.9% 1,000 ML IV SCH ×2 (10:53→20:50)
[2017-01-27] MEDS: morphine 2 MG INJ IV PRN ×2 (10:54→23:36)
--- NOTE | 2017-01-27 12:06 | HP ---
Date/Time of Note Date/Time of Note DATE: 01/27/17 TIME: 12:03 Assessment/Plan VTE Prophylaxis VTE Prophylaxis Intervention: other Assessment/Plan Chief Complaint/Hosp Course 1) Small bowel obstruction - NPO - IV fluids - surgical consult 2) previous carcinomas - oncology following Problems: HPI/ROS Admit Date/Time Admit Date/Time Jan 27, 2017 at 08:23 Hx of Present Illness Patient with a history of breast and ovarian carcinoma who is currently still be treated and followed by oncology comes in with abdominal pain. Patient was found to have small bowel obstruction which she has had in the past. Patient is admitted for further treatment. PMH/Family/Social Past Medical History breast cancer ovarian cancer Past Surgical History surgery related to breast and ovarian cancer Social History Smoking Status: Former smoker Exam/Review of Systems Vital Signs Vitals Vital Signs Date Time Temp Pulse Resp B/P Pulse Ox O2 Delivery O2 Flow Rate FiO2 01/27/17 08:50 97 17 115/65 98 Room Air 01/27/17 06:11 97.9 Exam Constitutional: well developed Head: atraumatic, normocephalic Neck: supple Respiratory: clear to auscultation Cardiovascular: regular rate and rhythm Gastrointestinal: non-tender, soft Extremities: normal pulses Labs Result Diagram: 01/27/17 0738 01/27/17 0738 Medications Medications Current Medications Sodium Chloride (NS) 1,000 ml @ 100 mls/hr Q10H IV Last administered on 10:53; Admin Dose 100 MLS/HR; Start 01/27/17 at 09:45 Ondansetron HCl (Zofran Inj) 4 mg Q6H PRN IV NAUSEA AND/OR VOMITING; Start at 10:00 Morphine Sulfate (morphine) 2 mg Q4H PRN IV SEVERE PAIN LEVEL 7-10 Last administered on 01/27/17 10:54; Admin Dose 2 MG; Start 01/27/17 at 10:00 Famotidine (Pepcid Iv) 20 mg Q12 IV ; Start 01/27/17 at 21:00 Enoxaparin Sodium (Lovenox) 30 mg DAILY SC ; Start 01/28/17 at 09:00 SANDY ABDALLA Jan 27, 2017 12:06
[2017-01-27 14:00] VITALS: BP 132/75; RESP 20
--- NOTE | 2017-01-27 14:23 | CONS ---
Date/Time of Note Date/Time of Note DATE: 01/27/17 TIME: 14:14 Assessment/Plan Assessment/Plan Problems: (1) History of ovarian cancer Status: Acute Comment: ongoing chemorx with carbo doxil -informed Dr pulido about patient admission -wbc and plt normal if abdominal symptoms better, then consider scheduled chemorx this upcoming (2) Small bowel obstruction Status: Acute Comment: She had surgery 10/16 for abdominal symptoms. now followed by Gynonc Dr Anderson and follow his recommendations. on NGT decompression (3) Macrocytic anemia Comment: will check b12 and folate, but most likely secondary to bone marrow maturation defect transfuse if lower than 7 hgb Consultation Date/Type/Reason Admit Date/Time Jan 27, 2017 at 08:23 Date of Consultation: Jan 27, 2017 Type of Consultation: oncology for Dr pulido Reason for Consultation ovarian cancer on chemotherapy Referring Provider: SANDY ABDALLA Hx of Present Illness Patient 66 y/o followed by Dr pulido undergoing carboplatin doxil chemorx and did her 5th cycle of treatment 2 weeks ago, out of a scheduled 6 cycles. Had 3 BM yesterday with some degree of straining at stool but then developped abdominal pain, n/v and now admitted for sbo, and is NPO, has NG to decompression, no signs of bleeding. Eyes: no complaints ENT: no complaints Respiratory: no complaints Cardiovascular: no complaints Gastrointestinal: nausea, pain Musculoskeletal: no complaints Skin: no complaints Past Medical History Medical History: cancer Past Surgical History previous surgery for sbo Social History Smoking Status: Former smoker Exam/Review of Systems Vital Signs Vitals Vital Signs Date Time Temp Pulse Resp B/P Pulse Ox O2 Delivery O2 Flow Rate FiO2 01/27/17 08:50 97 17 115/65 98 Room Air 01/27/17 06:11 97.[address] with conjunctival pallor Constitutional: alert, oriented Psych: nl mood/affect Eyes: nl conjunctiva, nl sclera Neck: supple Respiratory: normal air movement Gastrointestinal: soft Results Result Diagram: 01/27/17 0738 01/27/17 0738 Results 24 hrs Laboratory Tests Test 01/27/17 06:52 01/27/17 07:30 01/27/17 07:38 01/27/17 08:00 White Blood Count 6.5 # 6.1 Red Blood Count 2.10 #L 2.04 L Hemoglobin 7.9 #L 7.8 L Hematocrit 22.8 #L 22.2 L Mean Corpuscular Volume 108.6 H 108.8 H Mean Corpuscular Hemoglobin 37.6 #H 38.2 H Mean Corpuscular Hemoglobin Concent 34.6 35.1 Red Cell Distribution Width 15.9 #H 15.9 H Platelet Count 244 # 225 Mean Platelet Volume 10.5 H 9.6 Neutrophils % 62.1 63.6 Lymphocytes % 26.3 24.8 Monocytes % 10.0 10.0 Eosinophils % 0.2 0.2 Basophils % 0.3 0.3 Nucleated Red Blood Cells % 8.8 H 7 H Neutrophils # 4.0 3.9 Lymphocytes # 1.7 1.5 Monocytes # 0.7 0.6 Eosinophils # 0.0 0.0 Basophils # 0.0 0.0 Nucleated Red Blood Cells # 0.6 H 0.5 H Prothrombin Time 12.6 Prothrombin Time Ratio 1.0 INR International Normalized Ratio 0.94 Activated Partial Thromboplast Time 25.2 Sodium Level 137 144 Potassium Level 3.4 L 3.6 Chloride Level 99 105 Carbon Dioxide Level 22 25 Anion Gap 19 H 18 H Blood Urea Nitrogen 14 14 Creatinine 0.65 0.71 Glucose Level 545 *H 112 # Calcium Level 8.4 8.5 Total Bilirubin 0.3 Direct Bilirubin 0.00 Indirect Bilirubin 0.3 Aspartate Amino Transf (AST/SGOT) 25 Alanine Aminotransferase (ALT/SGPT) 23 Alkaline Phosphatase 55 Total Protein 6.9 Albumin 3.6 Globulin 3.30 H Albumin/Globulin Ratio 1.09 Lipase < 10 L Bedside Glucose 113 Segmented Neutrophils % (Manual) 63 Band Neutrophils % (Manual) 1 Lymphocytes % (Manual) 24 Monocytes % (Manual) 11 Eosinophils % (Manual) 1 Neutrophils # (Manual) 3.8 Band Neutrophils # 0.0 Absolute Lymphocytes (Manual) 1.4 Absolute Monocytes (Manual) 0.6 Smudge Cells % 2 H Thrombocytosis 5 H Platelet Estimate NORMAL Polychromasia 1+ Anisocytosis 1+ Macrocytosis 1+ Target Cells 1+ Taylor-[place] Bodies 1+ Urine Color YELLOW Urine Clarity CLEAR Urine pH 5.0 Urine Specific [place] 1.015 Urine Ketones NEGATIVE Urine Nitrite NEGATIVE Urine Bilirubin NEGATIVE Urine Urobilinogen NEGATIVE Urine Leukocyte Esterase TRACE A Urine Microscopic RBC 1 Urine Microscopic WBC 7 H Urine Mucus FEW A Urine Hemoglobin NEGATIVE Urine Glucose NEGATIVE Urine Total Protein NEGATIVE Medications Medications Current Medications Sodium Chloride (NS) 1,000 ml @ 100 mls/hr Q10H IV Last administered on 10:53; Admin Dose 100 MLS/HR; Start 01/27/17 at 09:45 Ondansetron HCl (Zofran Inj) 4 mg Q6H PRN IV NAUSEA AND/OR VOMITING; Start at 10:00 Morphine Sulfate (morphine) 2 mg Q4H PRN IV SEVERE PAIN LEVEL 7-10 Last administered on 01/27/17 10:54; Admin Dose 2 MG; Start 01/27/17 at 10:00 Famotidine (Pepcid Iv) 20 mg Q12 IV ; Start 01/27/17 at 21:00 Enoxaparin Sodium (Lovenox) 30 mg DAILY SC ; Start 01/28/17 at 09:00 BHUPENDRA MANLEY MD Jan 27, 2017 14:23
--- NOTE | 2017-01-27 16:27 | CONS ---
Date/Time of Note Date/Time of Note DATE: 01/27/17 TIME: 16:21 Assessment/Plan Assessment/Plan Chief Complaint/Hosp Course 66-year-old female with small bowel obstruction * Adhesions versus tumor recurrence * Seems to be clinically improving * Continue NG tube, IV fluid hydration, pain control * Patient has been seen by her CONTENT WRITER oncologist. Will defer management to him. * Patient fails to improve would consider small bowel follow-through to further evaluate The above was discussed with the nurse at the bedside as well as the patient and her daughter. They understand and are agreeable to the treatment plan as outlined. Problems: Consultation Date/Type/Reason Admit Date/Time Jan 27, 2017 at 08:23 Date of Consultation: Jan 27, 2017 Type of Consultation: GENERAL SURGERY Reason for Consultation Abdominal pain Hx of Present Illness Patient is a 66-year-old [place] female with a history of ovarian cancer status post multiple surgeries, recurrences and debulkings by CONTENT WRITER/Onc. Patient presented to the emergency room complaining of a one-day history of generalized abdominal pain associated with nausea and self-induced vomiting. Her last bowel movement was yesterday. She has been having some loose stools over the past few days. She has a history of prior obstructions many of which have resolved with conservative management. She is currently on chemotherapy. Her next treatment is scheduled for . Her last surgery was in September 2016. On arrival to the emergency room she was found to be hemodynamically stable. CT scan of the abdomen and pelvis which was done showed findings compatible with small bowel obstruction. She has since been admitted. Nasogastric tube is been placed. Currently she states she feels better and denies abdominal pain. 14 point review of systems was conducted and was negative except for that which is mentioned in HPI Eyes: no complaints ENT: no complaints Respiratory: no complaints Cardiovascular: no complaints Gastrointestinal: nausea, pain Musculoskeletal: no complaints Skin: no complaints Psychological: nl mood/affect Past Medical History Medical History: cancer Past Surgical History As in HPI Social History Smoking Status: Former smoker Exam/Review of Systems Vital Signs Vitals Vital Signs Date Time Temp Pulse Resp B/P Pulse Ox O2 Delivery O2 Flow Rate FiO2 01/27/17 14:00 98.1 96 20 132/75 96 01/27/17 08:50 Room Air Exam GENERAL: Awake, alert, oriented x 3. No acute distress. SKIN: No jaundice. HEENT: Nasogastric tube in place. Scant drainage. PERRLA, EOMI, No Scleral Icterus NECK: Supple without JVD CARDIOVASCULAR: S1S2, regular rate and rhythm. No murmurs appreciated. RESPIRATORY: Clear to auscultation bilaterally. Right chest wall Port-A-Cath present. ABDOMEN: Obese, soft, bowel sounds present. There is mild periumbilical tenderness to palpation. There is no rebound, guarding or evidence of peritonitis. There are multiple healed incisions from prior surgery. EXTREMITIES: Free range of motion x 4. No cyanosis, edema, or clubbing. NEUROLOGIC: Cranial nerves II-XII are intact. Sensation is intact grossly. Results Result Diagram: 01/27/17 0738 01/27/17 0738 Results 24 hrs Laboratory Tests Test 01/27/17 06:52 01/27/17 07:30 01/27/17 07:38 01/27/17 08:00 White Blood Count 6.5 # 6.1 Red Blood Count 2.10 #L 2.04 L Hemoglobin 7.9 #L 7.8 L Hematocrit 22.8 #L 22.2 L Mean Corpuscular Volume 108.6 H 108.8 H Mean Corpuscular Hemoglobin 37.6 #H 38.2 H Mean Corpuscular Hemoglobin Concent 34.6 35.1 Red Cell Distribution Width 15.9 #H 15.9 H Platelet Count 244 # 225 Mean Platelet Volume 10.5 H 9.6 Neutrophils % 62.1 63.6 Lymphocytes % 26.3 24.8 Monocytes % 10.0 10.0 Eosinophils % 0.2 0.2 Basophils % 0.3 0.3 Nucleated Red Blood Cells % 8.8 H 7 H Neutrophils # 4.0 3.9 Lymphocytes # 1.7 1.5 Monocytes # 0.7 0.6 Eosinophils # 0.0 0.0 Basophils # 0.0 0.0 Nucleated Red Blood Cells # 0.6 H 0.5 H Prothrombin Time 12.6 Prothrombin Time Ratio 1.0 INR International Normalized Ratio 0.94 Activated Partial Thromboplast Time 25.2 Sodium Level 137 144 Potassium Level 3.4 L 3.6 Chloride Level 99 105 Carbon Dioxide Level 22 25 Anion Gap 19 H 18 H Blood Urea Nitrogen 14 14 Creatinine 0.65 0.71 Glucose Level 545 *H 112 # Calcium Level 8.4 8.5 Total Bilirubin 0.3 Direct Bilirubin 0.00 Indirect Bilirubin 0.3 Aspartate Amino Transf (AST/SGOT) 25 Alanine Aminotransferase (ALT/SGPT) 23 Alkaline Phosphatase 55 Total Protein 6.9 Albumin 3.6 Globulin 3.30 H Albumin/Globulin Ratio 1.09 Lipase < 10 L Bedside Glucose 113 Segmented Neutrophils % (Manual) 63 Band Neutrophils % (Manual) 1 Lymphocytes % (Manual) 24 Monocytes % (Manual) 11 Eosinophils % (Manual) 1 Neutrophils # (Manual) 3.8 Band Neutrophils # 0.0 Absolute Lymphocytes (Manual) 1.4 Absolute Monocytes (Manual) 0.6 Smudge Cells % 2 H Thrombocytosis 5 H Platelet Estimate NORMAL Polychromasia 1+ Anisocytosis 1+ Macrocytosis 1+ Target Cells 1+ Taylor-[place] Bodies 1+ Urine Color YELLOW Urine Clarity CLEAR Urine pH 5.0 Urine Specific [place] 1.015 Urine Ketones NEGATIVE Urine Nitrite NEGATIVE Urine Bilirubin NEGATIVE Urine Urobilinogen NEGATIVE Urine Leukocyte Esterase TRACE A Urine Microscopic RBC 1 Urine Microscopic WBC 7 H Urine Mucus FEW A Urine Hemoglobin NEGATIVE Urine Glucose NEGATIVE Urine Total Protein NEGATIVE Medications Medications Current Medications Sodium Chloride (NS) 1,000 ml @ 100 mls/hr Q10H IV Last administered on 10:53; Admin Dose 100 MLS/HR; Start 01/27/17 at 09:45 Ondansetron HCl (Zofran Inj) 4 mg Q6H PRN IV NAUSEA AND/OR VOMITING; Start at 10:00 Morphine Sulfate (morphine) 2 mg Q4H PRN IV SEVERE PAIN LEVEL 7-10 Last administered on 01/27/17 10:54; Admin Dose 2 MG; Start 01/27/17 at 10:00 Famotidine (Pepcid Iv) 20 mg Q12 IV ; Start 01/27/17 at 21:00 Enoxaparin Sodium (Lovenox) 30 mg DAILY SC ; Start 01/28/17 at 09:00 Procedures Procedures PROCEDURE: CT Abdomen and pelvis without contrast. CLINICAL INDICATION: Abdominal pain. TECHNIQUE: CT scan of the abdomen and pelvis was performed on a multi- detector high-resolution CT scanner. Contiguous axial images were obtained from the lung bases to the ischial tuberosities without intravenous contrast. Coronal and sagittal reformatted images were also obtained. Images were reviewed on the PACS workstation. One or more of the following dose reduction techniques were used: - Automated exposure control. - Adjustment of the mA and/or kV according to patient size. - Use of iterative reconstruction technique. Exam CTD/vol = 8.73 mGy. Total exam DLP = 484.32 mGy-cm. COMPARISON: 10/27/2016. FINDINGS: Evaluation of the lung bases demonstrates mild bibasilar atelectasis. There is a calcified granuloma within the left lower lobe. Abdomen: The liver is normal in size. There is no focal mass or dilatation of the biliary tree. The gallbladder is mildly distended and contains a gallstone. The spleen is absent. The pancreas and bilateral adrenal glands are within normal limits. Bilateral kidneys are normal in size with no contour deforming mass identified. There is no radiopaque renal or ureteral calculus identified. There is no hydronephrosis or hydroureter. There is no retroperitoneal adenopathy. The abdominal aorta is of normal caliber with scattered atherosclerotic calcifications. There is prior gastric surgery. There are dilated loops of small bowel within the [id number] abdomen with air-fluid levels. There is mild intra-abdominal stranding. There is no free air. The appendix is absent. There is no diverticulosis or diverticulitis. There is no ascites. Pelvis: The bladder is unremarkable. The uterus is absent. There is mild pelvic stranding and free fluid. There is no significant pelvic adenopathy. Evaluation of the osseous structures demonstrates no suspicious lytic or blastic lesion. There are calcified injection granulomas over bilateral buttocks. IMPRESSION: Mild to moderately dilated loops of small bowel within the [id number] abdomen suggestive of obstruction. There is a possible transition point within the mid lower abdomen. Mild pelvic stranding and free fluid. Cholelithiasis. Mild bibasilar atelectasis. Status post splenectomy. Vascular calcifications reflective of atherosclerosis. .Trent Akers MD, MD Date Time Electronically viewed and signed by .Trent Akers MD, MD on 01/27/2017 07:57 .T/ CC: ROBERT TODD MD ZADEH, MICHAEL A. MD Jan 27, 2017 16:27
[2017-01-27 19:35] VITALS: BP 111/59; RESP 18
--- NOTE | 2017-01-27 20:28 | CONS ---
Date/Time of Note Date/Time of Note DATE: 01/27/17 TIME: 20:25 Consultation Date/Type/Reason Admit Date/Time Jan 27, 2017 at 08:23 Reason for Consultation Franko Zeng M.D. 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 She has mild N/V with a CT suggestive of a partial SBO.. Medical history/ROS: all other systems unremarkable. Surgical: Primary cytoreduction Medications: Ativan 1 mg tablet ud 06/04/14 folic acid 20 mg Cap ud 01/11/15 hydrocortisone 2.35 %-pramoxine 1 %-skin cleanser#16 kit,cream,wipe ud 01/16/17 Protonix 40 mg tablet,delayed release 1 tablet by mouth DAILY 01/11/15 Tylenol Extra Strength 500 mg tablet ud Allergies: 09/29/13 No Known Drug Allergies Family History: Noncontributory Social History: Noncontributory Review of Systems: Negative except for above noted Physical Examination Vitals (01/16/2017): Weight 142, Height 59, BP 120/54, BMI 28.7. General: Alert. HEENT: Pupils are equal, round, reactive to light and accommodation. Neck: Supple with no masses of lymphadenopathy. Breast: Deferred due to recent examination and responsibility of primary care physician. Chest: Clear to auscultation and percussion with no rales, ronchi, or wheeze. Heart: Normal rhythm with no murmur. Abdominal exam: nontender, nondistended, no masses, no ascites. location: N/A Pelvic exam: no masses or cul-de-sac nodularity noted Rectal: confirmatory with pelvic exam but thick stool. Neurological: Grossly intact Assessment: Ovarian cancer with SBO vs high impaction. Plan: bowel rest with NGT today and then a.m. or later today will use enema and some Golytely as there is a possibility of a higher impaction. CA-125 has responded so relatively unlikely SBO due to disease progression. Will do laparotomy for SBO if needed,. Franko Zeng M.D. Eyes: no complaints ENT: no complaints Respiratory: no complaints Cardiovascular: no complaints Gastrointestinal: nausea, pain Musculoskeletal: no complaints Skin: no complaints Psychological: nl mood/affect Past Medical History Medical History: cancer Social History Smoking Status: Former smoker Exam/Review of Systems Vital Signs Vitals Vital Signs Date Time Temp Pulse Resp B/P Pulse Ox O2 Delivery O2 Flow Rate FiO2 01/27/17 14:00 98.1 96 20 132/75 96 01/27/17 08:50 Room Air Results Result Diagram: 01/27/17 0738 01/27/17 0738 Results 24 hrs Laboratory Tests Test 01/27/17 06:52 01/27/17 07:30 01/27/17 07:38 01/27/17 08:00 White Blood Count 6.5 # 6.1 Red Blood Count 2.10 #L 2.04 L Hemoglobin 7.9 #L 7.8 L Hematocrit 22.8 #L 22.2 L Mean Corpuscular Volume 108.6 H 108.8 H Mean Corpuscular Hemoglobin 37.6 #H 38.2 H Mean Corpuscular Hemoglobin Concent 34.6 35.1 Red Cell Distribution Width 15.9 #H 15.9 H Platelet Count 244 # 225 Mean Platelet Volume 10.5 H 9.6 Neutrophils % 62.1 63.6 Lymphocytes % 26.3 24.8 Monocytes % 10.0 10.0 Eosinophils % 0.2 0.2 Basophils % 0.3 0.3 Nucleated Red Blood Cells % 8.8 H 7 H Neutrophils # 4.0 3.9 Lymphocytes # 1.7 1.5 Monocytes # 0.7 0.6 Eosinophils # 0.0 0.0 Basophils # 0.0 0.0 Nucleated Red Blood Cells # 0.6 H 0.5 H Prothrombin Time 12.6 Prothrombin Time Ratio 1.0 INR International Normalized Ratio 0.94 Activated Partial Thromboplast Time 25.2 Sodium Level 137 144 Potassium Level 3.4 L 3.6 Chloride Level 99 105 Carbon Dioxide Level 22 25 Anion Gap 19 H 18 H Blood Urea Nitrogen 14 14 Creatinine 0.65 0.71 Glucose Level 545 *H 112 # Calcium Level 8.4 8.5 Total Bilirubin 0.3 Direct Bilirubin 0.00 Indirect Bilirubin 0.3 Aspartate Amino Transf (AST/SGOT) 25 Alanine Aminotransferase (ALT/SGPT) 23 Alkaline Phosphatase 55 Total Protein 6.9 Albumin 3.6 Globulin 3.30 H Albumin/Globulin Ratio 1.09 Lipase < 10 L Bedside Glucose 113 Segmented Neutrophils % (Manual) 63 Band Neutrophils % (Manual) 1 Lymphocytes % (Manual) 24 Monocytes % (Manual) 11 Eosinophils % (Manual) 1 Neutrophils # (Manual) 3.8 Band Neutrophils # 0.0 Absolute Lymphocytes (Manual) 1.4 Absolute Monocytes (Manual) 0.6 Smudge Cells % 2 H Thrombocytosis 5 H Platelet Estimate NORMAL Polychromasia 1+ Anisocytosis 1+ Macrocytosis 1+ Target Cells 1+ Taylor-[place] Bodies 1+ Urine Color YELLOW Urine Clarity CLEAR Urine pH 5.0 Urine Specific [place] 1.015 Urine Ketones NEGATIVE Urine Nitrite NEGATIVE Urine Bilirubin NEGATIVE Urine Urobilinogen NEGATIVE Urine Leukocyte Esterase TRACE A Urine Microscopic RBC 1 Urine Microscopic WBC 7 H Urine Mucus FEW A Urine Hemoglobin NEGATIVE Urine Glucose NEGATIVE Urine Total Protein NEGATIVE Medications Medications Current Medications Sodium Chloride (NS) 1,000 ml @ 100 mls/hr Q10H IV Last administered on 10:53; Admin Dose 100 MLS/HR; Start 01/27/17 at 09:45 Ondansetron HCl (Zofran Inj) 4 mg Q6H PRN IV NAUSEA AND/OR VOMITING; Start at 10:00 Morphine Sulfate (morphine) 2 mg Q4H PRN IV SEVERE PAIN LEVEL 7-10 Last administered on 01/27/17 10:54; Admin Dose 2 MG; Start 01/27/17 at 10:00 Famotidine (Pepcid Iv) 20 mg Q12 IV ; Start 01/27/17 at 21:00 Enoxaparin Sodium (Lovenox) 30 mg DAILY SC ; Start 01/28/17 at 09:00 FRANKO ZENG MD Jan 27, 2017 20:28
[2017-01-27] MEDS: FAMOTIDINE 20 MG INJ IV SCH (20:50)
[2017-01-28 02:00] VITALS: BP 122/68; RESP 18
[2017-01-28] MEDS: SOD CHLORIDE 0.9% 1,000 ML IV SCH ×3 (05:54→20:23)
[2017-01-28 06:23] LABS: ALBUMIN/GLOBULIN RATIO 0.96; BILIRUBIN,INDIRECT 0.4 mg/dl (0-1.1); BILIRUBIN,TOTAL 0.4 mg/dl (0.2-1.3); CALCIUM 8.4 mg/dl (8.4-10.2); CREATININE 0.66 mg/dl (0.44-1.00); POTASSIUM 3.6 mmol/L (3.5-5.1); TOTAL PROTEIN 6.1 g/dl (6.1-8.1)
[2017-01-28 07:29] LABS: FOLATE > 20.0 ng/ml (2.8-20.0)
[2017-01-28 08:32] VITALS: BP 135/76; RESP 18
[2017-01-28] MEDS: FAMOTIDINE 20 MG INJ IV SCH ×2 (08:56→20:22)
[2017-01-28] MEDS: ENOXAPARIN 30 MG/0.3 ML SYG SC SCH (08:57)
[2017-01-28 09:41] LABS: BASOPHILS % 0.4 % (0.0-2.0); EOSINOPHILS # 0.1 10^3/ul (0.0-0.5); EOSINOPHILS % 0.9 % (0.0-7.0); HEMATOCRIT 22.1 % (37.0-47.0); HEMOGLOBIN 7.2 g/dl (12.0-16.0); LYMPHOCYTES # 2.3 10^3/ul (0.8-2.9); LYMPHOCYTES % 42.8 % (15.0-51.0); MEAN CORPUSCULAR HEMOGLOBIN 36.2 pg (29.0-33.0); MEAN CORPUSCULAR HGB CONC 32.6 g/dl (32.0-37.0); MEAN CORPUSCULAR VOLUME 111.1 fl (82.0-101.0); MEAN PLATELET VOLUME 10.8 fl (7.4-10.4); MONOCYTE # 0.7 10^3/ul (0.3-0.9); MONOCYTES % 12.9 % (0.0-11.0); NEUTROPHIL # 2.2 10^3/ul (1.6-7.5); NEUTROPHILS % 42.4 % (39.0-77.0); NUCLEATED RED BLOOD CELLS # 0.6 10^3/ul (0.0-0.0); NUCLEATED RED BLOOD CELLS% 10.8 /100WBC (0.0-0.0); PLATELET COUNT 225 10^3/UL (140-415); POSITIVE DIFF @See below; RED BLOOD COUNT 1.99 10^6/ul (4.20-5.40); RED CELL DISTRIBUTION WIDTH 16.5 % (11.5-14.5); WHITE BLOOD COUNT 5.3 10^3/ul (4.8-10.8)
--- NOTE | 2017-01-28 11:59 | PN ---
Date/Time of Note Date/Time of Note DATE: 01/28/17 TIME: 11:58 Assessment/Plan VTE Prophylaxis VTE Prophylaxis Intervention: other Lines/Catheters IV Catheter Type (from Nrs): PORT Assessment/Plan Chief Complaint/Hosp Course 1) Small bowel obstruction - NPO - IV fluids - surgical consult 2) previous carcinomas - oncology following Problems: Subjective 24 Hr Interval Summary Free Text/Dictation Patient denies abdominal pain but does have constipatioin Exam/Review of Systems Vital Signs Vitals Vital Signs Date Time Temp Pulse Resp B/P Pulse Ox O2 Delivery O2 Flow Rate FiO2 01/28/17 08:32 98.2 97 18 135/76 93 01/27/17 08:50 Room Air Intake and Output 01/27/17 01/27/17 01/28/17 15:00 23:00 07:00 Intake Total 750 ml 1000 ml Output Total 620 ml 1250 ml Balance 130 ml -250 ml Exam Constitutional: well developed Head: atraumatic, normocephalic Neck: supple Respiratory: clear to auscultation Cardiovascular: regular rate and rhythm Gastrointestinal: non-tender, soft Extremities: normal pulses Results Result Diagram: 01/28/17 0450 01/28/17 0450 Results 24 hrs Laboratory Tests Test 01/28/17 04:50 White Blood Count 5.3 Red Blood Count 1.99 L Hemoglobin 7.2 L Hematocrit 22.1 L Mean Corpuscular Volume 111.1 H Mean Corpuscular Hemoglobin 36.2 H Mean Corpuscular Hemoglobin Concent 32.6 Red Cell Distribution Width 16.5 H Platelet Count 225 Mean Platelet Volume 10.8 H Neutrophils % 42.4 Lymphocytes % 42.8 Monocytes % 12.9 H Eosinophils % 0.9 Basophils % 0.4 Nucleated Red Blood Cells % 10.8 H Neutrophils # 2.2 Lymphocytes # 2.3 Monocytes # 0.7 Eosinophils # 0.1 Basophils # 0.0 Nucleated Red Blood Cells # 0.6 H Sodium Level 144 Potassium Level 3.6 Chloride Level 104 Carbon Dioxide Level 27 Anion Gap 17 H Blood Urea Nitrogen 11 Creatinine 0.66 Glucose Level 84 Calcium Level 8.4 Total Bilirubin 0.4 Direct Bilirubin 0.00 Indirect Bilirubin 0.4 Aspartate Amino Transf (AST/SGOT) 34 Alanine Aminotransferase (ALT/SGPT) 26 Alkaline Phosphatase 48 Total Protein 6.1 Albumin 3.0 L Globulin 3.10 Albumin/Globulin Ratio 0.96 [place] 125 Antigen 248.0 H Vitamin B12 Level > 1000 H Folate > 20.0 H Medications Medications Current Medications Sodium Chloride (NS) 1,000 ml @ 100 mls/hr Q10H IV Last administered on 05:54; Admin Dose 100 MLS/HR; Start 01/27/17 at 09:45 Ondansetron HCl (Zofran Inj) 4 mg Q6H PRN IV NAUSEA AND/OR VOMITING; Start at 10:00 Morphine Sulfate (morphine) 2 mg Q4H PRN IV SEVERE PAIN LEVEL 7-10 Last administered on 01/27/17 23:36; Admin Dose 2 MG; Start 01/27/17 at 10:00 Famotidine (Pepcid Iv) 20 mg Q12 IV Last administered on 01/28/17 08:56; Admin Dose 20 MG; Start 01/27/17 at 21:00 Enoxaparin Sodium (Lovenox) 30 mg DAILY SC Last administered on 01/28/17 08:57 ; Admin Dose 30 MG; Start 01/28/17 at 09:00 SANDY ABDALLA Jan 28, 2017 11:59
[2017-01-28] MEDS ORDERED: NA PHOSPHATE/BIPHOS 133 ML ENEMA PR ONE (12:00)
--- NOTE | 2017-01-28 12:54 | PN ---
Date/Time of Note Date/Time of Note DATE: 01/28/17 TIME: 12:52 Assessment/Plan Lines/Catheters IV C[facility]ter Type (from [facility]): PORT Assessment/Plan Assessment/Plan 66-year-old female with small bowel obstruction * Adhesions versus tumor recurrence * Seems to be clinically improving * Being managed by her [employer]. Continue management per them * Will be available as needed Subjective 24 Hr Interval Summary Comfortable. Denies abdominal pain. No bowel movement yet. NG tube with scant output. Afebrile. Exam/Review of Systems Vital Signs Vitals Vital Signs Date Time Temp Pulse Resp B/P Pulse Ox O2 Delivery O2 Flow Rate FiO2 01/28/17 08:32 98.2 97 18 135/76 93 01/27/17 08:50 Room Air Intake and Output 01/27/17 01/27/17 01/28/17 15:00 23:00 07:00 Intake Total 750 ml 1000 ml Output Total 620 ml 1250 ml Balance 130 ml -250 ml Exam Free Text/Dictation GENERAL: Awake, alert, oriented x 3. No acute distress. CARDIOVASCULAR: S1S2, regular rate and rhythm. No murmurs appreciated. RESPIRATORY: Clear to auscultation bilaterally. Right chest wall Port-A-Cath present. ABDOMEN: Obese, soft, bowel sounds present. Non-tender. There is no rebound, guarding or evidence of peritonitis. There are multiple healed incisions from prior surgery. EXTREMITIES: Free range of motion x 4. No cyanosis, edema, or clubbing. Results Result Diagram: 01/28/17 0450 01/28/17 0450 MILO CHOWDHURY MD Jan 28, 2017 12:54
[2017-01-28] MEDS ORDERED: SOD CHLORIDE 0.9% 250 ML IV* ONE (13:12)
--- NOTE | 2017-01-28 13:18 | PN ---
Date/Time of Note Date/Time of Note DATE: 01/28/17 TIME: 13:14 Assessment/Plan VTE Prophylaxis VTE Prophylaxis Intervention: anti-embolic stocking Lines/Catheters IV Catheter Type (from Nrsg): PORT Assessment/Plan Chief Complaint/Hosp Course Patient 66 y/o followed by Dr pulido undergoing carboplatin doxil chemorx and did her 5th cycle of treatment 2 weeks ago, out of a scheduled 6 cycles. Had 3 BM yesterday with some degree of straining at stool but then developed abdominal pain, n/v and now admitted for sbo, and is NPO, has NG to decompression, no signs of bleeding. Problems: Assessment/Plan (1) History of ovarian cancer Status: Acute Comment: ongoing chemorx with carbo doxil -informed Dr pulido about patient admission -wbc and plt normal if abdominal symptoms better, then consider scheduled chemorx this upcoming CA [address] Pulido can compare to outpatient level (2) Small bowel obstruction Status: Acute Comment: She had surgery 10/16 for abdominal symptoms. now followed by Gynonc Dr Anderson and follow his recommendations. on NGT decompression (3) Macrocytic anemia Comment: will check b12 and folate, but most likely secondary to bone marrow maturation defect transfuse 1unit since lower than 7 hgb Subjective 24 Hr Interval Summary Free Text/Dictation no BM, very mild flatus NG in place Constitutional: no complaints Exam/Review of Systems Vital Signs Vitals Vital Signs Date Time Temp Pulse Resp B/P Pulse Ox O2 Delivery O2 Flow Rate FiO2 01/28/17 08:32 98.2 97 18 135/76 93 01/27/17 08:50 Room Air Intake and Output 01/27/17 01/27/17 01/28/17 15:00 23:00 07:00 Intake Total 750 ml 1000 ml Output Total 620 ml 1250 ml Balance 130 ml -250 ml Exam pallor Constitutional: alert, oriented Head: normocephalic Respiratory: normal air movement Cardiovascular: regular rate and rhythm Results Result Diagram: 01/28/17 0450 01/28/17 0450 Results 24 hrs Laboratory Tests Test 01/28/17 04:50 White Blood Count 5.3 Red Blood Count 1.99 L Hemoglobin 7.2 L Hematocrit 22.1 L Mean Corpuscular Volume 111.1 H Mean Corpuscular Hemoglobin 36.2 H Mean Corpuscular Hemoglobin Concent 32.6 Red Cell Distribution Width 16.5 H Platelet Count 225 Mean Platelet Volume 10.8 H Neutrophils % 42.4 Lymphocytes % 42.8 Monocytes % 12.9 H Eosinophils % 0.9 Basophils % 0.4 Nucleated Red Blood Cells % 10.8 H Neutrophils # 2.2 Lymphocytes # 2.3 Monocytes # 0.7 Eosinophils # 0.1 Basophils # 0.0 Nucleated Red Blood Cells # 0.6 H Sodium Level 144 Potassium Level 3.6 Chloride Level 104 Carbon Dioxide Level 27 Anion Gap 17 H Blood Urea Nitrogen 11 Creatinine 0.66 Glucose Level 84 Calcium Level 8.4 Total Bilirubin 0.4 Direct Bilirubin 0.00 Indirect Bilirubin 0.4 Aspartate Amino Transf (AST/SGOT) 34 Alanine Aminotransferase (ALT/SGPT) 26 Alkaline Phosphatase 48 Total Protein 6.1 Albumin 3.0 L Globulin 3.10 Albumin/Globulin Ratio 0.96 CA 125 Antigen 248.0 H Vitamin B12 Level > 1000 H Folate > 20.0 H Medications Medications Current Medications Sodium Chloride (NS) 1,000 ml @ 100 mls/hr Q10H IV Last administered on 05:54; Admin Dose 100 MLS/HR; Start 01/27/17 at 09:45 Ondansetron HCl (Zofran Inj) 4 mg Q6H PRN IV NAUSEA AND/OR VOMITING; Start at 10:00 Morphine Sulfate (morphine) 2 mg Q4H PRN IV SEVERE PAIN LEVEL 7-10 Last administered on 01/27/17 23:36; Admin Dose 2 MG; Start 01/27/17 at 10:00 Famotidine (Pepcid Iv) 20 mg Q12 IV Last administered on 01/28/17 08:56; Admin Dose 20 MG; Start 01/27/17 at 21:00 Enoxaparin Sodium (Lovenox) 30 mg DAILY SC Last administered on 01/28/17 08:57 ; Admin Dose 30 MG; Start 01/28/17 at 09:00 BHUPENDRA MANLEY MD Jan 28, 2017 13:18
--- NOTE | 2017-01-28 13:45 | PN ---
Date/Time of Note Date/Time of Note DATE: 01/28/17 TIME: 13:42 Assessment/Plan VTE Prophylaxis VTE Prophylaxis Intervention: LMWH Lines/Catheters IV Catheter Type (from Nrsg): PORT Assessment/Plan Chief Complaint/Hosp Course Ovarian chemo on Carbo/Doxil/Avastin- SBO due to adhesions vs high impaction Problems: Assessment/Plan A- minimal impvt although low output NGT P- will try some Golytely thru NGT Subjective 24 Hr Interval Summary Free Text/Dictation Less pain, minimal flatus and no BM. Exam/Review of Systems Vital Signs Vitals Vital Signs Date Time Temp Pulse Resp B/P Pulse Ox O2 Delivery O2 Flow Rate FiO2 01/28/17 08:32 98.2 97 18 135/76 93 01/27/17 08:50 Room Air Intake and Output 01/27/17 01/27/17 01/28/17 15:00 23:00 07:00 Intake Total 750 ml 1000 ml Output Total 620 ml 1250 ml Balance 130 ml -250 ml Exam Resp-clear CVS- NSR Abd- soft with mild distension and NT Ext- nt no edema Results Result Diagram: 01/28/17 0450 01/28/17 0450 Results 24 hrs Laboratory Tests Test 01/28/17 04:50 White Blood Count 5.3 Red Blood Count 1.99 L Hemoglobin 7.2 L Hematocrit 22.1 L Mean Corpuscular Volume 111.1 H Mean Corpuscular Hemoglobin 36.2 H Mean Corpuscular Hemoglobin Concent 32.6 Red Cell Distribution Width 16.5 H Platelet Count 225 Mean Platelet Volume 10.8 H Neutrophils % 42.4 Lymphocytes % 42.8 Monocytes % 12.9 H Eosinophils % 0.9 Basophils % 0.4 Nucleated Red Blood Cells % 10.8 H Neutrophils # 2.2 Lymphocytes # 2.3 Monocytes # 0.7 Eosinophils # 0.1 Basophils # 0.0 Nucleated Red Blood Cells # 0.6 H Sodium Level 144 Potassium Level 3.6 Chloride Level 104 Carbon Dioxide Level 27 Anion Gap 17 H Blood Urea Nitrogen 11 Creatinine 0.66 Glucose Level 84 Calcium Level 8.4 Total Bilirubin 0.4 Direct Bilirubin 0.00 Indirect Bilirubin 0.4 Aspartate Amino Transf (AST/SGOT) 34 Alanine Aminotransferase (ALT/SGPT) 26 Alkaline Phosphatase 48 Total Protein 6.1 Albumin 3.0 L Globulin 3.10 Albumin/Globulin Ratio 0.96 CA 125 Antigen 248.0 H Vitamin B12 Level > 1000 H Folate > 20.0 H Medications Medications Current Medications Sodium Chloride (NS) 1,000 ml @ 100 mls/hr Q10H IV Last administered on 05:54; Admin Dose 100 MLS/HR; Start 01/27/17 at 09:45 Ondansetron HCl (Zofran Inj) 4 mg Q6H PRN IV NAUSEA AND/OR VOMITING; Start at 10:00 Morphine Sulfate (morphine) 2 mg Q4H PRN IV SEVERE PAIN LEVEL 7-10 Last administered on 01/27/17 23:36; Admin Dose 2 MG; Start 01/27/17 at 10:00 Famotidine (Pepcid Iv) 20 mg Q12 IV Last administered on 01/28/17 08:56; Admin Dose 20 MG; Start 01/27/17 at 21:00 Enoxaparin Sodium (Lovenox) 30 mg DAILY SC Last administered on 01/28/17 08:57 ; Admin Dose 30 MG; Start 01/28/17 at 09:00 JAMES NÚÑEZ MD Jan 28, 2017 13:45
[2017-01-28 14:51] VITALS: BP 141/68; RESP 18
[2017-01-28] MEDS ORDERED: PEG/ELECTROLYTES 4L BTL PO SCH (15:00)
[2017-01-28 19:35] VITALS: BP 135/65; RESP 19
[2017-01-29] MEDS: SOD CHLORIDE 0.9% 1,000 ML IV SCH ×4 (01:45→21:45)
[2017-01-29] MEDS: morphine 2 MG INJ IV PRN (03:32)
[2017-01-29 08:19] VITALS: BP 131/63; RESP 20
[2017-01-29 08:44] LABS: ABNORMAL IP MESSAGE 1; BASOPHILS % 0.6 % (0.0-2.0); EOSINOPHILS # 0.1 10^3/ul (0.0-0.5); HEMATOCRIT 27.2 % (37.0-47.0); HEMOGLOBIN 9.5 g/dl (12.0-16.0); LYMPHOCYTES # 2.2 10^3/ul (0.8-2.9); LYMPHOCYTES % 41.4 % (15.0-51.0); MEAN CORPUSCULAR HEMOGLOBIN 34.1 pg (29.0-33.0); MEAN CORPUSCULAR HGB CONC 34.9 g/dl (32.0-37.0); MEAN CORPUSCULAR VOLUME 97.5 fl (82.0-101.0); MEAN PLATELET VOLUME 10.4 fl (7.4-10.4); MONOCYTE # 0.9 10^3/ul (0.3-0.9); NEUTROPHILS % 38.8 % (39.0-77.0); NUCLEATED RED BLOOD CELLS # 0.6 10^3/ul (0.0-0.0); NUCLEATED RED BLOOD CELLS% 12.1 /100WBC (0.0-0.0); PLATELET COUNT 186 10^3/UL (140-415); RED BLOOD COUNT 2.79 10^6/ul (4.20-5.40); RED CELL DISTRIBUTION WIDTH 22.8 % (11.5-14.5); WHITE BLOOD COUNT 5.2 10^3/ul (4.8-10.8)
[2017-01-29 08:46] LABS: MONOCYTES % 17.6 % (0.0-11.0); POSITIVE DIFF @See below
[2017-01-29 09:00] LABS: CALCIUM 8.4 mg/dl (8.4-10.2); CREATININE 0.72 mg/dl (0.44-1.00); POTASSIUM 3.2 mmol/L (3.5-5.1)
[2017-01-29] MEDS: FAMOTIDINE 20 MG INJ IV SCH ×2 (09:06→20:51)
[2017-01-29] MEDS: ENOXAPARIN 30 MG/0.3 ML SYG SC SCH (09:07)
[2017-01-29 09:23] LABS: HYPOCHROMASIA 1+ (0-0)
[2017-01-29 09:24] LABS: POLYCHROMASIA 1+ (0-0)
--- NOTE | 2017-01-29 12:56 | CONS ---
Date/Time of Note Date/Time of Note DATE: 01/29/17 TIME: 12:51 Assessment/Plan Assessment/Plan Chief Complaint/Hosp Course Patient 66 y/o with metastatic ovarian ca undergoing carboplatin doxil chemorx and did her 5th cycle of treatment 2 weeks ago, out of a scheduled 6 cycles. Had 3 BM yesterday with some degree of straining at stool but then developed abdominal pain, n/v and now admitted for sbo, and is NPO, has NG to decompression, no signs of bleeding. Problems: Assessment/Plan (1) History of ovarian cancer Status: Acute Comment: ongoing chemorx with carbo doxil -informed Dr phelan about patient admission -wbc and plt normal -CA 125 is improving with chemotherapy if abdominal symptoms better, then consider scheduled chemo this upcoming (2) Small bowel obstruction Status: Acute Comment: She had surgery 10/16 for abdominal symptoms. now followed by Gynonc Dr Anderson and follow his recommendations. on NGT decompression -SBO appears secondary to adhesions (3) Macrocytic anemia Comment: Vitamin B12 and folate levels are ok -s/p 1 unit PRBCs Problems: Consultation Date/Type/Reason Admit Date/Time Jan 27, 2017 at 08:23 Initial Consult Date 01/27/17 Type of Consultation: Oncology Reason for Consultation metastatic ovarian cancer Referring Provider: SANDY ABDALLA 24 HR Interval Summary Free Text/Dictation pt now has NGT in place and abdominal pain has improved Exam/Review of Systems Vital Signs Vitals Vital Signs Date Time Temp Pulse Resp B/P Pulse Ox O2 Delivery O2 Flow Rate FiO2 01/29/17 08:19 97.5 88 20 131/63 98 01/27/17 08:50 Room Air Intake and Output 01/28/17 01/28/17 01/29/17 15:00 23:00 07:00 Intake Total 900 ml 950 ml Output Total 50 ml 50 ml Balance 850 ml 900 ml Exam Constitutional: alert, oriented Psych: no complaints Head: normocephalic Eyes: nl conjunctiva ENMT: nl external ears & nose, nl lips & teeth, other (NGT in place) Neck: non-tender, supple Respiratory: clear to auscultation Cardiovascular: regular rate and rhythm Gastrointestinal: soft Musculoskeletal: other (Left toe with bilster) Results Result Diagram: 7/31/17 0822 7/31/17 0822 Results 24 hrs Laboratory Tests Test 01/29/17 08:22 White Blood Count 5.2 Red Blood Count 2.79 #L Hemoglobin 9.5 #L Hematocrit 27.2 #L Mean Corpuscular Volume 97.5 Mean Corpuscular Hemoglobin 34.1 H Mean Corpuscular Hemoglobin Concent 34.9 Red Cell Distribution Width 22.8 #H Platelet Count 186 Mean Platelet Volume 10.4 Neutrophils % 38.8 L Lymphocytes % 41.4 Monocytes % 17.6 H Eosinophils % 1.0 Basophils % 0.6 Nucleated Red Blood Cells % 12.1 H Neutrophils # 2.0 Lymphocytes # 2.2 Monocytes # 0.9 Eosinophils # 0.1 Basophils # 0.0 Nucleated Red Blood Cells # 0.6 H Polychromasia 1+ Hypochromasia 1+ Macrocytosis 1+ Sodium Level 143 Potassium Level 3.2 L Chloride Level 104 Carbon Dioxide Level 25 Anion Gap 17 H Blood Urea Nitrogen 8 Creatinine 0.72 Glucose Level 81 Calcium Level 8.4 Medications Medications Current Medications Sodium Chloride (NS) 1,000 ml @ 100 mls/hr Q10H IV Last administered on 07:10; Admin Dose 100 MLS/HR; Start 01/27/17 at 09:45 Ondansetron HCl (Zofran Inj) 4 mg Q6H PRN IV NAUSEA AND/OR VOMITING; Start at 10:00 Morphine Sulfate (morphine) 2 mg Q4H PRN IV SEVERE PAIN LEVEL 7-10 Last administered on 01/29/17 03:32; Admin Dose 2 MG; Start 01/27/17 at 10:00 Famotidine (Pepcid Iv) 20 mg Q12 IV Last administered on 01/29/17 09:06; Admin Dose 20 MG; Start 01/27/17 at 21:00 Enoxaparin Sodium (Lovenox) 30 mg DAILY SC Last administered on 01/29/17 09:07 ; Admin Dose 30 MG; Start 01/28/17 at 09:00 VALENTINA PHELAN M.D. Jan 29, 2017 12:56
--- NOTE | 2017-01-29 13:57 | RADRPT ---
PROCEDURE: XR Abdomen. CLINICAL INDICATION: Abdomen pain. TECHNIQUE: Two views. AP supine and AP erect. COMPARISON: 01/27/2017. FINDINGS: The nasogastric tube tip is in the stomach. The bowel gas pattern is normal with no evidence of obstruction. There is no free air. Surgical clips are present in the left side of the pelvis. There are no abnormal calcifications overlying the urinary tracts. There are degenerative changes of the spine. IMPRESSION: 1. No evidence of obstruction or free air. 2. Nasogastric tube tip in the stomach. 3. Prior pelvic surgery. 4. Degenerative changes of the spine. RPTAT: QQ .Dhiraj Dale MD, MD Date Time Electronically viewed and signed by .Dhiraj Dale MD, on 01/29/2017 13:56 .R/
[2017-01-29 14:23] VITALS: BP 148/70; RESP 20
[2017-01-29] MEDS ORDERED: morphine 4 MG/ML VIAL IV PRN (14:30)
--- NOTE | 2017-01-29 14:58 | PN ---
Date/Time of Note Date/Time of Note DATE: 01/29/17 TIME: 14:58 Assessment/Plan VTE Prophylaxis VTE Prophylaxis Intervention: other Lines/Catheters IV Catheter Type (from Nrs): PORT Assessment/Plan Chief Complaint/Hosp Course 1) Small bowel obstruction - NPO - IV fluids - surgical consult 2) previous carcinomas - oncology following Problems: Subjective 24 Hr Interval Summary Free Text/Dictation Patient denies any abdominal pain Exam/Review of Systems Vital Signs Vitals Vital Signs Date Time Temp Pulse Resp B/P Pulse Ox O2 Delivery O2 Flow Rate FiO2 01/29/17 14:23 98.6 78 20 148/70 94 01/27/17 08:50 Room Air Intake and Output 01/28/17 01/28/17 01/29/17 15:00 23:00 07:00 Intake Total 900 ml 950 ml Output Total 50 ml 50 ml Balance 850 ml 900 ml Exam Constitutional: well developed Head: atraumatic, normocephalic Neck: supple Respiratory: clear to auscultation Cardiovascular: regular rate and rhythm Gastrointestinal: non-tender, soft Extremities: normal pulses Results Result Diagram: 01/29/1722 01/29/17 0822 Results 24 hrs Laboratory Tests Test 01/29/17 08:22 White Blood Count 5.2 Red Blood Count 2.79 #L Hemoglobin 9.5 #L Hematocrit 27.2 #L Mean Corpuscular Volume 97.5 Mean Corpuscular Hemoglobin 34.1 H Mean Corpuscular Hemoglobin Concent 34.9 Red Cell Distribution Width 22.8 #H Platelet Count 186 Mean Platelet Volume 10.4 Neutrophils % 38.8 L Lymphocytes % 41.4 Monocytes % 17.6 H Eosinophils % 1.0 Basophils % 0.6 Nucleated Red Blood Cells % 12.1 H Neutrophils # 2.0 Lymphocytes # 2.2 Monocytes # 0.9 Eosinophils # 0.1 Basophils # 0.0 Nucleated Red Blood Cells # 0.6 H Polychromasia 1+ Hypochromasia 1+ Macrocytosis 1+ Sodium Level 143 Potassium Level 3.2 L Chloride Level 104 Carbon Dioxide Level 25 Anion Gap 17 H Blood Urea Nitrogen 8 Creatinine 0.72 Glucose Level 81 Calcium Level 8.4 Medications Medications Current Medications Sodium Chloride (NS) 1,000 ml @ 100 mls/hr Q10H IV Last administered on t 07:10; Admin Dose 100 MLS/HR; Start 7/29/17 at 09:45 Ondansetron HCl (Zofran Inj) 4 mg Q6H PRN IV NAUSEA AND/OR VOMITING; Start at 10:00 Famotidine (Pepcid Iv) 20 mg Q12 IV Last administered on 01/29/17 09:06; Admin Dose 20 MG; Start 01/27/17 at 21:00 Enoxaparin Sodium (Lovenox) 30 mg DAILY SC Last administered on 01/29/17 09:07 ; Admin Dose 30 MG; Start 01/28/17 at 09:00 Morphine Sulfate (morphine) 2 mg Q4H PRN IV SEVERE PAIN LEVEL 7-10; Start 01/29 at 14:30 SANDY ABDALLA Jan 29, 2017 14:58
[2017-01-29] MEDS ORDERED: POTASSIUM CHLORIDE 250 ML IVPB ONE (18:00)
[2017-01-29 19:28] VITALS: BP 107/62; RESP 18
[2017-01-30 02:17] VITALS: BP 133/62; RESP 18
[2017-01-30] MEDS: SOD CHLORIDE 0.9% 1,000 ML IV SCH ×2 (05:51→15:58)
[2017-01-30 06:29] LABS: ABNORMAL IP MESSAGE 1; BASOPHILS % 0.8 % (0.0-2.0); EOSINOPHILS # 0.1 10^3/ul (0.0-0.5); EOSINOPHILS % 1.7 % (0.0-7.0); HEMATOCRIT 28.1 % (37.0-47.0); HEMOGLOBIN 9.7 g/dl (12.0-16.0); LYMPHOCYTES # 1.7 10^3/ul (0.8-2.9); LYMPHOCYTES % 35.7 % (15.0-51.0); MEAN CORPUSCULAR HEMOGLOBIN 34.2 pg (29.0-33.0); MEAN CORPUSCULAR HGB CONC 34.5 g/dl (32.0-37.0); MEAN CORPUSCULAR VOLUME 98.9 fl (82.0-101.0); MONOCYTES % 20.2 % (0.0-11.0); NEUTROPHIL # 1.9 10^3/ul (1.6-7.5); NUCLEATED RED BLOOD CELLS # 0.5 10^3/ul (0.0-0.0); NUCLEATED RED BLOOD CELLS% 10.6 /100WBC (0.0-0.0); PLATELET COUNT 164 10^3/UL (140-415); RED BLOOD COUNT 2.84 10^6/ul (4.20-5.40); RED CELL DISTRIBUTION WIDTH 23.6 % (11.5-14.5); WHITE BLOOD COUNT 4.7 10^3/ul (4.8-10.8)
[2017-01-30 06:30] LABS: CALCIUM 8.2 mg/dl (8.4-10.2); CREATININE 0.7 mg/dl (0.44-1.00); POTASSIUM 3.6 mmol/L (3.5-5.1)
[2017-01-30 06:53] LABS: POSITIVE DIFF @See below
--- NOTE | 2017-01-30 08:10 | PN ---
Date/Time of Note Date/Time of Note DATE: 01/30/17 TIME: 08:06 Assessment/Plan VTE Prophylaxis VTE Prophylaxis Intervention: LMWH Lines/Catheters IV C[facility] Type (from [facility]): PORTACATH Urinary Cath still in place: No Assessment/Plan Chief Complaint/Hosp Course Ovarian chemo on Carbo/Doxil/Avastin- SBO due to adhesions vs high impaction Problems: Assessment/Plan A- response and KUB suggests impaction that has responded P- will d/c NGT and adv diet over 2-3 d. Patient can probably proceed with planned chemo. Subjective 24 Hr Interval Summary Free Text/Dictation Multiple BM resulting from Golytely via NGT, minimal NGT output. Exam/Review of Systems Vital Signs Vitals Vital Signs Date Time Temp Pulse Resp B/P Pulse Ox O2 Delivery O2 Flow Rate FiO2 01/30/17 02:17 98.8 76 18 133/62 97 01/27/17 08:50 Room Air Intake and Output 01/29/17 01/29/17 01/30/17 15:00 23:00 07:00 Intake Total 1250 ml 1000 ml Output Total 100 ml Balance 1250 ml 900 ml Results Result Diagram: 01/30/17 0501 01/30/17 0501 Results 24 hrs Laboratory Tests Test 01/29/17 08:22 01/30/17 05:01 01/30/17 05:53 White Blood Count 5.2 4.7 L Red Blood Count 2.79 #L 2.84 L Hemoglobin 9.5 #L 9.7 L Hematocrit 27.2 #L 28.1 L Mean Corpuscular Volume 97.5 98.9 Mean Corpuscular Hemoglobin 34.1 H 34.2 H Mean Corpuscular Hemoglobin Concent 34.9 34.5 Red Cell Distribution Width 22.8 #H 23.6 H Platelet Count 186 164 Mean Platelet Volume 10.4 11.0 H Neutrophils % 38.8 L 41.0 Lymphocytes % 41.4 35.7 Monocytes % 17.6 H 20.2 H Eosinophils % 1.0 1.7 Basophils % 0.6 0.8 Nucleated Red Blood Cells % 12.1 H 10.6 H Neutrophils # 2.0 1.9 Lymphocytes # 2.2 1.7 Monocytes # 0.9 1.0 H Eosinophils # 0.1 0.1 Basophils # 0.0 0.0 Nucleated Red Blood Cells # 0.6 H 0.5 H Polychromasia 1+ Hypochromasia 1+ Macrocytosis 1+ Sodium Level 143 145 H Potassium Level 3.2 L 3.6 Chloride Level 104 106 Carbon Dioxide Level 25 23 Anion Gap 17 H 20 H Blood Urea Nitrogen 8 7 Creatinine 0.72 0.70 Glucose Level 81 73 Calcium Level 8.4 8.2 L Lab Scanned Report BLOOD TRANSFUSION Medications Medications Current Medications Sodium Chloride (NS) 1,000 ml @ 100 mls/hr Q10H IV Last administered on 05:51; Admin Dose 100 MLS/HR; Start 01/27/17 at 09:45 Ondansetron HCl (Zofran Inj) 4 mg Q6H PRN IV NAUSEA AND/OR VOMITING Last administered on 01/30/17 04:01; Admin Dose 4 MG; Start 01/27/17 at 10:00 Famotidine (Pepcid Iv) 20 mg Q12 IV Last administered on 01/29/17 20:51; Admin Dose 20 MG; Start 01/27/17 at 21:00 Enoxaparin Sodium (Lovenox) 30 mg DAILY SC Last administered on 01/29/17 09:07 ; Admin Dose 30 MG; Start 01/28/17 at 09:00 Morphine Sulfate (morphine) 2 mg Q4H PRN IV SEVERE PAIN LEVEL 7-10 Last administered on 01/30/17 04:00; Admin Dose 2 MG; Start 01/29/17 at 14:30 JAMES NÚÑEZ MD Jan 30, 2017 08:10
[2017-01-30 08:14] VITALS: BP 133/63; RESP 20
[2017-01-30] MEDS: ENOXAPARIN 30 MG/0.3 ML SYG SC SCH (10:33)
[2017-01-30] MEDS: FAMOTIDINE 20 MG INJ IV SCH ×2 (10:35→20:52)
--- NOTE | 2017-01-30 12:32 | PN ---
Date/Time of Note Date/Time of Note DATE: 01/30/17 TIME: 12:31 Assessment/Plan VTE Prophylaxis VTE Prophylaxis Intervention: other Lines/Catheters IV [facility] Type [facility]from [facility]): PORTACATH Urinary Cath still in place: No Assessment/Plan Chief Complaint/Hosp Course 1) Small bowel obstruction - NPO - IV fluids - surgical consult 2) previous carcinomas - oncology following Problems: Subjective 24 Hr Interval Summary Free Text/Dictation Patient resting comfortably, SBO appears improved Exam/Review of Systems Vital Signs Vitals Vital Signs Date Time Temp Pulse Resp B/P Pulse Ox O2 Delivery O2 Flow Rate FiO2 01/30/17 08:14 98.4 76 20 133/63 93 01/27/17 08:50 Room Air Intake and Output 01/29/17 01/29/17 01/30/17 15:00 23:00 07:00 Intake Total 1250 ml 1000 ml Output Total 100 ml Balance 1250 ml 900 ml Exam Constitutional: well developed Head: atraumatic, normocephalic Neck: supple Respiratory: clear to auscultation Cardiovascular: regular rate and rhythm Gastrointestinal: non-tender, soft Results Result Diagram: 01/30/17 0501 01/30/17 0501 Results 24 hrs Laboratory Tests Test 01/30/17 05:01 01/30/17 05:53 White Blood Count 4.7 L Red Blood Count 2.84 L Hemoglobin 9.7 L Hematocrit 28.1 L Mean Corpuscular Volume 98.9 Mean Corpuscular Hemoglobin 34.2 H Mean Corpuscular Hemoglobin Concent 34.5 Red Cell Distribution Width 23.6 H Platelet Count 164 Mean Platelet Volume 11.0 H Neutrophils % 41.0 Lymphocytes % 35.7 Monocytes % 20.2 H Eosinophils % 1.7 Basophils % 0.8 Nucleated Red Blood Cells % 10.6 H Neutrophils # 1.9 Lymphocytes # 1.7 Monocytes # 1.0 H Eosinophils # 0.1 Basophils # 0.0 Nucleated Red Blood Cells # 0.5 H Sodium Level 145 H Potassium Level 3.6 Chloride Level 106 Carbon Dioxide Level 23 Anion Gap 20 H Blood Urea Nitrogen 7 Creatinine 0.70 Glucose Level 73 Calcium Level 8.2 L Lab Scanned Report BLOOD TRANSFUSION Medications Medications Current Medications Sodium Chloride (NS) 1,000 ml @ 100 mls/hr Q10H IV Last administered on t 05:51; Admin Dose 100 MLS/HR; Start 01/27/17 at 09:45 Ondansetron HCl (Zofran Inj) 4 mg Q6H PRN IV NAUSEA AND/OR VOMITING Last administered on 01/30/17 04:01; Admin Dose 4 MG; Start 01/27/17 at 10:00 Famotidine (Pepcid Iv) 20 mg Q12 IV Last administered on 01/30/17 10:35; Admin Dose 20 MG; Start 01/27/17 at 21:00 Enoxaparin Sodium (Lovenox) 30 mg DAILY SC Last administered on 01/30/17 10:33 ; Admin Dose 30 MG; Start 01/28/17 at 09:00 Morphine Sulfate (morphine) 2 mg Q4H PRN IV SEVERE PAIN LEVEL 7-10 Last administered on 01/30/17 04:00; Admin Dose 2 MG; Start 01/29/17 at 14:30 SANDY ABDALLA Jan 30, 2017 12:32
[2017-01-30 14:24] VITALS: BP 158/72; RESP 19
[2017-01-30 19:40] VITALS: BP 154/67; RESP 18
[2017-01-30 21:05] VITALS: BP 145/72; PULSE 74; RESP 18
[2017-01-31] MEDS ORDERED: ZOLPIDEM 5 MG TAB PO PRN
[2017-01-31] MEDS: SOD CHLORIDE 0.9% 1,000 ML IV SCH (02:20)
[2017-01-31 05:36] LABS: ABNORMAL IP MESSAGE 1; BASOPHILS % 0.5 % (0.0-2.0); EOSINOPHILS # 0.1 10^3/ul (0.0-0.5); EOSINOPHILS % 2.1 % (0.0-7.0); HEMATOCRIT 28.3 % (37.0-47.0); HEMOGLOBIN 9.4 g/dl (12.0-16.0); LYMPHOCYTES # 1.8 10^3/ul (0.8-2.9); LYMPHOCYTES % 41.5 % (15.0-51.0); MEAN CORPUSCULAR HEMOGLOBIN 32.9 pg (29.0-33.0); MEAN CORPUSCULAR HGB CONC 33.2 g/dl (32.0-37.0); MEAN PLATELET VOLUME 11.2 fl (7.4-10.4); MONOCYTE # 0.9 10^3/ul (0.3-0.9); MONOCYTES % 20.6 % (0.0-11.0); NEUTROPHIL # 1.5 10^3/ul (1.6-7.5); NEUTROPHILS % 34.6 % (39.0-77.0); NUCLEATED RED BLOOD CELLS # 0.4 10^3/ul (0.0-0.0); NUCLEATED RED BLOOD CELLS% 9.7 /100WBC (0.0-0.0); PLATELET COUNT 159 10^3/UL (140-415); RED BLOOD COUNT 2.86 10^6/ul (4.20-5.40); RED CELL DISTRIBUTION WIDTH 22.7 % (11.5-14.5); WHITE BLOOD COUNT 4.3 10^3/ul (4.8-10.8)
[2017-01-31 05:45] LABS: POSITIVE DIFF @See below
[2017-01-31 05:51] LABS: CALCIUM 8.1 mg/dl (8.4-10.2); CREATININE 0.65 mg/dl (0.44-1.00); POTASSIUM 3.3 mmol/L (3.5-5.1)
[2017-01-31 08:02] VITALS: BP 150/67; RESP 14
[2017-01-31] MEDS: FAMOTIDINE 20 MG INJ IV SCH (08:57)
[2017-01-31] MEDS: ENOXAPARIN 30 MG/0.3 ML SYG SC SCH (08:58)
--- NOTE | 2017-01-31 10:05 | PN ---
Date/Time of Note Date/Time of Note DATE: 01/31/17 TIME: 10:04 Assessment/Plan VTE Prophylaxis VTE Prophylaxis Intervention: other Lines/Catheters IV Catheter Type (from Nrs): Central Line Central line still needed: Yes Urinary Cath still in place: No Assessment/Plan Chief Complaint/Hosp Course 1) Small bowel obstruction - NPO - IV fluids - surgical consult 2) previous carcinomas - oncology following Problems: Subjective 24 Hr Interval Summary Free Text/Dictation Patient denies any abdominal pain, eating well, to have chemotherapy Exam/Review of Systems Vital Signs Vitals Vital Signs Date Time Temp Pulse Resp B/P Pulse Ox O2 Delivery O2 Flow Rate FiO2 01/31/17 08:02 97.8 62 14 150/67 96 01/30/17 21:05 Room Air Intake and Output 01/30/17 01/30/17 01/31/17 14:59 22:59 06:59 Intake Total 1300 ml 1280 ml Output Total 1100 ml Balance 1300 ml 180 ml Exam Constitutional: well developed Head: atraumatic, normocephalic Neck: supple Respiratory: clear to auscultation Cardiovascular: regular rate and rhythm Gastrointestinal: non-tender, soft Extremities: normal pulses Results Result Diagram: 01/31/17 0436 01/31/17 0436 Results 24 hrs Laboratory Tests Test 01/31/17 04:36 White Blood Count 4.3 L Red Blood Count 2.86 L Hemoglobin 9.4 L Hematocrit 28.3 L Mean Corpuscular Volume 99.0 Mean Corpuscular Hemoglobin 32.9 Mean Corpuscular Hemoglobin Concent 33.2 Red Cell Distribution Width 22.7 H Platelet Count 159 Mean Platelet Volume 11.2 H Neutrophils % 34.6 L Lymphocytes % 41.5 Monocytes % 20.6 H Eosinophils % 2.1 Basophils % 0.5 Nucleated Red Blood Cells % 9.7 H Neutrophils # 1.5 L Lymphocytes # 1.8 Monocytes # 0.9 Eosinophils # 0.1 Basophils # 0.0 Nucleated Red Blood Cells # 0.4 H Sodium Level 143 Potassium Level 3.3 L Chloride Level 102 Carbon Dioxide Level 25 Anion Gap 19 H Blood Urea Nitrogen 5 L Creatinine 0.65 Glucose Level 95 Calcium Level 8.1 L Medications Medications Current Medications Sodium Chloride (NS) 1,000 ml @ 60 mls/hr [id number] IV Last administered on t 02:20; Admin Dose 60 MLS/HR; Start 01/27/17 at 09:45 Ondansetron HCl (Zofran Inj) 4 mg Q6H PRN IV NAUSEA AND/OR VOMITING Last administered on 01/30/17 04:01; Admin Dose 4 MG; Start 01/27/17 at 10:00 Famotidine (Pepcid Iv) 20 mg Q12 IV Last administered on 01/31/17 08:57; Admin Dose 20 MG; Start 01/27/17 at 21:00 Enoxaparin Sodium (Lovenox) 30 mg DAILY SC Last administered on 01/31/17 08:58 ; Admin Dose 30 MG; Start 01/28/17 at 09:00 Morphine Sulfate (morphine) 2 mg Q4H PRN IV SEVERE PAIN LEVEL 7-10 Last administered on 01/30/17 04:00; Admin Dose 2 MG; Start 01/29/17 at 14:30 Zolpidem Tartrate (Ambien) 5 mg HS PRN PO INSOMNIA Last administered on 23:47; Admin Dose 5 MG; Start 01/31/17 at 00:00 SANDY ABDALLA Jan 31, 2017 10:05
[2017-01-31] MEDS ORDERED: HEPARIN (100 UNITS/ML) 5 ML SYG CATHETER ONE (17:30)
--- NOTE | 2017-01-31 21:43 | CONS ---
Date/Time of Note Date/Time of Note DATE: 01/31/17 TIME: 21:40 Assessment/Plan Assessment/Plan Chief Complaint/Hosp Course Patient 66 y/o with metastatic ovarian ca undergoing carboplatin doxil chemorx and did her 5th cycle of treatment 2 weeks ago, out of a scheduled 6 cycles. Had 3 BM yesterday with some degree of straining at stool but then developed abdominal pain, n/v and now admitted for sbo, and is NPO, has NG to decompression, no signs of bleeding. Problems: Assessment/Plan (1) History of ovarian cancer Status: Acute Comment: ongoing chemorx with carbo doxil -wbc and plt normal -CA 125 is improving with chemotherapy -will resume chemotherapy once pt is discharged (2) Small bowel obstruction Status: Acute Comment: She had surgery 10/16 for abdominal symptoms. now followed by Gynonc Dr Anderson and follow his recommendations. on NGT decompression -SBO appears secondary to adhesions -NGT has been discontinued (3) Macrocytic anemia Comment: Vitamin B12 and folate levels are ok -s/p 1 unit PRBCs Problems: Consultation Date/Type/Reason Admit Date/Time Jan 27, 2017 at 08:23 Initial Consult Date 01/27/17 Type of Consultation: Oncology Reason for Consultation metastatic ovarian cancer Referring Provider: SANDY ABDALLA 24 HR Interval Summary Free Text/Dictation pt's SBO has improved. NGT has been removed. pt denies abdominal pain Exam/Review of Systems Vital Signs Vitals Vital Signs Date Time Temp Pulse Resp B/P Pulse Ox O2 Delivery O2 Flow Rate FiO2 01/31/17 08:02 97.8 62 14 150/67 96 01/30/17 21:05 Room Air Intake and Output 01/30/17 01/30/17 01/31/17 15:00 23:00 07:00 Intake Total 1300 ml 1280 ml Output Total 1100 ml Balance 1300 ml 180 ml Exam Constitutional: alert Psych: no complaints Head: normocephalic ENMT: nl external ears & nose, nl lips & teeth Neck: supple Respiratory: clear to auscultation, normal air movement Cardiovascular: regular rate and rhythm Gastrointestinal: soft Musculoskeletal: nl extremities to inspection Extremities: normal pulses Results Result Diagram: 01/31/17 0436 01/31/17 0436 Results 24 hrs Laboratory Tests Test 01/31/17 04:36 White Blood Count 4.3 L Red Blood Count 2.86 L Hemoglobin 9.4 L Hematocrit 28.3 L Mean Corpuscular Volume 99.0 Mean Corpuscular Hemoglobin 32.9 Mean Corpuscular Hemoglobin Concent 33.2 Red Cell Distribution Width 22.7 H Platelet Count 159 Mean Platelet Volume 11.2 H Neutrophils % 34.6 L Lymphocytes % 41.5 Monocytes % 20.6 H Eosinophils % 2.1 Basophils % 0.5 Nucleated Red Blood Cells % 9.7 H Neutrophils # 1.5 L Lymphocytes # 1.8 Monocytes # 0.9 Eosinophils # 0.1 Basophils # 0.0 Nucleated Red Blood Cells # 0.4 H Sodium Level 143 Potassium Level 3.3 L Chloride Level 102 Carbon Dioxide Level 25 Anion Gap 19 H Blood Urea Nitrogen 5 L Creatinine 0.65 Glucose Level 95 Calcium Level 8.1 L Medications Medications Current Medications Ondansetron HCl (Zofran Inj) 4 mg Q6H PRN IV NAUSEA AND/OR VOMITING Last administered on 01/30/17 04:01; Admin Dose 4 MG; Start 01/27/17 at 10:00 Famotidine (Pepcid Iv) 20 mg Q12 IV Last administered on 01/31/17 08:57; Admin Dose 20 MG; Start 01/27/17 at 21:00 Enoxaparin Sodium (Lovenox) 30 mg DAILY SC Last administered on 01/31/17 08:58 ; Admin Dose 30 MG; Start 01/28/17 at 09:00 Morphine Sulfate (morphine) 2 mg Q4H PRN IV SEVERE PAIN LEVEL 7-10 Last administered on 01/30/17 04:00; Admin Dose 2 MG; Start 01/29/17 at 14:30 Zolpidem Tartrate (Ambien) 5 mg HS PRN PO INSOMNIA Last administered on 23:47; Admin Dose 5 MG; Start 01/31/17 at 00:00 VALENTINA PHELAN M.D. Jan 31, 2017 21:43
== END 2017-01-31 18:36 | disposition home or self-care (01) | DRG 389 ==
LOC: E/R 06:07 → MS1 08:23
PROVIDERS: ADMIT Internal Medicine; ATTEND Internal Medicine
PROC: 0D9670Z Drainage of Stomach with Drainage Device, Via Natural or Artificial Opening (ICD-10-PCS; principal; 2017-01-27)
DX: K56.5 Intestinal adhesions [bands] with obstruction (postinfection) (principal); C56.9 Malignant neoplasm of unspecified ovary; C79.9 Secondary malignant neoplasm of unspecified site; D53.9 Nutritional anemia, unspecified; Z85.3 Personal history of malignant neoplasm of breast; Z87.891 Personal history of nicotine dependence; K56.60 Unspecified intestinal obstruction; Z79.899 Other long term (current) drug therapy; Z90.12 Acquired absence of left breast and nipple; Z90.81 Acquired absence of spleen; Z90.710 Acquired absence of both cervix and uterus
CPT/HCPCS: 36415; 36430; 71010; 74010; 74176; 80048; 80053; 81001; 82607; 82746; 82962; 83690; 85025; 85610; 85730; 86304; 86850; 86900; 86901; 86920; 96374; 96375; J1170; J1642; J1650; J2270; J2405; J3480; J7030; J7040; P9016

== ENCOUNTER 2017-05-19 19:19 | Inpatient (IN) | payer MEDICARE, BC ==
[~2017-05-19] VITALS: Ht 149.9 cm; Wt 62.0 kg
[~2017-05-19 19:19] MED LIST changes: +BISA5TAB6 PO; -CIPR500T4 PO; -DOCU-144 PO; +DOCU250C58 PO; -LACT20SO2 PO; -LINA145C PO; -MEMA28CA PO; -METO10TA96 PO; -MULT-860 PO; -ONDA4TAB14 PO; +ONDA8TAB9 PO; +PANT40TA3 PO; +TRAM50TA2 PO
[2017-05-19] MEDS ORDERED: SOD CHLORIDE 0.9% 150 ML IV STA (19:40)
[2017-05-19] MEDS ORDERED: morphine 4 MG/ML VIAL IV STA (19:40)
[2017-05-19] MEDS ORDERED: ONDANSETRON 4 MG INJ IV STA (19:40)
[2017-05-19 20:15] LABS: ADD UMIC YES; UR ASCORBIC ACID 20 mg/dL (NEGATIVE); UR BILIRUBIN (Dip) NEGATIVE (NEGATIVE); UR BLOOD (Dip) NEGATIVE (NEGATIVE); UR CLARITY CLEAR (CLEAR); UR COLOR YELLOW (YELLOW); UR GLUCOSE (Dip) NEGATIVE (NEGATIVE); UR KETONES (Dip) NEGATIVE (NEGATIVE); UR LEUKOCYTE ESTERASE (Dip) TRACE Leu/ul (NEGATIVE); UR NITRITE (Dip) NEGATIVE (NEGATIVE); UR RBC 1 /HPF (0-5); UR SPECIFIC GRAVITY (Dip) 1.023 (1.003-1.030); UR TOTAL PROTEIN (Dip) 1+ mg/dl (NEGATIVE); UR UROBILINOGEN (Dip) NEGATIVE (NEGATIVE)
[2017-05-19] MEDS ORDERED: SOD CHLORIDE 0.9% 1,000 ML IV ONE (21:00)
[2017-05-19 21:17] LABS: ABNORMAL IP MESSAGE 1; HEMATOCRIT 27.2 % (37.0-47.0); HEMOGLOBIN 9.4 g/dl (12.0-16.0); MEAN CORPUSCULAR HEMOGLOBIN 35.6 pg (29.0-33.0); MEAN CORPUSCULAR HGB CONC 34.6 g/dl (32.0-37.0); NUCLEATED RED BLOOD CELLS% 0.3 /100WBC (0.0-0.0); PLATELET COUNT 307 10^3/UL (140-415); POSITIVE DIFF @See below; RED BLOOD COUNT 2.64 10^6/ul (4.20-5.40); RED CELL DISTRIBUTION WIDTH 13.8 % (11.5-14.5)
--- NOTE | 2017-05-19 21:19 | RADRPT ---
PROCEDURE: X-ray Chest. CLINICAL INDICATION: Abdominal pain. TECHNIQUE: Single view chest x-ray. COMPARISON: Exam dated 01/27/2017. FINDINGS: There is a stable well-positioned right-sided Port-A-Cath with its tip overlying the mid SVC. There is similar elevation of the right hemidiaphragm. An NG tube has been removed. The cardiom ediastinal silhouette is within normal limits. There is right basilar subsegmental atelectasis and t here are calcified granulomas in the left lower lobe. There are surgical clips overlying the left ax illa. The lungs are otherwise clear without focal consolidation, effusion, or pneumothorax. There a re no acute osseous abnormalities. IMPRESSION: 1. No acute cardiopulmonary abnormality or significant interval change. RPTAT: HLBP .Walter Veloz MD, Date Time Electronically viewed and signed by .Walter Veloz MD, on 05/19/2017 21:18 .P/
[2017-05-19 21:32] LABS: INR 0.94; PROTIME 12.6 Sec (12.2-14.2)
[2017-05-19 21:33] LABS: PARTIAL THROMBOPLASTIN TIME 26.5 Sec (25.0-35.0)
[2017-05-19 21:34] LABS: ALANINE AMINOTRANSFERASE 34 IU/L (13-69); ALBUMIN/GLOBULIN RATIO 1.14; ALKALINE PHOSPHATASE 74 IU/L (42-121); ANION GAP 16 (8-16); ASPARTATE AMINO TRANSFERASE 41 IU/L (15-46); BILIRUBIN,INDIRECT 0.6 mg/dl (0-1.1); BILIRUBIN,TOTAL 0.6 mg/dl (0.2-1.3); BLOOD UREA NITROGEN 18 mg/dl (7-20); CALCIUM 9.2 mg/dl (8.4-10.2); CARBON DIOXIDE 28 mmol/L (21-31); CHLORIDE 100 mmol/L (97-110); CREATININE 0.75 mg/dl (0.44-1.00); GLUCOSE 119 mg/dl (70-220); POTASSIUM 3.7 mmol/L (3.5-5.1); SODIUM 140 mmol/L (135-144); TOTAL PROTEIN 7.5 g/dl (6.1-8.1)
[2017-05-19 21:37] LABS: EOSINOPHILS % (M) 1 % (0-7); METAMYELOCYTES %M 2 % (0-0); MYELOCYTES % (M) 1 % (0-0); PLATELET ESTIMATE NORMAL
[2017-05-19 21:46] LABS: TROPONIN-I < 0.012 ng/ml (0.00-0.12)
[2017-05-19] MEDS ORDERED: HYDROmorphONE 1 MG/ML SYG IV STA (22:10)
[2017-05-19] MEDS ORDERED: SODIUM CHLORIDE 0.9% 1L BAG IV* STA (22:11)
[2017-05-19] MEDS ORDERED: CEFEPIME 2GM/50 ML (PMX) 50 ML IVPB ONE (22:11)
--- NOTE | 2017-05-19 22:34 | RADRPT ---
PROCEDURE: CT abdomen and pelvis without contrast. CLINICAL INDICATION: Abdominal pain. TECHNIQUE: CT of the abdomen and pelvis was performed without contrast. Coronal and sagittal reform atted images were obtained from the axial source images. Images were reviewed on a high-resolution [place] workstation. The total exam CTDI equals 7.03 mGy and the total exam DLP equals 379.9 mGy-cm. DIC OM images are available. One or more of the following dose reduction techniques were used: - Automated exposure control. - Adjustment of the mA and/or kV according to patient size. - Use of iterative reconstruction technique. COMPARISON: Plain film dated 01/29/[address] dated 01/27/2017. FINDINGS: Visualized lower thorax: There is a calcified granuloma in the left lower lobe. The visualized lung s are otherwise clear. There are coronary artery calcifications. The visualized heart is otherwise u nremarkable. Hepatobiliary system and spleen: The liver is grossly unremarkable. There is no intra or extrahepat ic biliary ductal dilatation. There is a stone within the gallbladder. Spleen is surgically absent. There is fatty atrophy of the pancreas, which is otherwise grossly unremarkable. Adrenal glands and genitourinary system: The adrenal glands are grossly unremarkable. There is no n ephrolithiasis or hydronephrosis. The urinary bladder is grossly unremarkable. The uterus is surgic ally absent. The adnexa are grossly unremarkable. Gastrointestinal system: The bowel anastomosis at the rectosigmoid junction and within the sigmoid colon and right lower quadrant. There is also a suture line along the greater curvature of the stoma ch. There is mildly improved appearance of mildly distended and fluid-filled small bowel loops withi n the midabdomen and pelvis with fecalization of the small bowel at the midline pelvis. There is no pneumatosis or portal venous gas. The appendix is not identified, but there is no focal inflammatory process in the right lower quadrant. Peritoneum, vascular, and lymphatics: There is no free intraperitoneal air or free fluid. There is no mesenteric or retroperitoneal adenopathy. There are atherosclerotic changes of the aorta, which i s nonaneurysmal. Musculoskeletal system and soft tissues: There is facet arthropathy in the lower lumbosacral spine with associated grade 1 anterolisthesis of L3 on L4 and L4 and L5. There are no concerning osseous l esions. The soft tissues are unremarkable. IMPRESSION: 1. Cholelithiasis without additional findings to suggest acute cholecystitis. 2. Mildly dilated fluid-filled small bowel loops in the mid abdomen and pelvis, mildly improved whe n compared with the prior examination. Similar fecalization of small bowel contents in the lower pel vis in the region of the anastomosis, consistent with chronic small bowel stasis. A chronic low grad e partial small bowel obstruction is not excluded. 3. Calcified granuloma. 4. Multivessel coronary artery calcifications and atherosclerotic changes of the aorta. 5. Grade 1 anterolisthesis of L3 on L4 and L4 on L5, unchanged. RPTAT: HLBP .Walter Veloz MD, Date Time Electronically viewed and signed by .Walter Veloz MD, MD on 05/19/2017 22:33 .P/
[2017-05-20] MEDS ORDERED: ACETAMINOPHEN 325 MG TAB PO PRN (00:30)
[2017-05-20] MEDS ORDERED: ONDANSETRON 4 MG INJ IV PRN (00:30)
--- NOTE | 2017-05-20 00:47 | QN ---
Documentation Comment Got called by Dr. Mckeon for ? SBO. However, review of the chart identifies Dr. Zeng as the patient's primary surgeon for ovarian ca, recurrence, and sbo. I advised Dr. Mckeon to contact primary surgeon. Thank you, DAGO BUTTS MD May 20, 2017 00:47
[2017-05-20 01:00] VITALS: TEMP 98.3
--- NOTE | 2017-05-20 01:36 | ERD ---
ER Documentation Chief Complaint Chief Complaint bib self, cc: abdominal pain x 1 day, ovarian ca, chemo on HPI This 66-year-old female presents with diffuse abdominal pain that is migrating to different parts of the abdomen for 1 day. The pain is a sharp pain and radiates to her lower back. Receives regular chemotherapy for different medications. She is not on anything to stimulate her white blood cells. She also felt generalized weakness and fatigue. No fevers or chills. No chest pain. ROS All systems reviewed and are negative except as per history of present illness. Medications Home Meds Active Scripts Hydrocodone/Acetaminophen ([place] 10-325 Tablet) 1 Each Tablet, 1 EACH PO Q4 for PAIN, #30 TAB Prov:MATIAS JIMENEZA 10/20/16 Reported Medications Pantoprazole* (Protonix*) 40 Mg Tablet.dr, 40 MG PO DAILY, TAB 01/27/17 Tramadol HCl (Tramadol HCl) 50 Mg Tablet, 50 MG PO Q6H Y for PAIN LEVEL 6-10, # 120 TAB 01/27/17 Ondansetron Hcl* (Zofran*) 8 Mg Tablet, 8 MG PO Q12 Y for NAUSEA AND OR VOMITING , TAB 01/27/17 Bisacodyl* (Bisacodyl*) 5 Mg Tablet.dr, 5 MG PO DAILY, TAB 01/27/17 Docusate Sodium* (Colace*) 250 Mg Capsule, 250 MG PO BID, #60 CAP 01/27/17 Gabapentin* (Gabapentin*) 300 Mg Capsule, 300 MG PO BID, #60 CAP 10/03/16 Folic Acid* (Folic Acid*) 1 Mg Tablet, 1 MG PO DAILY, TAB 10/03/16 Lorazepam* (Lorazepam*) 1 Mg Tablet, 1 MG PO HS Y for SLEEP, #30 TAB 10/03/16 Allergies Allergies: Coded Allergies: No Known Allergy (Unverified , 01/27/17) PMhx/Soc History of Surgery: Yes (Hysterectomy 2013,Bowel obstruction & Hernia 2013, Bowel Obst 2016) Anesthesia Reaction: No Hx Neurological Disorder: No Hx Respiratory Disorders: No Hx Cardiac Disorders: Yes (ology following) Hx Psychiatric Problems: No Hx Miscellaneous Medical Probl: Yes (breast/ovarian cancer, SBOs, last chemo 2 1/2 weeks ago) Hx Alcohol Use: No Hx Substance Use: No Hx Tobacco Use: No Smoking Status: Former smoker Physical Exam Vitals Vital Signs Date Time Temp Pulse Resp B/P Pulse Ox O2 Delivery O2 Flow Rate FiO2 05/20/17 01:00 98.3 101 8 123/64 95 Room Air 05/20/17 00:00 98 16 120/61 96 Room Air 05/19/17 23:00 101 14 111/64 95 Room Air 05/19/17 22:00 101 17 119/63 97 Room Air 05/19/17 21:30 102 16 118/68 99 Room Air 05/19/17 19:25 98.5 106 18 129/68 96 Physical Exam Const: [] Mild distress, appears uncomfortable Head: Atraumatic Eyes: Normal Conjunctiva ENT: Normal External Ears, Nose and Mouth. Neck: Full range of motion..~ No meningismus. Resp: Clear to auscultation bilaterally Cardio: Regular rate and rhythm, no murmurs Abd: Soft, mild to moderate diffuse abdominal tenderness without guarding or rebound, non distended. Normal bowel sounds Skin: No petechiae or rashes Back: No midline or flank tenderness Ext: No cyanosis, or edema Neur: Awake and alert 3, no focal deficits Psych: Normal Mood and Affect Result Diagram: 05/19/17210805/19/172108 Results 24 hrs Laboratory Tests Test 05/19/17 19:54 05/19/17 21:09 05/19/17 22:47 Urine Color YELLOW Urine Clarity CLEAR Urine pH 5.0 Urine Specific [place] 1.023 Urine Ketones NEGATIVEmg/dL Urine Nitrite NEGATIVEmg/dL Urine Bilirubin NEGATIVEmg/dL Urine Urobilinogen NEGATIVEmg/dL Urine Leukocyte Esterase TRACELeu/ul Urine Microscopic RBC 1/HPF Urine Microscopic WBC 7/HPF Urine Hemoglobin NEGATIVEmg/dL Urine Glucose NEGATIVEmg/dL Urine Total Protein 1+mg/dl White Blood Count 24.010^3/ul Red Blood Count 2.6410^6/ul Hemoglobin 9.4g/dl Hematocrit 27.2% Mean Corpuscular Volume 103.0fl Mean Corpuscular Hemoglobin 35.6pg Mean Corpuscular Hemoglobin Concent 34.6g/dl Red Cell Distribution Width 13.8% Platelet Count 90835^3/UL Mean Platelet Volume 10.0fl Neutrophils % % Segmented Neutrophils % (Manual) 70% Band Neutrophils % (Manual) 18% Lymphocytes % % Lymphocytes % (Manual) 8% Monocytes % % Eosinophils % % Eosinophils % (Manual) 1% Basophils % % Metamyelocytes % (manual) 2% Myelocytes % (Manual) 1% Nucleated Red Blood Cells % 0.3/100WBC Neutrophils # 10^3/ul Neutrophils # (Manual) 17.810^3/ul Band Neutrophils # 4.310^3/ul Absolute Lymphocytes (Manual) 1.910^3/ul Lymphocytes # 10^3/ul Monocytes # 10^3/ul Eosinophils # 10^3/ul Basophils # 10^3/ul Metamyelocytes # 0.410^3/ul Myelocytes # 0.210^3/ul Nucleated Red Blood Cells # 10^3/ul Platelet Estimate NORMAL Prothrombin Time 12.6Sec Prothrombin Time Ratio 1.0 INR International Normalized Ratio 0.94 Activated Partial Thromboplast Time 26.5Sec Sodium Level 140mmol/L Potassium Level 3.7mmol/L Chloride Level 100mmol/L Carbon Dioxide Level 28mmol/L Anion Gap 16 Blood Urea Nitrogen 18mg/dl Creatinine 0.75mg/dl Glucose Level 119mg/dl Calcium Level 9.2mg/dl Total Bilirubin 0.6mg/dl Direct Bilirubin 0.00mg/dl Indirect Bilirubin 0.6mg/dl Aspartate Amino Transf (AST/SGOT) 41IU/L Alanine Aminotransferase (ALT/SGPT) 34IU/L Alkaline Phosphatase 74IU/L Troponin I < 0.012ng/ml Total Protein 7.5g/dl Albumin 4.0g/dl Globulin 3.50g/dl Albumin/Globulin Ratio 1.14 Lipase 19U/L Lactic Acid Level 2.1mmol/L Current Medications Medications (Trade) Dose Ordered Sig/Coral Route PRN Reason Start Time Stop Time Status Last Admin Dose Admin Sodium Chloride (NS) 150 ml @ 150 mls/hr Q1H STAT IV 05/19/17 19:40 05/19/17 20:39 DC 05/19/17 20:35 Morphine Sulfate (morphine) 4 mg ONCE STAT IV 05/19/17 19:40 05/19/17 19:42 DC 05/19/17 20:25 Ondansetron HCl 4 mg 4 mg ONCE STAT IV 05/19/17 19:40 05/19/17 19:42 DC 11/18/17 20:24 Sodium Chloride (NS) 1,000 ml @ 1,000 mls/hr Q1H ONCE IV 05/19/17 21:00 05/19/17 21:59 DC 05/19/17 22:09 Hydromorphone HCl (Dilaudid) 1 mg ONCE STAT IV 05/19/17 22:10 05/19/17 22:11 DC 05/19/17 22:18 Sodium Chloride 1920 ml 1,920 ml BOLUS OVER 2 HOURS STAT IV* 05/19/17 22:11 05/19/17 22:16 DC 05/20/17 00:13 Cefepime HCl (Maxipime 2gm/50 ml (Pmx)) 50 ml @ 100 mls/hr ONCE ONCE IVPB 05/19/17 22:11 05/19/17 22:40 DC 05/19/17 22:26 Ondansetron HCl (Zofran Inj) 4 mg BRIDGE ORDER PRN IV NAUSEA AND/OR VOMITING 05/20/17 00:30 05/21/17 00:29 Acetaminophen (Tylenol Tab) 650 mg ER BRIDGE PRN PO MILD PAIN/FEVER 05/20/17 00:30 05/21/17 00:29 Procedures/MDM Sepsis in immunocompromised patient possibly secondary to UTI as there is trace leukocyte esterase. Diagnosis of sepsis was not made until 90 minutes after patient's arrival and the white blood cell count arrived. Patient also may have leukocytosis secondary to a small bowel obstruction. Given 30 cc/kg of IV fluid and started on cefepime. She also given morphine for her pain was resolved somewhat then given Dilaudid because she had continued severe pain. This did alleviate her pain. CT then returned that she may have a small bowel obstruction. Spoke with Dr. Edmondson after attempts were made to contact doctors today who consult on the patient last time for small bowel obstruction. The patient on consult also did some research to find out that her previous surgeon was actually her gynecological surgeon who should also be consulted. Patient has persistent tachycardia even with fluid administration. She is going to be admitted for further evaluation. EKG interpretation interpretation: Sinus tachycardia with a single PVC, indeterminate axis, no ST or T-wave changes concerning for acute ischemia. QT of 491. Abnormal EKG. color expert interpretation interpretation: Persistent mild sinus tachycardia. No arrhythmias. Chest x-ray interpretation: I see no acute process, I see no widened mediastinum , pneumothorax, no pulmonary edema, no fractures CT abdomen pelvis interpretation: Gallstones and multiple dilated loops of bowel suggestive of possible small bowel obstruction. No signs of acute cholecystitis. No abnormal fat stranding, no free air perforation. No fractures Care time greater than 35 minutes: This includes treatment of technically severe sepsis, early antibiotic therapy, careful fluid administration, treatment of unstable vital signs, review of chart, multiple space bedside to reassess status, discussion with family, discussion with surgeon, discussion with admitting doctor. This does not include billable procedures. Departure Diagnosis: Primary Impression: Severe sepsis Additional Impressions: Small bowel obstruction Acute abdominal pain UTI (urinary tract infection) Leukocytosis Macrocytic anemia Condition: Serious MANAS CEBALLOS DO May 20, 2017 01:34
[2017-05-20] MEDS ORDERED: SOD CHLORIDE 0.9% 1,000 ML IV SCH (02:37)
[2017-05-20] MEDS ORDERED: VANCOMYCIN IV PER PHARMACY XX SCH (03:00)
[2017-05-20] MEDS ORDERED: NACL 0.9% 3 ML SYG IV SCH (03:00)
[2017-05-20] MEDS ORDERED: HYDROmorphONE 1 MG/ML SYG IV PRN (03:00)
[2017-05-20] MEDS ORDERED: METOCLOPRAMIDE 10 MG INJ IV PRN (03:00)
[2017-05-20] MEDS ORDERED: morphine 2 MG INJ IV PRN (03:00)
[2017-05-20] MEDS: PIPER-TAZO 3.375 GM IV (PMX) 50 ML IVPB SCH ×5 (03:04→23:25)
[2017-05-20 03:09] VITALS: BP 121/56; RESP 16
[2017-05-20] MEDS ORDERED: HYDROmorphONE 1 MG/ML SYG IV STA (03:12)
[2017-05-20 03:47] VITALS: Ht 149.9 cm; Wt 62.0 kg
[2017-05-20] MEDS ORDERED: VANCOMYCIN 1.25 GM in SOD CHLORIDE 0.9% 250 ML IVPB SCH (04:00)
--- NOTE | 2017-05-20 04:59 | RADRPT ---
PROCEDURE: ABDOMEN - 1 VIEW CLINICAL INDICATION: 66-year-old female for nasogastric tube placement. TECHNIQUE: AP supine view of the abdomen was performed. The images reviewed on a PACS workstatio n. COMPARISON: CT 05/19/2017; CR ABDOMEN 01/29/2017 FINDINGS: There is elevation right hemidiaphragm. There is a calcified granuloma within the left lower lobe me asuring approximately 6 x 5 mm. There is a nasogastric tube identified with the tip in the left uppe r quadrant stomach region. There is mild retained stool identified within the colon. There is no jax dence for gross bowel obstruction. The osseous structures are unremarkable. IMPRESSION: Nasogastric tube with the tip in the left upper quadrant stomach region. .Lennox Franz MD, Date Time Electronically viewed and signed by .Lennox Franz MD, on 05/20/2017 04:59 .M/
[2017-05-20 06:05] LABS: ABNORMAL IP MESSAGE 1; HEMATOCRIT 26.2 % (37.0-47.0); HEMOGLOBIN 8.8 g/dl (12.0-16.0); MEAN CORPUSCULAR HEMOGLOBIN 35.6 pg (29.0-33.0); MEAN CORPUSCULAR HGB CONC 33.6 g/dl (32.0-37.0); MEAN CORPUSCULAR VOLUME 106.1 fl (82.0-101.0); MEAN PLATELET VOLUME 11.2 fl (7.4-10.4); NUCLEATED RED BLOOD CELLS% 0.4 /100WBC (0.0-0.0); PLATELET COUNT 295 10^3/UL (140-415); RED BLOOD COUNT 2.47 10^6/ul (4.20-5.40); RED CELL DISTRIBUTION WIDTH 13.8 % (11.5-14.5)
[2017-05-20 06:08] LABS: POSITIVE DIFF @See below
[2017-05-20] MEDS: PANTOPRAZOLE 40 MG INJ IV SCH (06:16)
[2017-05-20 06:20] LABS: ALBUMIN 3.5 g/dl (3.3-4.9); BILIRUBIN,INDIRECT 0.8 mg/dl (0-1.1); BILIRUBIN,TOTAL 0.8 mg/dl (0.2-1.3); CALCIUM 8.3 mg/dl (8.4-10.2); CHOL/HDL RATIO 3.5 RATIO; CREATININE 0.74 mg/dl (0.44-1.00); POTASSIUM 3.5 mmol/L (3.5-5.1)
[2017-05-20 06:40] LABS: MAGNESIUM 0.8 mg/dl (1.7-2.5)
[2017-05-20 07:36] LABS: ANISOCYTOSIS 1+ (0-0); ERYTHROBLAST% (NRBC) (M) 2 % (0-0); METAMYELOCYTES %M 5 % (0-0); MYELOCYTES % (M) 1 % (0-0); PLATELET ESTIMATE NORMAL; POLYCHROMASIA 2+ (0-0)
[2017-05-20 07:51] LABS: THYROID STIMULATING HORMONE 11.9 MIU/L (0.465-4.680)
[2017-05-20 08:00] VITALS: BP 93/48; RESP 16
[2017-05-20] MEDS ORDERED: MAGNESIUM SULFATE 2 GM/50 ML 50 ML IVPB ONE (08:00)
[2017-05-20] MEDS ORDERED: POTASSIUM CHLORIDE 250 ML IVPB ONE (08:00)
[2017-05-20] MEDS: ENOXAPARIN 40 MG/0.4 ML SYG SC SCH (08:42)
--- NOTE | 2017-05-20 13:10 | HP ---
Date/Time of Note Date/Time of Note DATE: 05/20/17 TIME: 11:50 Assessment/Plan VTE Prophylaxis VTE Prophylaxis Intervention: LMWH, other Lines/Catheters IV Catheter Type (from Nrs): Peripheral IV Urinary Cath still in place: No Assessment/Plan Assessment/Plan -Severe sepsis- lactic acid- 2.2 -cont on Vanco/Zosyn --Leukocytosis -Small bowel obstruction - per surgery - NPO - ngt to low intermittent suction - monitor electrolytes -Acute abdominal pain sec to above- -UTI (urinary tract infection) -Macrocytic anemia -monitor CBC - Former smoker - reinforce smoking cessation - Breast/ovarian cancer-last chemo 2 1/2 weeks ago - oncology consult- Dr Villatoro notified - Dr Dennison was notified by Dr Morin - Lovenox for DVT prophylaxis - Protonix for GI prophylaxis Dw Dr morin/ staff HPI/ROS Admit Date/Time Admit Date/Time May 20, 2017 at 00:23 ROS HPI This is a 66-year-old female patient with past history of Breast/ovarian cancer with last chemo 2 1/2 weeks ago, macrocystic anemia, former smoker got admitted with generalized weakness and fatigue, diffuse abdominal pain radiating to different parts of the abdomen for 1 day. Patient described her pain as sharp pain radiating to her lower back. She is not on anything to stimulate her white blood cells. Denies any chest pain, shortness of breath, fevers or chills. Patient is admitted under Dr Morin for further treatment and evaluatin. Plan of care dw staff. ROS All systems reviewed and are negative except as per history of present illness. Allergies No Known Allergy (Unverified , 01/27/17) Eyes: redness Respiratory: no complaints Cardiovascular: no complaints Gastrointestinal: pain Genitourinary: no complaints Musculoskeletal: no complaints PMH/Family/Social Past Medical History PMhx/Soc History of Surgery: Yes (Hysterectomy 2013,Bowel obstruction & Hernia 2013, Bowel Obst 2016) Anesthesia Reaction: No Hx Neurological Disorder: No Hx Respiratory Disorders: No Hx Cardiac Disorders: Yes- Hx Chest pain Hx Psychiatric Problems: No Hx Miscellaneous Medical Probl: Yes (breast/ovarian cancer, SBOs, last chemo 2 1/2 weeks ago) Hx Alcohol Use: No Hx Substance Use: No Hx Tobacco Use: No Smoking Status: Former smoker Social History Smoking Status: Former smoker Exam/Review of Systems Vital Signs Vitals Vital Signs Date Time Temp Pulse Resp B/P Pulse Ox O2 Delivery O2 Flow Rate FiO2 05/20/17 08:00 98.8 67 16 93/48 93 05/20/17 01:00 Room Air Intake and Output 05/19/17 05/19/17 05/20/17 15:00 23:00 07:00 Intake Total 339.993 ml Balance 339.993 ml Exam Constitutional: alert, oriented, well developed Psych: nl mood/affect Respiratory: diminished breath sounds, normal air movement Cardiovascular: nl pulses, other (s1s2) Gastrointestinal: soft, tender (diffuse tenderness- NGT noted intact, connected to LIS. ) Musculoskeletal: nl extremities to inspection Extremities: normal pulses Neurological: nl mental status, nl strength Labs Result Diagram: 05/20/1743905/20/17 044 Medications Medications Current Medications Sodium Chloride (NS) 1,000 ml @ 80 mls/hr [id number] IV Last administered on 02:55; Admin Dose 80 MLS/HR; Start 05/20/17 at 02:37 Ondansetron HCl (Zofran Inj) 4 mg Q6H PRN IV NAUSEA AND/OR VOMITING; Start at 03:00 Metoclopramide HCl (Reglan) 10 mg Q6H PRN IV NAUSEA AND/OR VOMITING; Start at 03:00 Acetaminophen (Tylenol Tab) 650 mg Q6H PRN PO PAIN LEVEL 1-3 OR FEVER; Start 05/20/17 at 03:00 Pantoprazole (Protonix Iv) 40 mg DAILY@06 IV Last administered on 05/20/17 06 :16; Admin Dose 40 MG; Start 05/20/17 at 06:00 Enoxaparin Sodium 40 mg 40 mg DAILY SC Last administered on 05/20/17 08:42; Admin Dose 40 MG; Start 05/20/17 at 09:00 Piperacillin Sod/ Tazobactam Sod (Zosyn 3.375gm/ 50 ml (Pmx)) 50 ml @ 100 mls/ hr Q6 IVPB Last administered on 05/20/17 09:27; Admin Dose 100 MLS/HR; Start 05/20/17 at 03:15 Hydromorphone HCl 1.5 mg 1.5 mg Q3 PRN IV PAIN; Start 05/20/17 at 03:30 Potassium Chloride 250 ml @ 62.5 mls/hr ONCE ONCE IVPB Last administered on 05/20/17t 10:39; Admin Dose 62.5 MLS/HR; Start 05/20/17 at 08:00; Stop at 11:59 Vancomycin HCl (Vancocin) 100 ml @ 100 mls/hr Q12H IVPB ; Start 05/20/17 at 18 :00 Procedures Procedures -EKG interpretation interpretation: Sinus tachycardia with a single PVC, indeterminate axis, no ST or T-wave changes concerning for acute ischemia. QT of 491. Abnormal EKG. statistical clerk advertising interpretation interpretation: Persistent mild sinus tachycardia. No arrhythmias. -Chest x-ray interpretation: I see no acute process, I see no widened mediastinum, pneumothorax, no pulmonary edema, no fractures -CT abdomen pelvis interpretation: Gallstones and multiple dilated loops of bowel suggestive of possible small bowel obstruction. No signs of acute cholecystitis. No abnormal fat stranding, no free air perforation. No fractures MEREDITH DENNIS May 20, 2017 12:00
[2017-05-20 14:00] VITALS: BP 90/53; RESP 19
[2017-05-20] MEDS: DEXTROSE 5%-0.45% NACL 1,000 ML IV SCH ×2 (14:00→21:30)
[2017-05-20] MEDS ORDERED: BISACODYL 10 MG SUPP PR ONE (15:30)
--- NOTE | 2017-05-20 16:36 | CONS ---
Date/Time of Note Date/Time of Note DATE: 05/20/17 TIME: 16:36 Consultation Date/Type/Reason Admit Date/Time May 20, 2017 at 00:23 Reason for Consultation Franko Zeng M.D. 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 She has N/V with a suggestion partial SBO.. Medical history/ROS: all other systems unremarkable. Surgical: Primary cytoreduction, micro + sec lk Medications: Ativan 1 mg tablet ud 06/04/14 folic acid 20 mg Cap ud 01/11/15 hydrocortisone 2.35 %-pramoxine 1 %-skin cleanser#16 kit,cream,wipe ud 01/16/17 Protonix 40 mg tablet,delayed release 1 tablet by mouth DAILY 01/11/15 Tylenol Extra Strength 500 mg tablet ud Allergies: 09/29/13 No Known Drug Allergies Family History: Noncontributory Social History: Noncontributory Review of Systems: Negative except for above noted Physical Examination General: Alert. HEENT: Pupils are equal, round, reactive to light and accommodation. Neck: Supple with no masses of lymphadenopathy. Breast: Deferred due to recent examination and responsibility of primary care physician. Chest: Clear to auscultation and percussion with no rales, ronchi, or wheeze. Heart: Normal rhythm with no murmur. Abdominal exam: nontender, nondistended, no masses, no ascites. location: N/A Pelvic exam: no masses or cul-de-sac nodularity noted Rectal: confirmatory with pelvic exam and minimal stool. Neurological: Grossly intact Assessment: Ovarian cancer with recurrence and SBO vs impaction. Plan: Review imaging and possible others and determine whether issue is advance disease vs scar tissue; both needing surgery vs stool issue. Will do laparotomy for SBO if needed,. Franko Zeng M.D. Respiratory: no complaints Cardiovascular: no complaints Gastrointestinal: pain Genitourinary: no complaints Musculoskeletal: no complaints Psychological: nl mood/affect Social History Smoking Status: Former smoker Exam/Review of Systems Vital Signs Vitals Vital Signs Date Time Temp Pulse Resp B/P Pulse Ox O2 Delivery O2 Flow Rate FiO2 05/20/17 08:00 98.8 67 16 93/48 93 05/20/17 01:00 Room Air Intake and Output 05/19/17 05/19/17 05/20/17 15:00 23:00 07:00 Intake Total 339.993 ml Balance 339.993 ml Results Result Diagram: 05/20/17 0440 05/20/17 0440 Results 24 hrs Laboratory Tests Test 05/19/17 19:54 05/19/17 21:09 05/19/17 22:47 05/20/17 04:40 Urine Color YELLOW Urine Clarity CLEAR Urine pH 5.0 Urine Specific [place] 1.023 Urine Ketones NEGATIVE Urine Nitrite NEGATIVE Urine Bilirubin NEGATIVE Urine Urobilinogen NEGATIVE Urine Leukocyte Esterase TRACE A Urine Microscopic RBC 1 Urine Microscopic WBC 7 H Urine Hemoglobin NEGATIVE Urine Glucose NEGATIVE Urine Total Protein 1+ H White Blood Count 24.0 #H 21.0 H Red Blood Count 2.64 L 2.47 L Hemoglobin 9.4 L 8.8 L Hematocrit 27.2 L 26.2 L Mean Corpuscular Volume 103.0 H 106.1 H Mean Corpuscular Hemoglobin 35.6 H 35.6 H Mean Corpuscular Hemoglobin Concent 34.6 33.6 Red Cell Distribution Width 13.8 # 13.8 Platelet Count 307 # 295 Mean Platelet Volume 10.0 11.2 H Neutrophils % Segmented Neutrophils % (Manual) 70 70 Band Neutrophils % (Manual) 18 H 13 H Lymphocytes % Lymphocytes % (Manual) 8 L 11 L Monocytes % Eosinophils % Eosinophils % (Manual) 1 Basophils % Metamyelocytes % (manual) 2 H 5 H Myelocytes % (Manual) 1 H 1 H Nucleated Red Blood Cells % 0.3 H 2 H Neutrophils # Neutrophils # (Manual) 17.8 H 15.3 H Band Neutrophils # 4.3 H 2.7 H Absolute Lymphocytes (Manual) 1.9 2.3 Lymphocytes # Monocytes # Eosinophils # Basophils # Metamyelocytes # 0.4 H 1.0 H Myelocytes # 0.2 H 0.2 H Nucleated Red Blood Cells # Platelet Estimate NORMAL NORMAL Prothrombin Time 12.6 Prothrombin Time Ratio 1.0 INR International Normalized Ratio 0.94 Activated Partial Thromboplast Time 26.5 Sodium Level 140 142 Potassium Level 3.7 3.5 Chloride Level 100 103 Carbon Dioxide Level 28 27 Anion Gap 16 16 Blood Urea Nitrogen 18 15 Creatinine 0.75 0.74 Glucose Level 119 127 Calcium Level 9.2 8.3 L Total Bilirubin 0.6 0.8 Direct Bilirubin 0.00 0.00 Indirect Bilirubin 0.6 0.8 Aspartate Amino Transf (AST/SGOT) 41 39 Alanine Aminotransferase (ALT/SGPT) 34 34 Alkaline Phosphatase 74 72 Troponin I < 0.012 Total Protein 7.5 7.0 Albumin 4.0 3.5 Globulin 3.50 H 3.50 H Albumin/Globulin Ratio 1.14 1.00 Lipase 19 L Lactic Acid Level 2.1 H 1.4 Polychromasia 2+ Anisocytosis 1+ Hemoglobin A1c 5.0 Magnesium Level 0.8 *L Triglycerides Level 135 Cholesterol Level 140 LDL Cholesterol, Calculated 73 HDL Cholesterol 40 Cholesterol/HDL Ratio 3.5 Thyroid Stimulating Hormone (TSH) 11.900 H Test 05/20/17 07:05 Lactic Acid Level 2.2 *H Medications Medications Current Medications Ondansetron HCl (Zofran Inj) 4 mg Q6H PRN IV NAUSEA AND/OR VOMITING; Start at 03:00 Metoclopramide HCl (Reglan) 10 mg Q6H PRN IV NAUSEA AND/OR VOMITING; Start at 03:00 Acetaminophen (Tylenol Tab) 650 mg Q6H PRN PO PAIN LEVEL 1-3 OR FEVER; Start 05/20/17 at 03:00 Pantoprazole (Protonix Iv) 40 mg DAILY@06 IV Last administered on 05/20/17 06 :16; Admin Dose 40 MG; Start 05/20/17 at 06:00 Enoxaparin Sodium 40 mg 40 mg DAILY SC Last administered on 05/20/17 08:42; Admin Dose 40 MG; Start 05/20/17 at 09:00 Piperacillin Sod/ Tazobactam Sod (Zosyn 3.375gm/ 50 ml (Pmx)) 50 ml @ 100 mls/ hr Q6 IVPB Last administered on 05/20/17 13:59; Admin Dose 100 MLS/HR; Start 05/20/17 at 03:15 Hydromorphone HCl 1.5 mg 1.5 mg Q3 PRN IV PAIN; Start 05/20/17 at 03:30 Vancomycin HCl 100 ml @ 100 mls/hr Q12H IVPB ; Start 05/20/17 at 18:00 Dextrose/Sodium Chloride (D5-1/2ns) 1,000 ml @ 125 mls/hr Q8H IV Last administered on 05/20/17t 14:00; Admin Dose 125 MLS/HR; Start 05/20/17 at 13: 30 Docusate Sodium (Colace) 100 mg BID PO ; Start 05/20/17 at 21:00 FRANKO ZENG MD May 20, 2017 16:36
[2017-05-20] MEDS: VANCOMYCIN 500MG/NS (PMX) 100 ML IVPB SCH (17:30)
[2017-05-20 19:17] LABS: MAGNESIUM 1.3 mg/dl (1.7-2.5); POTASSIUM 3.9 mmol/L (3.5-5.1)
[2017-05-20 20:31] VITALS: BP 133/68; RESP 16
[2017-05-20] MEDS: DOCUSATE SODIUM 100 MG CAP PO SCH (21:00)
[2017-05-21 02:40] VITALS: BP 115/55; RESP 16
[2017-05-21] MEDS ORDERED: MAGNESIUM SULFATE 2 GM/50 ML 50 ML IVPB ONE (02:45)
[2017-05-21] MEDS: DEXTROSE 5%-0.45% NACL 1,000 ML IV SCH ×3 (03:53→21:30)
[2017-05-21] MEDS: VANCOMYCIN 500MG/NS (PMX) 100 ML IVPB SCH ×2 (06:32→18:37)
[2017-05-21] MEDS: PANTOPRAZOLE 40 MG INJ IV SCH (06:32)
[2017-05-21] MEDS: PIPER-TAZO 3.375 GM IV (PMX) 50 ML IVPB SCH ×4 (06:32→23:59)
[2017-05-21 06:53] LABS: ABNORMAL IP MESSAGE 1; HEMATOCRIT 27.8 % (37.0-47.0); HEMOGLOBIN 9.2 g/dl (12.0-16.0); MEAN CORPUSCULAR HEMOGLOBIN 35.2 pg (29.0-33.0); MEAN CORPUSCULAR HGB CONC 33.1 g/dl (32.0-37.0); MEAN CORPUSCULAR VOLUME 106.5 fl (82.0-101.0); MEAN PLATELET VOLUME 11.1 fl (7.4-10.4); NUCLEATED RED BLOOD CELLS% 0.2 /100WBC (0.0-0.0); PLATELET COUNT 307 10^3/UL (140-415); RED BLOOD COUNT 2.61 10^6/ul (4.20-5.40); RED CELL DISTRIBUTION WIDTH 13.7 % (11.5-14.5); WHITE BLOOD COUNT 13.8 10^3/ul (4.8-10.8)
[2017-05-21 07:01] LABS: POSITIVE DIFF @See below
[2017-05-21 07:33] VITALS: BP 104/55; RESP 18
[2017-05-21 08:01] LABS: CREATININE 0.79 mg/dl (0.44-1.00); POTASSIUM 3.5 mmol/L (3.5-5.1)
[2017-05-21] MEDS: DOCUSATE SODIUM 100 MG CAP PO SCH ×3 (08:42→20:37)
[2017-05-21] MEDS: ENOXAPARIN 40 MG/0.4 ML SYG SC SCH (08:43)
[2017-05-21 09:20] LABS: BASOPHILS % (M) 1 % (0-2); EOSINOPHILS % (M) 2 % (0-7); ERYTHROBLAST% (NRBC) (M) 1 % (0-0); MONOCYTES % (M) 6 % (0-11); PLATELET ESTIMATE NORMAL; POLYCHROMASIA 3+ (0-0)
--- NOTE | 2017-05-21 11:52 | PN ---
Date/Time of Note Date/Time of Note DATE: 05/21/17 TIME: 11:34 Assessment/Plan VTE Prophylaxis VTE Prophylaxis Intervention: other Lines/Catheters IV Catheter Type (from Nrsg): isreal cath Central line still needed: Yes Urinary Cath still in place: No Assessment/Plan Assessment/Plan -Severe sepsis- lactic acid- 2.2, WBC trended down, Lactic acid pending -cont on Vanco/Zosyn - Hypomagnesium - replace Mag, fu am level --Leukocytosis -Small bowel obstruction - per surgery - NPO - ngt to low intermittent suction - monitor electrolytes -Acute abdominal pain sec to above- -UTI (urinary tract infection) -Macrocytic anemia -monitor CBC - Former smoker - reinforce smoking cessation - Breast/ovarian cancer-last chemo 2 1/2 weeks ago - per oncology -Dr Villatoro - per Dr Dennison - Lovenox for DVT prophylaxis - Protonix for GI prophylaxis Dw Dr morin/ staff Subjective 24 Hr Interval Summary Free Text/Dictation -NAD -WBC trended down, Lactic acid pending,cont on Vanco/Zosyn - Hypomagnesium=will replace Mag, fu am level Discussed with staff Respiratory: no complaints Cardiovascular: no complaints Gastrointestinal: no complaints Genitourinary: no complaints Musculoskeletal: no complaints Exam/Review of Systems Vital Signs Vitals Vital Signs Date Time Temp Pulse Resp B/P Pulse Ox O2 Delivery O2 Flow Rate FiO2 05/21/17 07:33 98.1 95 18 104/55 99 05/20/17 01:00 Room Air Intake and Output 05/20/17 05/20/17 05/21/17 15:00 23:00 07:00 Intake Total 1040 ml 625 ml 725 ml Balance 1040 ml 625 ml 725 ml Exam Constitutional: alert, oriented, well developed Respiratory: diminished breath sounds, normal air movement Cardiovascular: nl pulses, other (S1S2) Gastrointestinal: other (ngt noted- connected to LIS-frothy discharge noted.), soft, tender Musculoskeletal: nl extremities to inspection Extremities: normal pulses Neurological: nl mental status Results Result Diagram: 05/21/17 0550 05/21/17 0549 Results 24 hrs Laboratory Tests Test 05/20/17 18:19 05/21/17 05:49 05/21/17 05:50 Potassium Level 3.9 3.5 Magnesium Level 1.3 L Sodium Level 141 Chloride Level 104 Carbon Dioxide Level 28 Anion Gap 13 Blood Urea Nitrogen 9 Creatinine 0.79 Glucose Level 106 Calcium Level 9.0 White Blood Count 13.8 #H Red Blood Count 2.61 L Hemoglobin 9.2 L Hematocrit 27.8 L Mean Corpuscular Volume 106.5 H Mean Corpuscular Hemoglobin 35.2 H Mean Corpuscular Hemoglobin Concent 33.1 Red Cell Distribution Width 13.7 Platelet Count 307 Mean Platelet Volume 11.1 H Neutrophils % Segmented Neutrophils % (Manual) 62 Band Neutrophils % (Manual) 12 H Lymphocytes % Lymphocytes % (Manual) 18 Monocytes % Monocytes % (Manual) 6 Eosinophils % Eosinophils % (Manual) 2 Basophils % Basophils % (Manual) 1 Nucleated Red Blood Cells % 1 H Neutrophils # Neutrophils # (Manual) 8.8 H Band Neutrophils # 1.6 H Absolute Lymphocytes (Manual) 2.4 Lymphocytes # Monocytes # Absolute Monocytes (Manual) 0.8 Eosinophils # Basophils # Basophils # (Manual) 0.1 H Nucleated Red Blood Cells # Platelet Estimate NORMAL Polychromasia 3+ Medications Medications Current Medications Ondansetron HCl (Zofran Inj) 4 mg Q6H PRN IV NAUSEA AND/OR VOMITING; Start at 03:00 Metoclopramide HCl (Reglan) 10 mg Q6H PRN IV NAUSEA AND/OR VOMITING; Start at 03:00 Acetaminophen (Tylenol Tab) 650 mg Q6H PRN PO PAIN LEVEL 1-3 OR FEVER; Start 05/20/17 at 03:00 Pantoprazole (Protonix Iv) 40 mg DAILY@06 IV Last administered on 05/21/17 06 :32; Admin Dose 40 MG; Start 05/20/17 at 06:00 Enoxaparin Sodium 40 mg 40 mg DAILY SC Last administered on 05/21/17 08:43; Admin Dose 40 MG; Start 05/20/17 at 09:00 Piperacillin Sod/ Tazobactam Sod (Zosyn 3.375gm/ 50 ml (Pmx)) 50 ml @ 100 mls/ hr Q6 IVPB Last administered on 05/21/17 11:31; Admin Dose 100 MLS/HR; Start 05/20/17 at 03:15 Hydromorphone HCl 1.5 mg 1.5 mg Q3 PRN IV PAIN; Start 05/20/17 at 03:30 Vancomycin HCl 100 ml @ 100 mls/hr Q12H IVPB Last administered on 05/21/17 06:32; Admin Dose 100 MLS/HR; Start 05/20/17 at 18:00 Dextrose/Sodium Chloride (D5-1/2ns) 1,000 ml @ 125 mls/hr Q8H IV Last administered on 05/21/17 03:53; Admin Dose 125 MLS/HR; Start 05/20/17 at 13: 30 Docusate Sodium (Colace) 100 mg BID PO ; Start 05/20/17 at 21:00 MEREDITH DENNIS May 21, 2017 11:46
[2017-05-21] MEDS: ACETAMINOPHEN 325 MG TAB PO PRN (14:46)
[2017-05-21 14:58] VITALS: BP 110/60; RESP 18
--- NOTE | 2017-05-21 17:27 | CONS ---
Date/Time of Note Date/Time of Note DATE: 05/21/17 TIME: 17:19 Assessment/Plan Assessment/Plan Chief Complaint/Hosp Course metastatic ovarian cancer - BRCA status negative per [facility] testing -pt has progressed through carboplatin/Doxil/Avastin last given on 02/01/17. Pt then started on Neraparib but CA 125 has dramatically risen to > 1000. most recently given Carboplatin/ Taxotere/Avastin on 05/16 -may need to hold Avastin given repeated episodes of SBO -continue to monitor CA 125 #h/o SBO -hold further Avastin -pt conservatively being managed for now -continue management per surgery #Leukocytosis -pt did receive Neulasta on 05/18 -ok with treating with antibiotics in case of underlying infection A total of 40 minutes of face to face time was spent speaking with the patient, of which greater than 50% was spent in counseling and coordination of care and the detailed question and answer session. Problems: Consultation Date/Type/Reason Admit Date/Time May 20, 2017 at 00:23 Date of Consultation: May 21, 2017 Type of Consultation: oncology Reason for Consultation ovarian cancer Referring Provider: LOTTIE NORTON MD Hx of Present Illness 66 yo female who was originally diagnosed with ovarian CA September 2013 when found with malignant ascites. Pt underwent Cytoreductive surgery on 10/27/13 followed by Carboplatin and Taxol chemotherapy. She was treated by Dr Gonzalez at the time. 1 year later she recurred when she was found with a small bowel obstruction. She was restarted on therapy with Taxol and Avastin. Avastin was apparently dropped bc of a blood clot. For this she was treated with a blood thinner from 04/[id number]. In 08/2016 pt was noted to have an elevated of her tumor marker. A PET CT was done which revealed recurrent disease. Pt had secondary Cytoreductive surgery done in 09/[address] Ramos. Of note intraoperatively, pt was noted to have upper abdominal disease involving the left perigastric areal throughout the small bowel mesentery with a segment of small bowel requiring small bowel resection. The left pelvic disease was adjacent to the sidewall and sigmoid colon We are now treating her with adjuvant Carboplatin/ Doxil and Avastin. Prior to starting this chemotherapy her CA 125 was 711.4. After 5 cycles of chemotherapy her CA 125 has come down to 247. 01/2017 pt was admitted to [facility] for bowel obstruction. This resolved with conservative management 6thcycle of carboplatin/ doxil and avastin was given on 02/01/17 03/06/17 CT of the abdomen and pelvis was done which revealed slight progression of the peritoneal carcinomatosis 03/26/17: given progression of disease seen on scan from March, and the fact patient wanted to have a break from chemotherapy, pt was started Neraparib. 03/08/2017 CA 125 275 and He4 207 - g PET CT reveals progressive peritoneal mets as compared with 08/2016 but stable from 03/2017. CA 125 continues to increase and is now >1000 consistent with progressive disease. 05/16/17 pt was restarted on chemotherapy and given Taxotere / Carboplatin Pt now admitted for abdominal pain and found with SBO Eyes: redness Respiratory: no complaints Cardiovascular: no complaints Gastrointestinal: no complaints Genitourinary: no complaints Musculoskeletal: no complaints Psychological: nl mood/affect Past Medical History Hypothyroidism Hyperlipidemia DM Depression Constipation Insomnia Past Surgical History s/p multiple debulking surgeries including ROSA BSO Family History Significant Family History: no pertinent family hx Social History Alcohol Use: none Smoking Status: Former smoker Exam/Review of Systems Vital Signs Vitals Vital Signs Date Time Temp Pulse Resp B/P Pulse Ox O2 Delivery O2 Flow Rate FiO2 05/21/17 14:58 98.0 90 18 110/60 99 05/20/17 01:00 Room Air Intake and Output 05/20/17 05/20/17 05/21/17 15:00 23:00 07:00 Intake Total 1040 ml 625 ml 725 ml Balance 1040 ml 625 ml 725 ml Exam Constitutional: alert, oriented Psych: no complaints Head: normocephalic Eyes: nl conjunctiva ENMT: other (NGT in place) Neck: supple Respiratory: clear to auscultation Cardiovascular: regular rate and rhythm Gastrointestinal: soft Musculoskeletal: nl extremities to inspection Results Result Diagram: 05/21/17 0550 05/21/17 0549 Results 24 hrs Laboratory Tests Test 05/20/17 18:19 05/21/17 05:49 05/21/17 05:50 05/21/17 12:12 Potassium Level 3.9 3.5 Magnesium Level 1.3 L Sodium Level 141 Chloride Level 104 Carbon Dioxide Level 28 Anion Gap 13 Blood Urea Nitrogen 9 Creatinine 0.79 Glucose Level 106 Calcium Level 9.0 White Blood Count 13.8 #H Red Blood Count 2.61 L Hemoglobin 9.2 L Hematocrit 27.8 L Mean Corpuscular Volume 106.5 H Mean Corpuscular Hemoglobin 35.2 H Mean Corpuscular Hemoglobin Concent 33.1 Red Cell Distribution Width 13.7 Platelet Count 307 Mean Platelet Volume 11.1 H Neutrophils % Segmented Neutrophils % (Manual) 62 Band Neutrophils % (Manual) 12 H Lymphocytes % Lymphocytes % (Manual) 18 Monocytes % Monocytes % (Manual) 6 Eosinophils % Eosinophils % (Manual) 2 Basophils % Basophils % (Manual) 1 Nucleated Red Blood Cells % 1 H Neutrophils # Neutrophils # (Manual) 8.8 H Band Neutrophils # 1.6 H Absolute Lymphocytes (Manual) 2.4 Lymphocytes # Monocytes # Absolute Monocytes (Manual) 0.8 Eosinophils # Basophils # Basophils # (Manual) 0.1 H Nucleated Red Blood Cells # Platelet Estimate NORMAL Polychromasia 3+ Lactic Acid Level 1.7 Medications Medications Current Medications Ondansetron HCl (Zofran Inj) 4 mg Q6H PRN IV NAUSEA AND/OR VOMITING; Start at 03:00 Metoclopramide HCl (Reglan) 10 mg Q6H PRN IV NAUSEA AND/OR VOMITING; Start at 03:00 Acetaminophen (Tylenol Tab) 650 mg Q6H PRN PO PAIN LEVEL 1-3 OR FEVER Last administered on 05/21/17 14:46; Admin Dose 650 MG; Start 05/20/17 at 03:00 Pantoprazole (Protonix Iv) 40 mg DAILY@06 IV Last administered on 05/21/17 06 :32; Admin Dose 40 MG; Start 05/20/17 at 06:00 Enoxaparin Sodium 40 mg 40 mg DAILY SC Last administered on 05/21/17 08:43; Admin Dose 40 MG; Start 05/20/17 at 09:00 Piperacillin Sod/ Tazobactam Sod (Zosyn 3.375gm/ 50 ml (Pmx)) 50 ml @ 100 mls/ hr Q6 IVPB Last administered on 05/21/17 11:31; Admin Dose 100 MLS/HR; Start 05/20/17 at 03:15 Hydromorphone HCl 1.5 mg 1.5 mg Q3 PRN IV PAIN; Start 05/20/17 at 03:30 Vancomycin HCl 100 ml @ 100 mls/hr Q12H IVPB Last administered on 05/21/17 06:32; Admin Dose 100 MLS/HR; Start 05/20/17 at 18:00 Dextrose/Sodium Chloride (D5-1/2ns) 1,000 ml @ 125 mls/hr Q8H IV Last administered on 05/21/17 03:53; Admin Dose 125 MLS/HR; Start 05/20/17 at 13: 30 Docusate Sodium (Colace) 100 mg BID PO ; Start 05/20/17 at 21:00 VALENTINA PHELAN M.D. May 21, 2017 17:27
[2017-05-21] MEDS: HYDROmorphONE 2 MG/ML SYG IV PRN (18:56)
[2017-05-21 20:00] VITALS: BP 118/57; RESP 18
[2017-05-21] MEDS: ONDANSETRON 4 MG INJ IV PRN (20:30)
[2017-05-21] MEDS: FAMOTIDINE 20 MG INJ IV SCH (20:30)
[2017-05-22 02:00] VITALS: BP 91/44; RESP 18
[2017-05-22] MEDS: PIPER-TAZO 3.375 GM IV (PMX) 50 ML IVPB SCH ×3 (05:45→17:47)
[2017-05-22] MEDS: DEXTROSE 5%-0.45% NACL 1,000 ML IV SCH ×3 (05:46→17:53)
[2017-05-22] MEDS: VANCOMYCIN 750 MG in DEXTROSE 5% 150 ML IVPB SCH ×2 (06:33→18:38)
[2017-05-22 06:48] LABS: ABNORMAL IP MESSAGE 1; HEMOGLOBIN 8.4 g/dl (12.0-16.0); MEAN CORPUSCULAR HEMOGLOBIN 35.3 pg (29.0-33.0); MEAN CORPUSCULAR HGB CONC 33.6 g/dl (32.0-37.0); MEAN PLATELET VOLUME 10.9 fl (7.4-10.4); PLATELET COUNT 280 10^3/UL (140-415); RED BLOOD COUNT 2.38 10^6/ul (4.20-5.40); RED CELL DISTRIBUTION WIDTH 13.3 % (11.5-14.5); WHITE BLOOD COUNT 9.2 10^3/ul (4.8-10.8)
[2017-05-22 07:03] LABS: POSITIVE DIFF @See below
[2017-05-22 07:21] LABS: CALCIUM 9.3 mg/dl (8.4-10.2); CREATININE 0.72 mg/dl (0.44-1.00); POTASSIUM 3.5 mmol/L (3.5-5.1)
[2017-05-22 08:14] VITALS: BP 100/57; PULSE 76; RESP 20
[2017-05-22] MEDS: FAMOTIDINE 20 MG INJ IV SCH ×2 (08:46→20:23)
[2017-05-22] MEDS: ENOXAPARIN 40 MG/0.4 ML SYG SC SCH (08:48)
[2017-05-22] MEDS: DOCUSATE SODIUM 100 MG CAP PO SCH ×2 (08:54→20:23)
[2017-05-22 09:48] LABS: ANISOCYTOSIS 1+ (0-0); BASOPHILS % (M) 2 % (0-2); EOSINOPHILS % (M) 5 % (0-7); ERYTHROBLAST% (NRBC) (M) 1 % (0-0); GIANT THROMBO% (M) 1 % (0-0); MONOCYTES % (M) 7 % (0-11); PLATELET ESTIMATE NORMAL; POLYCHROMASIA 2+ (0-0); REACTIVE LYMPHOCYTES% (M) 3 % (0-0)
--- NOTE | 2017-05-22 15:12 | PN ---
Date/Time of Note Date/Time of Note DATE: 05/22/17 TIME: 15:08 Assessment/Plan VTE Prophylaxis VTE Prophylaxis Intervention: SCD's Lines/Catheters IV [facility] port a cath Urinary Cath still in place: No Assessment/Plan Chief Complaint/Hosp Course Patient complains of sore throat, get anxious at times, remains afebrile. Assessment/Plan -Sepsis, continue vancomycin and Zosyn. -Small bowel obstruction, Dr. Neal is following in surgical consultation. Continue NG tube to low intermittent suctioning. -Metastatic ovarian cancer, status post cytoreduction surgery in [address] Oliva is following in hematology/oncology consultation. Further recommendations based on clinical course. Plan of care discussed with Dr. Matthews. - Problems: Exam/Review of Systems Vital Signs Vitals Vital Signs Date Time Temp Pulse Resp B/P Pulse Ox O2 Delivery O2 Flow Rate FiO2 05/22/17 08:14 98.6 76 20 100/57 98 Room Air Intake and Output 05/21/17 05/21/17 05/22/17 14:59 22:59 06:59 Intake Total 150 ml 850 ml 1050 ml Output Total 1500 ml 1100 ml Balance 150 ml -650 ml -50 ml Exam Constitutional: alert, oriented Neck: supple Respiratory: normal air movement Cardiovascular: nl pulses Gastrointestinal: non-tender, soft Musculoskeletal: nl extremities to inspection Extremities: normal pulses Results Result Diagram: 05/22/17 0552 05/22/17 0552 Results 24 hrs Laboratory Tests Test 05/21/17 16:58 05/22/17 05:52 Vancomycin Level Trough 9.0 L White Blood Count 9.2 # Red Blood Count 2.38 L Hemoglobin 8.4 L Hematocrit 25.0 L Mean Corpuscular Volume 105.0 H Mean Corpuscular Hemoglobin 35.3 H Mean Corpuscular Hemoglobin Concent 33.6 Red Cell Distribution Width 13.3 Platelet Count 280 Mean Platelet Volume 10.9 H Neutrophils % Segmented Neutrophils % (Manual) 61 Band Neutrophils % (Manual) 9 H Lymphocytes % Lymphocytes % (Manual) 13 L Reactive Lymphocytes % (Manual) 3 H Monocytes % Monocytes % (Manual) 7 Eosinophils % Eosinophils % (Manual) 5 Basophils % Basophils % (Manual) 2 Nucleated Red Blood Cells % 1 H Neutrophils # Neutrophils # (Manual) 5.7 Band Neutrophils # 0.8 H Absolute Lymphocytes (Manual) 1.1 Lymphocytes # Reactive Lymphocytes # 0.2 H Monocytes # Absolute Monocytes (Manual) 0.6 Eosinophils # Basophils # Basophils # (Manual) 0.1 H Nucleated Red Blood Cells # Platelet Estimate NORMAL Giant Platelets 1 H Polychromasia 2+ Anisocytosis 1+ Macrocytosis 1+ Sodium Level 142 Potassium Level 3.5 Chloride Level 103 Carbon Dioxide Level 31 Anion Gap 12 Blood Urea Nitrogen 6 L Creatinine 0.72 Glucose Level 104 Lactic Acid Level 1.5 Calcium Level 9.3 Medications Medications Current Medications Ondansetron HCl (Zofran Inj) 4 mg Q6H PRN IV NAUSEA AND/OR VOMITING Last administered on 05/21/17 20:30; Admin Dose 4 MG; Start 05/20/17 at 03:00 Metoclopramide HCl (Reglan) 10 mg Q6H PRN IV NAUSEA AND/OR VOMITING; Start at 03:00 Acetaminophen (Tylenol Tab) 650 mg Q6H PRN PO PAIN LEVEL 1-3 OR FEVER Last administered on 05/21/17 14:46; Admin Dose 650 MG; Start 05/20/17 at 03:00 Enoxaparin Sodium 40 mg 40 mg DAILY SC Last administered on 05/22/17 08:48; Admin Dose 40 MG; Start 05/20/17 at 09:00 Piperacillin Sod/ Tazobactam Sod (Zosyn 3.375gm/ 50 ml (Pmx)) 50 ml @ 100 mls/ hr Q6 IVPB Last administered on 05/22/17 11:59; Admin Dose 100 MLS/HR; Start 05/20/17 at 03:15 Hydromorphone HCl 1.5 mg 1.5 mg Q3 PRN IV PAIN Last administered on 05/21/17 18:56; Admin Dose 1.5 MG; Start 05/20/17 at 03:30 Dextrose/Sodium Chloride (D5-1/2ns) 1,000 ml @ 125 mls/hr Q8H IV Last administered on 05/22/17 05:46; Admin Dose 125 MLS/HR; Start 05/20/17 at 13: 30 Docusate Sodium (Colace) 100 mg BID PO ; Start 05/20/17 at 21:00 Famotidine 20 mg 20 mg BID IV Last administered on 05/22/17 08:46; Admin Dose 20 MG; Start 05/21/17 at 21:00 Vancomycin HCl/ Dextrose/Water (Vancocin/D5W) 150 ml @ 75 mls/hr Q12H IVPB Last administered on 05/22/17 06:33; Admin Dose 75 MLS/HR; Start 05/22/17 at 06:00 AMEE JIMENEZ May 22, 2017 15:12
[2017-05-22] MEDS ORDERED: BISACODYL 10 MG SUPP PR PRN (17:30)
[2017-05-22] MEDS ORDERED: LORAZEPAM 0.5 MG TAB PO PRN (17:30)
[2017-05-22] MEDS: CEPASTAT LOZENGE MT PRN ×2 (17:47→23:16)
--- NOTE | 2017-05-22 19:49 | PN ---
Date/Time of Note Date/Time of Note DATE: 05/22/17 TIME: 19:40 Assessment/Plan VTE Prophylaxis VTE Prophylaxis Intervention: heparin Lines/Catheters IV Catheter Type (from Nrs): port a cath Urinary Cath still in place: No Assessment/Plan Assessment/Plan A- stable with no clinical impvt P- Discuss with Dr. Villatoro Subjective 24 Hr Interval Summary Free Text/Dictation Feels about the same. Exam/Review of Systems Vital Signs Vitals Vital Signs Date Time Temp Pulse Resp B/P Pulse Ox O2 Delivery O2 Flow Rate FiO2 05/22/17 08:14 98.6 76 20 100/57 98 Room Air Intake and Output 05/21/17 05/21/17 05/22/17 15:00 23:00 07:00 Intake Total 150 ml 850 ml 1050 ml Output Total 1500 ml 1100 ml Balance 150 ml -650 ml -50 ml Exam Resp- resp CVS- NSR Abd- soft but distended Ext- NT Results Result Diagram: 05/22/17 0552 05/22/17 0552 Results 24 hrs Laboratory Tests Test 05/22/17 05:52 White Blood Count 9.2 # Red Blood Count 2.38 L Hemoglobin 8.4 L Hematocrit 25.0 L Mean Corpuscular Volume 105.0 H Mean Corpuscular Hemoglobin 35.3 H Mean Corpuscular Hemoglobin Concent 33.6 Red Cell Distribution Width 13.3 Platelet Count 280 Mean Platelet Volume 10.9 H Neutrophils % Segmented Neutrophils % (Manual) 61 Band Neutrophils % (Manual) 9 H Lymphocytes % Lymphocytes % (Manual) 13 L Reactive Lymphocytes % (Manual) 3 H Monocytes % Monocytes % (Manual) 7 Eosinophils % Eosinophils % (Manual) 5 Basophils % Basophils % (Manual) 2 Nucleated Red Blood Cells % 1 H Neutrophils # Neutrophils # (Manual) 5.7 Band Neutrophils # 0.8 H Absolute Lymphocytes (Manual) 1.1 Lymphocytes # Reactive Lymphocytes # 0.2 H Monocytes # Absolute Monocytes (Manual) 0.6 Eosinophils # Basophils # Basophils # (Manual) 0.1 H Nucleated Red Blood Cells # Platelet Estimate NORMAL Giant Platelets 1 H Polychromasia 2+ Anisocytosis 1+ Macrocytosis 1+ Sodium Level 142 Potassium Level 3.5 Chloride Level 103 Carbon Dioxide Level 31 Anion Gap 12 Blood Urea Nitrogen 6 L Creatinine 0.72 Glucose Level 104 Lactic Acid Level 1.5 Calcium Level 9.3 Medications Medications Current Medications Ondansetron HCl (Zofran Inj) 4 mg Q6H PRN IV NAUSEA AND/OR VOMITING Last administered on 05/21/17 20:30; Admin Dose 4 MG; Start 05/20/17 at 03:00 Metoclopramide HCl (Reglan) 10 mg Q6H PRN IV NAUSEA AND/OR VOMITING; Start at 03:00 Acetaminophen (Tylenol Tab) 650 mg Q6H PRN PO PAIN LEVEL 1-3 OR FEVER Last administered on 05/21/17 14:46; Admin Dose 650 MG; Start 05/20/17 at 03:00 Enoxaparin Sodium 40 mg 40 mg DAILY SC Last administered on 05/22/17 08:48; Admin Dose 40 MG; Start 05/20/17 at 09:00 Piperacillin Sod/ Tazobactam Sod (Zosyn 3.375gm/ 50 ml (Pmx)) 50 ml @ 100 mls/ hr Q6 IVPB Last administered on 05/22/17 17:47; Admin Dose 100 MLS/HR; Start 05/20/17 at 03:15 Hydromorphone HCl 1.5 mg 1.5 mg Q3 PRN IV PAIN Last administered on 05/21/17 18:56; Admin Dose 1.5 MG; Start 05/20/17 at 03:30 Dextrose/Sodium Chloride (D5-1/2ns) 1,000 ml @ 125 mls/hr Q8H IV Last administered on 05/22/17 17:53; Admin Dose 125 MLS/HR; Start 05/20/17 at 13: 30 Docusate Sodium (Colace) 100 mg BID PO ; Start 05/20/17 at 21:00 Famotidine 20 mg 20 mg BID IV Last administered on 05/22/17 08:46; Admin Dose 20 MG; Start 05/21/17 at 21:00 Vancomycin HCl/ Dextrose/Water (Vancocin/D5W) 150 ml @ 75 mls/hr Q12H IVPB Last administered on 05/22/17 18:38; Admin Dose 75 MLS/HR; Start 05/22/17 at 06:00 Phenol (Cepastat Lozenge) 1 lozenge Q4H PRN [place] SORE THROAT Last administered on 05/22/17 17:47; Admin Dose 1 LOZENGE; Start 05/22/17 at 17:30 Bisacodyl (Dulcolax Supp) 10 mg DAILY PRN [place] CONSTIPATION Last administered on 05/22/17t 17:47; Admin Dose 10 MG; Start 05/22/17 at 17:30 Lorazepam (Ativan) 0.5 mg Q6H PRN PO ANXIETY; Start 05/22/17 at 17:30 JAMES NÚÑEZ MD May 22, 2017 19:49
[2017-05-22] MEDS: LORAZEPAM 2 MG INJ IV PRN (20:24)
[2017-05-22 20:28] VITALS: BP 107/54; RESP 19
--- NOTE | 2017-05-22 23:39 | CONS ---
Date/Time of Note Date/Time of Note DATE: 05/22/17 TIME: 23:38 Assessment/Plan Assessment/Plan Chief Complaint/Hosp Course metastatic ovarian cancer - BRCA status negative per [facility] emergency department focus testing -pt has progressed through carboplatin/Doxil/Avastin last given on 02/01/17. Pt then started on Neraparib but CA 125 has dramatically risen to > 1000. most recently given Carboplatin/ Taxotere/Avastin on 05/16 -may need to hold Avastin given repeated episodes of SBO -continue to monitor CA 125 #h/o SBO -hold further Avastin -pt conservatively being managed for now -continue management per surgery #Leukocytosis -pt did receive Neulasta on 05/18 -ok with treating with antibiotics in case of underlying infection A total of 40 minutes of face to face time was spent speaking with the patient, of which greater than 50% was spent in counseling and coordination of care and the detailed question and answer session. Problems: Consultation Date/Type/Reason Admit Date/Time May 20, 2017 at 00:23 Initial Consult Date 05/21/17 Type of Consultation: oncology Reason for Consultation ovarian cancer Referring Provider: LOTTIE NORTON MD 24 HR Interval Summary Free Text/Dictation still with NGT output. c/o sore throat Exam/Review of Systems Vital Signs Vitals Vital Signs Date Time Temp Pulse Resp B/P Pulse Ox O2 Delivery O2 Flow Rate FiO2 05/22/17 20:28 97.8 106 19 107/54 93 05/22/17 08:14 Room Air Intake and Output 05/21/17 05/21/17 05/22/17 15:00 23:00 07:00 Intake Total 150 ml 850 ml 1050 ml Output Total 1500 ml 1100 ml Balance 150 ml -650 ml -50 ml Exam Constitutional: alert, distress Psych: anxiety Head: normocephalic Eyes: nl conjunctiva ENMT: nl external ears & nose Neck: non-tender, supple Respiratory: clear to auscultation Cardiovascular: regular rate and rhythm Gastrointestinal: soft Musculoskeletal: nl extremities to inspection Results Result Diagram: 05/22/17 0552 05/22/17 0552 Results 24 hrs Laboratory Tests Test 05/22/17 05:52 White Blood Count 9.2 # Red Blood Count 2.38 L Hemoglobin 8.4 L Hematocrit 25.0 L Mean Corpuscular Volume 105.0 H Mean Corpuscular Hemoglobin 35.3 H Mean Corpuscular Hemoglobin Concent 33.6 Red Cell Distribution Width 13.3 Platelet Count 280 Mean Platelet Volume 10.9 H Neutrophils % Segmented Neutrophils % (Manual) 61 Band Neutrophils % (Manual) 9 H Lymphocytes % Lymphocytes % (Manual) 13 L Reactive Lymphocytes % (Manual) 3 H Monocytes % Monocytes % (Manual) 7 Eosinophils % Eosinophils % (Manual) 5 Basophils % Basophils % (Manual) 2 Nucleated Red Blood Cells % 1 H Neutrophils # Neutrophils # (Manual) 5.7 Band Neutrophils # 0.8 H Absolute Lymphocytes (Manual) 1.1 Lymphocytes # Reactive Lymphocytes # 0.2 H Monocytes # Absolute Monocytes (Manual) 0.6 Eosinophils # Basophils # Basophils # (Manual) 0.1 H Nucleated Red Blood Cells # Platelet Estimate NORMAL Giant Platelets 1 H Polychromasia 2+ Anisocytosis 1+ Macrocytosis 1+ Sodium Level 142 Potassium Level 3.5 Chloride Level 103 Carbon Dioxide Level 31 Anion Gap 12 Blood Urea Nitrogen 6 L Creatinine 0.72 Glucose Level 104 Lactic Acid Level 1.5 Calcium Level 9.3 Medications Medications Current Medications Ondansetron HCl (Zofran Inj) 4 mg Q6H PRN IV NAUSEA AND/OR VOMITING Last administered on 05/21/17 20:30; Admin Dose 4 MG; Start 05/20/17 at 03:00 Metoclopramide HCl (Reglan) 10 mg Q6H PRN IV NAUSEA AND/OR VOMITING; Start at 03:00 Acetaminophen (Tylenol Tab) 650 mg Q6H PRN PO PAIN LEVEL 1-3 OR FEVER Last administered on 05/21/17 14:46; Admin Dose 650 MG; Start 05/20/17 at 03:00 Enoxaparin Sodium 40 mg 40 mg DAILY SC Last administered on 05/22/17 08:48; Admin Dose 40 MG; Start 05/20/17 at 09:00 Piperacillin Sod/ Tazobactam Sod (Zosyn 3.375gm/ 50 ml (Pmx)) 50 ml @ 100 mls/ hr Q6 IVPB Last administered on 05/22/17 17:47; Admin Dose 100 MLS/HR; Start 05/20/17 at 03:15 Hydromorphone HCl 1.5 mg 1.5 mg Q3 PRN IV PAIN Last administered on 05/21/17 18:56; Admin Dose 1.5 MG; Start 05/20/17 at 03:30 Dextrose/Sodium Chloride (D5-1/2ns) 1,000 ml @ 125 mls/hr Q8H IV Last administered on 05/22/17 17:53; Admin Dose 125 MLS/HR; Start 05/20/17 at 13: 30 Docusate Sodium (Colace) 100 mg BID PO ; Start 05/20/17 at 21:00 Famotidine 20 mg 20 mg BID IV Last administered on 05/22/17 20:23; Admin Dose 20 MG; Start 05/21/17 at 21:00 Vancomycin HCl/ Dextrose/Water (Vancocin/D5W) 150 ml @ 75 mls/hr Q12H IVPB Last administered on 05/22/17 18:38; Admin Dose 75 MLS/HR; Start 05/22/17 at 06:00 Phenol (Cepastat Lozenge) 1 lozenge Q4H PRN [place] SORE THROAT Last administered on 05/22/17 23:16; Admin Dose 1 LOZENGE; Start 05/22/17 at 17:30 Bisacodyl (Dulcolax Supp) 10 mg DAILY PRN [place] CONSTIPATION Last administered on 05/22/17 17:47; Admin Dose 10 MG; Start 05/22/17 at 17:30 Lorazepam (Ativan) 0.5 mg Q6H PRN IV anxiety Last administered on 05/22/17 20 :24; Admin Dose 0.5 MG; Start 05/22/17 at 20:30 VALENTINA PHELAN M.D. May 22, 2017 23:39
[2017-05-23] MEDS: PIPER-TAZO 3.375 GM IV (PMX) 50 ML IVPB SCH ×4 (01:22→17:37)
[2017-05-23 02:05] VITALS: BP 122/56; RESP 18
[2017-05-23] MEDS: DEXTROSE 5%-0.45% NACL 1,000 ML IV SCH (05:08)
[2017-05-23] MEDS: VANCOMYCIN 750 MG in DEXTROSE 5% 150 ML IVPB SCH ×2 (05:09→18:43)
[2017-05-23 05:21] LABS: ABNORMAL IP MESSAGE 1; HEMATOCRIT 25.5 % (37.0-47.0); HEMOGLOBIN 8.4 g/dl (12.0-16.0); MEAN CORPUSCULAR HEMOGLOBIN 34.3 pg (29.0-33.0); MEAN CORPUSCULAR HGB CONC 32.9 g/dl (32.0-37.0); MEAN CORPUSCULAR VOLUME 104.1 fl (82.0-101.0); NUCLEATED RED BLOOD CELLS% 0.2 /100WBC (0.0-0.0); PLATELET COUNT 324 10^3/UL (140-415); RED BLOOD COUNT 2.45 10^6/ul (4.20-5.40); RED CELL DISTRIBUTION WIDTH 13.2 % (11.5-14.5); WHITE BLOOD COUNT 9.7 10^3/ul (4.8-10.8)
[2017-05-23 05:37] LABS: POSITIVE DIFF @See below
[2017-05-23 06:00] LABS: CALCIUM 9.2 mg/dl (8.4-10.2); CREATININE 0.83 mg/dl (0.44-1.00)
[2017-05-23 06:16] LABS: POTASSIUM 2.9 mmol/L (3.5-5.1)
[2017-05-23 07:25] LABS: ANISOCYTOSIS 1+ (0-0); EOSINOPHILS % (M) 1 % (0-7); MONOCYTES % (M) 20 % (0-11); PLATELET ESTIMATE NORMAL; POLYCHROMASIA 3+ (0-0)
[2017-05-23 07:53] VITALS: BP 113/57; RESP 18
[2017-05-23] MEDS: D5W-0.45 NACL + KCL 40 MEQ 1,000 ML IV SCH ×3 (07:56→17:37)
[2017-05-23] MEDS: DOCUSATE SODIUM 100 MG CAP PO SCH ×2 (09:00→21:00)
[2017-05-23] MEDS: CEPASTAT LOZENGE MT PRN (09:36)
[2017-05-23] MEDS: FAMOTIDINE 20 MG INJ IV SCH ×2 (09:36→21:11)
[2017-05-23] MEDS: ENOXAPARIN 40 MG/0.4 ML SYG SC SCH (09:39)
[2017-05-23] MEDS ORDERED: BARIUM SULF 2% 450 ML BTL (BERRY SMOOTHIE) PO ONE (12:00)
[2017-05-23] MEDS: HYDROmorphONE 2 MG/ML SYG IV PRN (12:45)
--- NOTE | 2017-05-23 15:06 | CONS ---
Date/Time of Note Date/Time of Note DATE: 05/23/17 TIME: 15:05 Assessment/Plan Assessment/Plan Chief Complaint/Hosp Course #metastatic ovarian cancer - BRCA status negative per [facility] focus testing -pt has progressed through carboplatin/Doxil/Avastin last given on 02/01/17. Pt then started on Neraparib but CA 125 has dramatically risen to > 1000. most recently given Carboplatin/ Taxotere/Avastin on 05/16 -may need to hold Avastin given repeated episodes of SBO -continue to monitor CA 125 #h/o SBO -hold further Avastin -pt conservatively being managed for now -continue management per surgery -CT A/P with po and IV contrast has been ordered to help determine if the SBO is from adhesions or from progressive disease #Leukocytosis -pt did receive Neulasta on 05/18 -ok with treating with antibiotics in case of underlying infection A total of 40 minutes of face to face time was spent speaking with the patient, of which greater than 50% was spent in counseling and coordination of care and the detailed question and answer session. Problems: Consultation Date/Type/Reason Admit Date/Time May 20, 2017 at 00:23 Initial Consult Date 05/21/17 Type of Consultation: oncology Reason for Consultation ovarian cancer Referring Provider: LOTTIE NORTON MD 24 HR Interval Summary Free Text/Dictation no pain this morning. pt had BM this morning Exam/Review of Systems Vital Signs Vitals Vital Signs Date Time Temp Pulse Resp B/P Pulse Ox O2 Delivery O2 Flow Rate FiO2 05/23/17 07:53 98.1 107 18 113/57 96 05/22/17 08:14 Room Air Intake and Output 05/22/17 05/22/17 05/23/17 15:00 23:00 07:00 Intake Total 150 ml 1200 ml 1250 ml Output Total 900 ml Balance 150 ml 300 ml 1250 ml Exam Constitutional: alert, oriented Head: normocephalic ENMT: nl external ears & nose, other (NGT in place) Neck: non-tender, supple Respiratory: clear to auscultation Cardiovascular: regular rate and rhythm Gastrointestinal: soft Results Result Diagram: 05/23/17 0431 05/23/17 0431 Results 24 hrs Laboratory Tests Test 05/23/17 04:31 White Blood Count 9.7 Red Blood Count 2.45 L Hemoglobin 8.4 L Hematocrit 25.5 L Mean Corpuscular Volume 104.1 H Mean Corpuscular Hemoglobin 34.3 H Mean Corpuscular Hemoglobin Concent 32.9 Red Cell Distribution Width 13.2 Platelet Count 324 Mean Platelet Volume 11.0 H Neutrophils % Segmented Neutrophils % (Manual) 40 Band Neutrophils % (Manual) 4 Lymphocytes % Lymphocytes % (Manual) 35 Monocytes % Monocytes % (Manual) 20 H Eosinophils % Eosinophils % (Manual) 1 Basophils % Nucleated Red Blood Cells % 0.2 H Neutrophils # Neutrophils # (Manual) 3.9 Band Neutrophils # 0.3 Absolute Lymphocytes (Manual) 3.3 H Lymphocytes # Monocytes # Absolute Monocytes (Manual) 1.9 H Eosinophils # Basophils # Nucleated Red Blood Cells # Platelet Estimate NORMAL Polychromasia 3+ Anisocytosis 1+ Sodium Level 141 Potassium Level 2.9 *L Chloride Level 102 Carbon Dioxide Level 29 Anion Gap 13 Blood Urea Nitrogen 4 L Creatinine 0.83 Glucose Level 134 Calcium Level 9.2 Medications Medications Current Medications Ondansetron HCl (Zofran Inj) 4 mg Q6H PRN IV NAUSEA AND/OR VOMITING Last administered on 05/21/17 20:30; Admin Dose 4 MG; Start 05/20/17 at 03:00 Metoclopramide HCl (Reglan) 10 mg Q6H PRN IV NAUSEA AND/OR VOMITING; Start at 03:00 Acetaminophen (Tylenol Tab) 650 mg Q6H PRN PO PAIN LEVEL 1-3 OR FEVER Last administered on 05/21/17 14:46; Admin Dose 650 MG; Start 05/20/17 at 03:00 Enoxaparin Sodium 40 mg 40 mg DAILY SC Last administered on 05/23/17 09:39; Admin Dose 40 MG; Start 05/20/17 at 09:00 Piperacillin Sod/ Tazobactam Sod (Zosyn 3.375gm/ 50 ml (Pmx)) 50 ml @ 100 mls/ hr Q6 IVPB Last administered on 05/23/17 12:13; Admin Dose 100 MLS/HR; Start 05/20/17 at 03:15 Hydromorphone HCl (Dilaudid) 1.5 mg Q3 PRN IV PAIN Last administered on 12:45; Admin Dose 1.5 MG; Start 05/20/17 at 03:30 Docusate Sodium (Colace) 100 mg BID PO ; Start 05/20/17 at 21:00 Famotidine 20 mg 20 mg BID IV Last administered on 05/23/17 09:36; Admin Dose 20 MG; Start 05/21/17 at 21:00 Vancomycin HCl/ Dextrose/Water (Vancocin/D5W) 150 ml @ 75 mls/hr Q12H IVPB Last administered on 05/23/17 05:09; Admin Dose 75 MLS/HR; Start 05/22/17 at 06:00 Phenol (Cepastat Lozenge) 1 lozenge Q4H PRN [place] SORE THROAT Last administered on 05/23/17 09:36; Admin Dose 1 LOZENGE; Start 05/22/17 at 17:30 Bisacodyl (Dulcolax Supp) 10 mg DAILY PRN [place] CONSTIPATION Last administered on 05/22/17 17:47; Admin Dose 10 MG; Start 05/22/17 at 17:30 Lorazepam 0.5 mg 0.5 mg Q6H PRN IV anxiety Last administered on 05/22/17 20: 24; Admin Dose 0.5 MG; Start 05/22/17 at 20:30 Potassium Chloride/Dextrose/ Sod Cl (D5-1/2ns + KCl 40 Meq) 1,000 ml @ 125 mls/ hr Q8H IV Last administered on 05/23/17 07:56; Admin Dose 125 MLS/HR; Start 05/23/17 at 07:00 VALENTINA PHELAN M.D. May 23, 2017 15:06
[2017-05-23 15:16] VITALS: BP 112/46; RESP 18
[2017-05-23] MEDS: ONDANSETRON 4 MG INJ IV PRN (16:10)
[2017-05-23] MEDS ORDERED: IOHEXOL 14.3 MG(I)/ML (ADULT) BTL PO ONE (17:00)
--- NOTE | 2017-05-23 17:02 | PN ---
Date/Time of Note Date/Time of Note DATE: 05/23/17 TIME: 17:02 Assessment/Plan VTE Prophylaxis VTE Prophylaxis Intervention: SCD's Lines/Catheters IV C[facility]ter Type (from [facility]): PORT A CATH Urinary Cath still in place: No Assessment/Plan Chief Complaint/Hosp Course Pending CT with p.o. and IV contrast for further evaluation of a small bowel obstruction origin. Patient's condition and plan of care discussed with patient daughter over the phone. Assessment/Plan -Sepsis, continue vancomycin and Zosyn. -Small bowel obstruction, Dr. Neal is following in surgical consultation. Continue NG tube to low intermittent suctioning. -Metastatic ovarian cancer, status post cytoreduction surgery in [address] Oliva is following in hematology/oncology consultation. Further recommendations based on clinical course. Plan of care discussed with Dr. Matthews. - Problems: Exam/Review of Systems Vital Signs Vitals Vital Signs Date Time Temp Pulse Resp B/P Pulse Ox O2 Delivery O2 Flow Rate FiO2 05/23/17 15:16 98.3 96 18 112/46 96 05/22/17 08:14 Room Air Intake and Output 05/22/17 05/22/17 05/23/17 14:59 22:59 06:59 Intake Total 150 ml 1200 ml 1100 ml Output Total 900 ml Balance 150 ml 300 ml 1100 ml Exam Constitutional: alert, oriented Neck: supple Respiratory: normal air movement Cardiovascular: nl pulses Gastrointestinal: non-tender, soft Musculoskeletal: nl extremities to inspection Extremities: normal pulses Results Result Diagram: 05/23/17 0431 05/23/17 0431 Results 24 hrs Laboratory Tests Test 05/23/17 04:31 White Blood Count 9.7 Red Blood Count 2.45 L Hemoglobin 8.4 L Hematocrit 25.5 L Mean Corpuscular Volume 104.1 H Mean Corpuscular Hemoglobin 34.3 H Mean Corpuscular Hemoglobin Concent 32.9 Red Cell Distribution Width 13.2 Platelet Count 324 Mean Platelet Volume 11.0 H Neutrophils % Segmented Neutrophils % (Manual) 40 Band Neutrophils % (Manual) 4 Lymphocytes % Lymphocytes % (Manual) 35 Monocytes % Monocytes % (Manual) 20 H Eosinophils % Eosinophils % (Manual) 1 Basophils % Nucleated Red Blood Cells % 0.2 H Neutrophils # Neutrophils # (Manual) 3.9 Band Neutrophils # 0.3 Absolute Lymphocytes (Manual) 3.3 H Lymphocytes # Monocytes # Absolute Monocytes (Manual) 1.9 H Eosinophils # Basophils # Nucleated Red Blood Cells # Platelet Estimate NORMAL Polychromasia 3+ Anisocytosis 1+ Sodium Level 141 Potassium Level 2.9 *L Chloride Level 102 Carbon Dioxide Level 29 Anion Gap 13 Blood Urea Nitrogen 4 L Creatinine 0.83 Glucose Level 134 Calcium Level 9.2 Medications Medications Current Medications Ondansetron HCl (Zofran Inj) 4 mg Q6H PRN IV NAUSEA AND/OR VOMITING Last administered on 05/23/17 16:10; Admin Dose 4 MG; Start 05/20/17 at 03:00 Metoclopramide HCl (Reglan) 10 mg Q6H PRN IV NAUSEA AND/OR VOMITING; Start at 03:00 Acetaminophen (Tylenol Tab) 650 mg Q6H PRN PO PAIN LEVEL 1-3 OR FEVER Last administered on 05/21/17 14:46; Admin Dose 650 MG; Start 05/20/17 at 03:00 Enoxaparin Sodium 40 mg 40 mg DAILY SC Last administered on 05/23/17 09:39; Admin Dose 40 MG; Start 05/20/17 at 09:00 Piperacillin Sod/ Tazobactam Sod (Zosyn 3.375gm/ 50 ml (Pmx)) 50 ml @ 100 mls/ hr Q6 IVPB Last administered on 05/23/17 12:13; Admin Dose 100 MLS/HR; Start 05/20/17 at 03:15 Hydromorphone HCl (Dilaudid) 1.5 mg Q3 PRN IV PAIN Last administered on 12:45; Admin Dose 1.5 MG; Start 05/20/17 at 03:30 Docusate Sodium (Colace) 100 mg BID PO ; Start 05/20/17 at 21:00 Famotidine 20 mg 20 mg BID IV Last administered on 05/23/17 09:36; Admin Dose 20 MG; Start 05/21/17 at 21:00 Vancomycin HCl/ Dextrose/Water (Vancocin/D5W) 150 ml @ 75 mls/hr Q12H IVPB Last administered on 05/23/17 05:09; Admin Dose 75 MLS/HR; Start 05/22/17 at 06:00 Phenol (Cepastat Lozenge) 1 lozenge Q4H PRN [place] SORE THROAT Last administered on 05/23/17 09:36; Admin Dose 1 LOZENGE; Start 05/22/17 at 17:30 Bisacodyl (Dulcolax Supp) 10 mg DAILY PRN [place] CONSTIPATION Last administered on 05/22/17 17:47; Admin Dose 10 MG; Start 05/22/17 at 17:30 Lorazepam 0.5 mg 0.5 mg Q6H PRN IV anxiety Last administered on 05/22/17 20: 24; Admin Dose 0.5 MG; Start 05/22/17 at 20:30 Potassium Chloride/Dextrose/ Sod Cl (D5-1/2ns + KCl 40 Meq) 1,000 ml @ 125 mls/ hr Q8H IV Last administered on 05/23/17 07:56; Admin Dose 125 MLS/HR; Start 05/23/17 at 07:00 AMEE JIMENEZ May 23, 2017 17:02
[2017-05-23 20:43] VITALS: BP 131/60; RESP 19
[2017-05-24] MEDS: PIPER-TAZO 3.375 GM IV (PMX) 50 ML IVPB SCH ×5 (00:14→23:01)
[2017-05-24] MEDS ORDERED: SOD CHLORIDE 0.9% 100 ML ONE (01:35)
[2017-05-24] MEDS ORDERED: IOHEXOL 300MG/ML 150 ML BTL ONE (01:35)
[2017-05-24 02:09] VITALS: BP 113/56; RESP 18
--- NOTE | 2017-05-24 05:53 | RADRPT ---
PROCEDURE: CT Abdomen with and without contrast. CLINICAL INDICATION: Abdominal pain. TECHNIQUE: CT scan of the abdomen and pelvis with contrast was performed on a multi-detector high -resolution CT scanner. The patient was scanned before and after the uncomplicated administration o f 90 cc of Omnipaque 300 intravenous contrast. Coronal and sagittal reformatted images were obtaine d from the axial source images. Images were reviewed on a high-resolution PACS workstation. DICOM im ages are available. One or more of the following dose reduction techniques were used: - Automated exposure control. - Adjustment of the mA and/or kV according to patient size. - Use of iterative reconstruction technique. Exam CTD/vol = 6.57 mGy. Total exam DLP = 721.86 mGy-cm. COMPARISON: 05/19/2017. FINDINGS: Evaluation of the lung bases demonstrates mild bibasilar atelectasis. There is a calcified granuloma within the left lower lobe. There is a nasogastric tube extending to the stomach. Abdomen: The liver is normal in size. There is no focal mass or dilatation of the biliary tree. The gallbladder is mildly distended and contains a gallstone. The spleen is absent. The pancreas and gabi ateral adrenal glands are within normal limits. Bilateral kidneys are normal in size with symmetric enhancement. There is no radiopaque renal or ureteral calculus identified. There is no focal mass, h ydronephrosis or hydroureter. There is no retroperitoneal adenopathy. The abdominal aorta is of norm al caliber with scattered atherosclerotic calcifications. Oral contrast reaches the rectum. There is mild thickening of the stomach. There is no bowel obstruc tion or free air. The appendix is absent. There is no diverticulosis or diverticulitis. There is no ascites. Pelvis: The bladder is unremarkable. There is no significant pelvic adenopathy or free fluid. There are calcified injection granulomas over bilateral buttocks. Evaluation of the osseous structures demonstrates no suspicious lytic or blastic lesion. There are c alcified injection granulomas over bilateral buttocks. IMPRESSION: No evidence of bowel obstruction. There is a gastrostomy tube in place. Mild thickening of the stomach could be due to underdistension or represent gastritis. Cholelithiasis. Mild bibasilar atelectasis. Status post splenectomy. Vascular calcifications reflective of atherosclerosis. .Trent Akers MD, MD Date Time Electronically viewed and signed by .Trent Akers MD, MD on 05/24/2017 05:52 .T/
[2017-05-24 05:58] LABS: ABNORMAL IP MESSAGE 1; HEMATOCRIT 26.8 % (37.0-47.0); MEAN CORPUSCULAR HEMOGLOBIN 35.3 pg (29.0-33.0); MEAN CORPUSCULAR HGB CONC 33.6 g/dl (32.0-37.0); MEAN CORPUSCULAR VOLUME 105.1 fl (82.0-101.0); MEAN PLATELET VOLUME 11.9 fl (7.4-10.4); NUCLEATED RED BLOOD CELLS% 7.4 /100WBC (0.0-0.0); PLATELET COUNT 276 10^3/UL (140-415); RED BLOOD COUNT 2.55 10^6/ul (4.20-5.40); RED CELL DISTRIBUTION WIDTH 13.3 % (11.5-14.5)
[2017-05-24 06:01] LABS: POSITIVE DIFF @See below
[2017-05-24 06:16] LABS: CALCIUM 9.5 mg/dl (8.4-10.2); CREATININE 0.8 mg/dl (0.44-1.00); POTASSIUM 3.6 mmol/L (3.5-5.1)
[2017-05-24] MEDS: VANCOMYCIN 750 MG in DEXTROSE 5% 150 ML IVPB SCH ×2 (06:32→18:03)
[2017-05-24] MEDS: D5W-0.45 NACL + KCL 40 MEQ 1,000 ML IV SCH ×4 (07:00→22:55)
[2017-05-24 07:15] LABS: ANISOCYTOSIS 1+ (0-0); BURR CELLS 1+ (0-0); EOSINOPHILS % (M) 3 % (0-7); ERYTHROBLAST% (NRBC) (M) 20 % (0-0); GIANT THROMBO% (M) 2 % (0-0); MONOCYTES % (M) 15 % (0-11); MYELOCYTES % (M) 1 % (0-0); PLATELET ESTIMATE NORMAL; POIKILOCYTOSIS 1+ (0-0); POLYCHROMASIA 1+ (0-0); TARGET CELLS 1+ (0-0)
[2017-05-24 07:35] VITALS: BP 102/56; RESP 18
[2017-05-24] MEDS: DOCUSATE SODIUM 100 MG CAP PO SCH ×2 (09:00→20:58)
[2017-05-24] MEDS: ENOXAPARIN 40 MG/0.4 ML SYG SC SCH (09:00)
[2017-05-24] MEDS: FAMOTIDINE 20 MG INJ IV SCH (09:03)
--- NOTE | 2017-05-24 10:26 | PN ---
Date/Time of Note Date/Time of Note DATE: 05/24/17 TIME: 09:57 Assessment/Plan VTE Prophylaxis VTE Prophylaxis Intervention: other Lines/Catheters IV Catheter Type (from [facility]): PORT-A-CATH Urinary Cath still in place: No Assessment/Plan Assessment/Plan -Sepsis- WBC trended up - continue vancomycin and Zosyn. - Cholelithiasis per CT abd - Mild bibasilar atelectasis. - Gastritis- will start on Protonix, con to monitor -Small bowel obstruction, Dr. Zeng is following in surgical consultation. Continue NG tube to low intermittent suctioning. -Metastatic ovarian cancer, status post cytoreduction surgery in [address] Oliva is following in hematology/oncology consultation. Further recommendations based on clinical course. Plan of care discussed with Dr. Matthews. Subjective 24 Hr Interval Summary Free Text/Dictation Pending CT with p.o. and IV contrast for further evaluation of a small bowel obstruction origin. Respiratory: no complaints Cardiovascular: no complaints Gastrointestinal: pain Genitourinary: no complaints Exam/Review of Systems Vital Signs Vitals Vital Signs Date Time Temp Pulse Resp B/P Pulse Ox O2 Delivery O2 Flow Rate FiO2 05/24/17 07:35 98.3 92 18 102/56 92 05/22/17 08:14 Room Air Intake and Output 05/23/17 05/23/17 05/24/17 15:00 23:00 07:00 Intake Total 300 ml 1200 ml 750 ml Output Total 200 ml 100 ml Balance 300 ml 1000 ml 650 ml Exam Constitutional: alert, oriented Respiratory: diminished breath sounds, normal air movement Cardiovascular: nl pulses Gastrointestinal: soft, tender Musculoskeletal: nl extremities to inspection Neurological: nl mental status, nl speech Results Result Diagram: 05/24/1718 05/24/1718 Results 24 hrs Laboratory Tests Test 05/24/17 05:18 White Blood Count 15.0 #H Red Blood Count 2.55 L Hemoglobin 9.0 L Hematocrit 26.8 L Mean Corpuscular Volume 105.1 H Mean Corpuscular Hemoglobin 35.3 H Mean Corpuscular Hemoglobin Concent 33.6 Red Cell Distribution Width 13.3 Platelet Count 276 Mean Platelet Volume 11.9 H Neutrophils % Segmented Neutrophils % (Manual) 51 Band Neutrophils % (Manual) 3 Lymphocytes % Lymphocytes % (Manual) 26 Monocytes % Monocytes % (Manual) 15 H Eosinophils % Eosinophils % (Manual) 3 Basophils % Myelocytes % (Manual) 1 H Nucleated Red Blood Cells % 20 H Neutrophils # Neutrophils # (Manual) 7.7 H Band Neutrophils # 0.4 Absolute Lymphocytes (Manual) 3.9 H Lymphocytes # Monocytes # Absolute Monocytes (Manual) 2.2 H Eosinophils # Basophils # Myelocytes # 0.1 H Nucleated Red Blood Cells # Platelet Estimate NORMAL Giant Platelets 2 H Platelet Morphology Comment @See below Polychromasia 1+ Poikilocytosis 1+ Anisocytosis 1+ Macrocytosis 1+ Target Cells 1+ Sodium Level 142 Potassium Level 3.6 Chloride Level 104 Carbon Dioxide Level 25 Anion Gap 17 H Blood Urea Nitrogen 2 L Creatinine 0.80 Glucose Level 108 Calcium Level 9.5 Vancomycin Level Trough 14.6 Medications Medications Current Medications Ondansetron HCl (Zofran Inj) 4 mg Q6H PRN IV NAUSEA AND/OR VOMITING Last administered on 05/23/17 16:10; Admin Dose 4 MG; Start 05/20/17 at 03:00 Metoclopramide HCl (Reglan) 10 mg Q6H PRN IV NAUSEA AND/OR VOMITING Last administered on 05/24/17 00:00; Admin Dose 10 MG; Start 05/20/17 at 03:00 Acetaminophen 650 mg 650 mg Q6H PRN PO PAIN LEVEL 1-3 OR FEVER Last administered on 05/21/17 14:46; Admin Dose 650 MG; Start 05/20/17 at 03:00 Piperacillin Sod/ Tazobactam Sod (Zosyn 3.375gm/ 50 ml (Pmx)) 50 ml @ 100 mls/ hr Q6 IVPB Last administered on 05/24/17 04:58; Admin Dose 100 MLS/HR; Start 05/20/17 at 03:15 Hydromorphone HCl (Dilaudid) 1.5 mg Q3 PRN IV PAIN Last administered on 12:45; Admin Dose 1.5 MG; Start 05/20/17 at 03:30 Docusate Sodium (Colace) 100 mg BID PO ; Start 05/20/17 at 21:00 Famotidine 20 mg 20 mg BID IV Last administered on 05/24/17 09:03; Admin Dose 20 MG; Start 05/21/17 at 21:00 Vancomycin HCl/ Dextrose/Water (Vancocin/D5W) 150 ml @ 75 mls/hr Q12H IVPB Last administered on 05/24/17 06:32; Admin Dose 75 MLS/HR; Start 05/22/17 at 06:00 Phenol (Cepastat Lozenge) 1 lozenge Q4H PRN [place] SORE THROAT Last administered on 05/23/17 09:36; Admin Dose 1 LOZENGE; Start 05/22/17 at 17:30 Bisacodyl (Dulcolax Supp) 10 mg DAILY PRN [place] CONSTIPATION Last administered on 05/22/17 17:47; Admin Dose 10 MG; Start 05/22/17 at 17:30 Lorazepam 0.5 mg 0.5 mg Q6H PRN IV anxiety Last administered on 05/22/17 20: 24; Admin Dose 0.5 MG; Start 05/22/17 at 20:30 Potassium Chloride/Dextrose/ Sod Cl (D5-1/2ns + KCl 40 Meq) 1,000 ml @ 125 mls/ hr Q8H IV Last administered on 05/23/17 17:37; Admin Dose 125 MLS/HR; Start 05/23/17 at 07:00 Procedures Procedures PROCEDURE: CT Abdomen with and without contrast. CLINICAL INDICATION: Abdominal pain. FINDINGS: Evaluation of the lung bases demonstrates mild bibasilar atelectasis. There is a calcified granuloma within the left lower lobe. There is a nasogastric tube extending to the stomach. Abdomen: The liver is normal in size. There is no focal mass or dilatation of the biliary tree. The gallbladder is mildly distended and contains a gallstone. The spleen is absent. The pancreas and bilateral adrenal glands are within normal limits. Bilateral kidneys are normal in size with symmetric enhancement. There is no radiopaque renal or ureteral calculus identified. There is no focal mass, hydronephrosis or hydroureter. There is no retroperitoneal adenopathy. The abdominal aorta is of normal caliber with scattered atherosclerotic calcifications. Oral contrast reaches the rectum. There is mild thickening of the stomach. There is no bowel obstruction or free air. The appendix is absent. There is no diverticulosis or diverticulitis. There is no ascites. Pelvis: The bladder is unremarkable. There is no significant pelvic adenopathy or free fluid. There are calcified injection granulomas over bilateral buttocks. Evaluation of the osseous structures demonstrates no suspicious lytic or blastic lesion. There are calcified injection granulomas over bilateral buttocks. IMPRESSION: No evidence of bowel obstruction. There is a gastrostomy tube in place. Mild thickening of the stomach could be due to underdistension or represent gastritis. Cholelithiasis. Mild bibasilar atelectasis. Status post splenectomy. Vascular calcifications reflective of atherosclerosis. MEREDITH DENNIS May 24, 2017 10:07
[2017-05-24] MEDS ORDERED: PANTOPRAZOLE 40 MG INJ IV ONE (10:30)
[2017-05-24 14:26] VITALS: BP 109/68; RESP 20
[2017-05-24] MEDS: PANTOPRAZOLE 40 MG INJ IV SCH (17:25)
[2017-05-24 20:00] VITALS: BP 121/58; RESP 20
[2017-05-24] MEDS: LORAZEPAM 2 MG INJ IV PRN (22:55)
[2017-05-25 02:00] VITALS: BP 109/58; RESP 20
[2017-05-25] MEDS: PANTOPRAZOLE 40 MG INJ IV SCH ×2 (05:00→17:28)
[2017-05-25] MEDS: PIPER-TAZO 3.375 GM IV (PMX) 50 ML IVPB SCH ×4 (05:03→23:50)
[2017-05-25] MEDS: VANCOMYCIN 750 MG in DEXTROSE 5% 150 ML IVPB SCH ×2 (05:48→18:39)
[2017-05-25 05:54] LABS: ABNORMAL IP MESSAGE 1; HEMATOCRIT 24.8 % (37.0-47.0); HEMOGLOBIN 8.4 g/dl (12.0-16.0); MEAN CORPUSCULAR HEMOGLOBIN 35.1 pg (29.0-33.0); MEAN CORPUSCULAR HGB CONC 33.9 g/dl (32.0-37.0); MEAN CORPUSCULAR VOLUME 103.8 fl (82.0-101.0); MEAN PLATELET VOLUME 10.7 fl (7.4-10.4); PLATELET COUNT 374 10^3/UL (140-415); RED BLOOD COUNT 2.39 10^6/ul (4.20-5.40); RED CELL DISTRIBUTION WIDTH 13.4 % (11.5-14.5); WHITE BLOOD COUNT 20.2 10^3/ul (4.8-10.8)
[2017-05-25 06:12] LABS: POSITIVE DIFF @See below
[2017-05-25 06:14] LABS: ANION GAP 14 (8-16); BLOOD UREA NITROGEN < 2 mg/dl (7-20); CALCIUM 9.3 mg/dl (8.4-10.2); CARBON DIOXIDE 28 mmol/L (21-31); CHLORIDE 104 mmol/L (97-110); CREATININE 0.88 mg/dl (0.44-1.00); GLUCOSE 129 mg/dl (70-220); POTASSIUM 3.5 mmol/L (3.5-5.1); SODIUM 142 mmol/L (135-144)
[2017-05-25] MEDS: D5W-0.45 NACL + KCL 40 MEQ 1,000 ML IV SCH ×4 (07:00→23:55)
[2017-05-25 08:14] VITALS: BP 111/53; RESP 18
[2017-05-25] MEDS: CEPASTAT LOZENGE MT PRN (08:44)
[2017-05-25] MEDS: DOCUSATE SODIUM 100 MG CAP PO SCH ×2 (09:00→20:43)
[2017-05-25 10:45] LABS: LYMPHOCYTES # 4.6 10^3/ul (0.8-2.9); METAMYELOCYTES %M 1 % (0-0); MONOCYTE # 1.8 10^3/ul (0.3-0.9); MONOCYTES % (M) 9 % (0-11); PROMYELOCYTES #M 0.4 10^3/ul (0-0); PROMYELOCYTES % (M) 2 % (0-0)
--- NOTE | 2017-05-25 12:37 | PN ---
Date/Time of Note Date/Time of Note DATE: 05/25/17 TIME: 12:35 Assessment/Plan VTE Prophylaxis VTE Prophylaxis Intervention: SCD's Lines/Catheters IV C[facility]ter Type (from [facility]): PORT A CATH Urinary Cath still in place: No Assessment/Plan Chief Complaint/Hosp Course Patient of white blood cells increased to 20,000, no fever, patient looks comfortable, CT of the abdomen and pelvis reviewed, continue to monitor, f/up surgical recommendations Assessment/Plan -Sepsis, continue vancomycin and Zosyn. -Small bowel obstruction, Dr. Neal is following in surgical consultation. Continue NG tube to low intermittent suctioning. -Metastatic ovarian cancer, status post cytoreduction surgery in [address] Oliva is following in hematology/oncology consultation. Further recommendations based on clinical course. Plan of care discussed with Dr. Matthews. - Problems: Exam/Review of Systems Vital Signs Vitals Vital Signs Date Time Temp Pulse Resp B/P Pulse Ox O2 Delivery O2 Flow Rate FiO2 05/25/17 08:14 98.4 95 18 111/53 97 05/22/17 08:14 Room Air Intake and Output 05/24/17 05/24/17 05/25/17 15:00 23:00 07:00 Intake Total 550 ml 1200 ml 750 ml Output Total 1100 ml 150 ml Balance 550 ml 100 ml 600 ml Exam Constitutional: alert, oriented Neck: supple Respiratory: normal air movement Cardiovascular: nl pulses Gastrointestinal: non-tender, soft Musculoskeletal: nl extremities to inspection Extremities: normal pulses Results Result Diagram: 05/25/17 0507 05/25/17 0507 Results 24 hrs Laboratory Tests Test 05/25/17 05:07 White Blood Count 20.2 #H Red Blood Count 2.39 L Hemoglobin 8.4 L Hematocrit 24.8 L Mean Corpuscular Volume 103.8 H Mean Corpuscular Hemoglobin 35.1 H Mean Corpuscular Hemoglobin Concent 33.9 Red Cell Distribution Width 13.4 Platelet Count 374 # Mean Platelet Volume 10.7 H Neutrophils % Segmented Neutrophils % (Manual) 48 Band Neutrophils % (Manual) 17 H Lymphocytes % Lymphocytes % (Manual) 23 Monocytes % Monocytes % (Manual) 9 Eosinophils % Basophils % Metamyelocytes % (manual) 1 H Promyelocytes % (Manual) 2 H Nucleated Red Blood Cells % 21.0 H Neutrophils # Neutrophils # (Manual) 10.4 H Band Neutrophils # 3.4 H Absolute Lymphocytes (Manual) 4.6 H Lymphocytes # 4.6 H Monocytes # 1.8 H Absolute Monocytes (Manual) 1.8 H Eosinophils # Basophils # Metamyelocytes # 0.2 H Promyelocytes # 0.4 H Nucleated Red Blood Cells # Sodium Level 142 Potassium Level 3.5 Chloride Level 104 Carbon Dioxide Level 28 Anion Gap 14 Blood Urea Nitrogen < 2 L Creatinine 0.88 Glucose Level 129 Calcium Level 9.3 Medications Medications Current Medications Ondansetron HCl (Zofran Inj) 4 mg Q6H PRN IV NAUSEA AND/OR VOMITING Last administered on 05/23/17 16:10; Admin Dose 4 MG; Start 05/20/17 at 03:00 Metoclopramide HCl (Reglan) 10 mg Q6H PRN IV NAUSEA AND/OR VOMITING Last administered on 05/24/17 00:00; Admin Dose 10 MG; Start 05/20/17 at 03:00 Acetaminophen 650 mg 650 mg Q6H PRN PO PAIN LEVEL 1-3 OR FEVER Last administered on 05/21/17 14:46; Admin Dose 650 MG; Start 05/20/17 at 03:00 Piperacillin Sod/ Tazobactam Sod (Zosyn 3.375gm/ 50 ml (Pmx)) 50 ml @ 100 mls/ hr Q6 IVPB Last administered on 05/25/17 11:01; Admin Dose 100 MLS/HR; Start 05/20/17 at 03:15 Hydromorphone HCl (Dilaudid) 1.5 mg Q3 PRN IV PAIN Last administered on 12:45; Admin Dose 1.5 MG; Start 05/20/17 at 03:30 Docusate Sodium 100 mg 100 mg BID PO ; Start 05/20/17 at 21:00 Vancomycin HCl/ Dextrose/Water (Vancocin/D5W) 150 ml @ 75 mls/hr Q12H IVPB Last administered on 05/25/17 05:48; Admin Dose 75 MLS/HR; Start 05/22/17 at 06:00 Phenol (Cepastat Lozenge) 1 lozenge Q4H PRN MT SORE THROAT Last administered on 05/25/17 08:44; Admin Dose 1 LOZENGE; Start 11/21/17 at 17:30 Bisacodyl (Dulcolax Supp) 10 mg DAILY PRN [place] CONSTIPATION Last administered on 05/22/17 17:47; Admin Dose 10 MG; Start 05/22/17 at 17:30 Lorazepam 0.5 mg 0.5 mg Q6H PRN IV anxiety Last administered on 05/24/17 22: 55; Admin Dose 0.5 MG; Start 05/22/17 at 20:30 Potassium Chloride/Dextrose/ Sod Cl (D5-1/2ns + KCl 40 Meq) 1,000 ml @ 125 mls/ hr Q8H IV Last administered on 05/25/17 10:49; Admin Dose 125 MLS/HR; Start 05/23/17 at 07:00 Pantoprazole (Protonix Iv) 40 mg BID@06,18 IV Last administered on 05/25/17 05:00; Admin Dose 40 MG; Start 05/24/17 at 18:00 AMEE JIMENEZ May 25, 2017 12:37
[2017-05-25 15:00] VITALS: BP 110/60; PULSE 78; RESP 18
[2017-05-25] MEDS: LORAZEPAM 2 MG INJ IV PRN (20:47)
[2017-05-26 02:27] VITALS: BP 97/53; RESP 17
[2017-05-26] MEDS: PIPER-TAZO 3.375 GM IV (PMX) 50 ML IVPB SCH ×3 (05:34→17:37)
[2017-05-26] MEDS: PANTOPRAZOLE 40 MG INJ IV SCH (05:34)
[2017-05-26 05:40] LABS: ABNORMAL IP MESSAGE 1; HEMATOCRIT 25.4 % (37.0-47.0); HEMOGLOBIN 8.3 g/dl (12.0-16.0); MEAN CORPUSCULAR HEMOGLOBIN 34.4 pg (29.0-33.0); MEAN CORPUSCULAR HGB CONC 32.7 g/dl (32.0-37.0); MEAN CORPUSCULAR VOLUME 105.4 fl (82.0-101.0); MEAN PLATELET VOLUME 10.5 fl (7.4-10.4); NUCLEATED RED BLOOD CELLS% 28.5 /100WBC (0.0-0.0); PLATELET COUNT 390 10^3/UL (140-415); RED BLOOD COUNT 2.41 10^6/ul (4.20-5.40); RED CELL DISTRIBUTION WIDTH 13.8 % (11.5-14.5)
[2017-05-26 05:41] LABS: POSITIVE DIFF @See below
[2017-05-26 05:55] LABS: ANION GAP 15 (8-16); CALCIUM 9.6 mg/dl (8.4-10.2); CARBON DIOXIDE 28 mmol/L (21-31); CHLORIDE 105 mmol/L (97-110); GLUCOSE 107 mg/dl (70-220); POTASSIUM 3.7 mmol/L (3.5-5.1); SODIUM 144 mmol/L (135-144)
[2017-05-26] MEDS: VANCOMYCIN 750 MG in DEXTROSE 5% 150 ML IVPB SCH (06:03)
[2017-05-26 06:13] LABS: BLOOD UREA NITROGEN < 2 mg/dl (7-20)
[2017-05-26 08:00] VITALS: BP 124/58; RESP 18
[2017-05-26] MEDS: DOCUSATE SODIUM 100 MG CAP PO SCH ×2 (09:00→20:49)
[2017-05-26 09:30] LABS: ANISOCYTOSIS 1+ (0-0); BASOPHILS % (M) 1 % (0-2); ERYTHROBLAST% (NRBC) (M) 28 % (0-0); GIANT THROMBO% (M) 4 % (0-0); METAMYELOCYTES %M 3 % (0-0); MONOCYTES % (M) 6 % (0-11); MYELOCYTES % (M) 1 % (0-0); PLATELET ESTIMATE NORMAL; POLYCHROMASIA 2+ (0-0)
--- NOTE | 2017-05-26 12:47 | PN ---
Date/Time of Note Date/Time of Note DATE: 05/26/17 TIME: 12:47 Assessment/Plan VTE Prophylaxis VTE Prophylaxis Intervention: other Lines/Catheters IV Catheter Type (from [facility]): PORT A CATH Urinary Cath still in place: No Assessment/Plan Chief Complaint/Hosp Course -Sepsis, continue vancomycin and Zosyn. -Small bowel obstruction, Dr. Neal is following in surgical consultation. Patient tolerating clear liquids, will advance -Metastatic ovarian cancer, status post cytoreduction surgery in [address] Oliva is following in hematology/oncology consultation. Problems: Subjective 24 Hr Interval Summary Free Text/Dictation Patient has no complaints of pain Exam/Review of Systems Vital Signs Vitals Vital Signs Date Time Temp Pulse Resp B/P Pulse Ox O2 Delivery O2 Flow Rate FiO2 05/26/17 08:00 97.5 94 18 124/58 96 05/25/17 15:00 Room Air Intake and Output 05/25/17 05/25/17 05/26/17 15:00 23:00 07:00 Intake Total 500 ml 1420 ml 1045 ml Balance 500 ml 1420 ml 1045 ml Exam Constitutional: well developed Head: atraumatic, normocephalic Neck: supple Respiratory: clear to auscultation Cardiovascular: regular rate and rhythm Gastrointestinal: non-tender, soft Extremities: normal pulses Results Result Diagram: 05/26/17 0450 05/26/17 0450 Results 24 hrs Laboratory Tests Test 05/26/17 04:50 White Blood Count 19.0 H Red Blood Count 2.41 L Hemoglobin 8.3 L Hematocrit 25.4 L Mean Corpuscular Volume 105.4 H Mean Corpuscular Hemoglobin 34.4 H Mean Corpuscular Hemoglobin Concent 32.7 Red Cell Distribution Width 13.8 Platelet Count 390 Mean Platelet Volume 10.5 H Neutrophils % Segmented Neutrophils % (Manual) 52 Band Neutrophils % (Manual) 3 Lymphocytes % Lymphocytes % (Manual) 34 Monocytes % Monocytes % (Manual) 6 Eosinophils % Basophils % Basophils % (Manual) 1 Metamyelocytes % (manual) 3 H Myelocytes % (Manual) 1 H Nucleated Red Blood Cells % 28 H Neutrophils # Neutrophils # (Manual) 10.0 H Band Neutrophils # 0.5 Absolute Lymphocytes (Manual) 6.4 H Lymphocytes # Monocytes # Absolute Monocytes (Manual) 1.1 H Eosinophils # Basophils # Basophils # (Manual) 0.1 H Metamyelocytes # 0.5 H Myelocytes # 0.1 H Nucleated Red Blood Cells # Platelet Estimate NORMAL Giant Platelets 4 H Polychromasia 2+ Anisocytosis 1+ Macrocytosis 1+ Sodium Level 144 Potassium Level 3.7 Chloride Level 105 Carbon Dioxide Level 28 Anion Gap 15 Blood Urea Nitrogen < 2 L Creatinine 0.90 Glucose Level 107 Calcium Level 9.6 Vancomycin Level Trough 16.7 Medications Medications Current Medications Ondansetron HCl (Zofran Inj) 4 mg Q6H PRN IV NAUSEA AND/OR VOMITING Last administered on 05/23/17 16:10; Admin Dose 4 MG; Start 05/20/17 at 03:00 Metoclopramide HCl (Reglan) 10 mg Q6H PRN IV NAUSEA AND/OR VOMITING Last administered on 05/24/17 00:00; Admin Dose 10 MG; Start 05/20/17 at 03:00 Acetaminophen 650 mg 650 mg Q6H PRN PO PAIN LEVEL 1-3 OR FEVER Last administered on 05/21/17 14:46; Admin Dose 650 MG; Start 05/20/17 at 03:00 Piperacillin Sod/ Tazobactam Sod (Zosyn 3.375gm/ 50 ml (Pmx)) 50 ml @ 100 mls/ hr Q6 IVPB Last administered on 05/26/17 12:13; Admin Dose 100 MLS/HR; Start 05/20/17 at 03:15 Hydromorphone HCl (Dilaudid) 1.5 mg Q3 PRN IV PAIN Last administered on 12:45; Admin Dose 1.5 MG; Start 05/20/17 at 03:30 Docusate Sodium (Colace) 100 mg BID PO Last administered on 05/25/17 20:43; Admin Dose 100 MG; Start 05/20/17 at 21:00 Phenol (Cepastat Lozenge) 1 lozenge Q4H PRN MT SORE THROAT Last administered on 05/25/17 08:44; Admin Dose 1 LOZENGE; Start 05/22/17 at 17:30 Bisacodyl (Dulcolax Supp) 10 mg DAILY PRN [place] CONSTIPATION Last administered on 05/22/17 17:47; Admin Dose 10 MG; Start 05/22/17 at 17:30 Lorazepam 0.5 mg 0.5 mg Q6H PRN IV anxiety Last administered on 05/25/17 20: 47; Admin Dose 0.5 MG; Start 05/22/17 at 20:30 Potassium Chloride/Dextrose/ Sod Cl (D5-1/2ns + KCl 40 Meq) 1,000 ml @ 70 mls/ hr [id number] IV Last administered on 05/25/17 23:55; Admin Dose 70 MLS/HR; Start 05/23/17 at 07:00 Pantoprazole 40 mg 40 mg BID@06,18 IV Last administered on 05/26/17 05:34; Admin Dose 40 MG; Start 05/24/17 at 18:00 Vancomycin HCl (Vancocin) 100 ml @ 100 mls/hr Q12H IVPB ; Start 05/26/17 at 18 :00 SANDY ABDALLA May 26, 2017 12:47
[2017-05-26] MEDS: CEPASTAT LOZENGE MT PRN (13:50)
[2017-05-26 14:00] VITALS: BP 133/62; RESP 18
[2017-05-26] MEDS: VANCOMYCIN 500MG/NS (PMX) 100 ML IVPB SCH (18:45)
[2017-05-26 20:00] VITALS: BP 103/55; RESP 20
[2017-05-26] MEDS: D5W-0.45 NACL + KCL 40 MEQ 1,000 ML IV SCH (20:15)
[2017-05-26] MEDS: FAMOTIDINE 20 MG INJ IV SCH (20:48)
--- NOTE | 2017-05-26 22:30 | PN ---
Date/Time of Note Date/Time of Note DATE: 05/26/17 TIME: 22:28 Assessment/Plan VTE Prophylaxis VTE Prophylaxis Intervention: heparin Lines/Catheters IV Catheter Type (from Nrs): isreal catheter Urinary Cath still in place: No Assessment/Plan Assessment/Plan A- improved P- adv diet today and a.m Subjective 24 Hr Interval Summary Free Text/Dictation + BM large per pt and feels better and liq Exam/Review of Systems Vital Signs Vitals Vital Signs Date Time Temp Pulse Resp B/P Pulse Ox O2 Delivery O2 Flow Rate FiO2 05/26/17 14:00 97.5 94 18 133/62 97 05/25/17 15:00 Room Air Intake and Output 05/25/17 05/25/17 05/26/17 15:00 23:00 07:00 Intake Total 500 ml 1420 ml 1045 ml Balance 500 ml 1420 ml 1045 ml Exam Resp- clear CVS- NSR Abd- soft and NT Ext- NT Results Result Diagram: 05/26/17 0450 05/26/17 0450 Results 24 hrs Laboratory Tests Test 05/26/17 04:50 White Blood Count 19.0 H Red Blood Count 2.41 L Hemoglobin 8.3 L Hematocrit 25.4 L Mean Corpuscular Volume 105.4 H Mean Corpuscular Hemoglobin 34.4 H Mean Corpuscular Hemoglobin Concent 32.7 Red Cell Distribution Width 13.8 Platelet Count 390 Mean Platelet Volume 10.5 H Neutrophils % Segmented Neutrophils % (Manual) 52 Band Neutrophils % (Manual) 3 Lymphocytes % Lymphocytes % (Manual) 34 Monocytes % Monocytes % (Manual) 6 Eosinophils % Basophils % Basophils % (Manual) 1 Metamyelocytes % (manual) 3 H Myelocytes % (Manual) 1 H Nucleated Red Blood Cells % 28 H Neutrophils # Neutrophils # (Manual) 10.0 H Band Neutrophils # 0.5 Absolute Lymphocytes (Manual) 6.4 H Lymphocytes # Monocytes # Absolute Monocytes (Manual) 1.1 H Eosinophils # Basophils # Basophils # (Manual) 0.1 H Metamyelocytes # 0.5 H Myelocytes # 0.1 H Nucleated Red Blood Cells # Platelet Estimate NORMAL Giant Platelets 4 H Polychromasia 2+ Anisocytosis 1+ Macrocytosis 1+ Sodium Level 144 Potassium Level 3.7 Chloride Level 105 Carbon Dioxide Level 28 Anion Gap 15 Blood Urea Nitrogen < 2 L Creatinine 0.90 Glucose Level 107 Calcium Level 9.6 Vancomycin Level Trough 16.7 Medications Medications Current Medications Ondansetron HCl (Zofran Inj) 4 mg Q6H PRN IV NAUSEA AND/OR VOMITING Last administered on 05/23/17 16:10; Admin Dose 4 MG; Start 05/20/17 at 03:00 Metoclopramide HCl (Reglan) 10 mg Q6H PRN IV NAUSEA AND/OR VOMITING Last administered on 05/24/17 00:00; Admin Dose 10 MG; Start 05/20/17 at 03:00 Acetaminophen 650 mg 650 mg Q6H PRN PO PAIN LEVEL 1-3 OR FEVER Last administered on 05/21/17 14:46; Admin Dose 650 MG; Start 05/20/17 at 03:00 Piperacillin Sod/ Tazobactam Sod (Zosyn 3.375gm/ 50 ml (Pmx)) 50 ml @ 100 mls/ hr Q6 IVPB Last administered on 05/26/17 17:37; Admin Dose 100 MLS/HR; Start 05/20/17 at 03:15 Hydromorphone HCl (Dilaudid) 1.5 mg Q3 PRN IV PAIN Last administered on 12:45; Admin Dose 1.5 MG; Start 05/20/17 at 03:30 Docusate Sodium (Colace) 100 mg BID PO Last administered on 05/25/17 20:43; Admin Dose 100 MG; Start 05/20/17 at 21:00 Phenol (Cepastat Lozenge) 1 lozenge Q4H PRN [place] SORE THROAT Last administered on 05/26/17 13:50; Admin Dose 1 LOZENGE; Start 05/22/17 at 17:30 Bisacodyl (Dulcolax Supp) 10 mg DAILY PRN [place] CONSTIPATION Last administered on 05/22/17 17:47; Admin Dose 10 MG; Start 05/22/17 at 17:30 Lorazepam 0.5 mg 0.5 mg Q6H PRN IV anxiety Last administered on 05/25/17 20: 47; Admin Dose 0.5 MG; Start 05/22/17 at 20:30 Potassium Chloride/Dextrose/ Sod Cl 1,000 ml @ 70 mls/hr [id number] IV Last administered on 05/26/17 20:15; Admin Dose 70 MLS/HR; Start 05/23/17 at 07:00 Vancomycin HCl (Vancocin) 100 ml @ 100 mls/hr Q12H IVPB Last administered on 05/26/17 18:45; Admin Dose 100 MLS/HR; Start 05/26/17 at 18:00 Famotidine (Pepcid Iv) 20 mg Q12 IV Last administered on 05/26/17 20:48; Admin Dose 20 MG; Start 05/26/17 at 21:00 JAMES NÚÑEZ MD May 26, 2017 22:30
[2017-05-27] MEDS: PIPER-TAZO 3.375 GM IV (PMX) 50 ML IVPB SCH ×4 (00:44→17:00)
[2017-05-27] MEDS: LORAZEPAM 2 MG INJ IV PRN (00:44)
[2017-05-27 02:00] VITALS: BP 111/54; RESP 19
[2017-05-27] MEDS: VANCOMYCIN 500MG/NS (PMX) 100 ML IVPB SCH ×2 (05:42→17:00)
[2017-05-27 05:45] LABS: ABNORMAL IP MESSAGE 1; HEMATOCRIT 22.2 % (37.0-47.0); HEMOGLOBIN 7.4 g/dl (12.0-16.0); MEAN CORPUSCULAR HEMOGLOBIN 35.4 pg (29.0-33.0); MEAN CORPUSCULAR HGB CONC 33.3 g/dl (32.0-37.0); MEAN CORPUSCULAR VOLUME 106.2 fl (82.0-101.0); MEAN PLATELET VOLUME 10.5 fl (7.4-10.4); NUCLEATED RED BLOOD CELLS% 23.3 /100WBC (0.0-0.0); PLATELET COUNT 331 10^3/UL (140-415); RED BLOOD COUNT 2.09 10^6/ul (4.20-5.40); RED CELL DISTRIBUTION WIDTH 13.9 % (11.5-14.5); WHITE BLOOD COUNT 13.5 10^3/ul (4.8-10.8)
[2017-05-27 05:51] LABS: POSITIVE DIFF @See below
[2017-05-27 06:23] LABS: ANION GAP 16 (8-16); CALCIUM 9.3 mg/dl (8.4-10.2); CARBON DIOXIDE 27 mmol/L (21-31); CHLORIDE 106 mmol/L (97-110); CREATININE 0.88 mg/dl (0.44-1.00); GLUCOSE 98 mg/dl (70-220); POTASSIUM 3.4 mmol/L (3.5-5.1); SODIUM 146 mmol/L (135-144)
[2017-05-27 06:33] LABS: BLOOD UREA NITROGEN < 2 mg/dl (7-20)
[2017-05-27 07:51] VITALS: BP 101/54; RESP 16
[2017-05-27] MEDS: FAMOTIDINE 20 MG INJ IV SCH ×2 (08:24→21:06)
[2017-05-27] MEDS: DOCUSATE SODIUM 100 MG CAP PO SCH ×2 (08:24→21:00)
[2017-05-27 09:47] LABS: ERYTHROBLAST% (NRBC) (M) 35 % (0-0); LYMPHOCYTES # 2.6 10^3/ul (0.8-2.9); MONOCYTE # 1.6 10^3/ul (0.3-0.9); MONOCYTES % (M) 12 % (0-11)
[2017-05-27 09:48] LABS: ANISOCYTOSIS 1+ (0-0); HYPOCHROMASIA 2+ (0-0)
--- NOTE | 2017-05-27 12:04 | PN ---
Date/Time of Note Date/Time of Note DATE: 05/27/17 TIME: 12:04 Assessment/Plan VTE Prophylaxis VTE Prophylaxis Intervention: other Lines/Catheters IV [facility] isreal catheter Urinary Cath still in place: No Assessment/Plan Chief Complaint/Hosp Course -Sepsis, continue vancomycin and Zosyn. -Small bowel obstruction, Dr. Neal is following in surgical consultation. Patient tolerating clear liquids, will advance -Metastatic ovarian cancer, status post cytoreduction surgery in [address] Oliva is following in hematology/oncology consultation. Problems: Subjective 24 Hr Interval Summary Free Text/Dictation Patient complain of sore throat Exam/Review of Systems Vital Signs Vitals Vital Signs Date Time Temp Pulse Resp B/P Pulse Ox O2 Delivery O2 Flow Rate FiO2 05/27/17 07:51 98.2 85 16 101/54 96 05/25/17 15:00 Room Air Intake and Output 05/26/17 05/26/17 05/27/17 15:00 23:00 07:00 Intake Total 200 ml 1600 ml 750 ml Balance 200 ml 1600 ml 750 ml Exam Constitutional: well developed Head: atraumatic, normocephalic Neck: supple Respiratory: clear to auscultation Cardiovascular: regular rate and rhythm Gastrointestinal: non-tender, soft Extremities: normal pulses Results Result Diagram: 05/27/17 0430 05/27/17 0430 Results 24 hrs Laboratory Tests Test 05/27/17 04:30 White Blood Count 13.5 #H Red Blood Count 2.09 L Hemoglobin 7.4 L Hematocrit 22.2 L Mean Corpuscular Volume 106.2 H Mean Corpuscular Hemoglobin 35.4 H Mean Corpuscular Hemoglobin Concent 33.3 Red Cell Distribution Width 13.9 Platelet Count 331 Mean Platelet Volume 10.5 H Neutrophils % Segmented Neutrophils % (Manual) 66 Band Neutrophils % (Manual) 3 Lymphocytes % Lymphocytes % (Manual) 19 Monocytes % Monocytes % (Manual) 12 H Eosinophils % Basophils % Nucleated Red Blood Cells % 35 H Neutrophils # Neutrophils # (Manual) 9.0 H Band Neutrophils # 0.4 Absolute Lymphocytes (Manual) 2.5 Lymphocytes # 2.6 Monocytes # 1.6 H Absolute Monocytes (Manual) 1.6 H Eosinophils # Basophils # Nucleated Red Blood Cells # Hypochromasia 2+ Anisocytosis 1+ Sodium Level 146 H Potassium Level 3.4 L Chloride Level 106 Carbon Dioxide Level 27 Anion Gap 16 Blood Urea Nitrogen < 2 L Creatinine 0.88 Glucose Level 98 Calcium Level 9.3 Medications Medications Current Medications Ondansetron HCl (Zofran Inj) 4 mg Q6H PRN IV NAUSEA AND/OR VOMITING Last administered on 05/23/17 16:10; Admin Dose 4 MG; Start 05/20/17 at 03:00 Metoclopramide HCl (Reglan) 10 mg Q6H PRN IV NAUSEA AND/OR VOMITING Last administered on 05/24/17 00:00; Admin Dose 10 MG; Start 05/20/17 at 03:00 Acetaminophen 650 mg 650 mg Q6H PRN PO PAIN LEVEL 1-3 OR FEVER Last administered on 05/21/17 14:46; Admin Dose 650 MG; Start 05/20/17 at 03:00 Piperacillin Sod/ Tazobactam Sod (Zosyn 3.375gm/ 50 ml (Pmx)) 50 ml @ 100 mls/ hr Q6 IVPB Last administered on 05/27/17 05:01; Admin Dose 100 MLS/HR; Start 05/20/17 at 03:15 Hydromorphone HCl (Dilaudid) 1.5 mg Q3 PRN IV PAIN Last administered on 12:45; Admin Dose 1.5 MG; Start 05/20/17 at 03:30 Docusate Sodium (Colace) 100 mg BID PO Last administered on 05/27/17 08:24; Admin Dose 100 MG; Start 05/20/17 at 21:00 Phenol (Cepastat Lozenge) 1 lozenge Q4H PRN MT SORE THROAT Last administered on 05/26/17 13:50; Admin Dose 1 LOZENGE; Start 05/22/17 at 17:30 Bisacodyl (Dulcolax Supp) 10 mg DAILY PRN [place] CONSTIPATION Last administered on 05/22/17 17:47; Admin Dose 10 MG; Start 05/22/17 at 17:30 Lorazepam 0.5 mg 0.5 mg Q6H PRN IV anxiety Last administered on 05/27/17 00: 44; Admin Dose 0.5 MG; Start 05/22/17 at 20:30 Potassium Chloride/Dextrose/ Sod Cl 1,000 ml @ 70 mls/hr [id number] IV Last administered on 05/26/17 20:15; Admin Dose 70 MLS/HR; Start 05/23/17 at 07:00 Vancomycin HCl (Vancocin) 100 ml @ 100 mls/hr Q12H IVPB Last administered on 05/27/17 05:42; Admin Dose 100 MLS/HR; Start 05/26/17 at 18:00 Famotidine (Pepcid Iv) 20 mg Q12 IV Last administered on 05/27/17 08:24; Admin Dose 20 MG; Start 05/26/17 at 21:00 SANDY ABDALLA May 27, 2017 12:04
[2017-05-27] MEDS: D5W-0.45 NACL + KCL 40 MEQ 1,000 ML IV SCH (12:11)
[2017-05-27 14:31] VITALS: BP 107/67; RESP 16
[2017-05-27 19:40] VITALS: BP 116/58; RESP 16
[2017-05-27] MEDS ORDERED: HYDROmorphONE 2 MG/ML SYG IV PRN (22:00)
--- NOTE | 2017-05-27 22:58 | CONS ---
Date/Time of Note Date/Time of Note DATE: 05/27/17 TIME: 22:53 Assessment/Plan Assessment/Plan Chief Complaint/Hosp Course 66 yo F with metastatic ovarian cancer currently on third line chemotherapy admitted for abdominal pain with possible SBO. #metastatic ovarian cancer - BRCA status negative per [facility] -pt has progressed through carboplatin/Doxil/Avastin last given on 02/01/17. Pt then started on Neraparib but CA 125 has dramatically risen to > 1000. most recently given Carboplatin/ Taxotere/Avastin on 05/16 -may need to hold Avastin given repeated episodes of SBO but will decide in outpatient setting. -continue to monitor CA 125 #h/o SBO -hold further Avastin -pt conservatively being managed for now without any surgical indications. Patient improving and diet has been advancing. -Continue management per surgery as needed. #Leukocytosis -pt did receive Neulasta on 05/18 -ok with treating with antibiotics in case of underlying infection A total of 40 minutes of face to face time was spent speaking with the patient, of which greater than 50% was spent in counseling and coordination of care and the detailed question and answer session. Problems: Consultation Date/Type/Reason Admit Date/Time May 20, 2017 at 00:23 Initial Consult Date 05/21/17 Type of Consultation: oncology Reason for Consultation possible SBO with metastatic ovarian cancer Referring Provider: LOTTIE NORTON MD 24 HR Interval Summary Free Text/Dictation Patient states that she is improved and she was advanced on diet in terms of po. She states abdominal pain improved. She denies any nausea, vomiting, diarrhea or constipation. Denies any fevers, chills, or night sweats. Exam/Review of Systems Vital Signs Vitals Vital Signs Date Time Temp Pulse Resp B/P Pulse Ox O2 Delivery O2 Flow Rate FiO2 05/27/17 19:40 98.3 94 16 116/58 96 05/25/17 15:00 Room Air Intake and Output 05/26/17 05/26/17 05/27/17 15:00 23:00 07:00 Intake Total 200 ml 1600 ml 750 ml Balance 200 ml 1600 ml 750 ml Exam Gen: Well-developed, well-nourished, well-hydrated, no acute distress. Heent: NC/AT, PERRLA, EOMI, no lymphadenopathy, moist mucous membranes, oropharynx is clear. CV: Regular rate rhythm, no murmurs, clicks or rubs. Resp: Clear to auscultation bilaterally no wheezing rhonchi or rales. Abd: + BS in all 4 quadrants, mild tenderness to palpation, mid distention, less firm, -HSM Ext: mild edema bilaterally, no clubbing, cyanosis. Neuro: no focal/sensory motor deficits. Results Result Diagram: 05/27/17 0430 05/27/17 0430 Results 24 hrs Laboratory Tests Test 05/27/17 04:30 White Blood Count 13.5 #H Red Blood Count 2.09 L Hemoglobin 7.4 L Hematocrit 22.2 L Mean Corpuscular Volume 106.2 H Mean Corpuscular Hemoglobin 35.4 H Mean Corpuscular Hemoglobin Concent 33.3 Red Cell Distribution Width 13.9 Platelet Count 331 Mean Platelet Volume 10.5 H Neutrophils % Segmented Neutrophils % (Manual) 66 Band Neutrophils % (Manual) 3 Lymphocytes % Lymphocytes % (Manual) 19 Monocytes % Monocytes % (Manual) 12 H Eosinophils % Basophils % Nucleated Red Blood Cells % 35 H Neutrophils # Neutrophils # (Manual) 9.0 H Band Neutrophils # 0.4 Absolute Lymphocytes (Manual) 2.5 Lymphocytes # 2.6 Monocytes # 1.6 H Absolute Monocytes (Manual) 1.6 H Eosinophils # Basophils # Nucleated Red Blood Cells # Hypochromasia 2+ Anisocytosis 1+ Sodium Level 146 H Potassium Level 3.4 L Chloride Level 106 Carbon Dioxide Level 27 Anion Gap 16 Blood Urea Nitrogen < 2 L Creatinine 0.88 Glucose Level 98 Calcium Level 9.3 Medications Medications Current Medications Ondansetron HCl (Zofran Inj) 4 mg Q6H PRN IV NAUSEA AND/OR VOMITING Last administered on 05/23/17 16:10; Admin Dose 4 MG; Start 05/20/17 at 03:00 Metoclopramide HCl (Reglan) 10 mg Q6H PRN IV NAUSEA AND/OR VOMITING Last administered on 05/24/17 00:00; Admin Dose 10 MG; Start 05/20/17 at 03:00 Acetaminophen 650 mg 650 mg Q6H PRN PO PAIN LEVEL 1-3 OR FEVER Last administered on 05/21/17 14:46; Admin Dose 650 MG; Start 05/20/17 at 03:00 Piperacillin Sod/ Tazobactam Sod (Zosyn 3.375gm/ 50 ml (Pmx)) 50 ml @ 100 mls/ hr Q6 IVPB Last administered on 05/27/17 17:00; Admin Dose 100 MLS/HR; Start 05/20/17 at 03:15 Docusate Sodium (Colace) 100 mg BID PO Last administered on 05/27/17 08:24; Admin Dose 100 MG; Start 05/20/17 at 21:00 Phenol (Cepastat Lozenge) 1 lozenge Q4H PRN [place] SORE THROAT Last administered on 05/26/17 13:50; Admin Dose 1 LOZENGE; Start 05/22/17 at 17:30 Bisacodyl (Dulcolax Supp) 10 mg DAILY PRN [place] CONSTIPATION Last administered on 05/22/17 17:47; Admin Dose 10 MG; Start 05/22/17 at 17:30 Lorazepam 0.5 mg 0.5 mg Q6H PRN IV anxiety Last administered on 05/27/17 00: 44; Admin Dose 0.5 MG; Start 05/22/17 at 20:30 Potassium Chloride/Dextrose/ Sod Cl 1,000 ml @ 50 mls/hr Q20H IV Last administered on 05/27/17 12:11; Admin Dose 70 MLS/HR; Start 05/23/17 at 07:00 Vancomycin HCl (Vancocin) 100 ml @ 100 mls/hr Q12H IVPB Last administered on 05/27/17 17:00; Admin Dose 100 MLS/HR; Start 05/26/17 at 18:00 Famotidine (Pepcid Iv) 20 mg Q12 IV Last administered on 05/27/17 21:06; Admin Dose 20 MG; Start 05/26/17 at 21:00 Miscellaneous Information (*Rx Drug Level Order Reminder*) VANCOMYCIN TROUGH AT 1700 ONCE ONCE XX ; Start 05/28/17 at 17:00; Stop 05/28/17 at 17:01 Hydromorphone HCl (Dilaudid) 0.5 mg Q3 PRN IV PAIN; Start 05/27/17 at 22:00 FLACO KOENIG DO May 27, 2017 22:58
[2017-05-28] MEDS: PIPER-TAZO 3.375 GM IV (PMX) 50 ML IVPB SCH ×4 (01:34→17:25)
[2017-05-28] MEDS: LORAZEPAM 2 MG INJ IV PRN ×2 (01:35→21:05)
[2017-05-28 02:04] VITALS: BP 99/53; RESP 20
[2017-05-28] MEDS: D5W-0.45 NACL + KCL 40 MEQ 1,000 ML IV SCH ×2 (03:39→10:28)
[2017-05-28] MEDS: VANCOMYCIN 500MG/NS (PMX) 100 ML IVPB SCH ×2 (05:17→18:19)
[2017-05-28 06:46] LABS: ABNORMAL IP MESSAGE 1; HEMATOCRIT 24.8 % (37.0-47.0); HEMOGLOBIN 8.5 g/dl (12.0-16.0); MEAN CORPUSCULAR HEMOGLOBIN 35.3 pg (29.0-33.0); MEAN CORPUSCULAR HGB CONC 34.3 g/dl (32.0-37.0); MEAN CORPUSCULAR VOLUME 102.9 fl (82.0-101.0); MEAN PLATELET VOLUME 10.6 fl (7.4-10.4); NUCLEATED RED BLOOD CELLS% 11.5 /100WBC (0.0-0.0); PLATELET COUNT 303 10^3/UL (140-415); RED BLOOD COUNT 2.41 10^6/ul (4.20-5.40); RED CELL DISTRIBUTION WIDTH 15.4 % (11.5-14.5); WHITE BLOOD COUNT 14.6 10^3/ul (4.8-10.8)
[2017-05-28 06:50] LABS: CALCIUM 8.9 mg/dl (8.4-10.2); CREATININE 0.93 mg/dl (0.44-1.00); POTASSIUM 3.5 mmol/L (3.5-5.1)
[2017-05-28 06:56] LABS: POSITIVE DIFF @See below
[2017-05-28 08:00] VITALS: BP 108/52; RESP 17
[2017-05-28] MEDS: FAMOTIDINE 20 MG INJ IV SCH ×2 (08:21→21:07)
[2017-05-28] MEDS: DOCUSATE SODIUM 100 MG CAP PO SCH ×3 (08:21→21:00)
[2017-05-28 09:45] LABS: ANISOCYTOSIS 1+ (0-0); EOSINOPHILS % (M) 1 % (0-7); ERYTHROBLAST% (NRBC) (M) 14 % (0-0); GIANT THROMBO% (M) 1 % (0-0); MONOCYTES % (M) 4 % (0-11); PLASMA CELLS #M 0.1 10^3/ul (0.0-0.0); PLASMAC%(M) 1 % (0); PLATELET ESTIMATE NORMAL; POLYCHROMASIA 1+ (0-0)
[2017-05-28 14:00] VITALS: BP 103/52; RESP 18
--- NOTE | 2017-05-28 17:48 | PN ---
Date/Time of Note Date/Time of Note DATE: 05/28/17 TIME: 17:46 Assessment/Plan VTE Prophylaxis VTE Prophylaxis Intervention: SCD's Lines/Catheters IV [facility] portacath Urinary Cath still in place: No Assessment/Plan Chief Complaint/Hosp Course WBC are trending down, patient denies any fever, started on diet denies any nausea vomiting Assessment/Plan -Sepsis, continue vancomycin and Zosyn. -Small bowel obstruction, resolved. Dr. Neal is following in surgical consultation. -Metastatic ovarian cancer, status post cytoreduction surgery in [address] Oliva is following in hematology/oncology consultation. Further recommendations based on clinical course. Plan of care discussed with Dr. Matthews. - Problems: Exam/Review of Systems Vital Signs Vitals Vital Signs Date Time Temp Pulse Resp B/P Pulse Ox O2 Delivery O2 Flow Rate FiO2 05/28/17 14:00 98.2 84 18 103/52 95 05/25/17 15:00 Room Air Intake and Output 05/27/17 05/27/17 05/28/17 15:00 23:00 07:00 Intake Total 400 ml 3100 ml 850 ml Output Total 510 ml Balance 400 ml 2590 ml 850 ml Exam Constitutional: alert, oriented Neck: supple Respiratory: normal air movement Cardiovascular: nl pulses Gastrointestinal: non-tender, soft Musculoskeletal: nl extremities to inspection Extremities: normal pulses Results Result Diagram: 05/28/17 0446 05/28/17 0446 Results 24 hrs Laboratory Tests Test 05/28/17 04:46 05/28/17 06:30 White Blood Count 14.6 H Red Blood Count 2.41 L Hemoglobin 8.5 L Hematocrit 24.8 L Mean Corpuscular Volume 102.9 H Mean Corpuscular Hemoglobin 35.3 H Mean Corpuscular Hemoglobin Concent 34.3 Red Cell Distribution Width 15.4 H Platelet Count 303 Mean Platelet Volume 10.6 H Neutrophils % Segmented Neutrophils % (Manual) 64 Band Neutrophils % (Manual) 10 H Lymphocytes % Lymphocytes % (Manual) 20 Monocytes % Monocytes % (Manual) 4 Eosinophils % Eosinophils % (Manual) 1 Basophils % Plasma Cells % (manual) 1 Nucleated Red Blood Cells % 14 H Neutrophils # Neutrophils # (Manual) 9.5 H Band Neutrophils # 1.4 H Absolute Lymphocytes (Manual) 2.9 Lymphocytes # Monocytes # Absolute Monocytes (Manual) 0.5 Eosinophils # Basophils # Plasma Cells # (manual) 0.1 H Nucleated Red Blood Cells # Platelet Estimate NORMAL Giant Platelets 1 H Polychromasia 1+ Anisocytosis 1+ Macrocytosis 1+ Sodium Level 144 Potassium Level 3.5 Chloride Level 104 Carbon Dioxide Level 27 Anion Gap 17 H Blood Urea Nitrogen 6 L Creatinine 0.93 Glucose Level 96 Calcium Level 8.9 Lab Scanned Report BLOOD TRANSFUSION Medications Medications Current Medications Ondansetron HCl (Zofran Inj) 4 mg Q6H PRN IV NAUSEA AND/OR VOMITING Last administered on 05/23/17 16:10; Admin Dose 4 MG; Start 05/20/17 at 03:00 Metoclopramide HCl (Reglan) 10 mg Q6H PRN IV NAUSEA AND/OR VOMITING Last administered on 05/24/17 00:00; Admin Dose 10 MG; Start 05/20/17 at 03:00 Acetaminophen 650 mg 650 mg Q6H PRN PO PAIN LEVEL 1-3 OR FEVER Last administered on 05/21/17 14:46; Admin Dose 650 MG; Start 05/20/17 at 03:00 Piperacillin Sod/ Tazobactam Sod (Zosyn 3.375gm/ 50 ml (Pmx)) 50 ml @ 100 mls/ hr Q6 IVPB Last administered on 05/28/17 17:25; Admin Dose 100 MLS/HR; Start 05/20/17 at 03:15 Docusate Sodium (Colace) 100 mg BID PO Last administered on 05/27/17 08:24; Admin Dose 100 MG; Start 05/20/17 at 21:00 Phenol (Cepastat Lozenge) 1 lozenge Q4H PRN [place] SORE THROAT Last administered on 05/26/17 13:50; Admin Dose 1 LOZENGE; Start 05/22/17 at 17:30 Bisacodyl (Dulcolax Supp) 10 mg DAILY PRN [place] CONSTIPATION Last administered on 05/22/17 17:47; Admin Dose 10 MG; Start 05/22/17 at 17:30 Lorazepam 0.5 mg 0.5 mg Q6H PRN IV anxiety Last administered on 05/28/17 01: 35; Admin Dose 0.5 MG; Start 05/22/17 at 20:30 Potassium Chloride/Dextrose/ Sod Cl 1,000 ml @ 50 mls/hr Q20H IV Last administered on 05/28/17 10:28; Admin Dose 50 MLS/HR; Start 05/23/17 at 07:00 Vancomycin HCl (Vancocin) 100 ml @ 100 mls/hr Q12H IVPB Last administered on 05/28/17 05:17; Admin Dose 100 MLS/HR; Start 05/26/17 at 18:00 Famotidine (Pepcid Iv) 20 mg Q12 IV Last administered on 05/28/17 08:21; Admin Dose 20 MG; Start 05/26/17 at 21:00 Hydromorphone HCl (Dilaudid) 0.5 mg Q3 PRN IV PAIN; Start 05/27/17 at 22:00 AMEE JIMENEZ May 28, 2017 17:48
--- NOTE | 2017-05-28 18:36 | CONS ---
Date/Time of Note Date/Time of Note DATE: 05/28/17 TIME: 18:33 Assessment/Plan Assessment/Plan Chief Complaint/Hosp Course #metastatic ovarian cancer - BRCA status negative per [facility] focus testing -pt has progressed through carboplatin/Doxil/Avastin last given on 02/01/17. Pt then started on Neraparib but CA 125 has dramatically risen to > 1000. most recently given Carboplatin/ Taxotere/Avastin on 05/16 -may need to hold Avastin given repeated episodes of SBO -continue to monitor CA 125 #h/o SBO -pt now tolerating soft mechanical diet -hold further Avastin -pt conservatively being managed for now -continue management per surgery -CT A/P with po and IV contrast has been done which demonstrates stable disease #Leukocytosis -pt did receive Neulasta on 05/18 -ok with treating with antibiotics in case of underlying infection -continue antibiotics A total of 40 minutes of face to face time was spent speaking with the patient, of which greater than 50% was spent in counseling and coordination of care and the detailed question and answer session. Problems: Consultation Date/Type/Reason Admit Date/Time May 20, 2017 at 00:23 Initial Consult Date 05/21/17 Type of Consultation: oncology Reason for Consultation ovarian cancer/ sbo Referring Provider: LOTTIE NORTON MD 24 HR Interval Summary Free Text/Dictation pt now eating. NGT has been removed Exam/Review of Systems Vital Signs Vitals Vital Signs Date Time Temp Pulse Resp B/P Pulse Ox O2 Delivery O2 Flow Rate FiO2 05/28/17 14:00 98.2 84 18 103/52 95 05/25/17 15:00 Room Air Intake and Output 05/27/17 05/27/17 05/28/17 14:59 22:59 06:59 Intake Total 400 ml 3100 ml 850 ml Output Total 510 ml Balance 400 ml 2590 ml 850 ml Exam Constitutional: alert, oriented Psych: no complaints Head: normocephalic Eyes: nl conjunctiva ENMT: nl external ears & nose Neck: non-tender, supple Respiratory: clear to auscultation Gastrointestinal: soft Results Result Diagram: 05/28/17 0446 05/28/17 0446 Results 24 hrs Laboratory Tests Test 05/28/17 04:46 05/28/17 06:30 05/28/17 16:55 White Blood Count 14.6 H Red Blood Count 2.41 L Hemoglobin 8.5 L Hematocrit 24.8 L Mean Corpuscular Volume 102.9 H Mean Corpuscular Hemoglobin 35.3 H Mean Corpuscular Hemoglobin Concent 34.3 Red Cell Distribution Width 15.4 H Platelet Count 303 Mean Platelet Volume 10.6 H Neutrophils % Segmented Neutrophils % (Manual) 64 Band Neutrophils % (Manual) 10 H Lymphocytes % Lymphocytes % (Manual) 20 Monocytes % Monocytes % (Manual) 4 Eosinophils % Eosinophils % (Manual) 1 Basophils % Plasma Cells % (manual) 1 Nucleated Red Blood Cells % 14 H Neutrophils # Neutrophils # (Manual) 9.5 H Band Neutrophils # 1.4 H Absolute Lymphocytes (Manual) 2.9 Lymphocytes # Monocytes # Absolute Monocytes (Manual) 0.5 Eosinophils # Basophils # Plasma Cells # (manual) 0.1 H Nucleated Red Blood Cells # Platelet Estimate NORMAL Giant Platelets 1 H Polychromasia 1+ Anisocytosis 1+ Macrocytosis 1+ Sodium Level 144 Potassium Level 3.5 Chloride Level 104 Carbon Dioxide Level 27 Anion Gap 17 H Blood Urea Nitrogen 6 L Creatinine 0.93 Glucose Level 96 Calcium Level 8.9 Lab Scanned Report BLOOD TRANSFUSION Vancomycin Level Trough 13.0 Medications Medications Current Medications Ondansetron HCl (Zofran Inj) 4 mg Q6H PRN IV NAUSEA AND/OR VOMITING Last administered on 05/23/17 16:10; Admin Dose 4 MG; Start 05/20/17 at 03:00 Metoclopramide HCl (Reglan) 10 mg Q6H PRN IV NAUSEA AND/OR VOMITING Last administered on 05/24/17 00:00; Admin Dose 10 MG; Start 05/20/17 at 03:00 Acetaminophen 650 mg 650 mg Q6H PRN PO PAIN LEVEL 1-3 OR FEVER Last administered on 05/21/17 14:46; Admin Dose 650 MG; Start 05/20/17 at 03:00 Piperacillin Sod/ Tazobactam Sod (Zosyn 3.375gm/ 50 ml (Pmx)) 50 ml @ 100 mls/ hr Q6 IVPB Last administered on 05/28/17 17:25; Admin Dose 100 MLS/HR; Start 05/20/17 at 03:15 Docusate Sodium (Colace) 100 mg BID PO Last administered on 05/27/17 08:24; Admin Dose 100 MG; Start 05/20/17 at 21:00 Phenol (Cepastat Lozenge) 1 lozenge Q4H PRN [place] SORE THROAT Last administered on 05/26/17 13:50; Admin Dose 1 LOZENGE; Start 05/22/17 at 17:30 Bisacodyl (Dulcolax Supp) 10 mg DAILY PRN [place] CONSTIPATION Last administered on 05/22/17 17:47; Admin Dose 10 MG; Start 05/22/17 at 17:30 Lorazepam 0.5 mg 0.5 mg Q6H PRN IV anxiety Last administered on 05/28/17 01: 35; Admin Dose 0.5 MG; Start 05/22/17 at 20:30 Potassium Chloride/Dextrose/ Sod Cl 1,000 ml @ 50 mls/hr Q20H IV Last administered on 05/28/17 10:28; Admin Dose 50 MLS/HR; Start 05/23/17 at 07:00 Vancomycin HCl (Vancocin) 100 ml @ 100 mls/hr Q12H IVPB Last administered on 05/28/17 18:19; Admin Dose 100 MLS/HR; Start 05/26/17 at 18:00 Famotidine (Pepcid Iv) 20 mg Q12 IV Last administered on 05/28/17 08:21; Admin Dose 20 MG; Start 05/26/17 at 21:00 Hydromorphone HCl (Dilaudid) 0.5 mg Q3 PRN IV PAIN; Start 05/27/17 at 22:00 VALENTINA PHELAN M.D. May 28, 2017 18:36
[2017-05-28 20:21] VITALS: BP 120/56; RESP 18
[2017-05-29] MEDS: PIPER-TAZO 3.375 GM IV (PMX) 50 ML IVPB SCH ×3 (00:29→11:21)
[2017-05-29] MEDS: ACETAMINOPHEN 325 MG TAB PO PRN (00:29)
[2017-05-29 05:47] LABS: ABNORMAL IP MESSAGE 1; BASOPHIL # 0.1 10^3/ul (0.0-0.1); BASOPHILS % 0.5 % (0.0-2.0); EOSINOPHILS # 0.1 10^3/ul (0.0-0.5); EOSINOPHILS % 0.6 % (0.0-7.0); HEMATOCRIT 30.7 % (37.0-47.0); HEMOGLOBIN 10.5 g/dl (12.0-16.0); LYMPHOCYTES # 3.5 10^3/ul (0.8-2.9); LYMPHOCYTES % 24.6 % (15.0-51.0); MEAN CORPUSCULAR HEMOGLOBIN 34.9 pg (29.0-33.0); MEAN CORPUSCULAR HGB CONC 34.2 g/dl (32.0-37.0); MEAN PLATELET VOLUME 10.4 fl (7.4-10.4); MONOCYTE # 1.9 10^3/ul (0.3-0.9); MONOCYTES % 13.3 % (0.0-11.0); NEUTROPHIL # 8.4 10^3/ul (1.6-7.5); NEUTROPHILS % 59.6 % (39.0-77.0); NUCLEATED RED BLOOD CELLS% 7.2 /100WBC (0.0-0.0); PLATELET COUNT 356 10^3/UL (140-415); RED BLOOD COUNT 3.01 10^6/ul (4.20-5.40)
[2017-05-29 06:05] LABS: POSITIVE DIFF @See below
[2017-05-29 06:27] LABS: CALCIUM 9.4 mg/dl (8.4-10.2); CREATININE 0.99 mg/dl (0.44-1.00); POTASSIUM 3.9 mmol/L (3.5-5.1)
[2017-05-29] MEDS: VANCOMYCIN 500MG/NS (PMX) 100 ML IVPB SCH (06:50)
[2017-05-29 07:35] VITALS: BP 99/55; RESP 18
[2017-05-29] MEDS: FAMOTIDINE 20 MG INJ IV SCH ×2 (08:47→20:45)
[2017-05-29] MEDS: D5W-0.45 NACL + KCL 40 MEQ 1,000 ML IV SCH (08:47)
[2017-05-29] MEDS: DOCUSATE SODIUM 100 MG CAP PO SCH ×2 (08:47→20:48)
--- NOTE | 2017-05-29 12:43 | CONS ---
Date/Time of Note Date/Time of Note DATE: 05/29/17 TIME: 12:35 Assessment/Plan Assessment/Plan Chief Complaint/Hosp Course #metastatic ovarian cancer - BRCA status negative per [facility] [place] focus testing -pt has progressed through carboplatin/Doxil/Avastin last given on 02/01/17. Pt then started on Neraparib but CA 125 has dramatically risen to > 1000. most recently given Carboplatin/ Taxotere/Avastin on 05/16 -may need to hold Avastin given repeated episodes of SBO -continue to monitor CA 125 #Leukocytosis -pt does not appear to be actively infected -all cultures are negative and pt is afebrile -likely from Neulasta #h/o SBO -pt now tolerating soft mechanical diet -hold further Avastin -pt conservatively being managed for now -continue management per surgery -CT A/P with po and IV contrast has been done which demonstrates stable disease ok to dc from heme standpoint A total of 40 minutes of face to face time was spent speaking with the patient, of which greater than 50% was spent in counseling and coordination of care and the detailed question and answer session. Problems: Consultation Date/Type/Reason Admit Date/Time May 20, 2017 at 00:23 Initial Consult Date 05/21/17 Type of Consultation: oncology Reason for Consultation ovarian cancer Referring Provider: LOTTIE NORTON MD 24 HR Interval Summary Free Text/Dictation no acte overnight events. pt doing well. eating properly Exam/Review of Systems Vital Signs Vitals Vital Signs Date Time Temp Pulse Resp B/P Pulse Ox O2 Delivery O2 Flow Rate FiO2 05/29/17 07:35 97.8 79 18 99/55 98 05/25/17 15:00 Room Air Intake and Output 05/28/17 05/28/17 05/29/17 15:00 23:00 07:00 Intake Total 300 ml 1520 ml 1080 ml Balance 300 ml 1520 ml 1080 ml Exam Constitutional: alert, oriented Psych: no complaints Head: normocephalic Eyes: nl conjunctiva ENMT: nl external ears & nose Neck: supple Respiratory: clear to auscultation Cardiovascular: nl pulses, regular rate and rhythm Gastrointestinal: soft Genitourinary - Female: nl adnexae Musculoskeletal: nl extremities to inspection Extremities: normal pulses Results Result Diagram: 05/29/1743305/29/17 0434 Results 24 hrs Laboratory Tests Test 05/28/17 16:55 05/29/17 04:34 Vancomycin Level Trough 13.0 White Blood Count 14.0 H Red Blood Count 3.01 #L Hemoglobin 10.5 #L Hematocrit 30.7 #L Mean Corpuscular Volume 102.0 H Mean Corpuscular Hemoglobin 34.9 H Mean Corpuscular Hemoglobin Concent 34.2 Red Cell Distribution Width 15.0 H Platelet Count 356 Mean Platelet Volume 10.4 Neutrophils % 59.6 Lymphocytes % 24.6 Monocytes % 13.3 H Eosinophils % 0.6 Basophils % 0.5 Nucleated Red Blood Cells % 7.2 H Neutrophils # 8.4 H Lymphocytes # 3.5 H Monocytes # 1.9 H Eosinophils # 0.1 Basophils # 0.1 Nucleated Red Blood Cells # 1.0 H Sodium Level 145 H Potassium Level 3.9 Chloride Level 106 Carbon Dioxide Level 26 Anion Gap 17 H Blood Urea Nitrogen 11 Creatinine 0.99 Glucose Level 96 Calcium Level 9.4 Medications Medications Current Medications Ondansetron HCl (Zofran Inj) 4 mg Q6H PRN IV NAUSEA AND/OR VOMITING Last administered on 05/23/17 16:10; Admin Dose 4 MG; Start 05/20/17 at 03:00 Metoclopramide HCl (Reglan) 10 mg Q6H PRN IV NAUSEA AND/OR VOMITING Last administered on 05/24/17 00:00; Admin Dose 10 MG; Start 05/20/17 at 03:00 Acetaminophen 650 mg 650 mg Q6H PRN PO PAIN LEVEL 1-3 OR FEVER Last administered on 05/29/17 00:29; Admin Dose 650 MG; Start 05/20/17 at 03:00 Piperacillin Sod/ Tazobactam Sod (Zosyn 3.375gm/ 50 ml (Pmx)) 50 ml @ 100 mls/ hr Q6 IVPB Last administered on 05/29/17 11:21; Admin Dose 100 MLS/HR; Start 05/20/17 at 03:15 Docusate Sodium (Colace) 100 mg BID PO Last administered on 05/27/17 08:24; Admin Dose 100 MG; Start 05/20/17 at 21:00 Phenol (Cepastat Lozenge) 1 lozenge Q4H PRN [place] SORE THROAT Last administered on 05/26/17 13:50; Admin Dose 1 LOZENGE; Start 05/22/17 at 17:30 Bisacodyl (Dulcolax Supp) 10 mg DAILY PRN [place] CONSTIPATION Last administered on 05/22/17 17:47; Admin Dose 10 MG; Start 05/22/17 at 17:30 Lorazepam 0.5 mg 0.5 mg Q6H PRN IV anxiety Last administered on 05/28/17 21: 05; Admin Dose 0.5 MG; Start 05/22/17 at 20:30 Potassium Chloride/Dextrose/ Sod Cl 1,000 ml @ 50 mls/hr Q20H IV Last administered on 05/29/17 08:47; Admin Dose 50 MLS/HR; Start 05/23/17 at 07:00 Vancomycin HCl (Vancocin) 100 ml @ 100 mls/hr Q12H IVPB Last administered on 05/29/17 06:50; Admin Dose 100 MLS/HR; Start 05/26/17 at 18:00 Famotidine (Pepcid Iv) 20 mg Q12 IV Last administered on 05/29/17 08:47; Admin Dose 20 MG; Start 05/26/17 at 21:00 Hydromorphone HCl (Dilaudid) 0.5 mg Q3 PRN IV PAIN; Start 05/27/17 at 22:00 VALENTINA PHELAN M.D. May 29, 2017 12:43
[2017-05-29 14:15] VITALS: BP 109/55; RESP 16
--- NOTE | 2017-05-29 18:05 | DS ---
Date/Time of Note Date/Time of Note DATE: 05/29/17 TIME: 18:00 Discharge Summary Admission/Discharge Info Admit Date/Time May 20, 2017 at 00:23 Discharge Date/Time Patient Condition: Stable Hx of Present Illness This 66-year-old female presents with diffuse abdominal pain that is migrating to different parts of the abdomen for 1 day. The pain is a sharp pain and radiates to her lower back. Receives regular chemotherapy for different medications. She is not on anything to stimulate her white blood cells. She also felt generalized weakness and fatigue. No fevers or chills. No chest pain. Hospital Course -Possible sepsis, patient was given vancomycin and Zosyn. All cultures negative , patient is afebrile. -Small bowel obstruction, resolved. Dr. Neal is following in surgical consultation. -Metastatic ovarian cancer, status post cytoreduction surgery in [address] Oliva is following in hematology/oncology consultation. -Persistent leukocytosis most likely secondary to Neulasta Plan of care discussed with Dr. Oliva and Dr. Matthews. - Home Meds Active Scripts Hydrocodone/Acetaminophen ([place] 10-325 Tablet) 1 Each Tablet, 1 EACH PO Q4 for PAIN, #30 TAB Prov:AMEE JIMENEZ 10/20/16 Reported Medications Pantoprazole* (Protonix*) 40 Mg Tablet.dr, 40 MG PO DAILY, TAB 01/27/17 Tramadol HCl (Tramadol HCl) 50 Mg Tablet, 50 MG PO Q6H Y for PAIN LEVEL 6-10, # 120 TAB 01/27/17 Ondansetron Hcl* (Zofran*) 8 Mg Tablet, 8 MG PO Q12 Y for NAUSEA AND OR VOMITING , TAB 01/27/17 Bisacodyl* (Bisacodyl*) 5 Mg Tablet.dr, 5 MG PO DAILY, TAB 01/27/17 Docusate Sodium* (Colace*) 250 Mg Capsule, 250 MG PO BID, #60 CAP 01/27/17 Gabapentin* (Gabapentin*) 300 Mg Capsule, 300 MG PO BID, #60 CAP 10/03/16 Folic Acid* (Folic Acid*) 1 Mg Tablet, 1 MG PO DAILY, TAB 10/03/16 Lorazepam* (Lorazepam*) 1 Mg Tablet, 1 MG PO HS Y for SLEEP, #30 TAB 10/03/16 Follow-up Plan Follow-up with in 1-2 weeks Primary Care Provider William Kimble Time spent on discharge: > 30 minutes Pending Labs Laboratory Tests Test 05/29/17 04:34 White Blood Count 14.010^3/ul (4.8-10.8) Red Blood Count 3.0110^6/ul (4.20-5.40) Hemoglobin 10.5g/dl (12.0-16.0) Hematocrit 30.7% (37.0-47.0) Mean Corpuscular Volume 102.0fl (82.0-101.0) Mean Corpuscular Hemoglobin 34.9pg (29.0-33.0) Mean Corpuscular Hemoglobin Concent 34.2g/dl (32.0-37.0) Red Cell Distribution Width 15.0% (11.5-14.5) Platelet Count 16801^3/UL (140-415) Mean Platelet Volume 10.4fl (7.4-10.4) Neutrophils % 59.6% (39.0-77.0) Lymphocytes % 24.6% (15.0-51.0) Monocytes % 13.3% (0.0-11.0) Eosinophils % 0.6% (0.0-7.0) Basophils % 0.5% (0.0-2.0) Nucleated Red Blood Cells % 7.2/100WBC (0.0-0.0) Neutrophils # 8.410^3/ul (1.6-7.5) Lymphocytes # 3.510^3/ul (0.8-2.9) Monocytes # 1.910^3/ul (0.3-0.9) Eosinophils # 0.110^3/ul (0.0-0.5) Basophils # 0.110^3/ul (0.0-0.1) Nucleated Red Blood Cells # 1.010^3/ul (0.0-0.0) Sodium Level 145mmol/L (135-144) Potassium Level 3.9mmol/L (3.5-5.1) Chloride Level 106mmol/L (97-110) Carbon Dioxide Level 26mmol/L (21-31) Anion Gap 17 (8-16) Blood Urea Nitrogen 11mg/dl (7-20) Creatinine 0.99mg/dl (0.44-1.00) Glucose Level 96mg/dl (70-220) Calcium Level 9.4mg/dl (8.4-10.2) AMEE JIMENEZ May 29, 2017 18:05
[2017-05-29 20:39] VITALS: BP 132/69; RESP 18
== END 2017-05-29 21:05 | disposition home or self-care (01) | DRG 872 ==
LOC: E/R 19:19 → PP2 05-20 00:23
PROVIDERS: ADMIT Internal Medicine; ATTEND Internal Medicine
DX: A41.9 Sepsis, unspecified organism (principal); K56.609 Unspecified intestinal obstruction, unspecified as to partial versus complete obstruction; C56.9 Malignant neoplasm of unspecified ovary; N39.0 Urinary tract infection, site not specified; D53.9 Nutritional anemia, unspecified; C50.919 Malignant neoplasm of unspecified site of unspecified female breast; Z87.891 Personal history of nicotine dependence; R65.20 Severe sepsis without septic shock; D72.829 Elevated white blood cell count, unspecified
CPT/HCPCS: 36430; 71010; 74000; 74176; 74178; 80048; 80053; 80061; 80202; 81001; 83036; 83605; 83690; 83735; 84132; 84443; 84484; 85025; 85610; 85730; 86850; 86900; 86901; 86920; 87040; 87045; 87075; 87086; 93005; 96374; 96375; C9113; J0692; J1170; J1642; J1650; J2060; J2270; J2405; J2543; J2765; J3370; J3475; J3480; J7030; J7040; J7042; J7050; P9016; Q9967

== ENCOUNTER 2017-06-08 16:25 | Inpatient (IN) | payer MEDICARE, BC ==
[~2017-06-08] VITALS: Ht 142.2 cm; Wt 63.0 kg
[~2017-06-08 16:25] MED LIST changes: -BISA5TAB6 PO; -GABA300C16 PO; -HYDR-902 PO
--- NOTE | 2017-06-08 22:57 | ERD ---
ER Documentation Chief Complaint Chief Complaint AP HPI The patient is a 66-year-old female, presenting to the ER because of intermittent abdominal pain for the last 5 days, worse for the last couple days. She has similar symptoms previously. She complains of constipation and vomiting some mucus, denies fever, chills, neck pain, chest pain, dyspnea, dysuria. She is having chemotherapy every 3 weeks, last chemotherapy was 2 days ago. She does not smoke nor drink Past medical history: History of metastatic ovarian cancer, history of kidney stone, anxiety, cholelithiasis Surgical history: Left mastectomy, cytoreduction, splenectomy, appendectomy ROS All systems reviewed and are negative except as per history of present illness. Medications Home Meds Reported Medications Sebastian-3S/Dha/Epa/Fish Oil/D3 (FISH OIL + D3 SOFTGEL) 1 Each Capsule, 1 EACH PO DAILY, CAP 06/08/17 Memantine* (Namenda* XR) 28 Mg Cap.spr.24, 28 MG PO DAILY, #30 TAB 06/08/17 Pantoprazole* (Pantoprazole*) 40 Mg Tablet.dr, 40 MG PO AC BREAKFAST, TAB 06/08/17 Gabapentin* (Gabapentin*) 300 Mg Capsule, 300 MG PO DAILY, #60 CAP 06/08/17 Famotidine* (Famotidine*) 40 Mg Tablet, 40 MG PO HS, #30 TAB 06/08/17 Hydrocodone/Acetaminophen ([place] 10-325 Tablet) 1 Each Tablet, 1 EACH PO QID, TAB 06/08/17 Pantoprazole* (Protonix*) 40 Mg Tablet.dr, 40 MG PO DAILY, TAB 01/27/17 Tramadol HCl (Tramadol HCl) 50 Mg Tablet, 50 MG PO Q6H Y for PAIN LEVEL 6-10, # 120 TAB 01/27/17 Ondansetron Hcl* (Zofran*) 8 Mg Tablet, 8 MG PO Q12 Y for NAUSEA AND OR VOMITING , TAB 01/27/17 Docusate Sodium* (Colace*) 250 Mg Capsule, 500 MG PO QHS, #60 CAP 01/27/17 Folic Acid* (Folic Acid*) 1 Mg Tablet, 1 MG PO DAILY, TAB 10/03/16 Lorazepam* (Lorazepam*) 1 Mg Tablet, 1 MG PO HS Y for SLEEP, #30 TAB 10/03/16 Allergies Allergies: Coded Allergies: No Known Allergy (Unverified , 06/08/17) PMhx/Soc History of Surgery: Yes (Ovarian surg.left mastectomy) Anesthesia Reaction: No Hx Neurological Disorder: No Hx Respiratory Disorders: No Hx Cardiac Disorders: No Hx Psychiatric Problems: No Hx Miscellaneous Medical Probl: Yes (left mastectomy) Hx Alcohol Use: Yes (occasional) Hx Substance Use: No Hx Tobacco Use: Yes Physical Exam Vitals Vital Signs Date Time Temp Pulse Resp B/P Pulse Ox O2 Delivery O2 Flow Rate FiO2 06/08/17 16:31 97.6 107 20 148/71 95 Physical Exam Const: No acute distress. Head: Atraumatic. Eyes: Normal Conjunctiva. ENT: Normal External Ears, Nose and Mouth. Neck: Full range of motion. No meningismus. Resp: Clear to auscultation bilaterally. Cardio: Regular rate and rhythm. Abd: Soft, non distended, normal bowel sounds, moderate and diffuse abdominal tenderness, no rigidity, rebound, CVA tenderness. Skin: No petechiae or rashes. Back: No midline or flank tenderness. Ext: No cyanosis, or edema. Neur: Awake and alert. No focal deficit Psych: Normal Mood and Affect. Result Diagram: 06/08/17 2330 06/08/17 233 Results 24 hrs Laboratory Tests Test 06/08/17 23:30 06/09/17 01:55 06/09/17 03:00 White Blood Count 35.810^3/ul Red Blood Count 3.1210^6/ul Hemoglobin 10.9g/dl Hematocrit 31.9% Mean Corpuscular Volume 102.2fl Mean Corpuscular Hemoglobin 34.9pg Mean Corpuscular Hemoglobin Concent 34.2g/dl Red Cell Distribution Width 13.7% Platelet Count 18897^3/UL Mean Platelet Volume 10.8fl Neutrophils % 88.6% Lymphocytes % 4.1% Monocytes % 2.5% Eosinophils % 0.0% Basophils % 0.3% Nucleated Red Blood Cells % 0.1/100WBC Neutrophils # 31.710^3/ul Lymphocytes # 1.510^3/ul Monocytes # 0.910^3/ul Eosinophils # 0.010^3/ul Basophils # 0.110^3/ul Nucleated Red Blood Cells # 0.110^3/ul Pathologist Review (Hematology) YES Sodium Level 137mmol/L Potassium Level 3.7mmol/L Chloride Level 95mmol/L Carbon Dioxide Level 29mmol/L Anion Gap 17 Blood Urea Nitrogen 17mg/dl Creatinine 0.82mg/dl Glucose Level 126mg/dl Calcium Level 9.4mg/dl Total Bilirubin 1.1mg/dl Direct Bilirubin 0.00mg/dl Indirect Bilirubin 1.1mg/dl Aspartate Amino Transf (AST/SGOT) 39IU/L Alanine Aminotransferase (ALT/SGPT) 44IU/L Alkaline Phosphatase 74IU/L Total Protein 7.9g/dl Albumin 4.0g/dl Globulin 3.90g/dl Albumin/Globulin Ratio 1.02 Lipase 14U/L Bedside Urine pH (LAB) 6.0 Bedside Urine Protein (LAB) 1+ Bedside Urine Glucose (UA) Negative Bedside Urine Ketones (LAB) Negative Bedside Urine Blood Trace-intact Bedside Urine Nitrite (LAB) Negative Bedside Urine Leukocyte Esterase (L Trace Lactic Acid Level 1.5mmol/L Current Medications Medications (Trade) Dose Ordered Sig/Coral Route PRN Reason Start Time Stop Time Status Last Admin Dose Admin Morphine Sulfate (morphine) 2 mg ONCE STAT IV 06/08/17 23:09 06/08/17 23:12 DC 06/08/17 23:40 Ondansetron HCl 4 mg 4 mg ONCE STAT IV 06/08/17 23:09 06/08/17 23:12 DC 06/08/17 23:40 Piperacillin Sod/ Tazobactam Sod 50 ml @ 100 mls/hr ONCE ONCE IV 06/09/17 00:00 06/09/17 00:29 DC 06/09/17 00:08 Sodium Chloride 1,000 ml @ 1,000 mls/hr Q1H ONCE IV 06/09/17 02:30 06/09/17 03:29 UNV Sodium Chloride (NS) 1,930 ml @ 1,930 mls/hr BOLUS X1 ONCE IV 06/09/17 02:30 06/09/17 03:29 DC 06/09/17 02:44 Hydromorphone HCl (Dilaudid) 1 mg Q3H PRN IV pain 06/09/17 03:30 06/09/17 03:29 Hydromorphone HCl (Dilaudid) 1 mg STK-MED ONCE .ROUTE 06/09/17 03:21 06/09/17 03:22 DC Procedures/MDM [place] [address] Radiology Main Line: [phone] DIAGNOSTIC IMAGING REPORT Patient: DONTE CARDOZA : 1950 Age: 66 Sex: F MR #: [id number] DOS: 06/08/17 2303 Ordering MD: MILO BECK MD Location: E/R Room/Bed: PROCEDURE: CT Abdomen and pelvis without contrast. CLINICAL INDICATION: Abdominal pain. TECHNIQUE: CT scan of the abdomen and pelvis was performed on a multi- detector high-resolution CT scanner. Contiguous axial images were obtained from the lung bases to the ischial tuberosities without intravenous contrast. Coronal and sagittal reformatted images were also obtained. Images were reviewed on the PACS workstation. DICOM images are available. One or more of the following dose reduction techniques were used: - Automated exposure control. - Adjustment of the mA and/or kV according to patient size. - Use of iterative reconstruction technique. Exam CTD/vol = 7.15 mGy. Total exam DLP = 418.80 mGy-cm. COMPARISON: 05/24/2017. FINDINGS: Evaluation of the lung bases demonstrates minimal bibasilar atelectasis. There is a calcified granuloma within the left lower lobe. Abdomen: The liver is normal in size. There is no focal mass or dilatation of the biliary tree. The gallbladder is mildly distended and contains a gallstone. The spleen is absent. The pancreas and bilateral adrenal glands are within normal limits. Bilateral kidneys are normal in size with no contour deforming renal mass identified. There is no radiopaque renal or ureteral calculus identified. There is no hydronephrosis or hydroureter. There is no retroperitoneal adenopathy. The abdominal aorta is of normal caliber with scattered atherosclerotic calcifications. There are mildly dilated loops of small bowel with air-fluid levels. There is a transition point within the mid pelvis adjacent to the small bowel anastomotic sutures. There is no free air. The appendix is absent. There are an anastomotic sutures at the rectosigmoid junction. There is no diverticulosis or diverticulitis. There is no ascites. Pelvis: The bladder is unremarkable. There is no significant pelvic adenopathy or free fluid. There are calcified injection granulomas over bilateral buttocks. Evaluation of the osseous structures demonstrates no suspicious lytic or blastic lesion. There are calcified injection granulomas over bilateral buttocks. IMPRESSION: Small bowel obstruction, new compared with 05/24/2017. There is a transition point within the mid pelvis adjacent to small bowel anastomotic sutures. Cholelithiasis. Status post splenectomy. Vascular calcifications reflective of atherosclerosis. .Trent Akers MD, Date Time Electronically viewed and signed by .Trent Akers MD, MD on 06/08/2017 23:45 .T/ CC: MILO BECK MD MEDICAL MAKING DECISION: The patient is a 66-year-old female, presenting with acute small bowel obstruction. She was treated with NS 30 ml/kg IV, zosyn iv, NGT for acute SBO, morphine 2 mg IV for pain, Zofran formulary for nausea with good response The differential diagnoses considered include but are not limited to cholelithiasis, cholecystitis, cystitis, pancreatitis, hepatitis, gastritis, peptic ulcer disease, gastric ulcer, appendicitis, diverticulitis, cholangitis, choledocholithiasis, partial small bowel obstruction. Consultation: I discussed the patient with her surgeon Dr Penny at 1:50 am. He was made aware of the lab, the patient condition, he accepted the consult Departure Diagnosis: Primary Impression: Small bowel obstruction Additional Impressions: Cholelithiasis Anemia Condition: Stable Comments I discussed the findings with the patient. I discussed the patient with her physician Dr. Rylan Nieves at 3:20 am who was made aware of the lab, the treatment, the patient condition. The patient is admitted to [facility] Disclaimer: Inadvertent spelling and grammatical errors are likely due to EHR/ dictation software use and do not reflect on the overall quality of patient care. Also, please note that the electronic time recorded on this note does not necessarily reflect the actual time of the patient encounter. MILO BECK MD Jun 08, 2017 22:57
[2017-06-08] MEDS ORDERED: morphine 2 MG INJ IV STA (23:09)
[2017-06-08] MEDS ORDERED: ONDANSETRON 4 MG INJ IV STA (23:09)
[2017-06-08] MEDS ORDERED: FAMO40TA52 PO (23:40)
[2017-06-08] MEDS ORDERED: HYDR-902 PO (23:40)
[2017-06-08] MEDS ORDERED: PANT40TA4 PO (23:41)
[2017-06-08] MEDS ORDERED: GABA300C16 PO (23:41)
[2017-06-08] MEDS ORDERED: MEMA28CA PO (23:42)
[2017-06-08] MEDS ORDERED: OMEG-80 PO (23:42)
--- NOTE | 2017-06-08 23:45 | RADRPT ---
PROCEDURE: CT Abdomen and pelvis without contrast. CLINICAL INDICATION: Abdominal pain. TECHNIQUE: CT scan of the abdomen and pelvis was performed on a multi-detector high-resolution CT scanner. Contiguous axial images were obtained from the lung bases to the ischial tuberosities wit hout intravenous contrast. Coronal and sagittal reformatted images were also obtained. Images were reviewed on the PACS workstation. DICOM images are available. One or more of the following dose reduction techniques were used: - Automated exposure control. - Adjustment of the mA and/or kV according to patient size. - Use of iterative reconstruction technique. Exam CTD/vol = 7.15 mGy. Total exam DLP = 418.80 mGy-cm. COMPARISON: 05/24/2017. FINDINGS: Evaluation of the lung bases demonstrates minimal bibasilar atelectasis. There is a calcified granul rayshawn within the left lower lobe. Abdomen: The liver is normal in size. There is no focal mass or dilatation of the biliary tree. The gallbladder is mildly distended and contains a gallstone. The spleen is absent. The pancreas and gabi ateral adrenal glands are within normal limits. Bilateral kidneys are normal in size with no contour deforming renal mass identified. There is no radiopaque renal or ureteral calculus identified. Ther e is no hydronephrosis or hydroureter. There is no retroperitoneal adenopathy. The abdominal aorta i s of normal caliber with scattered atherosclerotic calcifications. There are mildly dilated loops of small bowel with air-fluid levels. There is a transition point wit hin the mid pelvis adjacent to the small bowel anastomotic sutures. There is no free air. The append ix is absent. There are an anastomotic sutures at the rectosigmoid junction. There is no diverticulo sis or diverticulitis. There is no ascites. Pelvis: The bladder is unremarkable. There is no significant pelvic adenopathy or free fluid. There are calcified injection granulomas over bilateral buttocks. Evaluation of the osseous structures demonstrates no suspicious lytic or blastic lesion. There are c alcified injection granulomas over bilateral buttocks. IMPRESSION: Small bowel obstruction, new compared with 05/24/2017. There is a transition point within the mid pe lvis adjacent to small bowel anastomotic sutures. Cholelithiasis. Status post splenectomy. Vascular calcifications reflective of atherosclerosis. .Trent Akers MD, MD Date Time Electronically viewed and signed by .Trent Akers MD, MD on 06/08/2017 23:45 .T/
[2017-06-09] VITALS (12 sets, daily range): BP systolic 106–130; BP diastolic 59–74; PULSE 109–130; RESP 19–21; TEMP 98.5; Ht 142.2 cm; Wt 63.0 kg
[2017-06-09] MEDS ORDERED: PIPER-TAZO 3.375 GM IV (PMX) 50 ML IV ONE
[2017-06-09 00:12] LABS: ABNORMAL IP MESSAGE 1; HEMATOCRIT 31.9 % (37.0-47.0); HEMOGLOBIN 10.9 g/dl (12.0-16.0); MEAN CORPUSCULAR HEMOGLOBIN 34.9 pg (29.0-33.0); MEAN CORPUSCULAR HGB CONC 34.2 g/dl (32.0-37.0); MEAN CORPUSCULAR VOLUME 102.2 fl (82.0-101.0); MEAN PLATELET VOLUME 10.8 fl (7.4-10.4); NUCLEATED RED BLOOD CELLS% 0.1 /100WBC (0.0-0.0); PLATELET COUNT 368 10^3/UL (140-415); RED BLOOD COUNT 3.12 10^6/ul (4.20-5.40); RED CELL DISTRIBUTION WIDTH 13.7 % (11.5-14.5); WHITE BLOOD COUNT 35.8 10^3/ul (4.8-10.8)
[2017-06-09 00:27] LABS: POSITIVE DIFF @See below
[2017-06-09 00:35] LABS: ALBUMIN/GLOBULIN RATIO 1.02; BILIRUBIN,INDIRECT 1.1 mg/dl (0-1.1); BILIRUBIN,TOTAL 1.1 mg/dl (0.2-1.3); CALCIUM 9.4 mg/dl (8.4-10.2); CREATININE 0.82 mg/dl (0.44-1.00); PATH REVIEW? YES; POTASSIUM 3.7 mmol/L (3.5-5.1); TOTAL PROTEIN 7.9 g/dl (6.1-8.1)
[2017-06-09 01:55] LABS: URINE BLOOD (Dip) POC Trace-intact (NEGATIVE)
[2017-06-09] MEDS ORDERED: SOD CHLORIDE 0.9% 1,000 ML IV ONE (02:30)
[2017-06-09] MEDS ORDERED: SOD CHLORIDE 0.9% IV ONE (02:30)
[2017-06-09] MEDS ORDERED: HYDROmorphONE 1 MG/ML SYG ONE (03:21)
[2017-06-09] MEDS: HYDROmorphONE 1 MG/ML SYG IV PRN ×3 (03:29→15:32)
--- NOTE | 2017-06-09 09:31 | RADRPT ---
PROCEDURE: US right upper quadrant CLINICAL INDICATION: Abdominal pain TECHNIQUE: Multiple real-time images were acquired of the patient's right upper abdomen utilizing a high resolution transducer. COMPARISON: CT abdomen 06/08/2017 FINDINGS: Liver: Normal in size, contour and echogenicity. The maximum dimension estimated at 15.1 cm. Prema l blood flow within the patent main portal vein is present. . Gallbladder: Cholelithiasis is identified, single mobile shadowing gallstone present. There is no e vidence of gallbladder wall thickening or pericholecystic fluid. No sonographic Sutherland's sign is rep orted. Common bile duct: Normal; 3.3 mm. There is no evidence for choledocholithiasis. Right Kidney: Incidental simple cyst of 1.5 cm is present. There is no evidence of calculus or hydr onephrosis. Size is normal; maximum length measured at approximately 11 cm. Pancreas: Obscured by bowel gas. RPTAT:HJJR IMPRESSION: 1. Cholelithiasis without evidence of cholecystitis. 2. Incidental simple cyst of the right kidney. Physician Charisma Date Time Electronically viewed and signed by Physician Charisma on 06/09/2017 00:32 /
--- NOTE | 2017-06-09 11:52 | HP ---
Date/Time of Note Date/Time of Note DATE: 06/09/17 TIME: 11:50 Assessment/Plan VTE Prophylaxis VTE Prophylaxis Intervention: other Lines/Catheters Urinary Cath still in place: No Assessment/Plan Chief Complaint/Hosp Course 1) Small bowel obstruction - IV fluids - pain medication - Dr. Zeng consulted - monitor clinically 2) Metastatic ovarian cancer - hold treatment for now Problems: HPI/ROS Admit Date/Time Admit Date/Time Jun 09, 2017 at 02:06 Hx of Present Illness Patient with metastatic ovarian cancer on chemotherapy comes in with abdominal pain, nausea and vomiting for the past 5 days. Patient is found to have small bowel obstruction and so is admitted for further treatment. PMH/Family/Social Past Medical History cholelithiasis Medical History: cancer Past Surgical History splenectomy Past Surgical Hx: appendectomy Social History Smoking Status: Former smoker Exam/Review of Systems Vital Signs Vitals Vital Signs Date Time Temp Pulse Resp B/P Pulse Ox O2 Delivery O2 Flow Rate FiO2 06/09/17 08:44 98.4 104 21 130/60 91 06/09/17 08:16 Room Air Intake and Output 06/08/17 06/08/17 06/09/17 15:00 23:00 07:00 Intake Total 1980 ml Balance 1980 ml Exam Constitutional: well developed Head: atraumatic, normocephalic Neck: supple Respiratory: diminished breath sounds Cardiovascular: regular rate and rhythm Gastrointestinal: soft, tender Extremities: normal pulses Labs Result Diagram: 06/08/17 2330 06/08/17 2330 Medications Medications Current Medications Hydromorphone HCl (Dilaudid) 1 mg Q3H PRN IV pain Last administered on t 08:00; Admin Dose 1 MG; Start 06/09/17 at 03:30 SANDY ABDALLA Jun 09, 2017 11:52
[2017-06-09] MEDS: SOD CHLORIDE 0.9% 1,000 ML IV SCH ×2 (13:30→22:00)
[2017-06-09] MEDS: ONDANSETRON 4 MG INJ IV PRN (18:38)
[2017-06-10] VITALS (9 sets, daily range): BP systolic 109–132; BP diastolic 57–71; PULSE 108–140; RESP 19–21
[2017-06-10] MEDS: ONDANSETRON 4 MG INJ IV PRN (04:26)
[2017-06-10] MEDS: SOD CHLORIDE 0.9% 1,000 ML IV SCH ×3 (04:40→18:00)
[2017-06-10 06:00] LABS: ABNORMAL IP MESSAGE 1; HEMATOCRIT 28.3 % (37.0-47.0); HEMOGLOBIN 9.8 g/dl (12.0-16.0); MEAN CORPUSCULAR HEMOGLOBIN 35.1 pg (29.0-33.0); MEAN CORPUSCULAR HGB CONC 34.6 g/dl (32.0-37.0); MEAN CORPUSCULAR VOLUME 101.4 fl (82.0-101.0); MEAN PLATELET VOLUME 11.1 fl (7.4-10.4); NUCLEATED RED BLOOD CELLS% 1.5 /100WBC (0.0-0.0); PLATELET COUNT 279 10^3/UL (140-415); RED BLOOD COUNT 2.79 10^6/ul (4.20-5.40); RED CELL DISTRIBUTION WIDTH 13.7 % (11.5-14.5); WHITE BLOOD COUNT 2.6 10^3/ul (4.8-10.8)
[2017-06-10 06:29] LABS: POSITIVE DIFF @See below
[2017-06-10 06:43] LABS: CALCIUM 7.9 mg/dl (8.4-10.2); CREATININE 0.78 mg/dl (0.44-1.00); POTASSIUM 3.1 mmol/L (3.5-5.1)
[2017-06-10] MEDS ORDERED: INFLUENZA VIRUS VACCINE 0.5 ML SYG IM* ONE (09:00)
[2017-06-10 10:33] LABS: ANISOCYTOSIS 1+ (0-0); BASOPHILS % (M) 1 % (0-2); ERYTHROBLAST% (NRBC) (M) 1 % (0-0); GIANT THROMBO% (M) 3 % (0-0); METAMYELOCYTES %M 4 % (0-0); MONOCYTES % (M) 15 % (0-11); MYELOCYTES % (M) 7 % (0-0); PLATELET ESTIMATE NORMAL; POLYCHROMASIA 3+ (0-0); REACTIVE LYMPHOCYTES% (M) 3 % (0-0)
--- NOTE | 2017-06-10 10:47 | RADRPT ---
PROCEDURE: XR Abdomen. CLINICAL INDICATION: Small bowel obstruction. Follow-up. TECHNIQUE: AP abdomen x-ray. COMPARISON: 01/29/2017. CT scan abdomen pelvis 06/08/2017 FINDINGS: There is a nasogastric tube in place with tip in the stomach. Side port is seen near the gastroesoph ageal junction. There is no definite small bowel dilatation identified. The fluid filled dilated sma ll bowel loops seen on prior CT scan are not identified on radiograph of the abdomen.. I there is n o evidence of free air. There is elevation of the right hemidiaphragm. The osseous structures are un remarkable. Postsurgical clips are seen in the left pelvis. IMPRESSION: Nasogastric tube in place. No evidence of bowel dilatation or obstruction on radiograph. RPTAT: QQ .Matthew Smith MD, Date Time Electronically viewed and signed by .Matthew Smith MD, on 06/10/2017 10:46 .L/
[2017-06-10] MEDS ORDERED: POTASSIUM CHLORIDE (SR) 20 MEQ TAB PO STA (12:11)
--- NOTE | 2017-06-10 12:13 | PN ---
Date/Time of Note Date/Time of Note DATE: 06/10/17 TIME: 12:12 Assessment/Plan VTE Prophylaxis VTE Prophylaxis Intervention: other Lines/Catheters IV Catheter Type (from Nrsg): Portacath Urinary Cath still in place: No Assessment/Plan Chief Complaint/Hosp Course 1) Small bowel obstruction - IV fluids - pain medication - Dr. Zeng consulted - seem better, will try clear liquid diet 2) Metastatic ovarian cancer - hold treatment for now Problems: Subjective 24 Hr Interval Summary Free Text/Dictation Patient denies abdominal pain Exam/Review of Systems Vital Signs Vitals Vital Signs Date Time Temp Pulse Resp B/P Pulse Ox O2 Delivery O2 Flow Rate FiO2 06/10/17 12:10 98.9 111 20 109/57 94 06/09/17 08:16 Room Air Intake and Output 06/09/17 06/09/17 06/10/17 14:59 22:59 06:59 Intake Total 0 ml 950 ml Output Total 200 ml 200 ml Balance -200 ml 750 ml Exam Constitutional: well developed Head: atraumatic, normocephalic Neck: supple Respiratory: clear to auscultation Cardiovascular: regular rate and rhythm Gastrointestinal: non-tender, soft Extremities: normal pulses Results Result Diagram: 06/10/17 0533 06/10/17 0533 Results 24 hrs Laboratory Tests Test 06/10/17 05:33 White Blood Count 2.6 #L Red Blood Count 2.79 L Hemoglobin 9.8 L Hematocrit 28.3 L Mean Corpuscular Volume 101.4 H Mean Corpuscular Hemoglobin 35.1 H Mean Corpuscular Hemoglobin Concent 34.6 Red Cell Distribution Width 13.7 Platelet Count 279 # Mean Platelet Volume 11.1 H Neutrophils % Segmented Neutrophils % (Manual) 17 L Band Neutrophils % (Manual) 22 H Lymphocytes % Lymphocytes % (Manual) 31 Reactive Lymphocytes % (Manual) 3 H Monocytes % Monocytes % (Manual) 15 H Eosinophils % Basophils % Basophils % (Manual) 1 Metamyelocytes % (manual) 4 H Myelocytes % (Manual) 7 H Nucleated Red Blood Cells % 1 H Neutrophils # Neutrophils # (Manual) 0.5 L Band Neutrophils # 0.5 Absolute Lymphocytes (Manual) 0.8 Lymphocytes # Reactive Lymphocytes # 0.0 Monocytes # Absolute Monocytes (Manual) 0.3 Eosinophils # Basophils # Basophils # (Manual) 0.0 Metamyelocytes # 0.1 H Myelocytes # 0.1 H Nucleated Red Blood Cells # Platelet Estimate NORMAL Giant Platelets 3 H Polychromasia 3+ Anisocytosis 1+ Macrocytosis 1+ Sodium Level 137 Potassium Level 3.1 L Chloride Level 101 Carbon Dioxide Level 27 Anion Gap 12 Blood Urea Nitrogen 16 Creatinine 0.78 Glucose Level 128 Calcium Level 7.9 L Medications Medications Current Medications Hydromorphone HCl 1 mg 1 mg Q3H PRN IV pain Last administered on 06/09/17 15: 32; Admin Dose 1 MG; Start 06/09/17 at 03:30 Sodium Chloride (NS) 1,000 ml @ 100 mls/hr Q10H IV Last administered on 04:40; Admin Dose 100 MLS/HR; Start 06/09/17 at 12:00 Ondansetron HCl (Zofran Inj) 4 mg Q6H PRN IV NAUSEA AND/OR VOMITING Last administered on 06/10/17 04:26; Admin Dose 4 MG; Start 06/09/17 at 18:30 SANDY ABDALLA Jun 10, 2017 12:13
[2017-06-10] MEDS ORDERED: POTASSIUM CHLORIDE 20 MEQ POWDER FOR ORAL SOLN NGT ONE (13:00)
[2017-06-10 17:59] LABS: ERYTHROBLAST% (NRBC) (M) 1 % (0-0); LYMPHOCYTES # 1.4 10^3/ul (0.8-2.9); MONOCYTE # 0.4 10^3/ul (0.3-0.9); MONOCYTES % (M) 1 % (0-11)
--- NOTE | 2017-06-10 18:16 | PN ---
Date/Time of Note Date/Time of Note DATE: 06/10/17 TIME: 18:06 Assessment/Plan VTE Prophylaxis VTE Prophylaxis Intervention: SCD's Lines/Catheters IV Catheter Type (from Nrs): Portacath Urinary Cath still in place: No Assessment/Plan Assessment/Plan A- progression vs obstruction vs some degree of colonic obstruction due to rx or obstruction P- NGT 2-3 d and if not dramatic chg will change, with meds to mobilize GI fct and additional CT with oral contrast and GI study Subjective 24 Hr Interval Summary Free Text/Dictation Some distension and N/V before admission and seen yesterday. Exam/Review of Systems Vital Signs Vitals Vital Signs Date Time Temp Pulse Resp B/P Pulse Ox O2 Delivery O2 Flow Rate FiO2 06/10/17 16:00 108 06/10/17 15:58 99.6 21 114/58 94 06/09/17 08:16 Room Air Intake and Output 06/09/17 06/09/17 06/10/17 15:00 23:00 07:00 Intake Total 0 ml 950 ml Output Total 200 ml 200 ml Balance -200 ml 750 ml Exam Resp- clear CVS- NSR Abd- NT Ext nt Results Result Diagram: 06/10/17 0533 06/10/17 0533 Results 24 hrs Laboratory Tests Test 06/10/17 05:33 White Blood Count 2.6 #L Red Blood Count 2.79 L Hemoglobin 9.8 L Hematocrit 28.3 L Mean Corpuscular Volume 101.4 H Mean Corpuscular Hemoglobin 35.1 H Mean Corpuscular Hemoglobin Concent 34.6 Red Cell Distribution Width 13.7 Platelet Count 279 # Mean Platelet Volume 11.1 H Neutrophils % Segmented Neutrophils % (Manual) 17 L Band Neutrophils % (Manual) 22 H Lymphocytes % Lymphocytes % (Manual) 31 Reactive Lymphocytes % (Manual) 3 H Monocytes % Monocytes % (Manual) 15 H Eosinophils % Basophils % Basophils % (Manual) 1 Metamyelocytes % (manual) 4 H Myelocytes % (Manual) 7 H Nucleated Red Blood Cells % 1 H Neutrophils # Neutrophils # (Manual) 0.5 L Band Neutrophils # 0.5 Absolute Lymphocytes (Manual) 0.8 Lymphocytes # Reactive Lymphocytes # 0.0 Monocytes # Absolute Monocytes (Manual) 0.3 Eosinophils # Basophils # Basophils # (Manual) 0.0 Metamyelocytes # 0.1 H Myelocytes # 0.1 H Nucleated Red Blood Cells # Platelet Estimate NORMAL Giant Platelets 3 H Polychromasia 3+ Anisocytosis 1+ Macrocytosis 1+ Sodium Level 137 Potassium Level 3.1 L Chloride Level 101 Carbon Dioxide Level 27 Anion Gap 12 Blood Urea Nitrogen 16 Creatinine 0.78 Glucose Level 128 Calcium Level 7.9 L Medications Medications Current Medications Hydromorphone HCl 1 mg 1 mg Q3H PRN IV pain Last administered on 06/09/17 15: 32; Admin Dose 1 MG; Start 06/09/17 at 03:30 Sodium Chloride (NS) 1,000 ml @ 100 mls/hr Q10H IV Last administered on 15:54; Admin Dose 100 MLS/HR; Start 06/09/17 at 12:00 Ondansetron HCl (Zofran Inj) 4 mg Q6H PRN IV NAUSEA AND/OR VOMITING Last administered on 06/10/17 04:26; Admin Dose 4 MG; Start 06/09/17 at 18:30 JAMES NÚÑEZ MD Jun 10, 2017 18:16
[2017-06-10] MEDS: DIPHENOXYLATE/ATROPINE TAB PO PRN (22:22)
[2017-06-11] VITALS (11 sets, daily range): BP systolic 100–160; BP diastolic 51–79; PULSE 101–113; RESP 18–19
[2017-06-11] MEDS: SOD CHLORIDE 0.9% 1,000 ML IV SCH ×3 (06:55→20:29)
[2017-06-11 06:58] LABS: ABNORMAL IP MESSAGE 1; HEMATOCRIT 25.1 % (37.0-47.0); HEMOGLOBIN 8.7 g/dl (12.0-16.0); MEAN CORPUSCULAR HEMOGLOBIN 35.7 pg (29.0-33.0); MEAN CORPUSCULAR HGB CONC 34.7 g/dl (32.0-37.0); MEAN CORPUSCULAR VOLUME 102.9 fl (82.0-101.0); MEAN PLATELET VOLUME 10.9 fl (7.4-10.4); PLATELET COUNT 222 10^3/UL (140-415); RED BLOOD COUNT 2.44 10^6/ul (4.20-5.40); RED CELL DISTRIBUTION WIDTH 13.5 % (11.5-14.5); WHITE BLOOD COUNT 1.7 10^3/ul (4.8-10.8)
[2017-06-11 07:03] LABS: POSITIVE DIFF @See below
[2017-06-11 07:25] LABS: CREATININE 0.69 mg/dl (0.44-1.00)
[2017-06-11 09:28] LABS: ANISOCYTOSIS 1+ (0-0); BASOPHILS % (M) 1 % (0-2); EOSINOPHILS % (M) 4 % (0-7); GIANT THROMBO% (M) 5 % (0-0); METAMYELOCYTES %M 1 % (0-0); MONOCYTES % (M) 13 % (0-11); MYELOCYTES % (M) 3 % (0-0); PLATELET ESTIMATE NORMAL; POLYCHROMASIA 1+ (0-0); REACTIVE LYMPHOCYTES% (M) 4 % (0-0)
[2017-06-11] MEDS: CEFEPIME 2GM/50 ML (PMX) 50 ML IVPB SCH ×2 (15:18→23:20)
--- NOTE | 2017-06-11 16:11 | CONS ---
Date/Time of Note Date/Time of Note DATE: 06/11/17 TIME: 16:11 Consultation Date/Type/Reason Admit Date/Time Jun 09, 2017 at 02:06 Past Medical History Medical History: cancer Past Surgical History Past Surgical Hx: appendectomy Social History Smoking Status: Former smoker Exam/Review of Systems Vital Signs Vitals Vital Signs Date Time Temp Pulse Resp B/P Pulse Ox O2 Delivery O2 Flow Rate FiO2 06/11/17 16:02 113 06/11/17 15:55 98.6 19 125/79 99 06/11/17 11:26 Room Air Intake and Output 06/10/17 06/10/17 06/11/17 15:00 23:00 07:00 Intake Total 1480 ml 1240 ml Output Total 150 ml Balance 1330 ml 1240 ml Results Result Diagram: 06/11/17 0633 06/11/17 0633 Results 24 hrs Laboratory Tests Test 06/11/17 06:33 White Blood Count 1.7 #L Red Blood Count 2.44 L Hemoglobin 8.7 L Hematocrit 25.1 L Mean Corpuscular Volume 102.9 H Mean Corpuscular Hemoglobin 35.7 H Mean Corpuscular Hemoglobin Concent 34.7 Red Cell Distribution Width 13.5 Platelet Count 222 # Mean Platelet Volume 10.9 H Neutrophils % Segmented Neutrophils % (Manual) 18 L Band Neutrophils % (Manual) 10 H Lymphocytes % Lymphocytes % (Manual) 46 Reactive Lymphocytes % (Manual) 4 H Monocytes % Monocytes % (Manual) 13 H Eosinophils % Eosinophils % (Manual) 4 Basophils % Basophils % (Manual) 1 Metamyelocytes % (manual) 1 H Myelocytes % (Manual) 3 H Nucleated Red Blood Cells % 0.0 Neutrophils # Neutrophils # (Manual) 0.3 L Band Neutrophils # 0.1 Absolute Lymphocytes (Manual) 0.7 L Lymphocytes # Reactive Lymphocytes # 0.0 Monocytes # Absolute Monocytes (Manual) 0.2 L Eosinophils # Basophils # Basophils # (Manual) 0.0 Metamyelocytes # 0.0 Myelocytes # 0.0 Nucleated Red Blood Cells # Platelet Estimate NORMAL Giant Platelets 5 H Polychromasia 1+ Anisocytosis 1+ Macrocytosis 1+ Sodium Level 140 Potassium Level 3.0 L Chloride Level 105 Carbon Dioxide Level 24 Anion Gap 14 Blood Urea Nitrogen 13 Creatinine 0.69 Glucose Level 82 # Calcium Level 8.0 L Medications Medications Current Medications Hydromorphone HCl 1 mg 1 mg Q3H PRN IV pain Last administered on 06/09/17 15: 32; Admin Dose 1 MG; Start 06/09/17 at 03:30 Sodium Chloride (NS) 1,000 ml @ 100 mls/hr Q10H IV Last administered on 10:04; Admin Dose 100 MLS/HR; Start 06/09/17 at 12:00 Ondansetron HCl (Zofran Inj) 4 mg Q6H PRN IV NAUSEA AND/OR VOMITING Last administered on 06/10/17 04:26; Admin Dose 4 MG; Start 06/09/17 at 18:30 Diphenoxylate HCl/ Atropine (Lomotil) 2 tab Q6H PRN PO DIARRHEA Last administered on 06/10/17 22:22; Admin Dose 2 TAB; Start 06/10/17 at 21:30 Filgrastim 480 mcg 480 mcg DAILY@17 SC ; Start 06/11/17 at 17:00 Cefepime HCl (Maxipime 2gm/50 ml (Pmx)) 50 ml @ 100 mls/hr Q8H IVPB Last administered on 06/11/17 15:18; Admin Dose 100 MLS/HR; Start 06/11/17 at 16: 00 VALENTINA PHELAN M.D. Jun 11, 2017 16:11
--- NOTE | 2017-06-11 17:44 | PN ---
Date/Time of Note Date/Time of Note DATE: 06/11/17 TIME: 17:44 Assessment/Plan VTE Prophylaxis VTE Prophylaxis Intervention: SCD's Lines/Catheters [facility] SHWETA CATH Urinary Cath still in place: No Assessment/Plan Chief Complaint/Hosp Course Pt is frustrated re recurrent SBO, awake, alert. Assessment/Plan -Possible small bowel obstruction. Dr. Neal is following in surgical consultation. Continue NGT to LIS, IV fluids. -Metastatic ovarian cancer, status post cytoreduction surgery in [address] Oliva is following in hematology/oncology consultation. -Hypokalemia, will replace K, monitor electrolytes. Further recommendations based on clinical course. Plan of care discussed with Dr. Matthews. Problems: Exam/Review of Systems Vital Signs Vitals Vital Signs Date Time Temp Pulse Resp B/P Pulse Ox O2 Delivery O2 Flow Rate FiO2 06/11/17 16:02 113 06/11/17 15:55 98.6 19 125/79 99 06/11/17 11:26 Room Air Intake and Output 06/10/17 06/10/17 06/11/17 15:00 23:00 07:00 Intake Total 1480 ml 1240 ml Output Total 150 ml Balance 1330 ml 1240 ml Exam Constitutional: alert, oriented Head: normocephalic Neck: supple Respiratory: normal air movement Cardiovascular: nl pulses Gastrointestinal: distended, soft Extremities: normal pulses Neurological: nl mental status Results Result Diagram: 06/11/17 0633 06/11/17 0633 Results 24 hrs Laboratory Tests Test 06/11/17 06:33 White Blood Count 1.7 #L Red Blood Count 2.44 L Hemoglobin 8.7 L Hematocrit 25.1 L Mean Corpuscular Volume 102.9 H Mean Corpuscular Hemoglobin 35.7 H Mean Corpuscular Hemoglobin Concent 34.7 Red Cell Distribution Width 13.5 Platelet Count 222 # Mean Platelet Volume 10.9 H Neutrophils % Segmented Neutrophils % (Manual) 18 L Band Neutrophils % (Manual) 10 H Lymphocytes % Lymphocytes % (Manual) 46 Reactive Lymphocytes % (Manual) 4 H Monocytes % Monocytes % (Manual) 13 H Eosinophils % Eosinophils % (Manual) 4 Basophils % Basophils % (Manual) 1 Metamyelocytes % (manual) 1 H Myelocytes % (Manual) 3 H Nucleated Red Blood Cells % 0.0 Neutrophils # Neutrophils # (Manual) 0.3 L Band Neutrophils # 0.1 Absolute Lymphocytes (Manual) 0.7 L Lymphocytes # Reactive Lymphocytes # 0.0 Monocytes # Absolute Monocytes (Manual) 0.2 L Eosinophils # Basophils # Basophils # (Manual) 0.0 Metamyelocytes # 0.0 Myelocytes # 0.0 Nucleated Red Blood Cells # Platelet Estimate NORMAL Giant Platelets 5 H Polychromasia 1+ Anisocytosis 1+ Macrocytosis 1+ Sodium Level 140 Potassium Level 3.0 L Chloride Level 105 Carbon Dioxide Level 24 Anion Gap 14 Blood Urea Nitrogen 13 Creatinine 0.69 Glucose Level 82 # Calcium Level 8.0 L Medications Medications Current Medications Hydromorphone HCl 1 mg 1 mg Q3H PRN IV pain Last administered on 06/09/17 15: 32; Admin Dose 1 MG; Start 06/09/17 at 03:30 Sodium Chloride (NS) 1,000 ml @ 100 mls/hr Q10H IV Last administered on 10:04; Admin Dose 100 MLS/HR; Start 06/09/17 at 12:00 Ondansetron HCl (Zofran Inj) 4 mg Q6H PRN IV NAUSEA AND/OR VOMITING Last administered on 06/10/17 04:26; Admin Dose 4 MG; Start 06/09/17 at 18:30 Diphenoxylate HCl/ Atropine (Lomotil) 2 tab Q6H PRN PO DIARRHEA Last administered on 06/10/17 22:22; Admin Dose 2 TAB; Start 06/10/17 at 21:30 Filgrastim 480 mcg 480 mcg DAILY@17 SC ; Start 06/11/17 at 17:00 Cefepime HCl (Maxipime 2gm/50 ml (Pmx)) 50 ml @ 100 mls/hr Q8H IVPB Last administered on 06/11/17 15:18; Admin Dose 100 MLS/HR; Start 06/11/17 at 16: 00 Pantoprazole (Protonix Iv) 40 mg DAILY@06 IV ; Start 06/11/17 at 16:30 AMEE JIMENEZ Jun 11, 2017 17:44
[2017-06-11] MEDS: PANTOPRAZOLE 40 MG INJ IV SCH (20:28)
[2017-06-11] MEDS: DIPHENOXYLATE/ATROPINE TAB PO PRN (20:28)
[2017-06-11] MEDS: ONDANSETRON 4 MG INJ IV PRN (22:08)
[2017-06-11] MEDS: FILGRASTIM 480 MCG INJ SC SCH (22:10)
[2017-06-11] MEDS ORDERED: POTASSIUM CHLORIDE 250 ML IVPB ONE (22:30)
[2017-06-11] MEDS: D5W-0.45 NACL + KCL 20 MEQ 1,000 ML IV SCH (23:20)
[2017-06-12] VITALS (11 sets, daily range): BP systolic 100–125; BP diastolic 53–65; PULSE 91–110; RESP 16–18
[2017-06-12] MEDS: DIPHENOXYLATE/ATROPINE TAB PO PRN ×2 (02:30→20:17)
[2017-06-12] MEDS: PANTOPRAZOLE 40 MG INJ IV SCH (05:47)
[2017-06-12 07:03] LABS: ABNORMAL IP MESSAGE 1; HEMATOCRIT 23.4 % (37.0-47.0); MEAN CORPUSCULAR HEMOGLOBIN 34.6 pg (29.0-33.0); MEAN CORPUSCULAR HGB CONC 34.2 g/dl (32.0-37.0); MEAN CORPUSCULAR VOLUME 101.3 fl (82.0-101.0); MEAN PLATELET VOLUME 11.5 fl (7.4-10.4); PLATELET COUNT 217 10^3/UL (140-415); RED BLOOD COUNT 2.31 10^6/ul (4.20-5.40); RED CELL DISTRIBUTION WIDTH 13.3 % (11.5-14.5); WHITE BLOOD COUNT 3.6 10^3/ul (4.8-10.8)
[2017-06-12 07:08] LABS: POSITIVE DIFF @See below
[2017-06-12 07:57] LABS: CALCIUM 8.2 mg/dl (8.4-10.2); CREATININE 0.7 mg/dl (0.44-1.00); POTASSIUM 3.4 mmol/L (3.5-5.1)
[2017-06-12] MEDS: CEFEPIME 2GM/50 ML (PMX) 50 ML IVPB SCH ×3 (08:17→22:52)
[2017-06-12 09:32] LABS: ANISOCYTOSIS 1+ (0-0); GIANT THROMBO% (M) 1 % (0-0); HYPOCHROMASIA 1+ (0-0); METAMYELOCYTES %M 3 % (0-0); MONOCYTES % (M) 23 % (0-11); MYELOCYTES % (M) 2 % (0-0); PLATELET ESTIMATE NORMAL; REACTIVE LYMPHOCYTES% (M) 1 % (0-0)
--- NOTE | 2017-06-12 10:56 | CONS ---
Date/Time of Note Date/Time of Note DATE: 06/12/17 TIME: 10:42 Assessment/Plan Assessment/Plan Chief Complaint/Hosp Course #metastatic ovarian cancer - BRCA status negative per [facility] focus testing -pt received cycle 2 of Carboplatin/ Taxotere on 06/06 -will check CA 125 at this time. prior to starting this treatment her CA 125 was 2002 #h/o SBO -management per [facility] -difficult to say if this is from tumor or adhesions -pt now tolerating soft mechanical diet #Leukopenia -2/2 to chemotherapy -continue to monitor A total of 40 minutes of face to face time was spent speaking with the patient, of which greater than 50% was spent in counseling and coordination of care and the detailed question and answer session. Problems: Consultation Date/Type/Reason Admit Date/Time Jun 09, 2017 at 02:06 Date of Consultation: Jun 12, 2017 Type of Consultation: oncology Reason for Consultation metastatic ovarian cancer Referring Provider: LOTTIE NORTON MD Hx of Present Illness 66 yo female who was originally diagnosed with ovarian CA September 2013 when found with malignant ascites. Pt underwent Cytoreductive surgery on 10/27/13 followed by Carboplatin and Taxol chemotherapy. She was treated by Dr Gonzalez at the time. 1 year later she recurred when she was found with a small bowel obstruction. She was restarted on therapy with Taxol and Avastin. Avastin was apparently dropped bc of a blood clot. For this she was treated with a blood thinner from 04/2015-2015. -In 08/2016 pt was noted to have an elevated of her tumor marker. A PET CT was done which revealed recurrent disease. Pt had secondary Cytoreductive surgery done in 09/[address] Ramos. Of note intraoperatively, pt was noted to have upper abdominal disease involving the left perigastric areal throughout the small bowel mesentery with a segment of small bowel requiring small bowel resection. The left pelvic disease was adjacent to the sidewall and sigmoid colon We are now treating her with adjuvant Carboplatin/ Doxil and Avastin. Prior to starting this chemotherapy her CA 125 was 711.4. After 5 cycles of chemotherapy her CA 125 has come down to 247. -01/2017 pt was admitted to [facility] for bowel obstruction. This resolved with conservative management 6thcycle of carboplatin/ doxil and avastin was given on 02/01/17 -03/06/17 CT of the abdomen and pelvis was done which revealed slight progression of the peritoneal carcinomatosis -03/26/17: given progression of disease seen on scan from March, and the fact patient wanted to have a break from chemotherapy, pt was started Neraparib. 03/08/2017 CA 125 275 and He4 207 - g PET CT reveals progressive peritoneal mets as compared with 08/2016 but stable from 03/2017. CA 125 continues to increase was >1000 consistent with progressive disease. 05/16/17 pt was restarted on chemotherapy and given Taxotere / Carboplatin/ Avastin 05/20/17 - pt admitted for SBo which was conservatively managed 06/06/17 - pt received cycle 2 of carboplatin and Taxotere without Avastin 06/09/19 - pt readmitted for SBO. CT A/P demonstrates Small bowel obstruction, new compared with 05/24/2017. There is a transition point within the mid pelvis adjacent to small bowel anastomotic sutures. Constitutional: poor po Eyes: no complaints ENT: no complaints Respiratory: no complaints Cardiovascular: lightheadedness Gastrointestinal: decreased appetite, diarrhea Genitourinary: no complaints Musculoskeletal: bone/joint pain Past Medical History Medical History: cancer Past Surgical History Past Surgical Hx: appendectomy Family History Significant Family History: no pertinent family hx Social History Alcohol Use: none Smoking Status: Former smoker Exam/Review of Systems Vital Signs Vitals Vital Signs Date Time Temp Pulse Resp B/P Pulse Ox O2 Delivery O2 Flow Rate FiO2 06/12/17 08:15 98.4 97 16 109/55 96 06/11/17 11:26 Room Air Intake and Output 06/11/17 06/11/17 06/12/17 15:00 23:00 07:00 Intake Total 250 ml Balance 250 ml Exam Constitutional: alert, frail, oriented Psych: anxiety, depression, no complaints Head: normocephalic Eyes: nl conjunctiva ENMT: other (NGT in place) Neck: non-tender, supple Respiratory: clear to auscultation, normal air movement Cardiovascular: regular rate and rhythm Gastrointestinal: soft Musculoskeletal: nl extremities to inspection Results Result Diagram: 06/12/17 0617 06/12/17 0617 Results 24 hrs Laboratory Tests Test 06/12/17 06:17 White Blood Count 3.6 #L Red Blood Count 2.31 L Hemoglobin 8.0 L Hematocrit 23.4 L Mean Corpuscular Volume 101.3 H Mean Corpuscular Hemoglobin 34.6 H Mean Corpuscular Hemoglobin Concent 34.2 Red Cell Distribution Width 13.3 Platelet Count 217 Mean Platelet Volume 11.5 H Neutrophils % Segmented Neutrophils % (Manual) 18 L Band Neutrophils % (Manual) 20 H Lymphocytes % Lymphocytes % (Manual) 33 Reactive Lymphocytes % (Manual) 1 H Monocytes % Monocytes % (Manual) 23 H Eosinophils % Basophils % Metamyelocytes % (manual) 3 H Myelocytes % (Manual) 2 H Nucleated Red Blood Cells % 0.0 Neutrophils # Neutrophils # (Manual) 0.7 L Band Neutrophils # 0.7 H Absolute Lymphocytes (Manual) 1.1 Lymphocytes # Reactive Lymphocytes # 0.0 Monocytes # Absolute Monocytes (Manual) 0.8 Eosinophils # Basophils # Metamyelocytes # 0.1 H Myelocytes # 0.0 Nucleated Red Blood Cells # Platelet Estimate NORMAL Giant Platelets 1 H Hypochromasia 1+ Anisocytosis 1+ Macrocytosis 1+ Sodium Level 135 Potassium Level 3.4 L Chloride Level 103 Carbon Dioxide Level 24 Anion Gap 11 Blood Urea Nitrogen 10 Creatinine 0.70 Glucose Level 84 Calcium Level 8.2 L Medications Medications Current Medications Hydromorphone HCl (Dilaudid) 1 mg Q3H PRN IV pain Last administered on 15:32; Admin Dose 1 MG; Start 06/09/17 at 03:30 Ondansetron HCl (Zofran Inj) 4 mg Q6H PRN IV NAUSEA AND/OR VOMITING Last administered on 06/11/17 22:08; Admin Dose 4 MG; Start 06/09/17 at 18:30 Diphenoxylate HCl/ Atropine (Lomotil) 2 tab Q6H PRN PO DIARRHEA Last administered on 06/12/17 02:30; Admin Dose 2 TAB; Start 06/10/17 at 21:30 Filgrastim 480 mcg 480 mcg DAILY@17 SC Last administered on 06/11/17 22:10; Admin Dose 480 MCG; Start 06/11/17 at 17:00 Cefepime HCl (Maxipime 2gm/50 ml (Pmx)) 50 ml @ 100 mls/hr Q8H IVPB Last administered on 06/12/17 08:17; Admin Dose 100 MLS/HR; Start 06/11/17 at 16: 00 Pantoprazole 40 mg 40 mg DAILY@06 IV Last administered on 06/12/17 05:47; Admin Dose 40 MG; Start 06/11/17 at 16:30 Potassium Chloride/Dextrose/ Sod Cl (D5-1/2ns + KCl 20 Meq) 1,000 ml @ 100 mls/ hr Q10H IV Last administered on 06/11/17 23:20; Admin Dose 100 MLS/HR; Start 06/11/17 at 22:30 VALENTINA PHELAN M.D. Jun 12, 2017 10:53
--- NOTE | 2017-06-12 12:46 | PN ---
Date/Time of Note Date/Time of Note DATE: 06/12/17 TIME: 12:44 Assessment/Plan VTE Prophylaxis VTE Prophylaxis Intervention: SCD's Lines/Catheters IV Catheter Type (from Nrs): PortaCath Urinary Cath still in place: No Assessment/Plan Chief Complaint/Hosp Course Pt elevating clear liquid diet well, NG tube is clamped, denies any abdominal pain, complains of NG tube discomfort. Assessment/Plan -Possible small bowel obstruction. Dr. Neal is following in surgical consultation. Continue NGT to LIS, IV fluids. -Metastatic ovarian cancer, status post cytoreduction surgery in [address] Oliva is following in hematology/oncology consultation. -Hypokalemia, will replace K, monitor electrolytes. Further recommendations based on clinical course. Plan of care discussed with Dr. Matthews. Problems: Exam/Review of Systems Vital Signs Vitals Vital Signs Date Time Temp Pulse Resp B/P Pulse Ox O2 Delivery O2 Flow Rate FiO2 06/12/17 12:09 98.4 92 16 125/65 96 06/11/17 11:26 Room Air Intake and Output 06/11/17 06/11/17 06/12/17 15:00 23:00 07:00 Intake Total 250 ml Balance 250 ml Exam Constitutional: alert, oriented Head: normocephalic Neck: supple Respiratory: normal air movement Cardiovascular: nl pulses Gastrointestinal: distended, soft Extremities: normal pulses Neurological: nl mental status Results Result Diagram: 06/12/17 0617 06/12/17 0617 Results 24 hrs Laboratory Tests Test 06/12/17 06:17 White Blood Count 3.6 #L Red Blood Count 2.31 L Hemoglobin 8.0 L Hematocrit 23.4 L Mean Corpuscular Volume 101.3 H Mean Corpuscular Hemoglobin 34.6 H Mean Corpuscular Hemoglobin Concent 34.2 Red Cell Distribution Width 13.3 Platelet Count 217 Mean Platelet Volume 11.5 H Neutrophils % Segmented Neutrophils % (Manual) 18 L Band Neutrophils % (Manual) 20 H Lymphocytes % Lymphocytes % (Manual) 33 Reactive Lymphocytes % (Manual) 1 H Monocytes % Monocytes % (Manual) 23 H Eosinophils % Basophils % Metamyelocytes % (manual) 3 H Myelocytes % (Manual) 2 H Nucleated Red Blood Cells % 0.0 Neutrophils # Neutrophils # (Manual) 0.7 L Band Neutrophils # 0.7 H Absolute Lymphocytes (Manual) 1.1 Lymphocytes # Reactive Lymphocytes # 0.0 Monocytes # Absolute Monocytes (Manual) 0.8 Eosinophils # Basophils # Metamyelocytes # 0.1 H Myelocytes # 0.0 Nucleated Red Blood Cells # Platelet Estimate NORMAL Giant Platelets 1 H Hypochromasia 1+ Anisocytosis 1+ Macrocytosis 1+ Sodium Level 135 Potassium Level 3.4 L Chloride Level 103 Carbon Dioxide Level 24 Anion Gap 11 Blood Urea Nitrogen 10 Creatinine 0.70 Glucose Level 84 Calcium Level 8.2 L Medications Medications Current Medications Hydromorphone HCl (Dilaudid) 1 mg Q3H PRN IV pain Last administered on 15:32; Admin Dose 1 MG; Start 06/09/17 at 03:30 Ondansetron HCl (Zofran Inj) 4 mg Q6H PRN IV NAUSEA AND/OR VOMITING Last administered on 06/11/17 22:08; Admin Dose 4 MG; Start 06/09/17 at 18:30 Diphenoxylate HCl/ Atropine (Lomotil) 2 tab Q6H PRN PO DIARRHEA Last administered on 06/12/17 02:30; Admin Dose 2 TAB; Start 06/10/17 at 21:30 Filgrastim 480 mcg 480 mcg DAILY@17 SC Last administered on 06/11/17 22:10; Admin Dose 480 MCG; Start 06/11/17 at 17:00 Cefepime HCl (Maxipime 2gm/50 ml (Pmx)) 50 ml @ 100 mls/hr Q8H IVPB Last administered on 06/12/17 08:17; Admin Dose 100 MLS/HR; Start 06/11/17 at 16: 00 Pantoprazole 40 mg 40 mg DAILY@06 IV Last administered on 06/12/17 05:47; Admin Dose 40 MG; Start 06/11/17 at 16:30 Potassium Chloride/Dextrose/ Sod Cl (D5-1/2ns + KCl 20 Meq) 1,000 ml @ 100 mls/ hr Q10H IV Last administered on 06/11/17 23:20; Admin Dose 100 MLS/HR; Start 06/11/17 at 22:30 AMEE JIMENEZ Jun 12, 2017 12:46
[2017-06-12] MEDS ORDERED: POTASSIUM CHLORIDE 20 MEQ in DEXTROSE 5% 100 ML IVPB ONE (13:00)
[2017-06-12] MEDS: FILGRASTIM 480 MCG INJ SC SCH (16:52)
[2017-06-12] MEDS: D5W-0.45 NACL + KCL 20 MEQ 1,000 ML IV SCH ×2 (18:30→19:21)
[2017-06-12] MEDS: ACETAMINOPHEN 325 MG TAB PO PRN (20:13)
[2017-06-12] MEDS: ZOLPIDEM 5 MG TAB PO PRN (22:46)
[2017-06-13] VITALS (12 sets, daily range): BP systolic 90–118; BP diastolic 50–58; PULSE 82–96; RESP 16–18
[2017-06-13] MEDS: DIPHENOXYLATE/ATROPINE TAB PO PRN (05:43)
[2017-06-13] MEDS: D5W-0.45 NACL + KCL 20 MEQ 1,000 ML IV SCH (05:43)
[2017-06-13] MEDS: PANTOPRAZOLE 40 MG INJ IV SCH (05:43)
[2017-06-13 07:32] LABS: ABNORMAL IP MESSAGE 1; HEMATOCRIT 24.4 % (37.0-47.0); HEMOGLOBIN 8.6 g/dl (12.0-16.0); MEAN CORPUSCULAR HEMOGLOBIN 35.2 pg (29.0-33.0); MEAN CORPUSCULAR HGB CONC 35.2 g/dl (32.0-37.0); MEAN PLATELET VOLUME 11.7 fl (7.4-10.4); PLATELET COUNT 241 10^3/UL (140-415); RED BLOOD COUNT 2.44 10^6/ul (4.20-5.40); RED CELL DISTRIBUTION WIDTH 13.1 % (11.5-14.5); WHITE BLOOD COUNT 8.3 10^3/ul (4.8-10.8)
[2017-06-13 07:33] LABS: POSITIVE DIFF @See below
[2017-06-13 07:55] LABS: CALCIUM 8.6 mg/dl (8.4-10.2); CREATININE 0.74 mg/dl (0.44-1.00)
[2017-06-13 08:04] LABS: MAGNESIUM 0.6 mg/dl (1.7-2.5); POTASSIUM 2.9 mmol/L (3.5-5.1)
[2017-06-13] MEDS: CEFEPIME 2GM/50 ML (PMX) 50 ML IVPB SCH ×2 (09:17→16:07)
[2017-06-13 09:32] LABS: ANISOCYTOSIS 1+ (0-0); EOSINOPHILS % (M) 1 % (0-7); ERYTHROBLAST% (NRBC) (M) 1 % (0-0); GIANT THROMBO% (M) 1 % (0-0); MONOCYTES % (M) 11 % (0-11); PLATELET ESTIMATE NORMAL; POLYCHROMASIA 1+ (0-0)
[2017-06-13] MEDS ORDERED: POTASSIUM CHLORIDE 250 ML IVPB ONE (10:00)
[2017-06-13] MEDS ORDERED: MAGNESIUM SULFATE 4 GM/100 ML 100 ML IVPB ONE (10:00)
--- NOTE | 2017-06-13 10:24 | CONS ---
Date/Time of Note Date/Time of Note DATE: 06/13/17 TIME: 10:23 Assessment/Plan Assessment/Plan Chief Complaint/Hosp Course #metastatic ovarian cancer - BRCA status negative per [facility] focus testing -pt received cycle 2 of Carboplatin/ Taxotere on 06/06 -will check CA 125 at this time. prior to starting this treatment her CA 125 was 2002. now down to 540 #h/o SBO -management per [facility] -difficult to say if this is from tumor or adhesions -pt now tolerating clear liquid diet. NGT has been discontinued #Leukopenia -2/2 to chemotherapy -continue to monitor A total of 40 minutes of face to face time was spent speaking with the patient, of which greater than 50% was spent in counseling and coordination of care and the detailed question and answer session. Problems: Consultation Date/Type/Reason Admit Date/Time Jun 09, 2017 at 02:06 Initial Consult Date 06/12/17 Type of Consultation: oncology Reason for Consultation metastatic breast cancer Referring Provider: LOTTIE NORTON MD 24 HR Interval Summary Free Text/Dictation pt is tolerating Clear liquid diet. abdominal pain is improving Exam/Review of Systems Vital Signs Vitals Vital Signs Date Time Temp Pulse Resp B/P Pulse Ox O2 Delivery O2 Flow Rate FiO2 06/13/17 08:17 85 06/13/17 07:57 98.2 16 93/50 94 06/11/17 11:26 Room Air Intake and Output 06/12/17 06/12/17 06/13/17 14:59 22:59 06:59 Intake Total 290 ml 1940 ml 1350 ml Balance 290 ml 1940 ml 1350 ml Exam Constitutional: alert, oriented Psych: no complaints Head: atraumatic, normocephalic Eyes: nl conjunctiva ENMT: nl external ears & nose Neck: non-tender, supple Respiratory: clear to auscultation Cardiovascular: regular rate and rhythm Gastrointestinal: soft Musculoskeletal: nl extremities to inspection Results Result Diagram: 06/13/17 0653 06/13/17 0653 Results 24 hrs Laboratory Tests Test 06/13/17 06:53 White Blood Count 8.3 # Red Blood Count 2.44 L Hemoglobin 8.6 L Hematocrit 24.4 L Mean Corpuscular Volume 100.0 Mean Corpuscular Hemoglobin 35.2 H Mean Corpuscular Hemoglobin Concent 35.2 Red Cell Distribution Width 13.1 Platelet Count 241 Mean Platelet Volume 11.7 H Neutrophils % Segmented Neutrophils % (Manual) 43 Band Neutrophils % (Manual) 13 H Lymphocytes % Lymphocytes % (Manual) 32 Monocytes % Monocytes % (Manual) 11 Eosinophils % Eosinophils % (Manual) 1 Basophils % Nucleated Red Blood Cells % 1 H Neutrophils # Neutrophils # (Manual) 3.7 Band Neutrophils # 1.0 H Absolute Lymphocytes (Manual) 2.6 Lymphocytes # Monocytes # Absolute Monocytes (Manual) 0.9 Eosinophils # Basophils # Nucleated Red Blood Cells # Platelet Estimate NORMAL Giant Platelets 1 H Polychromasia 1+ Anisocytosis 1+ Sodium Level 138 Potassium Level 2.9 *L Chloride Level 102 Carbon Dioxide Level 26 Anion Gap 13 Blood Urea Nitrogen 5 L Creatinine 0.74 Glucose Level 101 Calcium Level 8.6 Magnesium Level 0.6 *L Medications Medications Current Medications Hydromorphone HCl (Dilaudid) 1 mg Q3H PRN IV pain Last administered on 15:32; Admin Dose 1 MG; Start 06/09/17 at 03:30 Ondansetron HCl (Zofran Inj) 4 mg Q6H PRN IV NAUSEA AND/OR VOMITING Last administered on 06/11/17 22:08; Admin Dose 4 MG; Start 06/09/17 at 18:30 Diphenoxylate HCl/ Atropine (Lomotil) 2 tab Q6H PRN PO DIARRHEA Last administered on 06/12/17 20:17; Admin Dose 2 TAB; Start 06/10/17 at 21:30 Filgrastim 480 mcg 480 mcg DAILY@17 SC Last administered on 06/12/17 16:52; Admin Dose 480 MCG; Start 06/11/17 at 17:00 Cefepime HCl (Maxipime 2gm/50 ml (Pmx)) 50 ml @ 100 mls/hr Q8H IVPB Last administered on 06/13/17 09:17; Admin Dose 100 MLS/HR; Start 06/11/17 at 16: 00 Pantoprazole (Protonix Iv) 40 mg DAILY@06 IV Last administered on 06/13/17 05 :43; Admin Dose 40 MG; Start 06/11/17 at 16:30 Acetaminophen (Tylenol Tab) 650 mg Q4H PRN PO PAIN AND OR ELEVATED TEMP Last administered on 06/12/17 20:13; Admin Dose 650 MG; Start 06/12/17 at 15:30 Zolpidem Tartrate 5 mg 5 mg HS PRN PO INSOMNIA Last administered on 06/12/17 22:46; Admin Dose 5 MG; Start 06/12/17 at 22:30 Potassium Chloride/Dextrose/ Sod Cl 1,000 ml @ 75 mls/hr [id number] IV ; Start at 09:30 Potassium Chloride 250 ml @ 62.5 mls/hr ONCE ONCE IVPB ; Start 06/13/17 at 10 :00; Stop 06/13/17 at 13:59 Magnesium Sulfate (Magnesium Sulfate 4 Gm/100 ml) 100 ml @ 25 mls/hr ONCE ONCE IVPB ; Start 06/13/17 at 10:00; Stop 06/13/17 at 13:59 VALENTINA PHELAN M.D. Jun 13, 2017 10:24
[2017-06-13] MEDS: D5W-0.45 NACL + KCL 40 MEQ 1,000 ML IV SCH ×2 (11:11→20:27)
--- NOTE | 2017-06-13 14:39 | PN ---
Date/Time of Note Date/Time of Note DATE: 06/13/17 TIME: 14:37 Assessment/Plan VTE Prophylaxis VTE Prophylaxis Intervention: SCD's Lines/Catheters [facility]from [facility] Portacath Urinary Cath still in place: No Assessment/Plan Chief Complaint/Hosp Course NG tube was discontinued, patient tolerates full liquid diet well, denies any pain. Patient with hypokalemia and hypomagnesemia, electrolytes replacement given. Assessment/Plan -Possible small bowel obstruction, resolved. Dr. Neal is following in surgical consultation. -Metastatic ovarian cancer, status post cytoreduction surgery in [address] Oliva is following in hematology/oncology consultation. -Hypokalemia, potassium replaced, continue to monitor electrolytes. Further recommendations based on clinical course. Plan of care discussed with Dr. Matthews. Problems: Exam/Review of Systems Vital Signs Vitals Vital Signs Date Time Temp Pulse Resp B/P Pulse Ox O2 Delivery O2 Flow Rate FiO2 06/13/17 12:02 92 06/13/17 11:46 97.8 18 114/54 94 06/11/17 11:26 Room Air Intake and Output 06/12/17 06/12/17 06/13/17 15:00 23:00 07:00 Intake Total 290 ml 1940 ml 1350 ml Balance 290 ml 1940 ml 1350 ml Exam Constitutional: alert, oriented Respiratory: normal air movement Cardiovascular: nl pulses Gastrointestinal: soft Extremities: normal pulses Neurological: nl mental status Results Result Diagram: 06/13/17 0653 06/13/17 0653 Results 24 hrs Laboratory Tests Test 06/13/17 06:53 White Blood Count 8.3 # Red Blood Count 2.44 L Hemoglobin 8.6 L Hematocrit 24.4 L Mean Corpuscular Volume 100.0 Mean Corpuscular Hemoglobin 35.2 H Mean Corpuscular Hemoglobin Concent 35.2 Red Cell Distribution Width 13.1 Platelet Count 241 Mean Platelet Volume 11.7 H Neutrophils % Segmented Neutrophils % (Manual) 43 Band Neutrophils % (Manual) 13 H Lymphocytes % Lymphocytes % (Manual) 32 Monocytes % Monocytes % (Manual) 11 Eosinophils % Eosinophils % (Manual) 1 Basophils % Nucleated Red Blood Cells % 1 H Neutrophils # Neutrophils # (Manual) 3.7 Band Neutrophils # 1.0 H Absolute Lymphocytes (Manual) 2.6 Lymphocytes # Monocytes # Absolute Monocytes (Manual) 0.9 Eosinophils # Basophils # Nucleated Red Blood Cells # Platelet Estimate NORMAL Giant Platelets 1 H Polychromasia 1+ Anisocytosis 1+ Sodium Level 138 Potassium Level 2.9 *L Chloride Level 102 Carbon Dioxide Level 26 Anion Gap 13 Blood Urea Nitrogen 5 L Creatinine 0.74 Glucose Level 101 Calcium Level 8.6 Magnesium Level 0.6 *L Medications Medications Current Medications Hydromorphone HCl (Dilaudid) 1 mg Q3H PRN IV pain Last administered on 15:32; Admin Dose 1 MG; Start 06/09/17 at 03:30 Ondansetron HCl (Zofran Inj) 4 mg Q6H PRN IV NAUSEA AND/OR VOMITING Last administered on 06/11/17 22:08; Admin Dose 4 MG; Start 06/09/17 at 18:30 Diphenoxylate HCl/ Atropine (Lomotil) 2 tab Q6H PRN PO DIARRHEA Last administered on 06/12/17 20:17; Admin Dose 2 TAB; Start 06/10/17 at 21:30 Filgrastim 480 mcg 480 mcg DAILY@17 SC Last administered on 06/12/17 16:52; Admin Dose 480 MCG; Start 06/11/17 at 17:00 Cefepime HCl (Maxipime 2gm/50 ml (Pmx)) 50 ml @ 100 mls/hr Q8H IVPB Last administered on 06/13/17 09:17; Admin Dose 100 MLS/HR; Start 06/11/17 at 16: 00 Pantoprazole (Protonix Iv) 40 mg DAILY@06 IV Last administered on 06/13/17 05 :43; Admin Dose 40 MG; Start 06/11/17 at 16:30 Acetaminophen (Tylenol Tab) 650 mg Q4H PRN PO PAIN AND OR ELEVATED TEMP Last administered on 06/12/17 20:13; Admin Dose 650 MG; Start 06/12/17 at 15:30 Zolpidem Tartrate 5 mg 5 mg HS PRN PO INSOMNIA Last administered on 06/12/17 22:46; Admin Dose 5 MG; Start 06/12/17 at 22:30 Potassium Chloride/Dextrose/ Sod Cl (D5-1/2ns + KCl 40 Meq) 1,000 ml @ 75 mls/ hr [id number] IV Last administered on 06/13/17t 11:11; Admin Dose 75 MLS/HR; Start 06/13/17 at 09:30 AMEE JIMENEZ Jun 13, 2017 14:39
[2017-06-13] MEDS: FILGRASTIM 480 MCG INJ SC SCH (16:09)
[2017-06-14] VITALS (12 sets, daily range): BP systolic 91–112; BP diastolic 48–56; PULSE 82–100; RESP 17–20
[2017-06-14] MEDS: DIPHENOXYLATE/ATROPINE TAB PO PRN (00:13)
[2017-06-14] MEDS: CEFEPIME 2GM/50 ML (PMX) 50 ML IVPB SCH ×3 (00:14→16:00)
[2017-06-14] MEDS: ZOLPIDEM 5 MG TAB PO PRN (00:14)
[2017-06-14] MEDS: D5W-0.45 NACL + KCL 40 MEQ 1,000 ML IV SCH ×2 (05:28→20:56)
[2017-06-14] MEDS: PANTOPRAZOLE 40 MG INJ IV SCH (05:29)
[2017-06-14] MEDS ORDERED: HYDROmorphONE 2 MG TAB PO PRN (10:30)
[2017-06-14 12:45] LABS: CALCIUM 9.1 mg/dl (8.4-10.2); CREATININE 0.73 mg/dl (0.44-1.00); POTASSIUM 3.6 mmol/L (3.5-5.1)
[2017-06-14] MEDS: FILGRASTIM 480 MCG INJ SC SCH (17:32)
--- NOTE | 2017-06-14 17:32 | PN ---
Date/Time of Note Date/Time of Note DATE: 06/14/17 TIME: 17:29 Assessment/Plan VTE Prophylaxis VTE Prophylaxis Intervention: SCD's Lines/Catheters [facility] PortaCath Central line still needed: Yes Urinary Cath still in place: No Assessment/Plan Chief Complaint/Hosp Course Patient diet progressed to mechanical soft, patient denies any nausea and vomiting. Assessment/Plan -Possible small bowel obstruction, resolved. Dr. Neal is following in surgical consultation. -Metastatic ovarian cancer, status post cytoreduction surgery in [address] Oliva is following in hematology/oncology consultation. -Leukopenia, resolved. Further recommendations based on clinical course. Plan of care discussed with Dr. Matthews. Problems: Exam/Review of Systems Vital Signs Vitals Vital Signs Date Time Temp Pulse Resp B/P Pulse Ox O2 Delivery O2 Flow Rate FiO2 06/14/17 16:04 96 06/14/17 15:57 97.7 17 100/54 96 06/11/17 11:26 Room Air Intake and Output 06/13/17 06/13/17 06/14/17 15:00 23:00 07:00 Intake Total 1000 ml 2425 ml 1150 ml Balance 1000 ml 2425 ml 1150 ml Exam Constitutional: alert, oriented Respiratory: normal air movement Cardiovascular: nl pulses Gastrointestinal: soft Extremities: normal pulses Neurological: nl mental status Results Result Diagram: 06/13/17 0653 06/14/17 1149 Results 24 hrs Laboratory Tests Test 06/14/17 11:49 Sodium Level 135 Potassium Level 3.6 Chloride Level 101 Carbon Dioxide Level 24 Anion Gap 14 Blood Urea Nitrogen 3 L Creatinine 0.73 Glucose Level 132 Calcium Level 9.1 Medications Medications Current Medications Ondansetron HCl (Zofran Inj) 4 mg Q6H PRN IV NAUSEA AND/OR VOMITING Last administered on 06/11/17 22:08; Admin Dose 4 MG; Start 06/09/17 at 18:30 Diphenoxylate HCl/ Atropine (Lomotil) 2 tab Q6H PRN PO DIARRHEA Last administered on 06/14/17 00:13; Admin Dose 2 TAB; Start 06/10/17 at 21:30 Filgrastim 480 mcg 480 mcg DAILY@17 SC Last administered on 06/13/17 16:09; Admin Dose 480 MCG; Start 06/11/17 at 17:00 Cefepime HCl (Maxipime 2gm/50 ml (Pmx)) 50 ml @ 100 mls/hr Q8H IVPB Last administered on 06/14/17 08:34; Admin Dose 100 MLS/HR; Start 06/11/17 at 16: 00 Pantoprazole (Protonix Iv) 40 mg DAILY@06 IV Last administered on 06/14/17 05 :29; Admin Dose 40 MG; Start 06/11/17 at 16:30 Acetaminophen (Tylenol Tab) 650 mg Q4H PRN PO PAIN AND OR ELEVATED TEMP Last administered on 06/12/17 20:13; Admin Dose 650 MG; Start 06/12/17 at 15:30 Zolpidem Tartrate 5 mg 5 mg HS PRN PO INSOMNIA Last administered on 06/14/17 00:14; Admin Dose 5 MG; Start 06/12/17 at 22:30 Potassium Chloride/Dextrose/ Sod Cl (D5-1/2ns + KCl 40 Meq) 1,000 ml @ 75 mls/ hr [id number] IV Last administered on 06/14/17 05:28; Admin Dose 75 MLS/HR; Start 06/13/17 at 09:30 Hydromorphone HCl (Dilaudid) 2 mg Q6H PRN PO PAIN; Start 06/14/17 at 10:30 AMEE JIMENEZ Jun 14, 2017 17:32
[2017-06-15] VITALS (14 sets, daily range): BP systolic 83–117; BP diastolic 44–68; PULSE 92–101; RESP 16–20
[2017-06-15] MEDS: CEFEPIME 2GM/50 ML (PMX) 50 ML IVPB SCH ×3 (00:02→16:06)
[2017-06-15] MEDS: LORAZEPAM 1 MG TAB PO SCH ×2 (00:03→21:08)
[2017-06-15] MEDS: PANTOPRAZOLE 40 MG INJ IV SCH (05:08)
[2017-06-15 07:01] LABS: ABNORMAL IP MESSAGE 1; HEMATOCRIT 24.8 % (37.0-47.0); HEMOGLOBIN 8.6 g/dl (12.0-16.0); MEAN CORPUSCULAR HGB CONC 34.7 g/dl (32.0-37.0); MEAN CORPUSCULAR VOLUME 100.8 fl (82.0-101.0); MEAN PLATELET VOLUME 11.1 fl (7.4-10.4); NUCLEATED RED BLOOD CELLS% 3.5 /100WBC (0.0-0.0); PLATELET COUNT 280 10^3/UL (140-415); RED BLOOD COUNT 2.46 10^6/ul (4.20-5.40); RED CELL DISTRIBUTION WIDTH 13.4 % (11.5-14.5); WHITE BLOOD COUNT 33.3 10^3/ul (4.8-10.8)
[2017-06-15 07:16] LABS: POSITIVE DIFF @See below
[2017-06-15 07:35] LABS: PHOSPHORUS 1.9 mg/dl (2.5-4.9)
[2017-06-15 07:41] LABS: CREATININE 0.73 mg/dl (0.44-1.00); MAGNESIUM 0.7 mg/dl (1.7-2.5); POTASSIUM 4.6 mmol/L (3.5-5.1)
[2017-06-15 09:11] LABS: ANISOCYTOSIS 1+ (0-0); EOSINOPHILS % (M) 1 % (0-7); ERYTHROBLAST% (NRBC) (M) 4 % (0-0); GIANT THROMBO% (M) 8 % (0-0); MONOCYTES % (M) 3 % (0-11); PLATELET ESTIMATE NORMAL; POLYCHROMASIA 1+ (0-0); PROMYELOCYTES #M 0.6 10^3/ul (0-0); PROMYELOCYTES % (M) 2 % (0-0); REACTIVE LYMPHOCYTES% (M) 1 % (0-0)
[2017-06-15] MEDS ORDERED: MAGNESIUM SULFATE 4 GM/100 ML 100 ML IVPB ONE (11:00)
--- NOTE | 2017-06-15 12:45 | PN ---
Date/Time of Note Date/Time of Note DATE: 06/15/17 TIME: 12:19 Assessment/Plan VTE Prophylaxis VTE Prophylaxis Intervention: SCD's Lines/Catheters [facility] PortaCath Urinary Cath still in place: No Assessment/Plan Chief Complaint/Hosp Course Leukocytosis, no fever, repeat urine culture, patient tolerates mechanical soft diet well. Magnesium and phosphorus level replacement ordered. Assessment/Plan -Possible small bowel obstruction, resolved. Dr. Neal is following in surgical consultation. -Metastatic ovarian cancer, status post cytoreduction surgery in [address] Oliva is following in hematology/oncology consultation. Further recommendations based on clinical course. Plan of care discussed with Dr. Matthews. Problems: Exam/Review of Systems Vital Signs Vitals Vital Signs Date Time Temp Pulse Resp B/P Pulse Ox O2 Delivery O2 Flow Rate FiO2 06/15/17 12:05 92 06/15/17 11:45 98.9 20 97/55 96 06/11/17 11:26 Room Air Intake and Output 06/14/17 06/14/17 06/15/17 14:59 22:59 06:59 Intake Total 50 ml 1800 ml 500 ml Balance 50 ml 1800 ml 500 ml Exam Constitutional: alert, oriented Respiratory: normal air movement Cardiovascular: nl pulses Gastrointestinal: soft Extremities: normal pulses Neurological: nl mental status Results Result Diagram: 06/15/17 0638 06/15/17 0638 Results 24 hrs Laboratory Tests Test 06/15/17 06:38 White Blood Count 33.3 #H Red Blood Count 2.46 L Hemoglobin 8.6 L Hematocrit 24.8 L Mean Corpuscular Volume 100.8 Mean Corpuscular Hemoglobin 35.0 H Mean Corpuscular Hemoglobin Concent 34.7 Red Cell Distribution Width 13.4 Platelet Count 280 Mean Platelet Volume 11.1 H Neutrophils % Segmented Neutrophils % (Manual) 72 Band Neutrophils % (Manual) 9 H Lymphocytes % Lymphocytes % (Manual) 12 L Reactive Lymphocytes % (Manual) 1 H Monocytes % Monocytes % (Manual) 3 Eosinophils % Eosinophils % (Manual) 1 Basophils % Promyelocytes % (Manual) 2 H Nucleated Red Blood Cells % 4 H Neutrophils # Neutrophils # (Manual) 24.9 H Band Neutrophils # 2.9 H Absolute Lymphocytes (Manual) 3.9 H Lymphocytes # Reactive Lymphocytes # 0.3 H Monocytes # Absolute Monocytes (Manual) 0.9 Eosinophils # Basophils # Promyelocytes # 0.6 H Nucleated Red Blood Cells # Platelet Estimate NORMAL Giant Platelets 8 H Polychromasia 1+ Anisocytosis 1+ Macrocytosis 1+ Sodium Level 139 Potassium Level 4.6 Chloride Level 104 Carbon Dioxide Level 24 Anion Gap 16 Blood Urea Nitrogen 3 L Creatinine 0.73 Glucose Level 214 Calcium Level 9.0 Phosphorus Level 1.9 L Magnesium Level 0.7 *L Medications Medications Current Medications Ondansetron HCl (Zofran Inj) 4 mg Q6H PRN IV NAUSEA AND/OR VOMITING Last administered on 06/11/17 22:08; Admin Dose 4 MG; Start 06/09/17 at 18:30 Diphenoxylate HCl/ Atropine 2 tab 2 tab Q6H PRN PO DIARRHEA Last administered on 06/14/17 00:13; Admin Dose 2 TAB; Start 06/10/17 at 21:30 Cefepime HCl (Maxipime 2gm/50 ml (Pmx)) 50 ml @ 100 mls/hr Q8H IVPB Last administered on 06/15/17 08:00; Admin Dose 100 MLS/HR; Start 06/11/17 at 16: 00 Pantoprazole (Protonix Iv) 40 mg DAILY@06 IV Last administered on 06/15/17 05 :08; Admin Dose 40 MG; Start 06/11/17 at 16:30 Acetaminophen (Tylenol Tab) 650 mg Q4H PRN PO PAIN AND OR ELEVATED TEMP Last administered on 06/12/17 20:13; Admin Dose 650 MG; Start 06/12/17 at 15:30 Zolpidem Tartrate 5 mg 5 mg HS PRN PO INSOMNIA Last administered on 06/14/17 00:14; Admin Dose 5 MG; Start 06/12/17 at 22:30 Potassium Chloride/Dextrose/ Sod Cl (D5-1/2ns + KCl 40 Meq) 1,000 ml @ 75 mls/ hr [id number] IV Last administered on 06/14/17 20:56; Admin Dose 75 MLS/HR; Start 06/13/17 at 09:30 Hydromorphone HCl (Dilaudid) 2 mg Q6H PRN PO PAIN; Start 06/14/17 at 10:30 Lorazepam 1 mg 1 mg HS PO Last administered on 12/15/17at 00:03; Admin Dose 1 MG; Start 06/15/17 at 00:00 Magnesium Sulfate (Magnesium Sulfate 4 Gm/100 ml) 100 ml @ 25 mls/hr ONCE ONCE IVPB ; Start 06/15/17 at 11:00; Stop 06/15/17 at 14:59 AMEE JIMENEZ Jun 15, 2017 12:29
[2017-06-15] MEDS ORDERED: POTASSIUM PHOSPHATE 15 MM in SOD CHLORIDE 0.9% 250 ML IVPB ONE (14:00)
[2017-06-15] MEDS: D5W-0.45 NACL + KCL 40 MEQ 1,000 ML IV SCH (14:50)
--- NOTE | 2017-06-15 16:53 | CONS ---
Date/Time of Note Date/Time of Note DATE: 06/15/17 TIME: 16:50 Assessment/Plan Assessment/Plan Chief Complaint/Hosp Course #metastatic ovarian cancer - BRCA status negative per [facility] emergency department focus testing -pt received cycle 2 of Carboplatin/ Taxotere on 06/06 -will check CA 125 at this time. prior to starting this treatment her CA 125 was 2002. now down to 540 -will continue chemo as out patient #h/o SBO -management per [facility] -difficult to say if this is from tumor or adhesions -pt now tolerating soft mechanical diet. NGT has been discontinued #Leukocytosis -2/2 Neupogen which has been dc'd -pt does not appear infected #VRE in urine -will recheck UA and UCx. if negative can dc antibiotics A total of 40 minutes of face to face time was spent speaking with the patient, of which greater than 50% was spent in counseling and coordination of care and the detailed question and answer session. Problems: Consultation Date/Type/Reason Admit Date/Time Jun 09, 2017 at 02:06 Initial Consult Date 06/12/17 Type of Consultation: oncology Reason for Consultation metastatic ovarian cancer Referring Provider: LOTTIE NORTON MD 24 HR Interval Summary Free Text/Dictation no acute overnight events. pt is tolerating a mechanical soft diet Exam/Review of Systems Vital Signs Vitals Vital Signs Date Time Temp Pulse Resp B/P Pulse Ox O2 Delivery O2 Flow Rate FiO2 06/15/17 16:00 97 06/15/17 15:51 98.0 20 83/44 94 06/11/17 11:26 Room Air Intake and Output 06/14/17 06/14/17 06/15/17 15:00 23:00 07:00 Intake Total 50 ml 1800 ml 500 ml Balance 50 ml 1800 ml 500 ml Exam Constitutional: alert, oriented Psych: no complaints Head: normocephalic Eyes: nl conjunctiva ENMT: nl external ears & nose Neck: non-tender, supple Respiratory: clear to auscultation Cardiovascular: nl pulses, regular rate and rhythm Gastrointestinal: soft Musculoskeletal: nl extremities to inspection, nl gait and stance Results Result Diagram: 06/15/17 0638 06/15/17 0638 Results 24 hrs Laboratory Tests Test 06/15/17 06:38 White Blood Count 33.3 #H Red Blood Count 2.46 L Hemoglobin 8.6 L Hematocrit 24.8 L Mean Corpuscular Volume 100.8 Mean Corpuscular Hemoglobin 35.0 H Mean Corpuscular Hemoglobin Concent 34.7 Red Cell Distribution Width 13.4 Platelet Count 280 Mean Platelet Volume 11.1 H Neutrophils % Segmented Neutrophils % (Manual) 72 Band Neutrophils % (Manual) 9 H Lymphocytes % Lymphocytes % (Manual) 12 L Reactive Lymphocytes % (Manual) 1 H Monocytes % Monocytes % (Manual) 3 Eosinophils % Eosinophils % (Manual) 1 Basophils % Promyelocytes % (Manual) 2 H Nucleated Red Blood Cells % 4 H Neutrophils # Neutrophils # (Manual) 24.9 H Band Neutrophils # 2.9 H Absolute Lymphocytes (Manual) 3.9 H Lymphocytes # Reactive Lymphocytes # 0.3 H Monocytes # Absolute Monocytes (Manual) 0.9 Eosinophils # Basophils # Promyelocytes # 0.6 H Nucleated Red Blood Cells # Platelet Estimate NORMAL Giant Platelets 8 H Polychromasia 1+ Anisocytosis 1+ Macrocytosis 1+ Sodium Level 139 Potassium Level 4.6 Chloride Level 104 Carbon Dioxide Level 24 Anion Gap 16 Blood Urea Nitrogen 3 L Creatinine 0.73 Glucose Level 214 Calcium Level 9.0 Phosphorus Level 1.9 L Magnesium Level 0.7 *L Medications Medications Current Medications Ondansetron HCl (Zofran Inj) 4 mg Q6H PRN IV NAUSEA AND/OR VOMITING Last administered on 06/11/17 22:08; Admin Dose 4 MG; Start 06/09/17 at 18:30 Diphenoxylate HCl/ Atropine 2 tab 2 tab Q6H PRN PO DIARRHEA Last administered on 06/14/17 00:13; Admin Dose 2 TAB; Start 06/10/17 at 21:30 Cefepime HCl (Maxipime 2gm/50 ml (Pmx)) 50 ml @ 100 mls/hr Q8H IVPB Last administered on 06/15/17 16:06; Admin Dose 100 MLS/HR; Start 06/11/17 at 16: 00 Pantoprazole (Protonix Iv) 40 mg DAILY@06 IV Last administered on 06/15/17 05 :08; Admin Dose 40 MG; Start 06/11/17 at 16:30 Acetaminophen (Tylenol Tab) 650 mg Q4H PRN PO PAIN AND OR ELEVATED TEMP Last administered on 06/12/17 20:13; Admin Dose 650 MG; Start 06/12/17 at 15:30 Zolpidem Tartrate 5 mg 5 mg HS PRN PO INSOMNIA Last administered on 06/14/17 00:14; Admin Dose 5 MG; Start 06/12/17 at 22:30 Potassium Chloride/Dextrose/ Sod Cl (D5-1/2ns + KCl 40 Meq) 1,000 ml @ 75 mls/ hr [id number] IV Last administered on 06/14/17 20:56; Admin Dose 75 MLS/HR; Start 06/13/17 at 09:30 Hydromorphone HCl (Dilaudid) 2 mg Q6H PRN PO PAIN; Start 06/14/17 at 10:30 Lorazepam 1 mg 1 mg HS PO Last administered on 06/15/17 00:03; Admin Dose 1 MG; Start 06/15/17 at 00:00 Potassium Phosphate/Sodium Chloride (K Phos (Mm)/NS) 255 ml @ 63.75 mls/ hr ONCE ONCE IVPB Last administered on 06/15/17 14:00; Admin Dose 63.75 MLS/HR ; Start 06/15/17 at 14:00; Stop 06/15/17 at 17:59 VALENTINA PHELAN M.D. Jun 15, 2017 16:53
[2017-06-15] MEDS: ACETAMINOPHEN 325 MG TAB PO PRN (21:31)
[2017-06-16] VITALS (11 sets, daily range): BP systolic 96–113; BP diastolic 53–66; PULSE 94–101; RESP 18–20
[2017-06-16] MEDS: D5W-0.45 NACL + KCL 40 MEQ 1,000 ML IV SCH ×2 (06:12→17:01)
[2017-06-16] MEDS: PANTOPRAZOLE 40 MG INJ IV SCH (06:13)
[2017-06-16 07:40] LABS: ABNORMAL IP MESSAGE 1; HEMATOCRIT 25.1 % (37.0-47.0); HEMOGLOBIN 8.7 g/dl (12.0-16.0); MEAN CORPUSCULAR HEMOGLOBIN 34.9 pg (29.0-33.0); MEAN CORPUSCULAR HGB CONC 34.7 g/dl (32.0-37.0); MEAN CORPUSCULAR VOLUME 100.8 fl (82.0-101.0); MEAN PLATELET VOLUME 11.2 fl (7.4-10.4); NUCLEATED RED BLOOD CELLS% 4.8 /100WBC (0.0-0.0); PLATELET COUNT 330 10^3/UL (140-415); RED BLOOD COUNT 2.49 10^6/ul (4.20-5.40); RED CELL DISTRIBUTION WIDTH 13.6 % (11.5-14.5)
[2017-06-16 07:45] LABS: POSITIVE DIFF @See below
[2017-06-16 08:09] LABS: CALCIUM 9.3 mg/dl (8.4-10.2); CREATININE 0.77 mg/dl (0.44-1.00); POTASSIUM 3.7 mmol/L (3.5-5.1)
[2017-06-16] MEDS: CEFEPIME 2GM/50 ML (PMX) 50 ML IVPB SCH ×3 (08:55→16:55)
[2017-06-16 09:56] LABS: ANISOCYTOSIS 1+ (0-0); ERYTHROBLAST% (NRBC) (M) 4 % (0-0); GIANT THROMBO% (M) 1 % (0-0); METAMYELOCYTES %M 1 % (0-0); MONOCYTES % (M) 12 % (0-11); PLATELET ESTIMATE NORMAL; POIKILOCYTOSIS 1+ (0-0); POLYCHROMASIA 1+ (0-0)
[2017-06-16 13:06] LABS: ADD UMIC NO; UR ASCORBIC ACID NEGATIVE (NEGATIVE); UR BILIRUBIN (Dip) NEGATIVE (NEGATIVE); UR BLOOD (Dip) NEGATIVE (NEGATIVE); UR CLARITY CLEAR (CLEAR); UR COLOR YELLOW (YELLOW); UR GLUCOSE (Dip) NEGATIVE (NEGATIVE); UR KETONES (Dip) NEGATIVE (NEGATIVE); UR LEUKOCYTE ESTERASE (Dip) NEGATIVE Leu/ul (NEGATIVE); UR NITRITE (Dip) NEGATIVE (NEGATIVE); UR SPECIFIC GRAVITY (Dip) 1.014 (1.003-1.030); UR TOTAL PROTEIN (Dip) NEGATIVE (NEGATIVE); UR UROBILINOGEN (Dip) NEGATIVE (NEGATIVE)
--- NOTE | 2017-06-16 19:23 | PN ---
Date/Time of Note Date/Time of Note DATE: 06/16/17 TIME: 19:18 Assessment/Plan Lines/Catheters IV Catheter Type (from Nrs): Gabe cath Urinary Cath still in place: No Assessment/Plan Assessment/Plan - Possible small bowel obstruction, resolved. Dr. Neal is following in surgical consultation. - Metastatic ovarian cancer, status post cytoreduction surgery in [address] Oliva is following in hematology/oncology consultation. - Hypomagnesium as of yestrday, will get mag level; fu , am Mag level Further recommendations based on clinical course. Plan of care discussed with Dr. Matthews. Subjective 24 Hr Interval Summary Free Text/Dictation BP dropped , Mag level low as of uestreday- will order Mag level- fu . Possible dc tomorrow No events reported overnight Respiratory: no complaints Cardiovascular: no complaints Exam/Review of Systems Vital Signs Vitals Vital Signs Date Time Temp Pulse Resp B/P Pulse Ox O2 Delivery O2 Flow Rate FiO2 06/16/17 16:40 97.6 94 20 99/53 95 Intake and Output 06/15/17 06/15/17 06/16/17 15:00 23:00 07:00 Intake Total 1805 ml 800 ml Balance 1805 ml 800 ml Exam Constitutional: alert Respiratory: diminished breath sounds Cardiovascular: nl pulses Gastrointestinal: non-tender, soft Results Result Diagram: 06/16/17 0610 06/16/17 0610 Results 24 hrs Laboratory Tests Test 06/16/17 06:10 06/16/17 11:45 White Blood Count 28.0 H Red Blood Count 2.49 L Hemoglobin 8.7 L Hematocrit 25.1 L Mean Corpuscular Volume 100.8 Mean Corpuscular Hemoglobin 34.9 H Mean Corpuscular Hemoglobin Concent 34.7 Red Cell Distribution Width 13.6 Platelet Count 330 Mean Platelet Volume 11.2 H Neutrophils % Segmented Neutrophils % (Manual) 59 Band Neutrophils % (Manual) 12 H Lymphocytes % Lymphocytes % (Manual) 16 Monocytes % Monocytes % (Manual) 12 H Eosinophils % Basophils % Metamyelocytes % (manual) 1 H Nucleated Red Blood Cells % 4 H Neutrophils # Neutrophils # (Manual) 17.4 H Band Neutrophils # 3.3 H Absolute Lymphocytes (Manual) 4.4 H Lymphocytes # Monocytes # Absolute Monocytes (Manual) 3.3 H Eosinophils # Basophils # Metamyelocytes # 0.2 H Nucleated Red Blood Cells # Platelet Estimate NORMAL Giant Platelets 1 H Polychromasia 1+ Poikilocytosis 1+ Anisocytosis 1+ Macrocytosis 1+ Sodium Level 138 Potassium Level 3.7 Chloride Level 101 Carbon Dioxide Level 27 Anion Gap 14 Blood Urea Nitrogen 9 Creatinine 0.77 Glucose Level 89 # Calcium Level 9.3 Urine Color YELLOW Urine Clarity CLEAR Urine pH 5.0 Urine Specific [place] 1.014 Urine Ketones NEGATIVE Urine Nitrite NEGATIVE Urine Bilirubin NEGATIVE Urine Urobilinogen NEGATIVE Urine Leukocyte Esterase NEGATIVE Urine Hemoglobin NEGATIVE Urine Glucose NEGATIVE Urine Total Protein NEGATIVE Medications Medications Current Medications Ondansetron HCl (Zofran Inj) 4 mg Q6H PRN IV NAUSEA AND/OR VOMITING Last administered on 06/11/17 22:08; Admin Dose 4 MG; Start 06/09/17 at 18:30 Diphenoxylate HCl/ Atropine (Lomotil) 2 tab Q6H PRN PO DIARRHEA Last administered on 06/14/17 00:13; Admin Dose 2 TAB; Start 06/10/17 at 21:30 Pantoprazole (Protonix Iv) 40 mg DAILY@06 IV Last administered on 06/16/17 06 :13; Admin Dose 40 MG; Start 06/11/17 at 16:30 Acetaminophen (Tylenol Tab) 650 mg Q4H PRN PO PAIN AND OR ELEVATED TEMP Last administered on 06/15/17 21:31; Admin Dose 650 MG; Start 06/12/17 at 15:30 Zolpidem Tartrate 5 mg 5 mg HS PRN PO INSOMNIA Last administered on 06/14/17 00:14; Admin Dose 5 MG; Start 06/12/17 at 22:30 Potassium Chloride/Dextrose/ Sod Cl (D5-1/2ns + KCl 40 Meq) 1,000 ml @ 75 mls/ hr [id number] IV Last administered on 06/16/17 06:12; Admin Dose 75 MLS/HR; Start 06/13/17 at 09:30 Hydromorphone HCl (Dilaudid) 2 mg Q6H PRN PO PAIN; Start 06/14/17 at 10:30 Lorazepam (Ativan) 1 mg HS PO Last administered on 06/15/17 21:08; Admin Dose 1 MG; Start 06/15/17 at 00:00 MEREDITH DENNIS Jun 16, 2017 19:23
[2017-06-16] MEDS: LORAZEPAM 1 MG TAB PO SCH (22:00)
[2017-06-17] VITALS (10 sets, daily range): BP systolic 92–118; BP diastolic 54–67; PULSE 94–100; RESP 18–20
[2017-06-17] MEDS: PANTOPRAZOLE 40 MG INJ IV SCH (06:24)
[2017-06-17] MEDS: D5W-0.45 NACL + KCL 40 MEQ 1,000 ML IV SCH ×3 (06:25→22:56)
[2017-06-17 06:46] LABS: ABNORMAL IP MESSAGE 1; HEMATOCRIT 27.5 % (37.0-47.0); HEMOGLOBIN 9.3 g/dl (12.0-16.0); MEAN CORPUSCULAR HEMOGLOBIN 34.8 pg (29.0-33.0); MEAN CORPUSCULAR HGB CONC 33.8 g/dl (32.0-37.0); MEAN PLATELET VOLUME 10.8 fl (7.4-10.4); NUCLEATED RED BLOOD CELLS% 4.8 /100WBC (0.0-0.0); PLATELET COUNT 384 10^3/UL (140-415); RED BLOOD COUNT 2.67 10^6/ul (4.20-5.40)
[2017-06-17 06:48] LABS: POSITIVE DIFF @See below
[2017-06-17 07:23] LABS: CALCIUM 9.5 mg/dl (8.4-10.2); CREATININE 0.72 mg/dl (0.44-1.00); POTASSIUM 4.1 mmol/L (3.5-5.1)
[2017-06-17] MEDS ORDERED: MAGNESIUM SULFATE 4 GM/100 ML 100 ML IVPB ONE (09:00)
[2017-06-17 10:15] LABS: ANISOCYTOSIS 1+ (0-0); ERYTHROBLAST% (NRBC) (M) 2 % (0-0); GIANT THROMBO% (M) 1 % (0-0); MONOCYTES % (M) 11 % (0-11); PLATELET ESTIMATE NORMAL; POLYCHROMASIA 2+ (0-0); TARGET CELLS 1+ (0-0)
--- NOTE | 2017-06-17 14:33 | PN ---
Date/Time of Note Date/Time of Note DATE: 06/17/17 TIME: 14:32 Assessment/Plan Lines/Catheters IV Catheter Type (from Nrs): SHWETA CATH Urinary Cath still in place: No Assessment/Plan Assessment/Plan - Possible small bowel obstruction, resolved. Dr. Neal is following in surgical consultation. - Metastatic ovarian cancer, status post cytoreduction surgery in [address] Oliva is following in hematology/oncology consultation. - Hypomagnesium - replace Mag , am Mag level Further recommendations based on clinical course. Plan of care discussed with Dr. Matthews. Exam/Review of Systems Vital Signs Vitals Vital Signs Date Time Temp Pulse Resp B/P Pulse Ox O2 Delivery O2 Flow Rate FiO2 06/17/17 13:00 98.4 96 20 92/54 95 Intake and Output 06/16/17 06/16/17 06/17/17 15:00 23:00 07:00 Intake Total 2150 ml Output Total 1250 ml Balance 900 ml Exam Constitutional: alert, well developed ENMT: nl external ears & nose Neck: non-tender Respiratory: clear to auscultation Cardiovascular: regular rate and rhythm Gastrointestinal: non-tender, soft Musculoskeletal: nl extremities to inspection Results Result Diagram: 06/17/17 0555 06/17/17 0555 Results 24 hrs Laboratory Tests Test 06/16/17 19:36 06/17/17 05:55 Magnesium Level 1.0 L 0.8 *L White Blood Count 21.0 #H Red Blood Count 2.67 L Hemoglobin 9.3 L Hematocrit 27.5 L Mean Corpuscular Volume 103.0 H Mean Corpuscular Hemoglobin 34.8 H Mean Corpuscular Hemoglobin Concent 33.8 Red Cell Distribution Width 14.0 Platelet Count 384 Mean Platelet Volume 10.8 H Neutrophils % Segmented Neutrophils % (Manual) 55 Band Neutrophils % (Manual) 6 H Lymphocytes % Lymphocytes % (Manual) 28 Monocytes % Monocytes % (Manual) 11 Eosinophils % Basophils % Nucleated Red Blood Cells % 2 H Neutrophils # Neutrophils # (Manual) 11.8 H Band Neutrophils # 1.2 H Absolute Lymphocytes (Manual) 5.8 H Lymphocytes # Monocytes # Absolute Monocytes (Manual) 2.3 H Eosinophils # Basophils # Nucleated Red Blood Cells # Platelet Estimate NORMAL Giant Platelets 1 H Platelet Morphology Comment @See below Polychromasia 2+ Anisocytosis 1+ Macrocytosis 1+ Target Cells 1+ Sodium Level 139 Potassium Level 4.1 Chloride Level 102 Carbon Dioxide Level 25 Anion Gap 16 Blood Urea Nitrogen 10 Creatinine 0.72 Glucose Level 102 Calcium Level 9.5 Medications Medications Current Medications Ondansetron HCl (Zofran Inj) 4 mg Q6H PRN IV NAUSEA AND/OR VOMITING Last administered on 06/11/17 22:08; Admin Dose 4 MG; Start 06/09/17 at 18:30 Diphenoxylate HCl/ Atropine (Lomotil) 2 tab Q6H PRN PO DIARRHEA Last administered on 06/14/17 00:13; Admin Dose 2 TAB; Start 06/10/17 at 21:30 Pantoprazole (Protonix Iv) 40 mg DAILY@06 IV Last administered on 06/17/17 06 :24; Admin Dose 40 MG; Start 06/11/17 at 16:30 Acetaminophen (Tylenol Tab) 650 mg Q4H PRN PO PAIN AND OR ELEVATED TEMP Last administered on 06/15/17 21:31; Admin Dose 650 MG; Start 06/12/17 at 15:30 Zolpidem Tartrate 5 mg 5 mg HS PRN PO INSOMNIA Last administered on 06/14/17 00:14; Admin Dose 5 MG; Start 06/12/17 at 22:30 Potassium Chloride/Dextrose/ Sod Cl (D5-1/2ns + KCl 40 Meq) 1,000 ml @ 75 mls/ hr [id number] IV Last administered on 06/17/17 06:25; Admin Dose 75 MLS/HR; Start 06/13/17 at 09:30 Hydromorphone HCl (Dilaudid) 2 mg Q6H PRN PO PAIN; Start 06/14/17 at 10:30 Lorazepam (Ativan) 1 mg HS PO Last administered on 06/16/17 22:00; Admin Dose 1 MG; Start 06/15/17 at 00:00 MEREDITH DENNIS Jun 17, 2017 14:33
[2017-06-17] MEDS: LORAZEPAM 1 MG TAB PO SCH (22:57)
[2017-06-18] VITALS (10 sets, daily range): BP systolic 86–117; BP diastolic 47–58; PULSE 90–100; RESP 17–20
[2017-06-18] MEDS: PANTOPRAZOLE 40 MG INJ IV SCH (05:44)
[2017-06-18] MEDS: D5W-0.45 NACL + KCL 40 MEQ 1,000 ML IV SCH ×2 (07:54→09:30)
[2017-06-18 08:54] LABS: CALCIUM 9.9 mg/dl (8.4-10.2); CREATININE 0.8 mg/dl (0.44-1.00); MAGNESIUM 1.3 mg/dl (1.7-2.5); POTASSIUM 4.1 mmol/L (3.5-5.1)
--- NOTE | 2017-06-18 17:51 | PN ---
Date/Time of Note Date/Time of Note DATE: 06/18/17 TIME: 17:50 Assessment/Plan VTE Prophylaxis VTE Prophylaxis Intervention: SCD's Lines/Catheters IV C[facility]ter Type (from [facility] isreal cath Urinary Cath still in place: No Assessment/Plan Chief Complaint/Hosp Course Patient complaints of generalized weakness. Magnesium is still low despite of replacement. Will give 4 g of magnesium sulfate, check B12. Patient tolerates mechanical soft diet well, to be discharged home tomorrow if stable electrolytes. Assessment/Plan -Possible small bowel obstruction, resolved. Dr. Neal is following in surgical consultation. -Metastatic ovarian cancer, status post cytoreduction surgery in [address] Oliva is following in hematology/oncology consultation. Further recommendations based on clinical course. Plan of care discussed with Dr. Matthews. Problems: Exam/Review of Systems Vital Signs Vitals Vital Signs Date Time Temp Pulse Resp B/P Pulse Ox O2 Delivery O2 Flow Rate FiO2 06/18/17 16:00 90 06/18/17 15:47 98.2 17 86/47 98 Intake and Output 06/17/17 06/17/17 06/18/17 15:00 23:00 07:00 Intake Total 100 ml 1400 ml 2300 ml Output Total 800 ml 1450 ml Balance 100 ml 600 ml 850 ml Exam Constitutional: alert, oriented Respiratory: normal air movement Cardiovascular: nl pulses Gastrointestinal: soft Extremities: normal pulses Neurological: nl mental status Results Result Diagram: 06/17/17 0555 06/18/17 0727 Results 24 hrs Laboratory Tests Test 06/18/17 07:27 Sodium Level 138 Potassium Level 4.1 Chloride Level 101 Carbon Dioxide Level 26 Anion Gap 15 Blood Urea Nitrogen 12 Creatinine 0.80 Glucose Level 106 Calcium Level 9.9 Magnesium Level 1.3 L Medications Medications Current Medications Ondansetron HCl (Zofran Inj) 4 mg Q6H PRN IV NAUSEA AND/OR VOMITING Last administered on 06/11/17 22:08; Admin Dose 4 MG; Start 06/09/17 at 18:30 Diphenoxylate HCl/ Atropine (Lomotil) 2 tab Q6H PRN PO DIARRHEA Last administered on 06/14/17 00:13; Admin Dose 2 TAB; Start 06/10/17 at 21:30 Pantoprazole (Protonix Iv) 40 mg DAILY@06 IV Last administered on 06/18/17 05 :44; Admin Dose 40 MG; Start 06/11/17 at 16:30 Acetaminophen (Tylenol Tab) 650 mg Q4H PRN PO PAIN AND OR ELEVATED TEMP Last administered on 06/15/17 21:31; Admin Dose 650 MG; Start 06/12/17 at 15:30 Zolpidem Tartrate 5 mg 5 mg HS PRN PO INSOMNIA Last administered on 06/14/17 00:14; Admin Dose 5 MG; Start 06/12/17 at 22:30 Potassium Chloride/Dextrose/ Sod Cl (D5-1/2ns + KCl 40 Meq) 1,000 ml @ 75 mls/ hr [id number] IV Last administered on 06/18/17 07:54; Admin Dose 75 MLS/HR; Start 06/13/17 at 09:30 Hydromorphone HCl (Dilaudid) 2 mg Q6H PRN PO PAIN; Start 06/14/17 at 10:30 Lorazepam 1 mg 1 mg HS PO Last administered on 06/17/17 22:57; Admin Dose 1 MG; Start 06/15/17 at 00:00 Magnesium Sulfate (Magnesium Sulfate 4 Gm/100 ml) 100 ml @ 25 mls/hr ONCE ONCE IVPB ; Start 06/18/17 at 18:00; Stop 06/18/17 at 21:59; Status AMEE GRAHAM Jun 18, 2017 17:51
[2017-06-18] MEDS ORDERED: MAGNESIUM SULFATE 4 GM/100 ML 100 ML IVPB ONE (20:00)
[2017-06-18] MEDS: LORAZEPAM 1 MG TAB PO SCH (20:19)
[2017-06-19] VITALS: BP 99/50; PULSE 95; RESP 17
[2017-06-19] MEDS: D5W-0.45 NACL + KCL 40 MEQ 1,000 ML IV SCH ×2 (00:40→12:10)
[2017-06-19 04:00] VITALS: BP 92/49; PULSE 95; RESP 17
[2017-06-19] MEDS: PANTOPRAZOLE 40 MG INJ IV SCH (06:22)
[2017-06-19 06:51] LABS: ABNORMAL IP MESSAGE 1; HEMATOCRIT 27.1 % (37.0-47.0); HEMOGLOBIN 8.9 g/dl (12.0-16.0); MEAN CORPUSCULAR HEMOGLOBIN 34.4 pg (29.0-33.0); MEAN CORPUSCULAR HGB CONC 32.8 g/dl (32.0-37.0); MEAN CORPUSCULAR VOLUME 104.6 fl (82.0-101.0); MEAN PLATELET VOLUME 10.1 fl (7.4-10.4); NUCLEATED RED BLOOD CELLS% 2.2 /100WBC (0.0-0.0); PLATELET COUNT 406 10^3/UL (140-415); RED BLOOD COUNT 2.59 10^6/ul (4.20-5.40); RED CELL DISTRIBUTION WIDTH 14.2 % (11.5-14.5); WHITE BLOOD COUNT 18.2 10^3/ul (4.8-10.8)
[2017-06-19 06:56] LABS: POSITIVE DIFF @See below
[2017-06-19 07:38] LABS: ANION GAP 15 (8-16); BLOOD UREA NITROGEN 14 mg/dl (7-20); CALCIUM 9.7 mg/dl (8.4-10.2); CARBON DIOXIDE 27 mmol/L (21-31); CHLORIDE 99 mmol/L (97-110); CREATININE 0.72 mg/dl (0.44-1.00); GLUCOSE 139 mg/dl (70-220); POTASSIUM 4.6 mmol/L (3.5-5.1); SODIUM 136 mmol/L (135-144)
[2017-06-19 08:00] VITALS: PULSE 102
[2017-06-19 08:06] LABS: ANISOCYTOSIS 1+ (0-0); BASOPHILS % (M) 1 % (0-2); EOSINOPHILS % (M) 1 % (0-7); ERYTHROBLAST% (NRBC) (M) 5 % (0-0); METAMYELOCYTES %M 1 % (0-0); MONOCYTES % (M) 11 % (0-11); MYELOCYTES % (M) 1 % (0-0); PLATELET ESTIMATE NORMAL; POLYCHROMASIA 2+ (0-0); REACTIVE LYMPHOCYTES% (M) 12 % (0-0)
[2017-06-19 09:18] VITALS: BP 106/54; RESP 18
[2017-06-19 12:00] VITALS: PULSE 91
[2017-06-19 12:30] VITALS: BP 99/51; RESP 17
[2017-06-19] MEDS ORDERED: SLOMAG PO (13:13)
--- NOTE | 2017-06-20 19:09 | DS ---
Date/Time of Note Date/Time of Note DATE: 06/20/17 TIME: 19:06 Discharge Summary Admission/Discharge Info Admit Date/Time Jun 09, 2017 at 02:06 Discharge Date/Time Jun 19, 2017 at 15:32 Patient Condition: Stable Hx of Present Illness Patient with metastatic ovarian cancer on chemotherapy comes in with abdominal pain, nausea and vomiting for the past 5 days. Patient is found to have small bowel obstruction and so is admitted for further treatment. Hospital Course -Possible small bowel obstruction, resolved. Dr. Neal is following in surgical consultation. Pt is able to tolerated soft diet. D/W patient sister Otilia. -Metastatic ovarian cancer, status post cytoreduction surgery in [address] Oliva is following in hematology/oncology consultation. - Hypomagnesemia, replaced. Plan of care discussed with Dr. Matthews. Home Meds Active Scripts Magnesium Chloride* (Mag 64*) 64 Mg Tabsr, 64 MG PO BID for 14 Days, TAB Prov:AMEE JIMENEZ 06/19/17 Reported Medications Bly-3S/Dha/Epa/Fish Oil/D3 (FISH OIL + D3 SOFTGEL) 1 Each Capsule, 1 EACH PO DAILY, CAP 06/08/17 Memantine* (Namenda* XR) 28 Mg Cap.spr.24, 28 MG PO DAILY, #30 TAB 06/08/17 Gabapentin* (Gabapentin*) 300 Mg Capsule, 300 MG PO DAILY, #60 CAP 06/08/17 Famotidine* (Famotidine*) 40 Mg Tablet, 40 MG PO HS, #30 TAB 06/08/17 Hydrocodone/Acetaminophen ([place] 10-325 Tablet) 1 Each Tablet, 1 EACH PO QID, TAB 06/08/17 Tramadol HCl (Tramadol HCl) 50 Mg Tablet, 50 MG PO Q6H Y for PAIN LEVEL 6-10, # 120 TAB 01/27/17 Ondansetron Hcl* (Zofran*) 8 Mg Tablet, 8 MG PO Q12 Y for NAUSEA AND OR VOMITING , TAB 01/27/17 Docusate Sodium* (Colace*) 250 Mg Capsule, 500 MG PO QHS, #60 CAP 01/27/17 Folic Acid* (Folic Acid*) 1 Mg Tablet, 1 MG PO DAILY, TAB 10/03/16 Lorazepam* (Lorazepam*) 1 Mg Tablet, 1 MG PO HS Y for SLEEP, #30 TAB 10/03/16 Discontinued Reported Medications Pantoprazole* (Pantoprazole*) 40 Mg Tablet.dr, 40 MG PO AC BREAKFAST, TAB 06/08/17 Pantoprazole* (Protonix*) 40 Mg Tablet.dr, 40 MG PO DAILY, TAB 01/27/17 Follow-up Plan f/up with PMD in 2 weeks, Josie CENTENO in 2 weeks. Primary Care Provider William Kimble Time spent on discharge: > 30 minutes AMEE JIMENEZ Jun 20, 2017 19:09
== END 2017-06-19 15:32 | disposition home or self-care (01) | DRG 389 ==
LOC: E/R 16:25 → MS4 06-09 02:06
PROVIDERS: ADMIT Internal Medicine; ATTEND Internal Medicine
DX: K56.609 Unspecified intestinal obstruction, unspecified as to partial versus complete obstruction (principal); C79.60 Secondary malignant neoplasm of unspecified ovary; C80.1 Malignant (primary) neoplasm, unspecified; D70.1 Agranulocytosis secondary to cancer chemotherapy; E83.42 Hypomagnesemia; K80.20 Calculus of gallbladder without cholecystitis without obstruction; D64.9 Anemia, unspecified; E87.6 Hypokalemia; T45.1X5A Adverse effect of antineoplastic and immunosuppressive drugs, initial encounter; Z98.0 Intestinal bypass and anastomosis status
CPT/HCPCS: 36415; 74000; 74176; 76705; 80048; 80053; 81003; 82607; 83605; 83690; 83735; 84100; 85025; 86304; 87040; 87086; 90686; 96361; 96365; 96375; C9113; J0692; J1170; J2270; J2405; J2543; J3480; J7030; J7050; P9612

== ENCOUNTER 2017-12-13 03:00 | Inpatient (IN) | END 2017-12-22 19:50 | disposition home or self-care (01) | DRG 390 ==

== ENCOUNTER 2018-03-22 04:05 | Inpatient (IN) | END 2018-03-22 17:36 | disposition home health service (06) | DRG 812 ==